=== PATIENT | female | born 1960 | race Caucasian/White ===

== ENCOUNTER 2016-06-03 11:55 | Emergency (ER) | payer OTHER ==
[~2016-06-03] VITALS: Ht 162.5 cm; Wt 99.8 kg
[~2016-06-03 11:55] MED LIST: ACETAMINOPHEN-H1 TA2 PO; ACETAZOLAMIDE250 MG PO; ACETAZOLAMIDE500 M2 PO; ADVAIR 250/501 EA INH; AKWA TEARS 15 M15 ML OPH; ALBUTEROL0.09 MG/A2 IH; BISAC-EVAC10 MG R; BREO ELLIPTA 11 EACH IH; CARDIZEM CD180 MG PO; CITALOPRAM HYDR20 MG PO; CLINDAMYCIN HC300 MG PO; DELTASONE20 M1 PO; DIAMOX500 MG PO; DIPHENHYDRAMINE25 M2 PO; DUONEB 3 MG/3 ML3 M1 INH; DUONEB 3 MG/3 ML3 M1 NEB; ELIQUIS5 M1 PO; FIORICET 325 MG1 TAB PO; FLAGYL500 MG PO; GABAPENTIN100 M1 PO; GABAPENTIN300 MG PO; HALOPERIDOL IV; HYDR12.5C PO; HYDROCODONE BIT1 T11 PO; IBUPROFEN600 MG PO; INCRUSE EL62.5 MCG/A IH; K-TAB20 MEQ PO; KLORVESS,K40 MEQ/30 PO; LASIX20 MG PO; LEVAQUIN500 M2 PO; LEVAQUIN750 M1 PO; LEVAQUIN750 MG PO; MACROBID100 M1 PO; MERREM IV1 GM IV; MIDAZOLAM HCL IV; MOTRIN IB200 M1 PO; MOTRIN800 MG PO; Magnesium Oxid400 MG PO; NATURE'S BLEND F1 MG PO; NEURONTIN300 MG PO; NICOTINE T21 MG/24 H T; NOVAPLUS SOLU-125 MG IV; ONDANSETRON H2 MG/ML IV; OXYGEN NAS; PANTOPRAZOLE SO40 MG PO; PERCOCET 325 MG1 TA2 PO; PERCOCET 325 MG1 TA7 PO; POTASSIUM CHLO20 ME3 PO; PREDNICOT20 MG PO; PREDNISONE10 MG PO; PREDNISONE50 MG PO; PROTONIX40 M1 IV; QVAR0.08 MG/AC INH; SMZ-TMP 400 MG-1 TAB PO; SPIRIVA18 MCG PO; TYLENOL650 MG R; VENTOLIN H0.09 MG/AC INH; VITAMIN D50000 I3 PO; XARE20MG PO; ZITHROMAX Z PA250 MG PO; ZOVIRAX800 MG PO
[2016-06-03 12:34] LABS: BILIRUBIN NEGATIVE (NEGATIVE); BLOOD NEGATIVE (NEGATIVE); CLARITY SL CLOUDY (CLEAR); COLOR YELLOW (YELLOW); GLUCOSE NEGATIVE (NEGATIVE); KETONE NEGATIVE (NEGATIVE); LEUKO ESTERASE NEGATIVE (NEGATIVE); NITRITE NEGATIVE (NEGATIVE); PROTEIN NEGATIVE (NEGATIVE); SPECIFIC GRAVITY 1.015 (1.005-1.030); UROBILINOGEN 0.2 E.U./dl (0.2-1.0)
[2016-06-03 12:39] LABS: URINE REFLEX COMMENT NO (NO)
[2016-06-03 12:49] LABS: BASO # 0.1 10*3/uL (0.0-0.1); BASO % 0.7 % (0.0-1.0); EOS # 0.2 10*3/uL (0.0-0.4); EOS % 2.8 % (1.0-4.0); HEMATOCRIT 38.9 % (37.0-47.0); HEMOGLOBIN 12.3 g/dl (12.0-16.0); IG # 0.1 10*3/uL (0.0-0.1); LYMPH # 1.8 10*3/uL (1.3-4.4); LYMPH % 25.7 % (27.0-41.0); MEAN CORPUSCULAR HGB 30.7 pg (27.0-31.0); MEAN CORPUSCULAR HGB CONC 31.6 g/dl (33.0-37.0); MONO # 0.7 10*3/uL (0.1-1.0); NEUT # 4.1 10*3/uL (2.3-7.9); NEUT % 59.6 % (47.0-73.0); PLATELET COUNT AUTOMATED 240 10*3/uL (130-400); RED BLOOD COUNT 4.01 10*6/uL (4.10-5.10); RED CELL DISTRI WIDTH 14.4 % (0-14.5); WHITE BLOOD COUNT 6.9 10*3/uL (4.8-10.8)
[2016-06-03 13:06] LABS: ALBUMIN 3.1 gm/dl (3.1-4.5); ALKALINE PHOSPHATASE 58 U/L (45-117); BILIRUBIN, TOTAL 0.4 mg/dl (0.2-1.0); BUN 14 mg/dl (7-24); CARBON DIOXIDE 27 mmol/L (21-32); CHLORIDE 110 mmol/L (98-107); EST GLOM FILT AFRICAN AMERICAN > 60 ml/min; GLUCOSE 86 mg/dL (65-99); POTASSIUM 3.4 mmol/L (3.5-5.1); SGOT/AST 7 IU/L (3-35); SGPT/ALT 13 U/L (12-78); SODIUM 145 mmol/L (136-145)
[2016-06-03] MEDS ORDERED: MIRALAX POWDER17 G1 PO (16:16)
== END 2016-06-03 16:34 | disposition home or self-care (01) ==
LOC: ED 11:55
PROVIDERS: Emergency Medicine
DX: R10.9 Unspecified abdominal pain (principal); F17.200 Nicotine dependence, unspecified, uncomplicated; I48.91 Unspecified atrial fibrillation; J44.9 Chronic obstructive pulmonary disease, unspecified; K21.9 Gastro-esophageal reflux disease without esophagitis; F12.10 Cannabis abuse, uncomplicated; Z88.0 Allergy status to penicillin; Z79.899 Other long term (current) drug therapy; Z90.49 Acquired absence of other specified parts of digestive tract

== ENCOUNTER 2016-07-22 14:40 | Emergency (ER) | payer OTHER ==
[~2016-07-22] VITALS: Ht 167.6 cm; Wt 106.6 kg
[~2016-07-22 14:40] MED LIST changes: +MIRALAX POWDER17 G1 PO
[2016-07-22] MEDS ORDERED: PREDNISONE5 MG PO (14:49)
[2016-07-22 15:21] LABS: BASO # 0.1 10*3/uL (0.0-0.1); BASO % 0.6 % (0.0-1.0); EOS # 0.1 10*3/uL (0.0-0.4); EOS % 1.1 % (1.0-4.0); HEMATOCRIT 41.8 % (37.0-47.0); HEMOGLOBIN 12.9 g/dl (12.0-16.0); LYMPH # 1.3 10*3/uL (1.3-4.4); LYMPH % 15.6 % (27.0-41.0); MEAN CELL VOLUME 97.4 fl (81.0-99.0); MEAN CORPUSCULAR HGB 30.1 pg (27.0-31.0); MEAN CORPUSCULAR HGB CONC 30.9 g/dl (33.0-37.0); MEAN PLATELET VOLUME 9.3 fl (9.6-12.3); MONO # 0.5 10*3/uL (0.1-1.0); MONO % 5.7 % (3.0-9.0); NEUT # 6.5 10*3/uL (2.3-7.9); NEUT % 76.6 % (47.0-73.0); PLATELET COUNT AUTOMATED 295 10*3/uL (130-400); RED BLOOD COUNT 4.29 10*6/uL (4.10-5.10); RED CELL DISTRI WIDTH 13.3 % (0-14.5); WHITE BLOOD COUNT 8.4 10*3/uL (4.8-10.8)
[2016-07-22 15:36] LABS: ALBUMIN 3.6 gm/dl (3.1-4.5); ALKALINE PHOSPHATASE 78 U/L (45-117); BILIRUBIN, TOTAL 0.2 mg/dl (0.2-1.0); BUN 16 mg/dl (7-24); CARBON DIOXIDE 28 mmol/L (21-32); CHLORIDE 110 mmol/L (98-107); EST GLOM FILT AFRICAN AMERICAN > 60 ml/min; GLUCOSE 92 mg/dL (65-99); POTASSIUM 3.7 mmol/L (3.5-5.1); SGOT/AST 13 IU/L (3-35); SGPT/ALT 25 U/L (12-78); SODIUM 145 mmol/L (136-145); TOTAL PROTEIN 7.2 gm/dL (6.4-8.2)
[2016-07-22 15:43] LABS: BILIRUBIN NEGATIVE (NEGATIVE); BLOOD NEGATIVE (NEGATIVE); CLARITY CLEAR (CLEAR); COLOR YELLOW (YELLOW); GLUCOSE NEGATIVE (NEGATIVE); KETONE NEGATIVE (NEGATIVE); LEUKO ESTERASE NEGATIVE (NEGATIVE); NITRITE NEGATIVE (NEGATIVE); PROTEIN NEGATIVE (NEGATIVE); UROBILINOGEN 0.2 E.U./dl (0.2-1.0)
[2016-07-22 16:00] LABS: RBC 0-2 rbc/hpf (0-2); URINE REFLEX COMMENT NO (NO); WBC 0-2 wbc/hpf (0-5)
[2016-07-22] MEDS ORDERED: HYDROCODONE BIT1 T11 PO (17:27)
== END 2016-07-22 17:21 | disposition home or self-care (01) ==
LOC: ED 14:40
PROVIDERS: Registered Nurse
DX: K42.9 Umbilical hernia without obstruction or gangrene (principal); F17.200 Nicotine dependence, unspecified, uncomplicated; Z90.49 Acquired absence of other specified parts of digestive tract; Z79.899 Other long term (current) drug therapy; Z88.0 Allergy status to penicillin

== ENCOUNTER 2016-11-16 11:53 | Inpatient (IN) | payer OTHER ==
[~2016-11-16] VITALS: Ht 165.1 cm; Wt 106.3 kg
--- NOTE | ~2016-11-16 | PR ---
[place], [place] PROGRESS NOTE NAME[id number] UN[facility] #: [id number] ROOM: [facility] DOCTOR: ANGELINA ERICKSON MD,JULIA BIRTHDATE: [birth year] DOS: 11/22/2016 SUBJECTIVE: The patient remains on mechanical ventilator, sedated with intravenous Diprivan. She has been attempted yesterday on CPAP mode of mechanical ventilation and did not tolerate that because of hypoxia noted as the patient switched to assist controlled mechanical ventilation. There has not been much secretion production. The patient noted from the endotracheal tube. This morning, the patient's sedation was discontinued as well. The patient was noted awake for this patient, she was switched to assist controlled mode of mechanical ventilation after about 15-20 minutes. The patient was noted with hypoxia again with pulse ox saturation of 70%. She had not been noted any symptoms of hemodynamic instability. She has been on continuing intravenous vancomycin. Culture of the bronchial washing currently noted with MRSA isolated and regular Staph aureus, which was previous noted as endotracheal aspirate. OBJECTIVE: VITAL SIGNS: Which has been recorded, the temperature remains normal, respiratory rate 16-24, heart rate 102-72, and blood pressure 111/75-96/68. The pulse oxygen saturation 35% oxygen 98% saturation, previously on the same oxygen saturation with the CPAP was noted oxygen saturation 70%. HEENT: The patient is currently intubated, orogastric tube is in place. NECK: Supple. CARDIOVASCULAR: S1, S2 audible. LUNGS: Moderate decreased breath sounds. There were no wheezing heard. There were no crackles present. ABDOMEN: Soft, obese, nontender. Bowel sounds present. EXTREMITIES: Mild edema. CENTRAL NERVOUS SYSTEM: The patient does follow some of the vocal commands with reduction of the sedation. LABORATORY DATA: The arterial blood gas that was done on assist control mode mechanical ventilation with 35% oxygen, pH of 7.36, pCO2 of 59.2, and pO2 of 80.1. The bronchial washing culture moderate growth of MRSA. The BMP on 11/22/2016, glucose 152, BUN and creatinine was normal, CO2 of 34. CBC on 11/22/2016, hemoglobin and hematocrit were normal. Platelet count normal. WBC count is normal, 95% segmented neutrophils. IMPRESSION: 1. Persistent acute hypoxic respiratory failure was noted with hypercapnia, inability to be liberated from mechanical ventilation at this time successfully. 2. Metabolic alkalosis as well. 3. Chronic obesity. 4. Generalized anxiety disorder as well. 5. MRSA tracheobronchitis as well. 6. Difficulty weaning. PLAN OF TREATMENT: The patient has been switched back to assist control mechanical ventilation and starting sedation. The sedation to be cut down gradually and the patient might need to be switched to the Haldol. Long-term acute care facility consultation to be obtained. Continue nutrition support. [place], [place] PROGRESS NOTE NAME: ANGIE VERDUZCO UNIT #: [id number] ROOM: [facility] DOCTOR: ANGELINA ERICKSON MD,JULIA BIRTHDATE: [birth year] Other supportive therapy, plan of management and care. Usual treatment. Addition of treatment changes need to be made for the patient based on progression of illness. Continuation ventilator bundle management. Continuation of the vancomycin. The Levaquin has been discontinued based on the current culture results. Continuation of anticoagulation for this patient as well with Eliquis. Total time pulmonary critical care evaluation and management was 34 minutes. JULIA ALFARO MD CM:PNJORGE ALBERTO [id number] JULIA ERICKSON MD 11/23/16 0143 interface
--- NOTE | ~2016-11-16 | PR ---
[place], [place] PROGRESS NOTE NAME: [facility] [id number] UNIT #: [id number] ROOM: [facility] DOCTOR: ANGELINA ERICKSON MD,JULIA BIRTHDATE: [birth year] DOS: 12/04/2016 SUBJECTIVE: The patient was seen and examined on 12/04/2016, remains on mechanical ventilator, sedated on assist control mode mechanical ventilation. She has not been noted any hemodynamic instability. The patient was continued on intravenous antibiotics. The temperature curve was noted intermittently elevated but overall reduction of the temperature curve was noted with a normal temperature in the last 24 hours. She has been noted with increased secretion production from the endotracheal tube, which has been aspirated by the respiratory nursing staff. Feeding was continued, which has been tolerated from the orogastric tube. OBJECTIVE: VITAL SIGNS: Recorded showed the highest temperature noted at 100.4 degree Fahrenheit, normal temperature, respiratory rate of 18-22, heart rate of 100-90, blood pressure 132/68-120/62. Intake is 1930. Positive fluid balance 430 mL was noted. The pulse oxygen saturation on 50% oxygen 99% saturation. HEENT: Head was atraumatic. Eyes, nonicterus. NECK: Supple. CARDIOVASCULAR: S1, S2 audible. LUNGS: Noted moderate decreased breath sounds with some crackles at the left lung base. There was no wheezing heard. ABDOMEN: Soft, obese. EXTREMITIES: Shows mild edema. LABORATORY DATA: CBC on 12/04/2016, WBC count 19.8, hemoglobin 8, hematocrit 25.9, platelet count 131,000 after the previous blood transfusion on the 12/02/2016. CMP of the patient that was done this morning, BUN 25, creatinine was normal, glucose 145, sodium 148, CO2 of 39. Blood culture from 11/29/2016 two sets, bacterial growth, four sets have rather showed no no bacterial growth. Culture of the tip of the multi-lumen catheter noted with Staphylococcus epidermidis isolation that were noted sensitive to vancomycin. IMPRESSION: 1. The patient was currently noted with persistent acute on chronic hypercapnic hypoxic respiratory failure. 2. Acute pneumonia Staph aureus with possible MRSA as well in the left lower lobe remains unchanged with small pleural fluid. Pleural fluid is related to current acute bacterial pneumonia. 3. Isolation Staph epidermidis. The patient is on multi-lumen catheter with moderate ___, removed. 4. Chronic obesity. 5. Chronic hypercarbia metabolic alkalosis remained stable. 6. Mild azotemia secondary to use of corticosteroids intravascular volume depletion. 7. Anemia. The patient without any active major GI bleeding that the patient was noted. PLAN OF TREATMENT: Continuation of the current antibiotics. Continue bronchodilators and use of the corticosteroids and current dose 40 mg [place], [place] PROGRESS NOTE NAME: [facility]: [id number] UNIT #: [id number] ROOM: [facility] DOCTOR: ANGELINA ERICKSON MD,JULIA BIRTHDATE: [birth year] Solu-Medrol daily. Continue Diamox once a day, resulting in improvement in metabolic alkalosis. Continue antibiotics, vancomycin. Repeat endotracheal aspirate culture and also, obtain chest x-ray to reassess the progression of the pneumonia or any addition of interval development of any new issues. Further therapy, plan of management to be changed based on progression of illness, nutrition supposed to be continued, the prealbumin level was noted today, as prealbumin level was noted at 27 this morning. Vancomycin trough level was ordered, which was pending at this time. Continuation of all other plan of management was planned for tracheostomy done tomorrow morning remains off the Eliquis and anticoagulant. While the patient on anticoagulation, a tentative most of DVT prophylaxis will be done with use of the SCDs. Other supportive therapy, plan and management and care. Additional treatment changes continue be made based on the progression of the illness. Total time pulmonary critical care evaluation today was 36 minutes. JULIA ALFARO MD CM:PNTRANS [id number] JULIA ERICKSON MD 12/05/16222 interface
--- NOTE | ~2016-11-16 | PR ---
[place], [place] PROGRESS NOTE NAME: ANGIE VERDUZCO [facility] #: [id number] UNIT #: [id number] ROOM: [facility] DOCTOR: ANGELINA ERICKSON MD,JULIA BIRTHDATE: [birth year] DOS: 12/06/2016 SUBJECTIVE: The patient remains in the Intensive Care Unit. She has a tracheostomy done yesterday successfully #8 Shiley trach, which was actually long. She has been noted awake and alert for this patient at this time. She has been given some ____ for this patient, which has been taken by the patient without any difficulty. Mechanical ventilation continued with SI motor mechanical ventilation; however, the tidal volume. The patient has been entered after the change of tracheostomy to 450 mL. This morning, the patient has been noted mild tachypnea. The temperature of the patient noted mildly elevated intermittently. Feeding was continued essentially from the nasogastric tube, which was inserted yesterday as the orogastric tube was removed from the patient when the patient tracheostomy completed. OBJECTIVE: VITAL SIGNS: For the patient which were recorded showed the temperature of 100.7 degrees Fahrenheit to normal temperature, respiratory rate of 31-21, heart rate 110-95, blood pressure 142/75 to 136/67. Intake of the patient is 3200 mL, output 2300 mL. Pulse oxygen saturation 40%, oxygen 98% saturation. HEENT: Examination shows no new change. NECK: Supple. CARDIOVASCULAR: Tracheostomy in place. CARDIOVASCULAR: S1, S2 audible. LUNGS: The patient was noted [id number] decreased breath sounds bilaterally. ABDOMEN: Soft and obese. EXTREMITIES: Shows mild edema. LABORATORY DATA: The patient's CMP this morning, glucose 204, BUN 25, creatinine were normal. CO2 of 36, albumin 1.9. CBC: WBC count 19.1, hemoglobin 7.6, hematocrit 25.2, platelet count 175,000, 89% segmented neutrophils. Chest x-ray of the patient that was done post tracheostomy for this patient, the tip of trach was noted about 3.5 cm above the óscar level because of the extra-long trach. Right lung was noted clear. The left lung was noted with a small pleural fluid with reduction previously noted pulmonary infiltration and pleural fluid combination. IMPRESSION: 1. Acute pneumonia. The patient with methicillin-resistant Staphylococcus aureus. 2. A small pleural fluid associated to that. 3. Persistent acute respiratory failure. Weaning has been done with synchronized intermittent-mandatory ventilation as mode mechanical ventilation. 4. Status post tracheostomy without complication. 5. Anemia for the patient was also noted exact etiology remains unclear. 6. Chronic obesity. Generalized anxiety disorder. PLAN OF TREATMENT: Continue feeding from the NG tube. Continue current dose of corticosteroids. Monitor leukocytosis. Blood transfusion to improve the hemoglobin and hematocrit. Weaning for the patient will be continued as [place], [place] PROGRESS NOTE NAME: [facility] [id number] UNIT #: [id number] ROOM: [facility] DOCTOR: ANGELINA ERICKSON MD,JULIA BIRTHDATE: [birth year] tolerated, tidal volume was increased to 600 mL for the patient 450 mL with SIM mode to be continued with a respiratory rate of 10. Other supportive therapy, plan and management as she progresses, usual care and supportive care treatment and plan of therapy. Initial treatment changes need to be made based on the progression of the illness. JULIA ALFARO MD CM:EDA [id number] JULIA ERICKSON MD 12/07/16 0046 interface
--- NOTE | ~2016-11-16 | PR ---
[place], [place] PROGRESS NOTE NAME: ANGIE VERDUZCO UNIT #: [id number] ROOM: [facility] DOCTOR: JANNET LOWRY DO BIRTHDATE: [birth year] DOS: 11/20/2016 SUBJECTIVE: The patient was noted to be lethargic, mumbling and crying and not really coherent. At that time, the patient was recommended to be placed on BiPAP and ABGs drawn. OBJECTIVE: VITAL SIGNS: Temperature 98.3, pulse 90, respiratory rate 20, bedside pulse ox 95 on BiPAP. Oxygen flow rate of 35. HEENT: Shows no changes. NECK: Supple. GENERAL: The patient looks lethargic and shortness of breath, with no use of accessory muscles. NEUROLOGIC: The patient seems to be drowsy. RESPIRATORY: Dyspnea at rest. Breath sounds diminished at the bases, wheezing and rhonchi noted in the posterior lung field. Nonproductive cough noted. CARDIOVASCULAR: Trace edema noted. No chest pain. S1, S2 audible. SKIN: Warm and dry. LABORATORY DATA: Blood gas, pH of 7.2, pCO2 of 78.2, pO2 of 89.3, HCO3 of 32.2. Sodium 139, BUN 28, creatinine 0.87. White cell count of 14.6, hemoglobin 13.2, platelet count 281. ASSESSMENT: 1. Acute exacerbation of chronic obstructive pulmonary disease. 2. Acute tracheobronchitis. 3. Acute respiratory failure. 4. Obstructive sleep apnea disorder. 5. Chronic metabolic acidosis. 6. Severe cough. 7. Leukocytosis, likely secondary to corticosteroid use. PLAN: 1. The patient will be transferred to ICU for close observation due to shortness of breath and lethargy. 2. The patient will be continued on DuoNebs q.4h., Mucinex q.12h., Levaquin and Solu-Medrol 60 q.12h. Supportive care. JANNET LOWRY DO [place], [place] PROGRESS NOTE NAME: ANGIE VERDUZCO UNIT #: [id number] ROOM: [facility] DOCTOR: JANNET LOWRY DO BIRTHDATE: [birth year] JULIA ALFARO MD CM:EDA [id number] JANNET LOWRY DO 11/20/16 1306 interface
--- NOTE | ~2016-11-16 | PR ---
[place], [place] PROGRESS NOTE NAME: ANGIE VERDUZCO [facility] #: [id number] UNIT #: [id number] ROOM: [facility] DOCTOR: ANGELINA ERICKSON MD,JULIA BIRTHDATE: [birth year] DOS: 11/26/2016 This is a pulmonary critical care management note for today. SUBJECTIVE: The patient was seen and examined on 11/26/2016. She has been noted on mechanical ventilator. She was started on CPAP mode of mechanical ventilation yesterday. Initial CPAP 5, pressure support of 10, later pressure support was increased to 15 cm of water. The patient was continued on the same mode of mechanical ventilation about 10-12 hours, later noted with tachypnea. The patient with elevation in carbon dioxide. She was switched to the assist control mode of mechanical ventilation. The patient continued getting intravenous Haldol for sedation purposes and also receiving the Risperdal orally. Feeding; the patient well tolerated. There were no hemodynamic instability noted. She was switched to CPAP mode of mechanical ventilation this morning. Noted with hypoxia. The patient had tachypnea, switched back to the assist controlled mode mechanical ventilation as well. She has been currently noted drowsy at this time of the assessment. She has been not noted with any acute distress. She is comfortably resting on assist control mode mechanical ventilation. OBJECTIVE: VITAL SIGNS: The patient showed low grade fever of 100.4 degree Fahrenheit rectal temperature noted, otherwise normal temperature, respiratory rate 12-15, and up to 28 for this patient previously at time of the distress. The heart rate of patient ranged between 80-107 noted at the time of the respiratory distress. Blood pressure noted 177/94 at the time of respiratory distress, currently noted 114/57. Pulse oxygen saturation 40% oxygenation was noted at 98% with assist controlled mode of mechanical ventilation. HEENT: The patient is currently intubated. Orogastric tube in place. NECK: Supple, short and obese. CARDIOVASCULAR: S1, S2 audible. LUNGS: General reduction in breath sounds without wheezing or crackles. ABDOMEN: Soft, obese, nontender. EXTREMITIES: Show no edema, clubbing or cyanosis. NEUROLOGIC: Cranial nerves; patient does follow vocal commands with reduction in sedation previously and able to move the extremities. LABORATORY DATA: BMP of the patient this morning, glucose 182, BUN 40, creatinine was normal. CO2 was 37. CBC this morning, WBC count 18.1, hemoglobin 11.8, hematocrit 37.4, platelet count of 193,000. The chest x-ray done this morning of the patient was reviewed endotracheal tube and NG tube was noted in appropriate position. The chest x-ray does not show any interval development of acute pulmonary infiltration. Arterial blood gas of the patient was done for this patient, pH of 7.22, pCO2 90, pO2 72. The patient was switched to the assist control mode, on the CPAP 5, pressure support 14 last evening. Arterial blood gas previously for the patient, pH of 7.32, pCO2 of 60, pO2 76 on 40% oxygen. IMPRESSION: 1. The patient has been noted with failure to wean progressively from [place], [place] PROGRESS NOTE [facility]: [id number] UNIT #: [id number] [facility]OM: [facility] DOCTOR: JULIA ROGERS MD BIRTHDATE: [birth year] mechanical ventilator. 2. Sedation effect with change in mental status. 3. Chronic hypercapnia, metabolic alkalosis. 4. Mild azotemia related to corticosteroids. 5. Morbid obesity. 6. Obstructive sleep apnea disorder. PLAN OF MANAGEMENT: Haldol has been completely discontinued. The ordered has been made p.r.n. If necessary, the Xanax could be given at 0.25 mg q. 8 hours p.r.n. for anxiety that has been ordered. Continue Risperdal same dose. Continue attempts of weaning patient as tolerated. Continue maximizing nutritional support. Ventilator bundle management continued as well. Usual care, other supportive therapy, plan of management and care plan. Addition of treatment changes to be made for the patient based on progression of the illness. Total time pulmonary critical care evaluation and management was 33 minutes. JULIA ALFARO MD CM:PNTRANS [phone] JULIA ERICKSON MD 11/27/16 0506 interface
--- NOTE | ~2016-11-16 | PR ---
[place], [place] PROGRESS NOTE NAME: ANGIE VERDUZCO UNIT #: [id number] ROOM: [facility] DOCTOR: JULIA ROGERS MD BIRTHDATE: [birth year] DOS: 11/28/2016 SUBJECTIVE: She has been noted to be more awake this morning, she was started on SI mode of mechanical ventilation. The patient has been tolerating the SI mode of mechanical ventilation, but noted tachypnea at times. The Haldol for the patient has been given p.r.n., the dose of the Risperdal was also decreased and it was also made p.r.n. OBJECTIVE: VITAL SIGNS: Temperature 99.8 degrees Fahrenheit, normal temperature, respiratory rate 28-20, heart rate of 94-82, blood pressure 159/86-162/82. Pulse oxygen saturation of the patient 40% oxygen 95% saturation. HEENT: Examination shows no new change. NECK: Supple. CARDIOVASCULAR: S1, S2 audible. LUNGS: The patient was noted without any wheeze or crackles at this time. ABDOMEN: Soft, obese, nontender. EXTREMITIES: Show no edema. LABORATORY DATA: The patient's CBC today: WBC count 21.8, hemoglobin 10.8, hematocrit 36.8, platelet count was normal. CMP this morning was noted with BUN 46, creatinine was normal, sodium 147, CO2 of 34. IMPRESSION: 1. The patient has been noted with current leukocytosis, which has increased from previously with a low-grade fever, etiology unclear. 2. The patient with acute respiratory failure given chronic hypercapnic for this patient, currently weaning the patient that was done on mechanical ventilator. PLAN OF MANAGEMENT: I ordered for the patient a new endotracheal aspirate for Gram stain and culture. I also obtained a chest x-ray. Other supportive therapy, plan and management will be done. Usual care, other supportive treatment plan of care. The pressure support was increased 15 cm to decrease the tachypnea. [place], [place] PROGRESS NOTE NAME: ANGIE VERDUZCO UNIT #: [id number] ROOM: [facility] DOCTOR: JULIA ROGERS MD BIRTHDATE: [birth year] JULIA ALFARO MD CM:PNTRANS [id number] JULIA ERICKSON MD 11/29/16 0027 interface
--- NOTE | ~2016-11-16 | PR ---
[place], [place] PROGRESS NOTE NAME: ANGIE VERDUZCO [facility] #: [id number] UNIT #: [id number] ROOM: [facility] DOCTOR: ANGELINA ERICKSON MD,JULIA BIRTHDATE: [birth year] DOS: 11/21/2016 SUBJECTIVE: The patient was intubated and started on mechanical ventilation. The patient was transferred from the 5th floor because of progressive changes in mental status, which is now resolving with current treatment. She was given Ativan as the patient was showing agitation yesterday. She was given 2 different trials within 4 hours ____ patient with BiPAP different setting noted effective improvement in the hypercapnia and mental status changes. She was given 2 doses of Romazicon. This has resulted with partial improvement and wakefulness temporarily. For the progressive respiratory failure with hypercapnia, the patient was intubated and started on mechanical ventilation. The patient has been sedated with intravenous Diprivan at this time. She has been noted with partial wakefulness, the patient with the reduction of sedation. She has not been noted any hemodynamic instability otherwise. Low grade temperature noted up to 100.3 degrees Fahrenheit. The respiratory rate between 11-14 on the mechanical ventilator, heart rate ranging between 87-95, blood pressure 122/85-144/77. The pulse oxygen saturation 40% oxygen assist control mode mechanical ventilation was 98% saturation this morning. PHYSICAL EXAMINATION: HEENT: Examination shows head was atraumatic. Eyes nonicteric. NECK: Supple. It was obese. Orogastric tube is in place. CARDIOVASCULAR: S1, S2 audible. LUNGS: Noted with moderate decreased breath sounds in the lungs bilaterally with scattered wheezing. ABDOMEN: Soft with chronic moderate obesity. Bowel sound present. EXTREMITIES: Shows chronic obesity. LABORATORY DATA: Arterial blood gas of the patient that was done yesterday for the patient post-intubation, mechanical ventilation, pH of 7.31, pCO2 of 66.9, pO2 of 108 on 40% oxygen. Arterial blood gases in BiPAP setting of 20/12, pH of 7.23, pCO2 81.9, pO2 of 69.7. Prior to intubation ABG this morning was 35% oxygen, pH of 7.35, pCO2 of 60.5, pO2 of 85.8. Culture of the endotracheal aspirate of the patient as well as the bronchial washing reports noted with evidence of [id number] gram-positive cocci. The first organism was identified as Staph aureus, which was noted with oxacillin sensitive. BMP this morning was noted BUN 28, creatinine was normal, glucose 135. CO2 of 34. CBC this morning, WBC count 12.8, hemoglobin 11.9, hematocrit 39.2, platelet count 250,000, 86% segmented neutrophils. The chest x-ray of the patient that was done just post-intubation for this patient was noted endotracheal tube in place. Internal jugular central venous catheter was inserted. There was no acute pulmonary infiltration. There were no findings of congestive heart failure. IMPRESSION: 1. The patient currently noted with severe acute tracheobronchitis for this patient related to Staph aureus with acute on chronic hypercapnic and hypoxic respiratory failure, acute exacerbation of chronic obstructive pulmonary disease. 2. Chronic metabolic alkalosis and hypercarbia. 3. Chronic obesity. [place], [place] PROGRESS NOTE NAME: ANGIE VERDUZCO UNIT #: [id number] ROOM: [facility] DOCTOR: ANGELINA ERICKSON MD,JULIA BIRTHDATE: [birth year] 4. Mild hyperglycemia related to the use of the Solu-Medrol. PLAN OF TREATMENT: Antibiotic adjustment for patient based on the culture results until the 2nd culture results available, the patient will continue on vancomycin and may switch to the addition of different medications for Staphylococcus aureus infection, which is MSSA. Continuation of the corticosteroids. Continuation of bronchodilator. The oxygen supplementation and bronchodilators as previously will be continued. DVT prophylaxis. Chlorhexidine rinses for this patient as well. Ventilator bundle management. Nutrition support for this patient will be given with the use of Pulmocare or similar formula. Supportive care. Monitor arterial blood gases. The patient will be assessed for the possibility of readiness for liberation from mechanical ventilation and discontinue sedation, use of the CPAP. Other supportive therapy, plan and management and care plan. Total time pulmonary critical care evaluation and management was 38 minutes. JULIA ALFARO MD CM:[id number] JULIA ERICKSON MD 11/21/162041 interface
--- NOTE | ~2016-11-16 | PR ---
[place], [place] PROGRESS NOTE NAME: ANGIE VERDUZCO [facility] #: [id number] UNIT #: [id number] ROOM: [facility] DOCTOR: ANGELINA ERICKSON MD,JULIA BIRTHDATE: [birth year] DOS: 11/25/2016 SUBJECTIVE: She has been noted gently sedated at this time, was started on Haldol yesterday. All the other sedatives has been discontinued. The patient has not been noted any hemodynamic instability. She was noted with oxygen desaturation yesterday. The patient was switched to assist control mode. The patient was placed rather to the CPAP mode of mechanical ventilation temporarily. The patient is currently getting assist controlled mode of ventilation and saturating well. The oxygen supplementation has been continued at the present time as 40% oxygen supplementation, saturation recorded 98%. The feeding going to be tolerated very well. She remains afebrile. OBJECTIVE: VITAL SIGNS: The patient showed normal temperature, respiratory rate 18-24, heart rate of 92-73, and blood pressure 118/66-127/72. Pulse oxygen saturation 40% oxygen, 98% saturation. Intake for the patient was recorded as intake of 1480 mL and output 1500 mL. HEENT: The patient remains orally intubated. Orogastric tube is in place. NECK: Short and obese, supple. CARDIOVASCULAR SYSTEM: S1, S2 audible. LUNGS: Noted with decreased breath sounds noted in the lungs bilaterally. ABDOMEN: Soft, obese, nontender. Bowel sounds are present. EXTREMITIES: The patient was noted without any edema, clubbing or cyanosis. LABORATORY DATA: Arterial blood gas that was done this morning. CMP for this morning showed BUN 37, creatinine was normal, glucose 153. Carbon dioxide 36. Arterial blood gas for the patient, pH is 7.39, pCO2 of 50, pO2 of 88, 40% oxygen assist control mode. CBC this morning, WBC count 14.3, hemoglobin 11.2, hematocrit 36.1, and platelet count 192,000. IMPRESSION: 1. Persistent acute severe hypercapnia and hypoxic respiratory failure, failure to be weaned at this time effectively. 2. Change in mental status was noted secondary to the sedation effect. The patient had time. 3. Severe acute tracheobronchitis with methicillin-resistant Staphylococcus aureus was also noted being treated with intravenous vancomycin. 4. Chronic obesity. 5. Acute exacerbation of chronic obstructive pulmonary disease as well. 6. Chronic hypercarbia metabolic alkalosis. 7. Resolved hypernatremia. PLAN OF TREATMENT: Continuation of the current dose of corticosteroids. Another trial of CPAP of 5, pressure support of 10 will be given today to reassess the readiness for liberation of mechanical ventilation continued antibiotic. Obtain a chest x-ray today shows without any interval development of pulmonary infiltration and other abnormalities. The secretion production endotracheal tube were noted small amount. Continuation ventilator bundle management. Usual care. Supportive therapy, plan of care and treatment as previously. [place], [place] PROGRESS NOTE NAME: ANGIE VERDUZCO UNIT #: [id number] ROOM: [facility] DOCTOR: JULIA ROGERS MD BIRTHDATE: [birth year] Time spent for pulmonary critical care evaluation and management of the patient was 32 minutes. JULIA ALFARO MD CM:PNJORGE ALBERTO [phone] JULIA ERICKSON MD 11/26/16 0100 interface
--- NOTE | ~2016-11-16 | PR ---
[place], [place] PROGRESS NOTE NAME: ANGIE VERDUZCO [facility] #: [id number] UNIT #: [id number] ROOM: [facility] DOCTOR: ANGELINA ERICKSON MD,JULIA BIRTHDATE: [birth year] DOS: 11/29/2016 SUBJECTIVE: She has been noted currently partially sedated. She had been given Haldol earlier. She has been continued on other previous medical management as well. She was switched from SIM mode mechanical ventilation yesterday to the assist control mechanical ventilation because of hypercarbia, difficulty breathing, and shortness of breath. OBJECTIVE: VITAL SIGNS: Recorded and showed the temperature noted normal, respiratory rate 12, heart rate 96, and blood pressure 128/75. HEENT: Shows no acute change. NECK: Supple and obese. CARDIOVASCULAR: S1, S2 audible. LUNGS: The patient was noted without any wheezing or crackles at the present time. Breaths are noted mildly decreased bilaterally. ABDOMEN: Soft and nontender. LABORATORY DATA: The arterial blood gases this morning on 50% oxygen, pH of 7.28, pCO2 of 84, pO2 of 83. BMP this morning, BUN 47, creatinine was normal, glucose 218, and sodium 147. CBC on 11/29/2016, WBC count 24.1, hemoglobin 10.3, hematocrit 33.9, and platelet count was normal. The chest x-ray that was ordered this morning, report of radiologist was pending. The right lung appeared to be clear. Mild haziness secondary to either pleural fluid or developing infiltration in the left lower lobe cannot be excluded. IMPRESSION: 1. The patient has been currently noted with leukocytosis, which gradually progressive at this time, with acute hypoxic and hypercapnic respiratory failure. 2. Low-grade fever was also noted at this time. 3. The patient with acute exacerbation of chronic obstructive pulmonary disease as well. 4. Change in mental status has been noted intermittently. PLAN OF MANAGEMENT: The patient has been ordered new blood cultures as well as the chest x-ray which was already done. Continue antibiotics. Monitor leukocytosis. Continue the use of Haldol only p.r.n. basis. Dose of Solu-Medrol will be decreased from 60 mg b.i.d. to 40 mg b.i.d. as well. ____ patient liberation from mechanical ventilation. Continuation of antibiotic IV vancomycin for MRSA tracheobronchitis. In addition, the patient will be also covered for the Gram-negative infection with the addition of ciprofloxacin. The patient is continued to be monitored closely. Supportive therapy, plan of management, other care and treatment. Usual care and other therapies. Additional treatment changes need to be done based on progression of the illness. [place], [place] PROGRESS NOTE NAME: ANGIE VERDUZCO UNIT #: [id number] ROOM: [facility] DOCTOR: JULIA ROGERS MD BIRTHDATE: [birth year] JULIA ALFARO MD CM:EDA [id number] JULIA ERICKSON MD 12/01/16 0433 interface
--- NOTE | ~2016-11-16 | PR ---
[place], [place] PROGRESS NOTE NAME: ANGIE VERDUZCO [facility] #: [id number] UNIT #: [id number] ROOM: [facility] DOCTOR: ANGELINA ERICKSON MD,JULIA BIRTHDATE: [birth year] DOS: 11/24/2016 PULMONARY FOLLOWUP SUBJECTIVE: She has been sedated at this time, continue to remains on Diprivan intravenously. She has not been noted hemodynamic instability at this time or any respiratory problem remains in the same settings mechanical ventilation without any changes. The oxygen requirement. Feeding was continued, which seemed to be well tolerated. The patient with Pulmocare. OBJECTIVE: VITAL SIGNS: For the patient which has been recorded showed the temperature noted 99.4 degree Fahrenheit to normal temperature, respiratory rate 12-13, heart rate of 89-94, blood pressure 105/76 to 117/65. Intake is 1996, 2.150 liters. Pulse oxygen saturation noted on 35% oxygen 92% saturation. HEENT: Showed no new change. Head was atraumatic. The patient remains intubated. Orogastric tube is in place. NECK: Supple. The neck was short and obese. CARDIOVASCULAR SYSTEM: S1, S2 audible. LUNGS: Generalized reduction of breath sounds progress. No wheezing, no crackles. ABDOMEN: Noted chronic moderate obesity, bowel sounds present. EXTREMITIES: Show minimal edema. LABORATORY DATA: The arterial blood gas this morning, pH of 7.33, pCO2 68, pO2 121 45% oxygen. BMP this morning showed glucose 167, BUN 32, creatinine was normal. Carbon dioxide 37. CBC: WBC count of 14.3, hemoglobin 11.3, hematocrit were normal. Platelet count was normal as well. The differential was noted as 94% segmented neutrophils. IMPRESSION: 1. The patient who has been currently noted with severe acute tracheobronchitis with methicillin-resistant Staphylococcus aureus. 2. Hypercapnic noted worsening in the last 24 hours on current mechanical ventilation. 3. Acute exacerbation of chronic obstructive pulmonary disease. 4. Difficulty weaning and extubation from mechanical ventilation. 5. The patient's leukocytosis is secondary to acute infection. 6. Azotemia, the patient noted mild, secondary to use of corticosteroids. 7. General anxiety disorder as well. PLAN OF TREATMENT: The patient has been started on Risperdal 0.5 mg b.i.d. with NG-tube. ____ others including the Versed will be completely discontinued this morning. Once the patient noted which will be started on IV Haldol. Adjustment on the mechanical ventilator, sating the patient will be done to improve the metabolic acidosis. Continuation of the oxygen supplementation the same. Other supportive therapy, plan of care. Additional treatment changes will be done based on progression of the illness. Consultation has been ordered for the long-term acute care facility placement for the long-term management and weaning. The tidal volume, the patient has been changed to 650 mL for this [place], [place] PROGRESS NOTE NAME: ANGIE VERDUZCO UNIT #: [id number] ROOM: [facility] DOCTOR: JULIA ROGERS MD BIRTHDATE: [birth year] patient at this time. Other additional treatment changes to be done based on progression of the illness. Continue maximum nutrition support. Continue ventilator bundle management. Mild edema of the extremity noted. The patient at this time would not require any intervention. All other supportive therapy, plan of management and care. Usual treatment and therapies. Total time pulmonary critical care evaluation and management was 35 minutes. JULIA ALFARO MD CM:EDA [id number] JULIA ERICKSON MD 11/25/16 0034 interface
--- NOTE | ~2016-11-16 | PR ---
[place], [place] PROGRESS NOTE NAME: [id number] UNIT #: [id number] ROOM: [facility] DOCTOR: ANGELINA ERICKSON MD,JULIA BIRTHDATE: [birth year] DOS: 12/02/2016 SUBJECTIVE: She remains on mechanical ventilator on SIMV mode mechanical ventilation, sedated with low dose of Diprivan, noted comfortable at this time. So far no decision has been made for this patient about the changes of code status or other advance directives at this time. The patient had a CT scan of the abdomen and pelvis, which was done yesterday ordered by the primary care team for assessment of some abdominal problems. The CT scan the report described as no acute problem, constipation was only noted. The patient does not have any BMP for the last few days. Repeat cultures of the endotracheal aspirate was noted with isolation of Staph aureus. OBJECTIVE: VITAL SIGNS: For the patient, which has been recorded showed the temperature noted 98.7 degree Fahrenheit to 100.2 degrees Fahrenheit, respiratory rate 19-25, pulse of 105-99, blood pressure of 102/56 to 120/71. Pulse oxygen saturation of the patient was noted as 99% saturation on 50% oxygen supplementation. HEENT: The patient remains intubated. NECK: Supple. CARDIOVASCULAR: S1, S2 is audible. LUNGS: The patient was noted without any wheezing or crackles. Breaths are noted generalized diminished bilaterally. ABDOMEN: Soft, nontender. LABORATORY DATA: Culture of the endotracheal aspirate noted heavy growth of Staph aureus, which were noted methicillin-sensitive species. The BMP today: BUN 40, creatinine was normal, CO2 of 39. CBC this morning, WBC count 25.5, hemoglobin 7.9, hematocrit 25.1, platelet count 135,000. IMPRESSION: 1. The patient noted with acute pneumonia, which was also visible ____ of CT of the thorax from yesterday from Staph aureus with penicillin allergies, currently receiving intravenous vancomycin. 2. Leukocytosis, multifactorial including use of corticosteroids and others. 3. Severe constipation. 4. Metabolic alkalosis remained stable for this patient at this time with current medical management. 5. Protein-calorie malnutrition as well. 6. Anemia. PLAN OF TREATMENT: The patient has been ordered 1 packed RBC blood transfusion by the primary team which will be given today. Await for further determination of code status and advance directives for this patient prior to proceeding with any other additional recommendations. All other supportive therapy, plan and management to be continued previously as well. Usual care, other supportive plan of therapy and care. Additional treatment changes continues to be made for the patient based on progression of illness. [place], [place] PROGRESS NOTE NAME: ANGIE VERDUZCO UNIT #: [id number] ROOM: [facility] DOCTOR: JULIA ROGERS MD BIRTHDATE: [birth year] JULIA ALFARO MD CM:EDA [id number] JULIA ERICKSON MD 12/03/16 0556 interface
--- NOTE | ~2016-11-16 | CON ---
[place], [place] REPORT OF CONSULTATION NAME: ANGIE VERDUZCO [facility] #: [id number] UNIT #: [id number] ROOM: 529 DOCTOR: JULIA ROGERS MD BIRTHDATE: [birth year] DOS: 11/17/2016 CONSULTATION REQUESTED BY: Hospitalist Services. REASON FOR CONSULTATION: Assessment of COPD. HISTORY OF PRESENT ILLNESS: The patient is a 56-year-old white female known to me with history of chronic hypercapnic respiratory failure and the COPD and other problems. The patient presented to the Emergency Room. The patient was admitted to the hospital on 11/16/2016. The patient reported symptoms of having progressive increase in the symptoms of shortness of breath, which occurred for this patient in the last few days. The symptoms started with acute cold-like symptoms and nasal drainage with significant chest congestion. The symptoms of the patient has been noted were gradual worsening. The patient denies any symptoms of chest pain with those symptoms. The coughing and chest congestion noted progressive worsening. She has been assessed in the Emergency Room and was admitted to the hospital for further medical management of acute exacerbation of obstructive lung disease. The chest x-ray does not show any acute pulmonary infiltration. REVIEW OF SYSTEMS: CONSTITUTIONAL: Fatigue and tiredness ____ fever or chills. EYES: Denies any burning, redness or tenderness. EARS, NOSE, THROAT: No sore throat, hoarseness, otalgia, postnasal drainage. CARDIOVASCULAR: Denies anginal pain, edema or pain of the lower extremities. GASTROINTESTINAL: Dysphagia, nausea, vomiting, diarrhea, abdominal pain, hematemesis, melena, or hematochezia. SKIN: Denies any lesions or rashes. GENITOURINARY: Denies dysuria, suprapubic pain or hematuria. CENTRAL NERVOUS SYSTEM: No dizziness, headache, diplopia, syncopal episodes, seizures. SKIN: No lesions or rashes. Other remaining systems were reviewed with the patient, they were noted all negative. PAST MEDICAL HISTORY: 1. Centrilobular emphysema. 2. Chronic hypercapnic respiratory failure. 3. Previously resolved acute hypoxic respiratory failure. 4. Chronic obesity. 5. Obstructive sleep apnea disorder. 6. History of herpes zoster infection. 7. Metabolic alkalosis secondary to chronic hypercarbia. 8. Chronic atrial fibrillation. 9. Past history of pneumonia. PAST SURGICAL HISTORY: 1. Intubation and mechanical ventilation. 2. Fiberoptic bronchoscopy. 3. Appendectomy. [place], [place] REPORT OF CONSULTATION [facility] [id number] UNIT #: [id number] ROOM: 529 DOCTOR: ANGELINA ERICKSON MD,JULIA BIRTHDATE: [birth year] SOCIAL HISTORY: The patient is , does not have any children. Denies illicit drug or alcohol use. Tobacco use noted, started from the age of [age] years old, 1.5 packs of cigarettes per day until 03/2015. There was no history of occupation related pulmonary exposure. FAMILY HISTORY: The patient was noted for cancer in the mother and father, heart disease, both have been . MEDICATIONS: Current administered medications were noted use of Mucinex, Cardizem-CD, folic acid, Protonix, Diamox, potassium chloride, Eliquis, IV Solu-Medrol 60 mg b.i.d., magnesium oxide, Lasix 20 mg b.i.d., albuterol sulfate 2.5 mg nebulizer every 4 hours, Dulera, DuoNeb, IV Levaquin and other p.r.n. medications. DRUG ALLERGIES: Allergy to PENICILLINS. PHYSICAL EXAMINATION: GENERAL: A 56-year-old female, currently sitting on side of bed at the time of the assessment. Height of 5 feet 5 inches, weight is 234 pounds, BMI 39. VITAL SIGNS: Shows normal temperature, respiratory rate 20, heart rate 58-79, blood pressure 130/84-110/94. Pulse oxygen saturation on 3 liters nasal cannula 97% saturation. HEENT: Showed no new change. NECK: Supple. CARDIOVASCULAR: S1, S2 audible. LUNGS: Showed decreased breath sounds and diffuse expiratory wheezing, no crackles. ABDOMEN: Soft, nontender, dtxj-lg-kvwtesgk obesity. Bowel sounds present. EXTREMITIES: No edema. CENTRAL NERVOUS SYSTEM: Cranial nerves 2-12 intact. MUSCULOSKELETAL: No deformities. LABORATORY DATA: CBC 11/16/2016 was noted as normal CBC. Lactic acid 1.0 on 11/16/2016. CMP of the patient of 11/16/2016, patient noted normal BUN and creatinine and troponin and other electrolytes including LFTs. The nasal washing antigens for influenza was noted negative. CBC, which were done today still remains normal. BMP this morning, glucose mildly elevated at 145. Remaining BMP normal. PT/PTT were noted normal today. The strep rapid antigen testing in the Emergency Room noted negative with cultures pending. The chest x-ray does not show any acute pulmonary infiltration, changes of COPD and hyperinflation were visible. IMPRESSION: 1. The patient currently admitted to the hospital with history of chronic hypoxic hypercapnic respiratory failure with acute exacerbation of chronic obstructive pulmonary disease, acute tracheobronchitis, possibility of viral or bacterial etiology remains to be determined. There was no evidence of acute pneumonia. 2. Obstructive sleep apnea disorder treated with BiPAP. [place], [place] REPORT OF CONSULTATION NAME: ANGIE VERDUZCO UNIT #: [id number] ROOM: 529 DOCTOR: ANGELINA ERICKSON MD,JULIA BIRTHDATE: [birth year] 3. Chronic obesity as well. 4. Nonproductive cough. Other previous medical illnesses, which has been noted in the past history in the consultation report. PLAN OF MANAGEMENT: Agree with use of corticosteroids at current dose as well as bronchodilators every 4 hours. Since the patient is getting DuoNeb, albuterol sulfate use will be discontinued. Use of the BiPAP from home could be continued. Continue other previous medical management. Continue the Diamox, however, the dose will be changed to 250 mg b.i.d. Other supportive therapy, plan of management care and treatment. Additional treatment changes need to be made based on progression of the illness. Usual care, other plan of therapy and management. The patient does not smoke any cigarettes, would not require any nicotine replacement therapies. Thank you for allowing me to participate in the care of this patient. JULIA ALFARO MD CM:CONSTR:REPORT OF CONSULTATION 1608 11/18/16 0903 interface
--- NOTE | ~2016-11-16 | PR ---
[place], [place] PROGRESS NOTE NAME: ANGIE VERDUZCO [facility] #: [id number] UNIT #: [id number] ROOM: [facility] DOCTOR: ANGELINA ERICKSON MD,JULIA BIRTHDATE: [birth year] DOS: 11/27/2016 PULMONARY FOLLOWUP NOTE SUBJECTIVE: She has been continued on mechanical ventilator at this time, tolerated the CPAP only a short period of time. She was noted agitated this morning, given Haldol. At the time of assessment, she was noted somewhat sedated, does not follow vocal commands appropriately. The patient has not been noted any hemodynamic instability. PHYSICAL EXAMINATION: VITAL SIGNS: The temperature essentially noted as normal. The respiratory rate recorded as 21-14, heart rate of 85-66, blood pressure 142/85-112/60. Pulse oxygen saturation on 40% oxygen was 94% saturation. HEENT: No new change. NECK: Supple. It was obese. The patient remains orally intubated, orogastric tube is in place. CARDIOVASCULAR: S1, S2 audible. LUNGS: Moderate decreased breath sounds without any wheezing or crackles at the present time. ABDOMEN: Soft, nontender, bowel sounds present. CENTRAL NERVOUS SYSTEM: The patient was noted without any gross focal deficit. LABORATORY DATA: CBC of this morning: WBC count of 18,000, hemoglobin 10.2, hematocrit 33.5, and platelet count 173,000 with 95% segmented neutrophils. CMP: BUN 41, creatinine was normal, glucose 148, sodium 138, CO2 of 37. The chest x-ray, 1 view, which was done this morning was reviewed, does not show any acute pulmonary infiltration. Endotracheal tube and other tubes were noted to be appropriately placed. IMPRESSION: 1. Persistent acute on chronic hypercapnic hypoxic respiratory failure, currently being weaned from mechanical ventilator. The patient with CPAP not noted much success at this time. 2. Chronic obesity. 3. Acute tracheobronchitis with methicillin-resistant Staphylococcus as well. 4. The patient with acute exacerbation of chronic obstructive pulmonary disease. 5. Metabolic alkalosis. 6. Obesity. PLAN OF MANAGEMENT: Continue the Haldol p.r.n. The dose of the Risperdal will be decreased to 0.5 mg b.i.d. Bronchodilator to be continued. The patient will be started on SIMV mode of mechanical ventilation for the weaning with gradual wean. The LTAC facility for this patient approval has been currently not given by the insurance. Other supportive therapy, plan and management as well to be continued. Usual care. Additional treatment changes need to be done based on progression of the illness. [place], [place] PROGRESS NOTE NAME: ANGIE VERDUZCO UNIT #: [id number] ROOM: [facility] DOCTOR: JULIA ROGERS MD BIRTHDATE: [birth year] JULIA ALFARO MD CM:EDA [id number] JULIA ERICKSON MD 11/28/16 0235 interface
--- NOTE | ~2016-11-16 | PR ---
[place], [place] PROGRESS NOTE NAME: ANGIE VERDUZCO UNIT #: [id number] ROOM: [facility] DOCTOR: ANGELINA ERICKSON MD,JULIA BIRTHDATE: [birth year] DOS: 12/08/2016 SUBJECTIVE: She has been noted awake and alert. Tracheostomy remains in place. Some secretions which were noted around the tracheostomy site. The NG tube remains in place for the feeding purposes. The patient has tolerated feeding very well. The patient has not been noted any hemodynamic instability. The weaning was continued. The patient use as mode of mechanical ventilation. The tidal volume was increased yesterday of 650 mL that resulted in reduction of the respiratory rate. OBJECTIVE: VITAL SIGNS: Normal temperature, respiratory rate 26-28, heart rate 95-94, blood pressure 155/85-117/60. The pulse oxygen saturation recorded as 98% with 50% oxygen supplementation. HEENT: Showed no new change. NECK: Supple. Tracheostomy in place. NECK: Short and obese. CARDIOVASCULAR: S1, S2 audible. LUNGS: Moderate decreased breath sounds were noted in the lungs bilaterally. ABDOMEN: Soft, nontender. LABORATORY DATA: CBC this morning, WBC count 12.5, hemoglobin 9.4, hematocrit 29.7, platelet 151,000. BMP this morning, BUN 20, creatinine was normal. CO2 of 36. IMPRESSION: 1. Acute tracheobronchitis with acute pneumonia with Staphylococcus aureus. 2. Ventilatory dependency with acute on chronic hypercapnic hypoxic respiratory failure. 3. Chronic obesity and/or debility. 4. Small left side pleural fluid related to acute bacterial pneumonia. PLAN OF MANAGEMENT: Continuation of the bronchodilators and antibiotics, which has been previously given vancomycin will be changed to a different antibiotic if the patient noted persistent and isolation of Staph aureus with antibiotic. The patient noted allergy to PENICILLINS and will be started on IV doxycycline. The secretion production has been still noted moderately intermittently from the endotracheal aspirate. Continue weaning the mode of mechanical ventilation as tolerated. Other supportive therapy, plan of management care and treatment. Usual care. Any addition of treatment changes need to be made based on the progression of illness. [place], [place] PROGRESS NOTE NAME: ANGIE VERDUZCO UNIT #: [id number] ROOM: [facility] DOCTOR: JULIA ROGERS MD BIRTHDATE: [birth year] JULIA ALFARO MD CM:PNTRANS [id number] JULIA ERICKSON MD 12/08/16 2340 interface
--- NOTE | ~2016-11-16 | PR ---
[place], [place] PROGRESS NOTE NAME: ANGIE VERDUZCO UNIT #: [id number] ROOM: 529 DOCTOR: JANNET LOWRY DO BIRTHDATE: [birth year] DOS: 11/19/2016 SUBJECTIVE: The patient was seen and evaluated today. The patient is alert, awake, oriented and responsive. No nausea, vomiting, diarrhea, lightheadedness, dizziness, or chest pain. The patient does complain of mild shortness of breath improved compared to yesterday. OBJECTIVE: VITAL SIGNS: Temperature of 98.2, pulse of 85, respiratory rate 20, blood pressure 127/73, pulse ox 97 on 2.5 liters nasal cannula. HEENT: Shows no changes. NECK: Supple. CARDIOVASCULAR: S1, S2 audible. LUNGS: Mild shortness of breath, cough and dyspnea on exertion. No rales or rhonchi. Mild scattered wheezes with expiration. EXTREMITIES: Shows no edema. SKIN: Warm and dry. LABORATORY DATA: White cell count 18.2, hemoglobin 13.3, platelet count 288, BUN 30, creatinine 1.03. INR of 1. Serology AFB testing is pending. Bronch cultures are pending. The patient had a bronchoscopy today, which showed mucus plug and tracheobronchitis. ASSESSMENT: 1. Acute exacerbation of chronic obstructive pulmonary disease. 2. Acute tracheobronchitis. 3. Obstructive sleep apnea disorder. PLAN: 1. Continue the use of corticosteroid, bronchodilator, and antibiotics. 2. Continue CPAP. 3. Usual care and plan of therapy. 4. Supportive care. JANNET LOWRY DO [place], [place] PROGRESS NOTE NAME: ANGIE VERDUZCO UNIT #: [id number] ROOM: 529 DOCTOR: JANNET LOWRY DO BIRTHDATE: [birth year] JULIA ALFARO MD CM:PNTRANS [id number] JANNET LOWRY DO 11/19/16 1331 interface
--- NOTE | ~2016-11-16 | PR ---
[place], [place] PROGRESS NOTE NAME: ANGIE VERDUZCO [facility] #: [id number] UNIT #: [id number] ROOM: [facility] DOCTOR: ANGELINA ERICKSON MD,JULIA BIRTHDATE: [birth year] DOS: 11/23/2016 SUBJECTIVE: The patient has been attempted again yesterday failed to weaning and liberation from mechanical ventilator. She has been noted significant oxygen desaturation. The patient has been sedated at this time with intravenous Diprivan. She has not been noted any hemodynamic instability, very low-grade fever was noted with rectal temperature 99.3 degrees Fahrenheit. The respiratory rate of the patient range is between 18-24. The patient has been continued on nutrition support as well. OBJECTIVE: VITAL SIGNS: For the patient which has been recorded showed the temperature noted 99.3 degrees Fahrenheit, respiratory rate 18-24, heart rate 90-91, blood pressure 114/73-142/89. Pulse oxygen saturation of the patient was noted as 96% on 35% oxygen. HEENT: Examination shows obesity with the orogastric tube is in place. Endotracheal tube in place. NECK: Supple. CARDIOVASCULAR: S1, S2 audible. LUNGS: The patient was noted without any wheezing or crackles at the present time. The breaths are noted mildly diminished bilaterally. ABDOMEN: Soft, obese, nontender. EXTREMITIES: Shows no edema. LABORATORY DATA: CBC of 11/23/2016, WBC count 14,000, hemoglobin 12.5, hematocrit 40.5, platelet count 229,000; 84% segmented neutrophils. BMP of the patient of 11/23/2016 was noted as glucose 159, BUN 27, creatinine was normal. Carbon dioxide 35. IMPRESSION: 1. The patient who has been currently treated in this hospital for acute on chronic hypercapnic hypoxic respiratory failure. 2. Small basilar area of atelectasis was noted in the left medial portion of the right lung. 3. Failed weaning for the patient with three attempts previously noted. 4. Chronic obesity. 5. Acute tracheobronchitis. 6. Metabolic alkalosis secondary to chronic hypercarbia. 7. Severe debility as well. PLAN OF TREATMENT: Continue the patient on current motor mechanical ventilation, long-term acute care facility consultation has been ordered. Continuation of the corticosteroids, bronchodilators. Continuation of vent management as well. The acute tracheobronchitis and MRSA that has been noted currently treated with intravenous vancomycin. Monitoring the trough level of vancomycin to keep the therapeutic level. Additional treatment changes need to be done based on progression of the illness. Total time for pulmonary critical care evaluation and management today was 32 minutes. [place], [place] PROGRESS NOTE NAME: ANGIE VERDUZCO UNIT #: [id number] ROOM: [facility] DOCTOR: JULIA ROGERS MD BIRTHDATE: [birth year] JULIA ALFARO MD CM:EDA [id number] JULIA ERICKSON MD 11/24/16 0428 interface
--- NOTE | ~2016-11-16 | PR ---
[place], [place] PROGRESS NOTE NAME: ANGIE VERDUZCO [facility] #: [id number] UNIT #: [id number] ROOM: [facility] DOCTOR: ANGELINA ERICKSON MD,JULIA BIRTHDATE: [birth year] DOS: 11/20/2016 SUBJECTIVE: The patient was seen today with ihjk-ri-dawp encounter. Physical examination performed. History was confirmed for all the available labs were reviewed. Assessment for the patient was personally completed with patient today visit as well. The management was also changed for this patient after my personal assessment completion for today's visit. The patient has a bronchoscopy done yesterday with large multiple plugs of the mucus were removed from the endobronchial tree bilaterally successfully. Last evening, the patient developed increased changes in mental status of the patient at about 8 o'clock. She was also noted difficulty ____ decreased responsiveness. She was started on the BiPAP this patient with a setting of 18/12. The BiPAP has been continued overnight. She was still noted with drowsiness and sleepiness. She was given Ativan for the patient because of anxiety as well, which has resulted in further changes in the mental status. The patient has been noted arousable for patient with some confusional status. Arterial blood gases of the patient were obtained this morning, which does show evidence of hypercarbia. PHYSICAL EXAMINATION: VITAL SIGNS: For the patient was reported normal temperature, respiratory rate of 16-28, heart rate of 95-89, blood pressure 154/91-142/80. Pulse oxygen saturation of the patient noted on 3 liters nasal canula previously at 93%, currently on BiPAP at 35%, 95% saturation noted. HEENT: Examination shows head was atraumatic. Eyes nonicterus. NECK: Supple. CARDIOVASCULAR: S1, S2 audible. LUNGS: The patient was noted with generalized decreased breath sounds with scattered expiratory wheezing, no crackles. ABDOMEN: Soft, nontender. EXTREMITIES: Shows chronic obesity. LABORATORY DATA: The arterial blood gases were done. The patient in the last 24 hours. The first arterial blood gas pH of 7.21, pCO2 of 79, pO2 of 88 on nasal cannula. The BiPAP for this patient 35% oxygen, setting of 18/12, pH of 7.23, pCO2 of 78, pO2 77. Third arterial blood gases of the patient were done same settings pH of 7.23, pCO2 of 78, pO2 of 83.5. 1. Full cardiac blood gases were done after my assessment for this patient on the BiPAP. The patient transferred to intensive care unit was showing pH of 7.24, pCO2 of 78, pO2 of 89 with 35% oxygen. The culture of the bronchial washing of the patient noted with light growth of gram-positive cocci, pending identification and sensitivity, Gram stain show few epithelial cells, many white blood cells and few gram-positive cocci in pairs. IMPRESSION: 1. The patient who has been noted currently acute severe tracheobronchitis this patient with findings of acute on chronic hypercapnic and hypoxic respiratory failure with exacerbation of chronic obstructive pulmonary disease. Possibility of MRSA tracheobronchitis would be considered. [place], [place] PROGRESS NOTE NAME: ANGIE VERDUZCO UNIT #: [id number] ROOM: [facility] DOCTOR: JULIA ROGERS MD BIRTHDATE: [birth year] 2. Chronic obesity as well. 3. Chronic metabolic alkalosis secondary hypercarbia as noted previously. PLAN OF TREATMENT: The patient has been transferred to the Intensive Care Unit for this patient at this time for further medical management. The BiPAP settings will be changed for this patient setting of 18/02 would be continued for additional 12 with closed monitor for any aspiration. Keep the patient n.p.o. as long as the patient in the mental status. If the patient failed to have progression or rather improvement in the respiratory status, she will be considered for intubation and mechanical ventilation after that. In the meantime, continue corticosteroids, bronchodilators, oxygen supplementation therapy, plan of management as ongoing without any other changes to be done. Levaquin to be continued until the final identification and culture for the patient bronchial washings available. Other additional changes be done based on progression of illness. The note which was done by the medical assistant internal medicine was approved as well. JULIA ALFARO MD CM:PNTRANS [phone] JULIA ERICKSON MD 11/20/161924 interface
--- NOTE | ~2016-11-16 | CON ---
[place], [place] REPORT OF CONSULTATION NAME: ANGIE VERDUZCO UNIT #: [id number] ROOM: [facility] DOCTOR: JODY FORTE MD BIRTHDATE: [birth year] DOS: 11/21/2016 CHIEF COMPLAINT: The patient was nonverbal due to heavy sedation and intubation" HISTORY OF PRESENT ILLNESS: This is a 56-year-old white female who was admitted to the ICU due to an exacerbation of COPD, failure of outpatient treatment as well as neutrophilia, leukopenia, eosinopenia, atrial fib, COPD, GERD and vitamin D and folate deficiency. I was consulted to see the patient due to excessive emotionality and anxiety and depression. Nurses report that subsequently the patient has been intubated and is heavily sedated. She is fighting the intubation; however. I was not able to interview her due to her total ____ of sedation at this point. PAST MEDICAL HISTORY: Remarkable for the above noted issues. MENTAL STATUS: Limited due to her sedation. DIAGNOSIS: Anxiety disorder, not otherwise specified. PLAN: At this point, I will start her on BuSpar 10 mg per GJ tube b.i.d., plan to increase this to t.i.d. BuSpar has been shown not only to be a non-addictive nonsedating antianxiety agent, but it does increase respiratory drive and also has some mild antidepressant properties. At this point it would be something that you can utilize that is not going to alter her mental status in a negative way. Should you require further intervention with this patient, please consult me later. JODY FORTE MD CM:CONSTR:REPORT OF CONSULTATION 1044 11/21/16 2227 interface
--- NOTE | ~2016-11-16 | PR ---
[place], [place] PROGRESS NOTE NAME: ANGIE VERDUZCO [facility] #: [id number] UNIT #: [id number] ROOM: [facility] DOCTOR: ANGELINA ERICKSON MD,JULIA BIRTHDATE: [birth year] DOS: 12/09/2016 SUBJECTIVE: She has been noted on the mechanical ventilator last night. The patient has been noted with hypoxia on the SIMV mode of mechanical ventilation, switched to the stress control mode of mechanical ventilation. This has resulted in reduction of the respiratory symptom as well as improvement in the oxygen saturation. Tracheostomy remains in place. Some secretions noted around the tracheostomy most likely it is the secretion, which has been coming out of the tracheostomy and noted around the tracheostomy. Tracheostomy area was noted as stable. She has not been noted any hemodynamic instability at this time. The patient has been currently noted on assist control mode of mechanical ventilation, volume control mechanical ventilation. The antibiotic was continued as well as previously. OBJECTIVE: VITAL SIGNS: For the patient which has been recorded showed the temperature noted as normal. The respiratory rate recorded as 18, heart rate of 104. Blood pressure of 122/75. HEENT: Unchanged. Tracheostomy remains in place. Feeding tube in the nose remains in place. CARDIOVASCULAR: S1, S2 audible. LUNGS: Noted general reduction in the breath sounds. No wheeze or crackles. ABDOMEN: Soft, nontender. LABORATORY: CBC; WBC count 11.9, hemoglobin 9.8, hematocrit 31.8, platelet count was noted at 144,000, 84% segmented neutrophils. BMP; BUN 23, creatinine was normal, carbon dioxide 33. Vancomycin trough level was noted as subtherapeutic at 3.7. IMPRESSION: 1. Acute persistent tracheobronchitis with acute pneumonia, left lower lobe. The patient with likely Staph aureus, noted persistent isolation of the MRSA. Suboptimal levels of vancomycin level was also noted. 2. Acute exacerbation of chronic obstructive pulmonary disease as well. PLAN OF TREATMENT: The patient has been currently getting IV doxycycline. Vancomycin has been discontinued previously. Continue current course of corticosteroids. Switching the patient to Zyvox. The patient will continue with excessive secretion production in response to the doxycycline in the next couple of days. Other supportive therapy, plan of management to be continued as well. Usual treatment. Additional of treatment changes need to be made for the patient based on the progression of the illness. Usual care. The patient has been currently authorized for transfer to the long-term care facility. On the pulmonary standpoint, the patient could be transferred to long-term acute care facility at this time. [place], [place] PROGRESS NOTE NAME: ANGIE VERDUZCO UNIT #: [id number] ROOM: [facility] DOCTOR: ANGELINA ERICKSON MD,JULIA BIRTHDATE: [birth year] JULIA ALFARO MD CM:EDA [phone] JULIA ERICKSON MD 12/09/16 1410 interface
--- NOTE | ~2016-11-16 | PR ---
[place], [place] PROGRESS NOTE NAME: [facility] [id number] UNIT #: [id number] ROOM: 529 DOCTOR: JANNET LOWRY DO BIRTHDATE: [birth year] DOS: 11/18/2016 SUBJECTIVE: The patient was seen and evaluated this morning with Dr. Alfaro. The patient is alert, awake and responsive. No vomiting, diarrhea, lightheadedness, dizziness, or chest pain. The patient is described having mild shortness of breath and the patient is concerned about her CPAP. The patient said she was short of breath last night and has a headache. OBJECTIVE: VITAL SIGNS: Temperature 98.2, pulse 79, respiratory rate 20, blood pressure 110/94, pulse ox 97% on 3 liters of nasal cannula. HEENT: Shows no changes. NECK: Supple. CARDIOVASCULAR: S1, S2 audible. RESPIRATORY: Mild shortness of breath, cough, diminished at the bases. EXTREMITIES: Mild expiratory wheezing. LABORATORY DATA: White cell count 18, hemoglobin 12.5, platelets 295. BUN 17, creatinine 0.85. IMPRESSION: 1. Chronic hypoxic hypercapnic respiratory failure with acute exacerbation of chronic obstructive pulmonary disease, acute tracheobronchitis, possible viral versus bacterial etiology remains to be determined, no evidence of acute pneumonia. 2. Obstructive sleep apnea, treated with BiPAP. 3. Chronic obesity. 4. Non-productive cough. Plan of management: 1. Continue the use of corticosteroids, bronchodilators, and antibiotics. 2. Plan for bronchoscopy tomorrow. 3. CPAP settings will be ordered tonight. 4. Usual care and plan of therapy. 5. Supportive treatment. JANNET LOWRY DO [place], [place] PROGRESS NOTE NAME: ANGIE VERDUZCO UNIT #: [id number] ROOM: 529 DOCTOR: JANNET LOWRY DO BIRTHDATE: [birth year] JULIA ALFARO MD CM:PNTRANS [phone] JANNET LOWRY DO 11/18/16 1359 interface
--- NOTE | ~2016-11-16 | PR ---
[place], [place] PROGRESS NOTE [id number] #: [id number] ROOM: [facility] DOCTOR: ANGELINA ERICKSON MD,JULIA BIRTHDATE: [birth year] DOS: 12/07/2016 PULMONARY FOLLOWUP SUBJECTIVE: The patient has been noted comfortable at this time with mild tachypnea was noted awake, follows vocal commands. NG tube remains in place for the feeding purposes, which has been well tolerated. She has been noted 2 large bowel movement today. Hemodynamically, the patient has been noted without any tachycardia, mild tachypnea was noted. The patient remains on SIMV mode of mechanical ventilation. OBJECTIVE: VITAL SIGNS: Normal temperature, respiratory rate 34-28, heart rate of 92-91, blood pressure 126/75-156/86. Intake is 3700 mL, output 1552 mL, pulse oxygen saturation was noted as 97% on 40% oxygen supplementation. HEENT: Examination shows head was atraumatic. Eyes nonicterus. Tracheostomy in place without any bleeding or other abnormalities noted at trach site. CARDIOVASCULAR: S1, S2 audible. LUNGS: The patient was noted with moderate reduction of the breath sounds were noted bilaterally. ABDOMEN: Soft, obese, nontender. EXTREMITIES: Show no edema. LABORATORY DATA: CBC this morning: WBC count was 14.9, hemoglobin 9.3, hematocrit 29.8, platelet count 157,000, 88% segmented neutrophil. After packed RBC blood transfusion. Stool for occult blood was noted as positive. BMP of this morning, BUN 24, creatinine was normal. CO2 35. Vancomycin trough level noted 14.3 yesterday. Repeat culture of endotracheal aspirate still noted heavy growth of Staph aureus. IMPRESSION: 1. The patient has been noted current acute Staphylococcus aureus pneumonia and acute tracheobronchitis. 2. Small pleural fluid related to acute pneumonia. 3. Tachypnea without any oxygen desaturation or other abnormalities. 4. Chronic obesity. 5. Generalized anxiety disorder. 6. The patient with anemia. The patient's stool for occult blood positive of lower GI bleeding would be considered. PLAN OF MANAGEMENT: Continuation of the ventilator under management. Continuation of intravenous Protonix. Blood transfusion was given with the appropriate improvement in hemoglobin and hematocrit. Other supportive plan of therapy and care. Usual care, other plan of treatment as well. Weaning will be continued for the patient mechanical ventilator as tolerated. Change tidal volume to level to reduce the tachypnea, decompensated for minute ventilation. Continue SIMV mode mechanical ventilation. Other supportive plan of management, continuation of current antibiotics as well. Monitoring the trough level to keep it in therapeutic level. Other supportive therapy, plan of management and care. Usual treatment, all other plan of management. [place], [place] PROGRESS NOTE NAME: [facility] [place] UNIT #: [id number] ROOM: [facility] DOCTOR: JULIA ROGERS MD BIRTHDATE: [birth year] JULIA ALFARO MD CM:PNTRANS [phone] JULIA ERICKSON MD 12/08/16 0421 interface
--- NOTE | ~2016-11-16 | PR ---
[place], [place] PROGRESS NOTE NAME: ANGIE VERDUZCO [facility] #: [id number] UNIT #: [id number] ROOM: [facility] DOCTOR: ANGELINA ERICKSON MD,JULIA BIRTHDATE: [birth year] DOS: 12/05/2016 SUBJECTIVE: The patient was seen and examined on 12/05/2016. She has been n.p.o. at this time and remains off Eliquis for the past 3 days. The patient was planned for tracheostomy to be done today by the general surgeon. She has not been noted hemodynamic instability. The temperature curve, patient was noted as normal temperature curve at this time. In the last 24 hours, she has not been noted any hemodynamic instability otherwise. She was noted partially awake this patient with lower dose sedation. She has remained on assist control mode of mechanical ventilation. OBJECTIVE: VITAL SIGNS: For the patient shows a normal temperature, respiratory rate 19-23, heart rate of 90-88, blood pressure 136/67-128/66. Pulse oxygen saturation 40% oxygen 98% saturation. HEENT: Examination shows patient remained orally intubated, orogastric tube is in place. NECK: Supple, short and obese. CARDIOVASCULAR: S1, S2 audible. LUNGS: The patient was noted with decreased breath sounds bilaterally. ABDOMEN: Soft, obese, nontender. EXTREMITIES: Shows chronic obesity. LABORATORY DATA: CBC on 12/05/2016, WBC 19.2, hemoglobin 7.3, hematocrit 23.7, platelet count 141,000, 91% segmented neutrophils. CMP of 12/05/2016, BUN 27, creatinine was normal, glucose 106. Sodium 147, CO2 of 40. Albumin 1.8. Endotracheal aspirate culture repeated yesterday, pending. Stain normal arian culture preliminary from yesterday. The chest x-ray of the patient that was done for the patient, listed were reviewed, shows small infiltration. The patient of atelectasis, pleural fluid still remains persistent left lung without changes. Endotracheal tube were noted in appropriate positions. IMPRESSION: 1. The patient with persistent acute hypoxic respiratory failure, acute pneumonia Staph aureus as MRSA. 2. Small pleural fluid associated with current pleural fluid. 3. Resolving leukocytosis. 4. Staphylococcus epidermidis isolation informed the multi-lumen catheter tip sensitive to the vancomycin. 5. Chronic obesity. 6. Acute exacerbation of chronic obstructive pulmonary disease. 7. Generalized anxiety disorder. 8. Anemia of this patient. Etiology is unclear. Rule out any GI source of bleeding. There was no obvious melena or other bleeding. The patient so far has been detected from the major body areas. 4. Chronic obesity. 5. Severe muscle deconditioning. PLAN OF TREATMENT: Proceed with the tracheostomy, blood transfusion might be needed for this patient to improve her anemia. Continue current mechanical [place], [place] PROGRESS NOTE NAME: ANGIE VERDUZCO UNIT #: [id number] ROOM: [facility] DOCTOR: ANGELINA ERICKSON MD,JULIA BIRTHDATE: [birth year] ventilation, assist control mode mechanical ventilation. Continue current antibiotics. Continue current dose of steroids and bronchodilators. Monitoring leukocytosis. Supportive therapy. PLAN AND MANAGEMENT CARE AND TREATMENT: Usual care, additional treatment changes made based on progression of the illness. Continue diuretics. Continue the Diamox for metabolic alkalosis management. Additional changes in the treatment will continue to be made based on progression of the illness. Feeding to be resumed after the tracheostomy. Total time pulmonary critical care evaluation and management was 35 minutes. JULIA ALFARO MD CM:EDA [id number] JULIA ERICKSON MD 12/05/16 1624 interface
--- NOTE | ~2016-11-16 | PR ---
[place], [place] PROGRESS NOTE NAME: [facility]CO [id number] UNIT #: [id number] ROOM: [facility] DOCTOR: ANGELINA ERICKSON MD,JULIA BIRTHDATE: [birth year] DOS: 11/30/2016 SUBJECTIVE: The patient has noted agitated behavior yesterday, trying to hit the nursing staff. She has been started on assist-control mode mechanical ventilation, low-dose sedation on Diprivan. The patient was trying to state that she would like to have the endotracheal tube removed yesterday as well, but the patient was noted partially sedated at that time. At this time, the patient continues to remain on mechanical ventilation, assist-control mechanical ventilation. She is comfortably resting with lower dose of intravenous sedation. So far, the weaning attempts which had been done were not noted successful. The patient noted ready for the liberation from mechanical ventilation. OBJECTIVE: VITAL SIGNS: Temperature noted 99.4 degrees Fahrenheit, respiratory rate 25, heart rate 104, blood pressure 148/72 this morning. Pulse oxygen saturation noted 96% on mechanical ventilation. HEENT: Showed the patient remains intubated. NECK: Supple. CARDIOVASCULAR: S1, S2 audible. LUNGS: Noted moderate decreased breath sounds bilaterally. ABDOMEN: Soft, nontender. LABORATORY DATA: The patient's CMP today, glucose 216, BUN 47, creatinine 0.47. Sodium 148. Total protein 5.3, albumin 2.3. AST 57, ALT 171. CBC this morning, WBC count 22.4, hemoglobin 9.9, hematocrit 32.3, and platelet count 194,000. The culture of the endotracheal aspiration noted with heavy growth of Gram-positive cocci; at this time, pending identification and sensitivities. IMPRESSION: 1. The patient with acute tracheobronchitis with methicillin-resistant Staphylococcus aureus with acute on chronic hypercapnic and hypoxic respiratory failure, difficulty to wean from mechanical ventilation. 2. Chronic obesity. 3. Recurrent isolation Gram-positive cocci at this time, most likely Staphylococcus aureus, which has been already treated with intravenous vancomycin. Rule out any superimposed new infection because of leukocytosis. 4. Chronic metabolic alkalosis. PLAN OF MANAGEMENT: Solu-Medrol dose will be decreased to 40 mg b.i.d. because of the improvement in wheezing. Continue antibiotics. Monitor culture results to readjust the antibiotics accordingly. ____ Committee consultation needs to be done and the patient would not be able to stop all these sedative ____ changes in the code status as needed. Also, the family will be involved for the patient's current decision making process as well to determine the patient's code status. According to the decision which will be reached by the ____ Committee of the hospital, family members, and possibly with the patient ____ certainly I will act on that accordingly. At this time, there will be no further weaning attempts done aggressively until the decision is made. [place], [place] PROGRESS NOTE NAME: ANGIE VERDUZCO UNIT #: [id number] ROOM: [facility] DOCTOR: JULIA ROGERS MD BIRTHDATE: [birth year] JULIA ALFARO MD CM:EDA [id number] JULIA ERICKSON MD 12/02/16 0807 interface
--- NOTE | ~2016-11-16 | PR ---
[place], [place] PROGRESS NOTE NAME: [id number] UN[facility] #: [id number] ROOM: [facility] DOCTOR: ANGELINA ERICKSON MD,JULIA BIRTHDATE: [birth year] DOS: 12/01/2016 SUBJECTIVE: The patient remains on mechanical ventilator, still noted some effect of sedative, however, the Haldol has been kept on hold. The patient had not received any Xanax. She was getting low dose Risperdal in the last 24 hours. She has been seen by the ethics committee but the patient was not awake and alert at this time to discuss any change in code status or other issues. OBJECTIVE: VITAL SIGNS: Shows normal temperature, respiratory rate 20, heart rate of 107-110, mild sinus tachycardia, blood pressure 124/70 to 118/79. Pulse oxygen saturation was recorded as 97% on 50% oxygen. HEENT: Examination shows no new change. NECK: Supple. CARDIOVASCULAR: S1, S2 audible. LUNGS: The patient was noted without any wheezing or crackles. Breaths are noted mildly decreased bilaterally. ABDOMEN: Soft, obese, nontender. EXTREMITIES: Shows no edema. LABORATORY DATA: CBC today for the patient was noted WBC count 13.8, hemoglobin 9.6, hematocrit 31.5, platelet count 171,000, 93% segs noted with differentials. Vancomycin trough level noted as 9.3, which is noted subtherapeutic. BMP of the patient this morning was noted as glucose 221, BUN 44, creatinine was normal, CO2 of 36, total protein 5.4, albumin 2.3, AST 61, AST of 213. As compared to the LFTs yesterday, partial improvement was noted. Chest x-ray of the patient that was done this morning was personally reviewed, at this time shows PICC line was noted in place with small area of atelectasis, infiltration in the left lower lobe. The blood culture from the of this month showed no bacterial growth. Endotracheal aspirate culture was showing heavy growth of gram-positive cocci for this patient ____ identification of the organism as the sensitivity results were pending. IMPRESSION: 1. The patient has been currently noted with acute pneumonia involving the left lower lobe with addition of atelectasis, leukocytosis. There was no diarrhea for the patient noted with suspicion of C. diff colitis and the current leukocytosis. ____ currently has a PICC line inserted in place. 2. Chronic obesity. 3. Acute exacerbation of chronic obstructive pulmonary disease. 4. Acute change in mental status. PLAN OF TREATMENT: The Risperdal has been completely discontinued at this time. Leukocytosis will be monitored. Monitor results of the endotracheal aspirate prior to making suggestion or any changes in the antibiotics. Continue to work undetermined code status. I did speak with the quality services, ____ who will be seeing the patient tomorrow as he is not currently available to see the patient. Once the final determination made for this patient about further medical management and advanced care plan, it will be acted on accordingly. In the meantime, all of the supportive plan to be continued. Usual care. Other [place], [place] PROGRESS NOTE NAME: ANGIE VERDUZCO UNIT #: [id number] ROOM: [facility] DOCTOR: JULIA ROGERS MD BIRTHDATE: [birth year] treatment as in progress. JULIA ALFARO MD CM:PNTRANS [id number] JULIA ERICKSON MD 12/02/1637 interface
--- NOTE | ~2016-11-16 | PROC NOTE ---
[place], [place] PROCEDURE NOTE NAME: ANGIE VERDUZCO [facility] #: [id number] UNIT #: [id number] ROOM: 529 DOCTOR: ANGELINA ERICKSON MD,JULIA BIRTHDATE: [birth year] DOS: 11/19/2016 PREOPERATIVE DIAGNOSES: Severe nonresolving cough with shortness of breath and wheezing. POSTOPERATIVE DIAGNOSES: Successful removal of multiple plugs of the mucus from endobronchial tree bilaterally. There were no endobronchial obstructive lesions. PROCEDURE DESCRIPTION: Informed consent obtained from the patient. She was brought to the OR and placed in supine position. Conscious sedation administered by the Anesthesia Department. After achieving appropriate sedation, airway introduced into the mouth. Bronchoscope advanced to the airway into laryngeal area. Epiglottis and vocal cords were seen. Vocal cords were moving symmetrically with movements. Bronchoscope advanced to the vocal cord and tracheal lumen. The tracheal lumen was identified which shows moderate amount of thick mucus secretion with small purulent secretions. All the secretions suctioned off with the help of normal saline wash without any difficulty. Multiple moderate to large plugs and mucus were present in endobronchial tree bilaterally subsegments. Right upper, right middle, right lower, left upper, lingular lower lobe bronchi were all examined. Mucus plug was cleared out. No endobronchial obstructive lesions were noted. Procedure was well tolerated by this patient without any difficulty. Postoperative findings were discussed. We will be discussed with the patient once the patient recovers the effects of acute sedation. JULIA ALFARO MD CM:PROCNOTE:PROCEDURE NOTE [id number] JULIA ERICKSON MD
--- NOTE | ~2016-11-16 | CON ---
[place], [place] REPORT OF CONSULTATION NAME: ANGIE VERDUZCO [facility] #: [id number] UNIT #: [id number] ROOM: [facility] DOCTOR: RAFA BARRETT ED.D (ISIDORO) BIRTHDATE: [birth year] DOS: 12/02/2016 HISTORY OF PRESENT ILLNESS: The patient is a 56-year-old female who is referred by Dr. Hernandez for competency evaluation. At the present time, this patient is in the intensive care unit at [facility]. She is and has several siblings. Otherwise, I am not certain much about her past family history. 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 Her medications at home include Ventolin, Ellipta, DuoNeb, Diamox, Lasix, Eliquis, omeprazole, potassium chloride and magnesium oxide. This patient was awake and somewhat alert. She responded appropriately at times to verbal commands. She could not really answer any questions because she is presently on ventilator. She did indicate by nodding her head that she does not want a tracheostomy, but does want to keep her ventilator running and remain intubated. She did indicate by nodding her head that she wanted her to make decisions. At the present time, she does not have a power of health care attorney for healthcare or a guardianship, so therefore I would defer to the family and next of kin to make decisions. 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 RECOMMENDATIONS: The patient is not competent to make informed healthcare decisions and all decision should be made by her healthcare surrogate or next of kin. Thank you very much for this consult. RAFA BARRETT ED.D CM:CONSTR:REPORT OF CONSULTATION 1036 12/02/16 7196 interface JULIA ERICKSON MD
--- NOTE | ~2016-11-16 | PR ---
[place], [place] PROGRESS NOTE NAME: ANGIE VERDUZCO [facility] #: [id number] UNIT #: [id number] ROOM: [facility] DOCTOR: JULIA ROGERS MD BIRTHDATE: [birth year] DOS: 12/03/2016 PULMONARY CRITICAL CARE EVALUATION AND MANAGEMENT SUBJECTIVE: The patient was seen and examined. Remains on mechanical ventilator. A decision has been made for the continued mechanical ventilation. Tracheostomy was suggested. Consultation was also ordered for General Surgery for tracheostomy. The patient was planned for possibly getting tracheostomy done on Thursday. She has been noted with rectal temperature elevation; otherwise, low-grade fever was noted intermittently. She was continued on intravenous antibiotics based on known culture results, Staph aureus. She has been noted ALLERGIES TO PENICILLIN and receiving vancomycin for the medical management of the Staphylococcus aureus. Pneumonia was also documented with CT scan, which was done of the abdomen containing the lower portion of the CT thorax in the lower lobes on the left side. The patient has been currently sedated at this time, assist-control mode mechanical ventilation. OBJECTIVE: VITAL SIGNS: Temperature noted 101 degrees Fahrenheit to 99.5 degrees Fahrenheit, respiratory rate 12 to 27, heart rate ____ 101, blood pressure 125/61 to 132/73. Pulse oxygen saturation recorded on 50% oxygen as 94% saturation. HEENT: Tracheostomy remains in place. NECK: Supple. Head was atraumatic. Orogastric tube is in place. CARDIOVASCULAR: S1, S2 audible. LUNGS: Noted moderate decreased breath sounds without any wheezing or crackles. ABDOMEN: Soft, nontender, and obese. EXTREMITIES: Show 1+ pitting edema of upper and lower extremities. LABORATORY DATA: Bronchial washing acid fast bacillus on 11/19/2016 was noted negative, pending culture results. Endotracheal aspirate ____ catheter tip was noted as no bacterial growth. CMP on 12/03/2016, BUN 32, creatinine normal, glucose 182, potassium 3.3. Albumin 2.2. CBC on 12/03/2016, WBC count 18.9, hemoglobin 7.9, hematocrit 25.2, and platelet count 120,000. IMPRESSION: 1. The patient who has been currently noted at this time ____ with acute pneumonia, Staph aureus, remains febrile intermittently. 2. Persistent acute on chronic hypoxic and hypercapnic respiratory failure. 3. Metabolic alkalosis, stable. 4. Hypokalemia was noted at this time related to diuretics. 5. Mild peripheral edema with fluid retention. 6. Persistent leukocytosis. 7. Anemia, may be related to phlebotomy or rule out gastrointestinal bleeding as well. 8. Chronic obesity. 9. Acute exacerbation of chronic obstructive pulmonary disease, which is already being treated. PLAN OF TREATMENT: Supplementation of potassium. Continuation of Diamox, which [place], [place] PROGRESS NOTE NAME: ANGIE VERDUZCO [facility] #: [id number] UNIT #: [id number] ROOM: [facility] DOCTOR: ANGELINA ERICKSON MD,JULIA BIRTHDATE: [birth year] is only once a day. Nutrition support continued to be done through the nasogastric tube. Order prealbumin level to reassess the nutritional status for this patient. Previous prealbumin level noted normal. Proceed with tracheostomy, consultation already obtained. Continue bronchodilators and corticosteroids. No change in antibiotics is necessary unless documentation of any additional new infection. Other supportive therapy, plan of management, care and treatment. Usual care, plan of management. Total time of pulmonary critical care evaluation and management for this patient is 37 minutes. JULIA ALFARO MD CM:PNTRANS [id number] JULIA ERICKSON MD 12/04/16 0519 interface
--- NOTE | ~2016-11-16 | PR ---
[place], [place] PROGRESS NOTE NAME: ANGIE VERDUZCO UNIT #: [id number] ROOM: 529 DOCTOR: JULIA ROGERS MD BIRTHDATE: [birth year] DOS: 11/19/2016 INTERVAL HISTORY: The patient was independently seen and examined with [id number] encounter. Physical examination performed as well as the history was confirmed. All the labs were personally reviewed, any decision, changes in medical management personally made for today's visit. The note done by the medical director was approved. The patient has been noted n.p.o. past midnight. Bronchoscopy to be done today, still noted significant wheezing. The patient nonproductive cough remains persistent and unchanged. She has not reported any chest pain. She used the BiPAP as ordered last night as well. PHYSICAL EXAMINATION: VITAL SIGNS: Review shows essentially stable vital signs for the patient. The pulse oxygen saturation was noted on 2.5 L nasal cannula 97% saturation. LUNGS: Noted with decreased breath sounds with expiratory wheezing. No crackles. ABDOMEN: Soft, obese, nontender. EXTREMITIES: Showed no edema. LABORATORY DATA: CBC: WBC count 18.2. Remaining CBC normal, differential noted 90% as the neutrophils. BMP today was noted as BUN 30, creatinine 1.03. CO2 was noted at 34. IMPRESSION: 1. The patient with a stable acute exacerbation of chronic obstructive pulmonary disease with acute tracheobronchitis. 2. Chronic metabolic alkalosis. The patient hypercarbia remains stable. 3. Severe cough. The patient remains with continued wheezing. 4. Leukocytosis, most likely related to the corticosteroids underlying pulmonary infection. 5. Obstructive sleep apnea disorder. PLAN OF TREATMENT: Proceed with bronchoscopy as planned for this patient today. Any decision changes in treatment if necessary will be ordered after the bronchoscopy. No other changes in the treatment otherwise will be necessary. [place], [place] PROGRESS NOTE NAME: ANGIE VERDUZCO UNIT #: [id number] ROOM: 529 DOCTOR: JULIA ROGERS MD BIRTHDATE: [birth year] JULIA ALFARO MD CM:PNTRANS [phone] JULIA ERICKSON MD 11/20/16 0346 interface
--- NOTE | ~2016-11-16 | PR ---
[place], [place] PROGRESS NOTE [id number] UN[facility] #: [id number] ROOM: 529 DOCTOR: JULIA ROGERS MD BIRTHDATE: [birth year] DOS: 11/18/2016 The patient was seen today with [id number] encounter. Physical finding was confirmed, history was confirmed, and labs were reviewed. Any changes in treatment was personally made for today's recommendation. SUBJECTIVE: The patient has been comfortably resting at this time. She was noted extremely poor since she has not used the BiPAP or CPAP from home. She did not bring her own CPAP and would like to be started. In the hospitalization, cough has been noted with intermittent sputum expectoration mostly noted nonproductive, inability to expectorate sputum, shortness of breath was still noted. Denies symptoms of chest pain. Denies symptoms of abdominal pain. OBJECTIVE: VITAL SIGNS: Which were recorded showed the temperature noted as normal, respiratory rate 20, heart rate 85, blood pressure was normal. Pulse oxygen saturation was noted on nasal cannula is 97% saturation on 3 liters. CARDIOVASCULAR: S1, S2 audible. LUNGS: Decreased breath sounds with expiratory wheezing without any crackles. ABDOMEN: Soft and nontender. EXTREMITIES: Shows chronic obesity. LABORATORY DATA: CBC of this morning: WBC count 24860, hemoglobin and hematocrit were normal. Platelet count was normal today. Cultures of the Streptococcus of the throat noted as negative. IMPRESSION: The patient has been noted at this time with ongoing acute exacerbation of chronic obstructive pulmonary disease with acute tracheobronchitis and obstructive sleep apnea disorder. PLAN OF TREATMENT: The patient will be started on the BiPAP at nighttime for the medical management of current sleep apnea disorder and also she could use it during the daytime to help relieve any respiratory distress. Bronchoscopy planned to be done in the morning for further assessment of current severe cough. Other supportive therapy, plan and management as well. Usual care. Other additional treatment changes needs to be done based on the progression of the illness. Other supportive therapy, plan of management and care. [place], [place] PROGRESS NOTE NAME: ANGIE VERDUZCO UNIT #: [id number] ROOM: 529 DOCTOR: JULIA ROGERS MD BIRTHDATE: [birth year] JULIA ALFARO MD CM:PNTRANS [id number] JULIA ERICKSON MD 11/19/16 0428 interface
[~2016-11-16 11:53] MED LIST changes: +PREDNISONE5 MG PO
[2016-11-16 11:58] VITALS: BP 148/100
[2016-11-16 12:25] LABS: BASO # 0.1 10*3/uL (0.0-0.1); BASO % 0.6 % (0.0-1.0); EOS # 0.1 10*3/uL (0.0-0.4); EOS % 0.5 % (1.0-4.0); HEMATOCRIT 44.1 % (37.0-47.0); HEMOGLOBIN 13.9 g/dl (12.0-16.0); LYMPH % 10.6 % (27.0-41.0); MEAN CELL VOLUME 96.5 fl (81.0-99.0); MEAN CORPUSCULAR HGB 30.4 pg (27.0-31.0); MEAN CORPUSCULAR HGB CONC 31.5 g/dl (33.0-37.0); MONO # 0.8 10*3/uL (0.1-1.0); MONO % 8.8 % (3.0-9.0); NEUT # 7.4 10*3/uL (2.3-7.9); NEUT % 78.9 % (47.0-73.0); PLATELET COUNT AUTOMATED 296 10*3/uL (130-400); RED BLOOD COUNT 4.57 10*6/uL (4.10-5.10); RED CELL DISTRI WIDTH 14.4 % (0-14.5); WHITE BLOOD COUNT 9.4 10*3/uL (4.8-10.8)
[2016-11-16 12:28] LABS: BILIRUBIN NEGATIVE (NEGATIVE); BLOOD NEGATIVE (NEGATIVE); CLARITY CLEAR (CLEAR); COLOR YELLOW (YELLOW); GLUCOSE NEGATIVE (NEGATIVE); KETONE NEGATIVE (NEGATIVE); LEUKO ESTERASE NEGATIVE (NEGATIVE); NITRITE NEGATIVE (NEGATIVE); SPECIFIC GRAVITY <= 1.005 (1.005-1.030); UROBILINOGEN 0.2 E.U./dl (0.2-1.0)
[2016-11-16 12:40] LABS: ALBUMIN 3.5 gm/dl (3.1-4.5); ALKALINE PHOSPHATASE 68 U/L (45-117); BUN 13 mg/dl (7-24); CHLORIDE 106 mmol/L (98-107); CREATININE 0.82 mg/dL (0.55-1.02); POTASSIUM 3.8 mmol/L (3.5-5.1); SGOT/AST 13 IU/L (3-35); SGPT/ALT 23 U/L (12-78); SODIUM 141 mmol/L (136-145); TOTAL PROTEIN 7.9 gm/dL (6.4-8.2)
[2016-11-16 12:41] LABS: TROPONIN I < 0.015 ng/ml (<0.045)
[2016-11-16 13:00] VITALS: BP 154/100
[2016-11-16 14:00] VITALS: BP 147/104
--- NOTE | 2016-11-16 14:45 | NUR ---
ATTEMPT MADE TO CALL REPORT TO 5TH FLOOR. RN WAS TOLD THAT THE FLOOR WAS UNAWARE OF THE ADMISSION AND THAT THE RECEIVING RN WOULD CALL ED FOR REPORT ENMA.
[2016-11-16] MEDS ORDERED: CARTIA XT180 MG PO (15:26)
[2016-11-16 15:30] VITALS: BP 121/71
--- NOTE | 2016-11-16 15:31 | NUR ---
Time: 1529 A 56 year old FEMALE admitted to 5E under services of SUSAN SANTANA DO. Pt. arrived via stretcher from ER. Chief complaint: SHORTNESS OF BREATH. RICHIE PENA
--- NOTE | 2016-11-16 18:05 | NUR ---
DR ALFARO NOTIFIED OF NEW CONSULT ORDER.
[2016-11-16 20:00] VITALS: BP 137/82
--- NOTE | 2016-11-16 21:40 | NUR ---
PATIENT SITTING IN BED LEANING FORWARD, RESTLESS. PATIENT STATED THAT SHE HAD BACK AND NECK PAIN 10/10 AND HARD TIME RESTING D/T BEING ANXIOUS WITH SHORTNESS OF BREATH. PATIENT WAS GIVEN CHOICE OF PAIN MEDICATION AND CHOSE NORCO, RESTORIL ALSO GIVEN AT 2140.
--- NOTE | 2016-11-16 22:15 | NUR ---
PATIENT LYING BACK ONTO THE PILLOW, STATES THE PAIN HAD EASED AND THAT THE PAIN WAS NOW 8/10.
[2016-11-17] VITALS: BP 121/73
--- NOTE | 2016-11-17 00:38 | NUR ---
PATIENT GIVEN A SECOND PILLOW FOR UNDER HER BACK EARLIER. AT PRESENT TIME PATIENT LYING ON HER LEFT SIDE, ASLEEP.
--- NOTE | 2016-11-17 02:18 | NUR ---
24 HR chart check completed.
[2016-11-17 04:00] VITALS: BP 124/72
[2016-11-17 06:23] LABS: BASO % 0.2 % (0.0-1.0); HEMOGLOBIN 13.1 g/dl (12.0-16.0); LYMPH # 0.5 10*3/uL (1.3-4.4); LYMPH % 6.2 % (27.0-41.0); MEAN CELL VOLUME 98.4 fl (81.0-99.0); MEAN CORPUSCULAR HGB 30.7 pg (27.0-31.0); MEAN CORPUSCULAR HGB CONC 31.2 g/dl (33.0-37.0); MONO # 0.2 10*3/uL (0.1-1.0); NEUT # 7.3 10*3/uL (2.3-7.9); NEUT % 89.9 % (47.0-73.0); PLATELET COUNT AUTOMATED 274 10*3/uL (130-400); RED BLOOD COUNT 4.27 10*6/uL (4.10-5.10); RED CELL DISTRI WIDTH 14.3 % (0-14.5); WHITE BLOOD COUNT 8.2 10*3/uL (4.8-10.8)
[2016-11-17 06:39] LABS: BUN 17 mg/dl (7-24); CHLORIDE 109 mmol/L (98-107); CREATININE 0.85 mg/dL (0.55-1.02); MAGNESIUM 2.5 mg/dL (1.5-2.1); PHOSPHOROUS 4.1 mg/dL (2.5-4.9); POTASSIUM 4.2 mmol/L (3.5-5.1); SODIUM 143 mmol/L (136-145)
[2016-11-17 06:45] LABS: THYROID STIM HORMONE (HS) 0.344 uIU/ml (0.358-4.75)
[2016-11-17 07:10] LABS: ACT PARTIAL THROMBO TIME 27.5 SECONDS (20.8-31.5)
[2016-11-17 08:00] VITALS: BP 110/94
--- NOTE | 2016-11-17 08:02 | NUR ---
PT RESTING IN BED, SEE SHIFT ASSESSMENT. WILL MONITOR
--- NOTE | 2016-11-17 08:30 | NUR ---
[address] Administrator in to talk to patient. Patient states lives at HOME IN A TRAILOR with HER . There are 3 steps in the home. Physician: DR HERNANDEZ Pharmacy: [facility] IN [place] Home health services: NONE Patient's level of ADLs: INDEPENDENT Patient has working utilities: YES DME: NEB/O2 AT NIGHT FROM [facility], CPAP Follow-up physician's appointment after d/c: WILL BE MADE PRIOR TO DC Does patient want to access PORTAL?: Discharge plan HOME. MARY ANN YOUNG
--- NOTE | 2016-11-17 09:34 | NUR ---
PT REQUESTED AND GIVEN NORCO FOR C/O BACK NECK PAIN . PT RATES PAIN 07/09/ WILL MONITOR
--- NOTE | 2016-11-17 10:46 | NUR ---
PT STATES THAT BRITTACO HELPED A LITTLE. WILL MONITOR
[2016-11-17 12:00] VITALS: BP 130/84
--- NOTE | 2016-11-17 12:37 | NUR ---
PT MEDICATED WITH TORADOL ORDERED FOR NECK AND BACK PAIN. WILL MONITOR
--- NOTE | 2016-11-17 13:43 | NUR ---
PT STATES THAT TORADOL HELPED A LITTLE. WILL CONTINUE TO MONITOR
--- NOTE | 2016-11-17 15:03 | NUR ---
FLUTTER GIVEN AND INSTRUCTED
[2016-11-17 16:00] VITALS: BP 123/71
--- NOTE | 2016-11-17 16:57 | NUR ---
PT REQUESTED AND GIVEN NORCO FOR C/O BACK AND NECK PAIN. PT RATES PAIN 5/10. WILL MONITOR
[2016-11-17 20:00] VITALS: BP 106/74
--- NOTE | 2016-11-17 21:40 | NUR ---
PT C/O NAUSEA. MEDICATED WITH PRN ZOFRAN IVP ORDERED. WILL CONT. TO MONITOR. PT STATES THAT MORPHINE WAS EFFECTIVE FOR PAIN RELIEF.
--- NOTE | 2016-11-17 23:00 | NUR ---
PT STATES THAT ZOFRAN HELPED SOMEWHAT WITH NAUSEA. NO VOMITING PER PT.
[2016-11-18] VITALS: BP 116/74
--- NOTE | 2016-11-18 03:00 | NUR ---
PT RESTING QUIETLY IN BED. NO S/S OF DISTRESS NOTED.
--- NOTE | 2016-11-18 04:00 | NUR ---
24 HR chart check completed.
[2016-11-18 07:10] LABS: HEMATOCRIT 41.5 % (37.0-47.0); HEMOGLOBIN 12.5 g/dl (12.0-16.0); MEAN CELL VOLUME 100.5 fl (81.0-99.0); MEAN CORPUSCULAR HGB 30.3 pg (27.0-31.0); MEAN CORPUSCULAR HGB CONC 30.1 g/dl (33.0-37.0); MEAN PLATELET VOLUME 9.3 fl (9.6-12.3); PLATELET COUNT AUTOMATED 295 10*3/uL (130-400); RED BLOOD COUNT 4.13 10*6/uL (4.10-5.10); RED CELL DISTRI WIDTH 14.2 % (0-14.5)
[2016-11-18 07:39] LABS: TOTAL CELLS COUNTED 100 #CELLS
[2016-11-18 07:40] LABS: PLATELET SUFFICIENCY NORMAL (NORMAL)
--- NOTE | 2016-11-18 07:52 | NUR ---
Shift chart check completed.
[2016-11-18 08:00] VITALS: BP 118/72
--- NOTE | 2016-11-18 08:27 | NUR ---
PT COMPLAINS OF HEADACHE 10/10 AND 8/10 NECK PAIN. NORCO GIVEN. SEE APR. WILL MONITOR FOR EFFECTIVENESS
--- NOTE | 2016-11-18 09:49 | NUR ---
notified dr. bernal that patient has already received morning dose of eliquis 5mg. he states just to make sure evening dose is held, okay to do procedure tomorrow
[2016-11-18 12:00] VITALS: BP 127/73
--- NOTE | 2016-11-18 13:24 | NUR ---
PT COMPLAINIS OF HEADACHE 12/09. NORCO GIVEN. SEE APR. WILL MONITOR FOR EFFECTIVENESS
--- NOTE | 2016-11-18 14:45 | NUR ---
PT SLEEPING. WILL CONTINUE TO MONITOR FOR EFFECTIVENESS OF PAIN MEDICAION.
--- NOTE | 2016-11-18 15:37 | NUR ---
PT COMPLAINS OF NAUSEA, ZOFRAN GIVEN. SEE MAR
[2016-11-18 16:00] VITALS: BP 136/82
[2016-11-18 20:00] VITALS: BP 122/71
[2016-11-19] VITALS (8 sets, daily range): BP systolic 120–158; BP diastolic 69–93
--- NOTE | 2016-11-19 01:45 | NUR ---
PATIENT MEDICATED WITH NORCO FOR COMPLAINTS OF A HEADACHE AND RESTORIL FOR COMPLAINTS OF INSOMNIA AT 2120 WITH EFFECTIVE RESULTS NOTED. BIPAP ON PATIENT THROUGHOUT THE NIGHT. RESTING IN BED WITH EYES CLOSED. NO SIGNS OR SYMPTOMS OF DISTRESS NOTED. WILL CONTINUE TO MONITOR. CALL LIGHT IN REACH.
--- NOTE | 2016-11-19 05:46 | NUR ---
PATIENT MEDICATED WITH MORPHINE AT 0328 FOR COMPLAINTS OF A SEVERE HEADACHE WITH EFFECTIVE RESULTS NOTED. RESTING IN BED WITH BIPAP ON AT THIS TIME WITH EYES CLOSED. NO SIGNS OR SYMPTOMS OF DISTRESS NOTED. WILL CONTINUE TO MONITOR. CALL LIGHT IN REACH.
[2016-11-19 07:37] LABS: HEMATOCRIT 43.7 % (37.0-47.0); HEMOGLOBIN 13.3 g/dl (12.0-16.0); MEAN CELL VOLUME 101.4 fl (81.0-99.0); MEAN CORPUSCULAR HGB 30.9 pg (27.0-31.0); MEAN CORPUSCULAR HGB CONC 30.4 g/dl (33.0-37.0); PLATELET COUNT AUTOMATED 288 10*3/uL (130-400); RED BLOOD COUNT 4.31 10*6/uL (4.10-5.10); RED CELL DISTRI WIDTH 14.1 % (0-14.5); WHITE BLOOD COUNT 18.2 10*3/uL (4.8-10.8)
--- NOTE | 2016-11-19 07:43 | NUR ---
PT TO SURGERY VIA BED FOR BRONCH
[2016-11-19 07:54] LABS: TOTAL CELLS COUNTED 100 #CELLS
[2016-11-19 07:55] LABS: PLATELET SUFFICIENCY NORMAL (NORMAL)
[2016-11-19 08:16] LABS: BUN 30 mg/dl (7-24); CHLORIDE 104 mmol/L (98-107); CREATININE 1.03 mg/dL (0.55-1.02); POTASSIUM 4.8 mmol/L (3.5-5.1); SODIUM 141 mmol/L (136-145)
--- NOTE | 2016-11-19 10:25 | NUR ---
PT REQUESTD AND GIVEN ZOFRAN FOR C/O NAUSEA. WILL MONITOR
--- NOTE | 2016-11-19 11:30 | NUR ---
PT STATES THAT ZOFRAN " HELPED A LITTLE" WILL MONITOR
--- NOTE | 2016-11-19 13:25 | NUR ---
IV ATIVAN GIVEN ORDERED FOR ANXIETY. WILL MONITOR
--- NOTE | 2016-11-19 14:33 | NUR ---
PT SITTING UP IN BED, WILL NOT LAY BACK. STATES THAT ATIVAN " HLPED A LITTLE ". WILL MONITOR
--- NOTE | 2016-11-19 18:06 | NUR ---
PT SITTING UP BED, APPEARS HALF ASLEEP. PT MOANING AND ROCKING, SAYING " IM SO SICK". PT OFFERED ZOFRAN AT THIS TIME./ PT DECLINED
--- NOTE | 2016-11-19 18:40 | NUR ---
PT REQUESTING BIPAP, RESP CALLED
--- NOTE | 2016-11-19 19:00 | NUR ---
SPOKE WITH DR LOZANO AND DR SCHAEFFER REGARDING PT STATUS, OF PT MOANING AND CRYING THAT "IM DYING , iM SO SICK". DRS ON FLOOR TO SEE PT VSS AT THIS TIME. NEW ORDERS RECIEVED
[2016-11-19 19:43] LABS: ABG O2 SATURATION 96.7 % (95-97); ARTERIAL BLOOD GAS PH 7.216 (7.35-7.45)
--- NOTE | 2016-11-19 19:48 | NUR ---
LAB CALLED WITH ABD PCO2 CRITICAL OF 79.[address] LOZANO AND HE SAID CALL DR. ALFARO.
--- NOTE | 2016-11-19 19:49 | NUR ---
CALLED DR. ALFARO AND NOTIFIED HIM OF PT. CRITICAL RESULTS AND AND PT. CONDITION AND ORDERS RECEIVED. CALLED RESP. TO INCREASE BIPAP AND TO DO ABG AGAIN AT 2129.
--- NOTE | 2016-11-19 20:00 | NUR ---
Pt on cont BiPap. Could not adminster Dulera
--- NOTE | 2016-11-19 20:01 | NUR ---
Pts BiPap settings changed to 18/12 on 35%. Will do a repeat gas at 930pm.
--- NOTE | 2016-11-19 21:35 | NUR ---
PT. UP TO BATHROOM. NAILBEDS CYANOTIC PT. STILL "OH MY GOSH" AND MOANING. SOB. PT. PLACED BACK ON BIPAP AT 18/12. RESP. HERE AND DRAWING BLOOD GAS. TEMP. 97.6 AXILLARY AND PULSE OX 91-92% WHEN BIPAP PLACED BACK ON.
[2016-11-19 21:53] LABS: ABG BASE EXCESS 2.3 mmol/L (-2.0-2.0); ABG HCO3 32.2 mmol/l (22-26); ABG O2 SATURATION 95.7 % (95-97); ARTERIAL BLOOD GAS PH 7.236 (7.35-7.45)
[2016-11-19 21:55] LABS: ARTERIAL BLOOD GAS PCO2 78.3 mmHg (35-45)
--- NOTE | 2016-11-19 21:58 | NUR ---
LAB CALLED CRITICAL PCO2 78.3 DR. LOZANO NOTIFIED HE WAS ON FLOOR WHEN THIS WAS CALLED AND ALSO DR. ALFARO NOTIFIED AND ORDERS RECEIVED TO CONTINUE WITH BIPAP AND GET ANOTHER BLOOD GAS IN AM.
[2016-11-20] VITALS (9 sets, daily range): BP systolic 118–164; BP diastolic 72–114
--- NOTE | 2016-11-20 00:35 | NUR ---
PT. CONTINUES TO MOAN AND CRY ABOUT BEING "SO SICK" RESTORIL GIVEN PER ORDER TO HELP HER REST. BEDSIDE COMMODE BROUGHT IN FOR PT. USE. WILL CONT.TO MONITOR.
--- NOTE | 2016-11-20 02:08 | NUR ---
PT. SITS UP AND PULLS BIPAP OFF AND PT. REASSURED AND BIPAP PUT BACK ON AND PT. LAYED HEAD BACK AND RESTING AGAIN. WILL CONT. TO MONITOR.
--- NOTE | 2016-11-20 03:43 | NUR ---
C/O HEADACHE VICODIN GIVEN FOR PAIN AND PT. STILL WANTED MORPHINE SAID HEADACHE HURT REALLY BAD. MORPHINE GIVEN PER ORDER FOR PAIN. SEE MAR.
--- NOTE | 2016-11-20 04:00 | NUR ---
SLEEPING RESP. EASIER AT 22RR.
[2016-11-20 05:43] LABS: ABG BASE EXCESS 2.9 mmol/L (-2.0-2.0); ABG HCO3 32.8 mmol/l (22-26); ABG O2 SATURATION 96.7 % (95-97); ARTERIAL BLOOD GAS PH 7.239 (7.35-7.45); ARTERIAL BLOOD GAS PO2 83.5 mmHg (80-90)
[2016-11-20 05:47] LABS: ARTERIAL BLOOD GAS PCO2 78.6 mmHg (35-45)
--- NOTE | 2016-11-20 05:55 | NUR ---
CRITICAL PCO2 CALLED BY LAB OF 78.6 AND THEN CALLED TO DR. ALFARO AND NO NEW ORDERS RECIEVED AT THIS TIME.
[2016-11-20 06:30] LABS: HEMATOCRIT 42.9 % (37.0-47.0); HEMOGLOBIN 13.2 g/dl (12.0-16.0); MEAN CELL VOLUME 101.7 fl (81.0-99.0); MEAN CORPUSCULAR HGB 31.3 pg (27.0-31.0); MEAN CORPUSCULAR HGB CONC 30.8 g/dl (33.0-37.0); MEAN PLATELET VOLUME 9.2 fl (9.6-12.3); PLATELET COUNT AUTOMATED 281 10*3/uL (130-400); RED BLOOD COUNT 4.22 10*6/uL (4.10-5.10); RED CELL DISTRI WIDTH 14.2 % (0-14.5); WHITE BLOOD COUNT 14.6 10*3/uL (4.8-10.8)
[2016-11-20 07:02] LABS: BUN 28 mg/dl (7-24); CHLORIDE 101 mmol/L (98-107); CREATININE 0.87 mg/dL (0.55-1.02); POTASSIUM 4.1 mmol/L (3.5-5.1); SODIUM 139 mmol/L (136-145)
--- NOTE | 2016-11-20 07:06 | NUR ---
CALLED [facility] AND NOTIFIED THEM DR. FORTE HAS A CONSULT AND HE USUALLY COMES IN 0730 TO 0800 AND THEY WILL LET HIM BE AWARE OF CONSULT.
[2016-11-20 07:08] LABS: PLATELET SUFFICIENCY NORMAL (NORMAL); TOTAL CELLS COUNTED 100 #CELLS
--- NOTE | 2016-11-20 08:30 | NUR ---
DETAILED MESSAGE LEFT ON DR FORTE VOICEMAIL
--- NOTE | 2016-11-20 08:50 | NUR ---
DR ALFARO HERE TO SEE PT. WANTS PT TO ICU
--- NOTE | 2016-11-20 09:33 | NUR ---
SPOKE WITH DR GONZALEZ REGARDING PT GOING TO ICU SOON BED AVAILABLE
--- NOTE | 2016-11-20 09:50 | NUR ---
RECIEVED IN ICCU FROM 5E FOR RESP DISTRESS ANGS DRAWN PT PLACED ON BIPAP PT LETHARGIC, MUMBLING AND CRYING, NOT TOTALLY COHERENT AT THIS TIME UNABLE TO SWALLOW PILLS SAFELY
--- NOTE | 2016-11-20 10:15 | NUR ---
PT TOOK TO ICU VIA BED. REPORT GIVEN TO CORBIN LÓPEZ RN. IV ATIVAN GIVEN ORDERED
[2016-11-20 10:38] LABS: ABG BASE EXCESS 2.7 mmol/L (-2.0-2.0); ABG HCO3 32.2 mmol/l (22-26); ABG O2 SATURATION 97.1 % (95-97); ARTERIAL BLOOD GAS PH 7.24 (7.35-7.45); ARTERIAL BLOOD GAS PO2 89.3 mmHg (80-90)
[2016-11-20 10:42] LABS: ARTERIAL BLOOD GAS PCO2 78.2 mmHg (35-45)
--- NOTE | 2016-11-20 10:55 | NUR ---
ALISIA CALLED TO DR ALFARO PO MEDS HELD PT IS TOO LETHARGIC
[2016-11-20 13:30] LABS: ABG BASE EXCESS 3.2 mmol/L (-2.0-2.0); ABG HCO3 33.5 mmol/l (22-26); ABG O2 SATURATION 94.3 % (95-97); ARTERIAL BLOOD GAS PH 7.232 (7.35-7.45); ARTERIAL BLOOD GAS PO2 69.7 mmHg (80-90)
[2016-11-20 13:35] LABS: ARTERIAL BLOOD GAS PCO2 81.9 mmHg (35-45)
--- NOTE | 2016-11-20 13:53 | NUR ---
DR ALFARO UPDATED ON CRITICAL ABGS ROMAZICON ORDERED X 3 DOSES DUE TO IV ATIVAN BEING GIVEN
--- NOTE | 2016-11-20 13:56 | NUR ---
ROMAZICON 0.1, 0.2, 0.3 GIVEN 5 MINUTES APART PT BECAME SLIGHTLY MORE AWAKE..."IM TRYING TO STAY AWAKE" BUT FALLS BACK ASLEEP WHEN NOT BEING STIMULATED
--- NOTE | 2016-11-20 14:00 | NUR ---
DR GONZALEZ UPDATED ON NEED FOR INTUBATION
--- NOTE | 2016-11-20 14:00 | NUR ---
UNABLE TO REACH OR SISTER, PT AWARE OF NEED FOR INTUBATION AND CENTRAL LINE AND GAVE VERBAL PERMISSION, INTUBATED WITH #8 ETT, SPUTUM COLLECTED, ORAL GT PLACED, ROBLES IN, DIPROVAN DRIP STARTED AT 20 MCG, PT TOLERATED FAIRLY WELL, NEEDING ADDITIONAL SEDATION WITH VERSED, SOFT WRIST RESTRAINTS PLACED DR MALHOTRA TO INSERT CENTRAL LINE
[2016-11-20 15:35] LABS: BILIRUBIN NEGATIVE (NEGATIVE); BLOOD NEGATIVE (NEGATIVE); CLARITY SL CLOUDY (CLEAR); COLOR YELLOW (YELLOW); GLUCOSE NEGATIVE (NEGATIVE); KETONE NEGATIVE (NEGATIVE); LEUKO ESTERASE NEGATIVE (NEGATIVE); NITRITE NEGATIVE (NEGATIVE); SPECIFIC GRAVITY >= 1.030 (1.005-1.030); UROBILINOGEN 0.2 E.U./dl (0.2-1.0)
[2016-11-20 15:41] LABS: BACTERIA 1+; RBC 0-2 rbc/hpf (0-2)
[2016-11-20 17:07] LABS: ACID FAST SMEAR Negative (.); ACID FAST SPEC PROCESSING Concentration (.)
[2016-11-20 19:43] LABS: ABG BASE EXCESS 5.3 mmol/L (-2.0-2.0); ABG HCO3 32.5 mmol/l (22-26); ABG O2 SATURATION 98.5 % (95-97); ARTERIAL BLOOD GAS PCO2 66.9 mmHg (35-45); ARTERIAL BLOOD GAS PH 7.314 (7.35-7.45)
--- NOTE | 2016-11-20 20:00 | NUR ---
TURNED AND REPOSITIONED ONTO LEFT SIDE. SUCTIONED WITH MANDEEP FOR LARGE AMOUNTS BLOODY ORAL SECRETIONS. BP 122/79. DIPRIVAN GTT INFUSING AT 40 DIEGO'S VIA RAN. CHAVA HOSE INTACT TO BILATERAL LOWER LEGS. ROBLES DRAINING CLEAR YELLOW URINE.
[2016-11-21] VITALS (12 sets, daily range): BP systolic 116–148; BP diastolic 65–93
[2016-11-21 04:54] LABS: HEMATOCRIT 39.2 % (37.0-47.0); HEMOGLOBIN 11.9 g/dl (12.0-16.0); MEAN CORPUSCULAR HGB 30.4 pg (27.0-31.0); MEAN CORPUSCULAR HGB CONC 30.4 g/dl (33.0-37.0); PLATELET COUNT AUTOMATED 250 10*3/uL (130-400); RED BLOOD COUNT 3.92 10*6/uL (4.10-5.10); WHITE BLOOD COUNT 12.8 10*3/uL (4.8-10.8)
[2016-11-21 05:12] LABS: BUN 28 mg/dl (7-24); CHLORIDE 103 mmol/L (98-107); POTASSIUM 3.8 mmol/L (3.5-5.1); SODIUM 140 mmol/L (136-145)
[2016-11-21 05:29] LABS: ATYPICAL LYMPHS 1 % (0-0); TOTAL CELLS COUNTED 100 #CELLS
[2016-11-21 05:30] LABS: PLATELET SUFFICIENCY NORMAL (NORMAL); STOMATOCYTE FEW
[2016-11-21 07:11] LABS: ABG HCO3 32.7 mmol/l (22-26); ARTERIAL BLOOD GAS PCO2 60.5 mmHg (35-45); ARTERIAL BLOOD GAS PH 7.353 (7.35-7.45); ARTERIAL BLOOD GAS PO2 85.8 mmHg (80-90)
--- NOTE | 2016-11-21 09:50 | NUR ---
HERE. SEDATION HAS BEEN STOPPED. PATIENT IS AWAKE AND FOLLOWING COMMANDS. RESPIRATORY HERE AND CHANGED TO VENTILATOR TO CPAP 5 PS 15. O2 INCREASED TO 40% O2.
--- NOTE | 2016-11-21 09:58 | NUR ---
PATIENT PLACED BACK ON VENTILATOR SETTINGS AND SEDATION RESTARTED. HEART RATE INCREASED TO 110'S. RESPIRATORY RATE 30'S. POX 90% ON 40% O2.
--- NOTE | 2016-11-21 10:05 | NUR ---
PATIENT VERY ANXIOUS. SITTING UP. POX 90% ON 40% FIO2. HEART RATE INCREASING TO 110'S. RESPIRATORY RATE 30'S. VERSED GIVEN PER PRN ORDER. WILL CONTINUE TO MONITOR.
--- NOTE | 2016-11-21 21:10 | NUR ---
MEDICATED WITH RESTORIL AND NORCO FOR S/S OF PAIN AND INSOMNIA.
[2016-11-22] VITALS (12 sets, daily range): BP systolic 96–140; BP diastolic 60–89
--- NOTE | 2016-11-22 | NUR ---
NORCO AND RESTORIL EFFECTIVE.
--- NOTE | 2016-11-22 06:00 | NUR ---
MEDICATED WITH VERSED SEVERAL TIMES THROUGHOUT SHIFT AND WAS EFFECTIVE.
[2016-11-22 06:15] LABS: ABG BASE EXCESS 6.7 mmol/L (-2.0-2.0); ABG HCO3 33.4 mmol/l (22-26); ABG O2 SATURATION 96.2 % (95-97); ARTERIAL BLOOD GAS PCO2 59.2 mmHg (35-45); ARTERIAL BLOOD GAS PH 7.368 (7.35-7.45); ARTERIAL BLOOD GAS PO2 80.1 mmHg (80-90)
[2016-11-22 08:59] LABS: HEMATOCRIT 39.4 % (37.0-47.0); HEMOGLOBIN 12.1 g/dl (12.0-16.0); MEAN CELL VOLUME 98.7 fl (81.0-99.0); MEAN CORPUSCULAR HGB 30.3 pg (27.0-31.0); MEAN CORPUSCULAR HGB CONC 30.7 g/dl (33.0-37.0); PLATELET COUNT AUTOMATED 234 10*3/uL (130-400); RED BLOOD COUNT 3.99 10*6/uL (4.10-5.10); RED CELL DISTRI WIDTH 13.6 % (0-14.5)
[2016-11-22 09:12] LABS: BUN 24 mg/dl (7-24); CHLORIDE 103 mmol/L (98-107); CREATININE 0.68 mg/dL (0.55-1.02); POTASSIUM 3.9 mmol/L (3.5-5.1); SODIUM 140 mmol/L (136-145)
[2016-11-22 09:23] LABS: TOTAL CELLS COUNTED 100 #CELLS
[2016-11-22 09:24] LABS: PLATELET SUFFICIENCY NORMAL (NORMAL)
--- NOTE | 2016-11-22 09:24 | NUR ---
cpap attempted per dr bernal, after sedation was turned off and pt fully awake and following simple commands, pt quickly desats to 83 % despite oxygen titrated to 70%, resp only 25-29, pt unable to "breath" well enough, dr bernal called pt returned to cmv mode
--- NOTE | 2016-11-22 13:13 | NUR ---
VERSED NEEDED FOR ADDITIONAL SEDATION AND IS EFFECTIVE
--- NOTE | 2016-11-22 20:00 | NUR ---
PATIENT REMAINS INTUBATED AND SEDATED. FIO2 35% POX 100%. LUNGS DIMINISHED. SUCTIONED FOR SM AMNT YELLOW SPUTUM. ABDOMEN OBESE WITH OGT FEED @ 40CC/HR. ROBLES PATENT FOR LIGHT JOAN URINE.
--- NOTE | 2016-11-22 20:51 | NUR ---
MEDICATED WITH PRN VERSED PER ORDER.
[2016-11-23] VITALS (12 sets, daily range): BP systolic 106–142; BP diastolic 45–88
--- NOTE | 2016-11-23 04:50 | NUR ---
MEDICATED WITH PRN VERSED.
[2016-11-23 05:16] LABS: HEMATOCRIT 40.5 % (37.0-47.0); HEMOGLOBIN 12.2 g/dl (12.0-16.0); MEAN CORPUSCULAR HGB 30.1 pg (27.0-31.0); MEAN CORPUSCULAR HGB CONC 30.1 g/dl (33.0-37.0); MEAN PLATELET VOLUME 9.2 fl (9.6-12.3); PLATELET COUNT AUTOMATED 229 10*3/uL (130-400); RED BLOOD COUNT 4.05 10*6/uL (4.10-5.10); RED CELL DISTRI WIDTH 13.8 % (0-14.5)
[2016-11-23 05:40] LABS: BUN 27 mg/dl (7-24); CHLORIDE 105 mmol/L (98-107); PLATELET SUFFICIENCY NORMAL (NORMAL); POTASSIUM 4.1 mmol/L (3.5-5.1); SODIUM 143 mmol/L (136-145); TOTAL CELLS COUNTED 100 #CELLS
[2016-11-23 05:49] LABS: ABG BASE EXCESS 5.4 mmol/L (-2.0-2.0); ABG HCO3 33.1 mmol/l (22-26); ABG O2 SATURATION 97.4 % (95-97); ARTERIAL BLOOD GAS PCO2 65.1 mmHg (35-45); ARTERIAL BLOOD GAS PH 7.323 (7.35-7.45); ARTERIAL BLOOD GAS PO2 90.2 mmHg (80-90)
--- NOTE | 2016-11-23 10:43 | NUR ---
PT STILL RESTLESS DESPITE VERSED,MORPHINE/ZOFRAN GIVEN FOR CONCERNS OF POSSIBLE PAIN/NAUSEA
--- NOTE | 2016-11-23 20:33 | NUR ---
PT. RESTING IN BED. ADEQUATELY SEDATED ON DIPROVAN DRIP AT 50MICS. VIA PROX PORT OF RIJ MLC. ALSO HAS HEP LOCK IN RAN, ASYMPT. LUNGS DIMINISHED BILAT, PULSE OX 97% ON 35% FIO2. ABDOMEN SOFTLY DISTENDED AND NORMO. DEPENDENT EDEMA OF UPPER EXTREMITIES AND TRACE OF BLE EDEMA, KNEE CHAVA HOSE ON BILAT. ROBLES CATHETER DRAINING A CLEAR YELLOW URINE. OGT HAS TUBE FEEDINGS AT 40CC/HR, NO RESIDUAL NOTED, TUBE PLACEMENT CONFIRMED WITH AIR BOLUS. PT. GIVEN ORAL MOUTH CARE AND SUCTIONED VIA ENDO AND ORALLY FOR SMALL AMTS OF CLEAR AND WHITE/YELLOW MUCOUS RESPECTIVELY. SOFT WRIST RESTRAINTS BILAT TO PREVENT ACCIDENTAL SELF-EXTUBATION. NO DISTRESS NOTED. KYLE LAI RN
[2016-11-24] VITALS (9 sets, daily range): BP systolic 98–129; BP diastolic 51–78
--- NOTE | 2016-11-24 04:17 | NUR ---
PT. GIVEN VERSED AT 0416 FOR COUGHING AND CHOKING AND RESTLESSNESS. KYLE LAI RN
--- NOTE | 2016-11-24 04:21 | NUR ---
VERSED EFFECTIVE, PT RESTING QUIETLY.
[2016-11-24 05:08] LABS: HEMATOCRIT 37.6 % (37.0-47.0); HEMOGLOBIN 11.3 g/dl (12.0-16.0); MEAN CORPUSCULAR HGB 30.1 pg (27.0-31.0); MEAN CORPUSCULAR HGB CONC 30.1 g/dl (33.0-37.0); MEAN PLATELET VOLUME 9.9 fl (9.6-12.3); PLATELET COUNT AUTOMATED 224 10*3/uL (130-400); RED BLOOD COUNT 3.76 10*6/uL (4.10-5.10); RED CELL DISTRI WIDTH 14.1 % (0-14.5); WHITE BLOOD COUNT 14.3 10*3/uL (4.8-10.8)
[2016-11-24 05:35] LABS: BUN 32 mg/dl (7-24); CHLORIDE 102 mmol/L (98-107); POTASSIUM 4.6 mmol/L (3.5-5.1); SODIUM 143 mmol/L (136-145)
[2016-11-24 05:51] LABS: PLATELET SUFFICIENCY NORMAL (NORMAL); TOTAL CELLS COUNTED 100 #CELLS
[2016-11-24 06:05] LABS: ABG BASE EXCESS 7.8 mmol/L (-2.0-2.0); ABG HCO3 35.3 mmol/l (22-26); ARTERIAL BLOOD GAS PCO2 68.7 mmHg (35-45); ARTERIAL BLOOD GAS PH 7.333 (7.35-7.45)
[2016-11-24 06:06] LABS: ABG O2 SATURATION 98.5 % (95-97)
--- NOTE | 2016-11-24 08:10 | NUR ---
Received order from Dr. Hernandez to refer patient to [facility]. Contacted [facility], patients insurance does not approve LTACH stays.
--- NOTE | 2016-11-24 10:51 | NUR ---
Received order for [facility]. Ashley from [facility] in building, gave referral. waiting on acceptance/precert.
--- NOTE | 2016-11-24 11:05 | NUR ---
vent changes clarified with dr bernal...no pressure of 15, pt continues off diprovan, resprate mid 20's, pt abit restless,haldol given as ordered
--- NOTE | 2016-11-24 20:12 | NUR ---
PT. RESTING QUIETYLY, WILL OCCASSIONALLY HAVE CHOKEY COUGH. DIPROVAN REMAINS OFF. RIJ MLC AND HEP LOCK IN RAN ASYMPT. LUNGS DIMINISHED BUT CLEAR BILAT, PULSE OX 93% ON 40% FIO2. ABDOMEN SOFTLY DISTENDED AND NORMO. TUBE FEEDING CONTINUE ORDERED VIA OGT, NO RESIDUAL NOTED.. TRACE BLE EDEMA, CHAVA HOSE BILAT. ROBLES DRAINING A GREEN/YELLOW URINE. NO DISTRESS. ORAL MOUTH CARE GIVEN AND PT SUCTIONED ORALLY AND VIA ENDO FOR MODERATE AMTS OF CLEAR AND YELLOW/WHITE MUCOUS RESPECTIVELY. SOFT WRIST RESTRAINTS BILAT TO PREVENT ACCIDENTAL SELF-EXTUBATION. KYLE LAI RN
[2016-11-25] VITALS (7 sets, daily range): BP systolic 105–177; BP diastolic 61–94
[2016-11-25 05:34] LABS: ABG BASE EXCESS 8.7 mmol/L (-2.0-2.0); ABG HCO3 34.8 mmol/l (22-26); ARTERIAL BLOOD GAS PCO2 58.5 mmHg (35-45); ARTERIAL BLOOD GAS PH 7.394 (7.35-7.45); ARTERIAL BLOOD GAS PO2 88.2 mmHg (80-90)
--- NOTE | 2016-11-25 08:00 | NUR ---
PATIENT REMAIN INTUBATED. POX 98% FIO2 40%. LUNGS DIMINISHED. SUCTIONED FOR SM AMNT YELLOW SPUTUM. OGT FEEDS @ 40/HR. ABDOMEN OBESE. ROBLES PATENT FOR LIGHT JOAN URINE. PRN HALDOL NEEDED NO DRIPS FOR SEDATION.
[2016-11-25 08:40] LABS: HEMATOCRIT 36.1 % (37.0-47.0); HEMOGLOBIN 11.2 g/dl (12.0-16.0); MEAN CELL VOLUME 98.6 fl (81.0-99.0); MEAN CORPUSCULAR HGB 30.6 pg (27.0-31.0); MEAN PLATELET VOLUME 9.3 fl (9.6-12.3); PLATELET COUNT AUTOMATED 192 10*3/uL (130-400); RED BLOOD COUNT 3.66 10*6/uL (4.10-5.10); RED CELL DISTRI WIDTH 14.1 % (0-14.5); WHITE BLOOD COUNT 14.2 10*3/uL (4.8-10.8)
--- NOTE | 2016-11-25 08:40 | NUR ---
DR. ALFARO HERE ROUNDING.
--- NOTE | 2016-11-25 08:50 | NUR ---
PLACED ON CPAP MODE.
[2016-11-25 08:56] LABS: ALBUMIN 2.8 gm/dl (3.1-4.5); ALKALINE PHOSPHATASE 37 U/L (45-117); BUN 37 mg/dl (7-24); CHLORIDE 105 mmol/L (98-107); CREATININE 0.72 mg/dL (0.55-1.02); SGOT/AST 10 IU/L (3-35); SGPT/ALT 29 U/L (12-78); SODIUM 143 mmol/L (136-145); TOTAL PROTEIN 5.8 gm/dL (6.4-8.2)
[2016-11-25 09:27] LABS: TOTAL CELLS COUNTED 100 #CELLS
[2016-11-25 09:28] LABS: PLATELET SUFFICIENCY NORMAL (NORMAL); STOMATOCYTE FEW
[2016-11-25 11:36] LABS: ABG BASE EXCESS 7.2 mmol/L (-2.0-2.0); ABG HCO3 35.1 mmol/l (22-26); ABG O2 SATURATION 95.1 % (95-97); ARTERIAL BLOOD GAS PCO2 68.8 mmHg (35-45); ARTERIAL BLOOD GAS PH 7.328 (7.35-7.45); ARTERIAL BLOOD GAS PO2 76.6 mmHg (80-90)
--- NOTE | 2016-11-25 11:38 | NUR ---
PATIENT HAS DONE WELL ON CPAP ABG'S DONE.
--- NOTE | 2016-11-25 11:42 | NUR ---
DR. ALFARO OFFICE CALLED TO GIVE ABG RESULTS.
--- NOTE | 2016-11-25 20:53 | NUR ---
PT. RESTING IN BED. OPENS EYES TO VERBAL STIMULI. RIJ MLC INTACT. LUNGS DIMINISHED BILAT, PULSE OX 96% ON 40% FIO2. ABDOMEN SOFTLY DISTENDED AND NORMO, OBESE. DEPENDENT EDEMA BILAT, KNEE HIGH CHAVA HOSE BILAT. ROBLES CATHETER DRAINING A YELLOW/GREEN URINE. OGT CONTINUES ORDERED, NO RESIDUAL NOTED. CURRENTLY REMAINS ON CPAP. RESP. 27-30, B/P 177/94, HR 100'S. TOLERATING POORLY. KYLE LAI RN
[2016-11-25 21:38] LABS: ABG BASE EXCESS 6.5 mmol/L (-2.0-2.0); ABG HCO3 37.2 mmol/l (22-26); ABG O2 SATURATION 93.2 % (95-97); ARTERIAL BLOOD GAS PH 7.225 (7.35-7.45); ARTERIAL BLOOD GAS PO2 72.1 mmHg (80-90)
[2016-11-25 21:42] LABS: ARTERIAL BLOOD GAS PCO2 93.1 mmHg (35-45)
--- NOTE | 2016-11-25 21:43 | NUR ---
PT'S PULSE OX 90% ON CPAP, AGONAL BREATHING OVER VENT. HR LOW 100'S, B/P 177/94. ABG'S DRAWN AND PT PLACED BACK ON VENTILATOR CMV MODE. AWAITING ABG RESULTS TO CALL DR. ALFARO. KYLE LAI RN
--- NOTE | 2016-11-25 22:02 | NUR ---
DR. ALFARO NOTIFIED OF PT'S DECLINE ON BIPAP, ORDERS RECEIVED. KYLE LAI RN
--- NOTE | 2016-11-25 22:35 | NUR ---
PT. RESTING MUCH EASIER, HR 80-90'S, RESP 15, NO LONGER USING INTERCOSTAL MUSCLES TO BREATH. KYLE LAIRN
[2016-11-26 04:00] VITALS: BP 114/57
[2016-11-26 04:58] LABS: HEMATOCRIT 37.4 % (37.0-47.0); HEMOGLOBIN 11.3 g/dl (12.0-16.0); MEAN CORPUSCULAR HGB 30.2 pg (27.0-31.0); MEAN CORPUSCULAR HGB CONC 30.2 g/dl (33.0-37.0); MEAN PLATELET VOLUME 9.7 fl (9.6-12.3); PLATELET COUNT AUTOMATED 193 10*3/uL (130-400); RED BLOOD COUNT 3.74 10*6/uL (4.10-5.10); WHITE BLOOD COUNT 18.1 10*3/uL (4.8-10.8)
[2016-11-26 05:22] LABS: PLATELET SUFFICIENCY NORMAL (NORMAL); TOTAL CELLS COUNTED 100 #CELLS
[2016-11-26 05:26] LABS: BUN 40 mg/dl (7-24); CHLORIDE 101 mmol/L (98-107); CREATININE 0.68 mg/dL (0.55-1.02); POTASSIUM 4.2 mmol/L (3.5-5.1); SODIUM 143 mmol/L (136-145)
--- NOTE | 2016-11-26 07:55 | NUR ---
24 HR chart check completed.
[2016-11-26 08:00] VITALS: BP 125/64
[2016-11-26 12:00] VITALS: BP 123/70
[2016-11-26 16:00] VITALS: BP 122/70
--- NOTE | 2016-11-26 19:30 | NUR ---
PATIENT REMAINS ON VENT, NO SEDATION. PATIENT DOES OPEN EYES, ANSWERES YES OR NO WITH NODS. PATIENT IS USING HANDS TO CHANGE CHANNELS ON TV. PATIENT IS IN VIEW OF STAFF, WILL CONTINUE TO MONITOR.
[2016-11-26 19:59] VITALS: BP 129/76
--- NOTE | 2016-11-26 21:44 | NUR ---
PATIENT POINTING TO HER STOMACH, ASKED IF SHE FELT SICK/NAUSEATED. SHE SHOOK HEAD YES. ZOFRAN GIVEN, WILL REASSESS.
--- NOTE | 2016-11-26 23:00 | NUR ---
ZOFRAN EFFECTIVE FOR NAUSEA.
[2016-11-27] VITALS: BP 120/64
--- NOTE | 2016-11-27 03:00 | NUR ---
PATIENT RESTING ON VENT WITH NO SIGNS OF DISTRESS. PATIENT MOVING SELF FROM SIDE TO SIDE. WILL CONTINUE TO MONITOR.
[2016-11-27 04:00] VITALS: BP 112/60
[2016-11-27 04:46] LABS: HEMATOCRIT 33.5 % (37.0-47.0); HEMOGLOBIN 10.2 g/dl (12.0-16.0); MEAN CELL VOLUME 99.4 fl (81.0-99.0); MEAN CORPUSCULAR HGB 30.3 pg (27.0-31.0); MEAN CORPUSCULAR HGB CONC 30.4 g/dl (33.0-37.0); MEAN PLATELET VOLUME 9.7 fl (9.6-12.3); PLATELET COUNT AUTOMATED 173 10*3/uL (130-400); RED BLOOD COUNT 3.37 10*6/uL (4.10-5.10); RED CELL DISTRI WIDTH 13.8 % (0-14.5)
[2016-11-27 05:10] LABS: PLATELET SUFFICIENCY NORMAL (NORMAL); TOTAL CELLS COUNTED 100 #CELLS
[2016-11-27 05:15] LABS: ALBUMIN 2.5 gm/dl (3.1-4.5); ALKALINE PHOSPHATASE 30 U/L (45-117); BUN 41 mg/dl (7-24); CHLORIDE 107 mmol/L (98-107); CREATININE 0.58 mg/dL (0.55-1.02); POTASSIUM 4.1 mmol/L (3.5-5.1); SGOT/AST 8 IU/L (3-35); SGPT/ALT 25 U/L (12-78); SODIUM 148 mmol/L (136-145); TOTAL PROTEIN 5.1 gm/dL (6.4-8.2)
--- NOTE | 2016-11-27 05:25 | NUR ---
PATIENT AWOKE TRYING TO GET OUT OF BED, PULLING ARMS AWAY, WOULD NOT ALLOW ABG'S TO BE DONE. HALDOL WAS GIVEN, WILL MONITOR AND REASSESS.
--- NOTE | 2016-11-27 05:37 | NUR ---
BLOOD GAS ATTEMPTED, PT. COMBATIVE, UNABLE TO TRY.
[2016-11-27 08:00] VITALS: BP 143/85
--- NOTE | 2016-11-27 08:47 | NUR ---
MEDICATED PT PER PRN ORDER WITH XANAX FOR PT'S ANXIETY.
--- NOTE | 2016-11-27 09:30 | NUR ---
DR ALFARO IN TO SEE PT. DR BRANTLEY IN TO SEE PT EARLIER.
--- NOTE | 2016-11-27 09:30 | NUR ---
EARLIER XANAX SOMEWHAT EFFECTIVE.
--- NOTE | 2016-11-27 09:38 | NUR ---
PT PLACED TO CPAP 5 PS 10 BY RESP. THERAPY.
--- NOTE | 2016-11-27 10:35 | NUR ---
PT PLACED BACK TO PREVIOUS CMV SETTINGS. PT'S HR 98. POX 91%. RESP RATE 33. PT NODS HEAD WHEN ASKED IF SHE IS TIRED. DR ALFARO PREVIOUSLY UPDATED ON PT'S CONDITION PRIOR TO CHANGING PT BACK TO PREVIOUS CMV SETTINGS.
--- NOTE | 2016-11-27 10:58 | NUR ---
PT RESTLESS AND AGITATED. HALDOL GIVEN TO PT PER PRN ORDER.
--- NOTE | 2016-11-27 11:25 | NUR ---
PT WANTS OUT OF BED. PT UP TO CHAIR WITH 2 ASSIST. PT CALMER WHILE IN CHAIR. EARLIER HALDOL EFFECTIVE.
[2016-11-27 12:00] VITALS: BP 150/81
--- NOTE | 2016-11-27 12:57 | NUR ---
PT REMAINS SITTING IN THE CHAIR, TOLERATING IT WELL.
--- NOTE | 2016-11-27 13:39 | NUR ---
PT BACK TO BED WITH 2 ASSIST. PT TOELRATING SITTING IN THE CHAIR WELL.
--- NOTE | 2016-11-27 15:59 | NUR ---
SPOKE WITH DR ALFARO R/T PT. VENT CHANGES ORDERED.
[2016-11-27 16:00] VITALS: BP 126/83
[2016-11-27 20:00] VITALS: BP 160/90
--- NOTE | 2016-11-27 20:20 | NUR ---
PT REFUSED VENT SETTINGS CHANGE TO CPAP. PT WANTS MEDICATION FOR SEDATION. HALDOL GIVEN PER ORDER.
--- NOTE | 2016-11-27 21:03 | NUR ---
PT RESTING. EARLIER HALDOL EFFECTIVE.
[2016-11-28] VITALS: BP 162/82
[2016-11-28 04:01] VITALS: BP 159/86
[2016-11-28 05:36] LABS: BUN 46 mg/dl (7-24); CHLORIDE 105 mmol/L (98-107); CREATININE 0.62 mg/dL (0.55-1.02); POTASSIUM 4.5 mmol/L (3.5-5.1); SODIUM 147 mmol/L (136-145)
[2016-11-28 05:58] LABS: HEMOGLOBIN 10.8 g/dl (12.0-16.0); MEAN CELL VOLUME 101.4 fl (81.0-99.0); MEAN CORPUSCULAR HGB 30.4 pg (27.0-31.0); PLATELET COUNT AUTOMATED 176 10*3/uL (130-400); RED BLOOD COUNT 3.55 10*6/uL (4.10-5.10); RED CELL DISTRI WIDTH 14.1 % (0-14.5); WHITE BLOOD COUNT 21.8 10*3/uL (4.8-10.8)
[2016-11-28 07:18] LABS: PLATELET SUFFICIENCY NORMAL (NORMAL); TOTAL CELLS COUNTED 100 #CELLS
--- NOTE | 2016-11-28 07:24 | NUR ---
Insurance denied LTACH stay for this patient.
[2016-11-28 08:00] VITALS: BP 141/65
--- NOTE | 2016-11-28 09:36 | NUR ---
XANAX/HALDOL FOR AGITATION, PT SITTING UP, HAS A "WILD" LOOK TO HER EYES APPEARS FEARFUL
[2016-11-28 12:00] VITALS: BP 154/73
[2016-11-28 16:00] VITALS: BP 157/80
--- NOTE | 2016-11-28 17:21 | NUR ---
MOM GIVEN FOR CONSTIPATION
--- NOTE | 2016-11-28 18:15 | NUR ---
NO RESULTS FROM MOM YET XANAX/HALDOL ARE SOMEWHAT EFFECTIVE, PT CALMER THEN EARLIER BUT STILL SOMEWHAT RESTLESS
[2016-11-28 20:00] VITALS: BP 133/63
--- NOTE | 2016-11-28 23:40 | NUR ---
COMPLETE BATH AND BED LINEN CHANGE DONE. PT TOLERATED WELL AND ASSISTED US WITH TURNING.
[2016-11-29] VITALS (7 sets, daily range): BP systolic 128–151; BP diastolic 70–85
--- NOTE | 2016-11-29 | NUR ---
HALDOL GIVEN AT 2130 FOR AGITATION WAS EFFECTIVE.
--- NOTE | 2016-11-29 04:03 | NUR ---
HALDOL AND XANAX GIVEN FOR RESTLESSNESS.
[2016-11-29 04:39] LABS: ABG HCO3 37.1 mmol/l (22-26); ABG O2 SATURATION 96.1 % (95-97); ARTERIAL BLOOD GAS PH 7.268 (7.35-7.45); ARTERIAL BLOOD GAS PO2 83.3 mmHg (80-90)
[2016-11-29 04:42] LABS: ARTERIAL BLOOD GAS PCO2 84.3 mmHg (35-45)
--- NOTE | 2016-11-29 04:48 | NUR ---
DR ALFARO NOTIFIED OF PT ELEVATED HEARTRATE, PULSE OX 90% AND TACHYPNEA. ALSO OF ABG RESULTS. ORDERS RECEIVED. RESPIRATORY NOTIFIED.
--- NOTE | 2016-11-29 04:56 | NUR ---
PT CHANGED TO AC 12, TV 650, PEEP 5, FIO2 50%. HR DOWN TO 112/MIN, RR 15/MIN, PULSE OX UP TO 94%. PT APPEARS MUCH MORE COMFORTABLE.
--- NOTE | 2016-11-29 06:17 | NUR ---
PT CONTINUES TO BE RELAXED. HR 102/MIN, PULSE OX 95% AND RR 12/MIN.
[2016-11-29 06:34] LABS: HEMATOCRIT 33.9 % (37.0-47.0); HEMOGLOBIN 10.3 g/dl (12.0-16.0); MEAN CELL VOLUME 101.8 fl (81.0-99.0); MEAN CORPUSCULAR HGB 30.9 pg (27.0-31.0); MEAN CORPUSCULAR HGB CONC 30.4 g/dl (33.0-37.0); MEAN PLATELET VOLUME 10.4 fl (9.6-12.3); PLATELET COUNT AUTOMATED 155 10*3/uL (130-400); RED BLOOD COUNT 3.33 10*6/uL (4.10-5.10); RED CELL DISTRI WIDTH 14.3 % (0-14.5); WHITE BLOOD COUNT 24.1 10*3/uL (4.8-10.8)
[2016-11-29 06:51] LABS: BUN 47 mg/dl (7-24); CHLORIDE 108 mmol/L (98-107); CREATININE 0.58 mg/dL (0.55-1.02); POTASSIUM 4.7 mmol/L (3.5-5.1); SODIUM 147 mmol/L (136-145)
[2016-11-29 06:57] LABS: PLATELET SUFFICIENCY NORMAL (NORMAL); STOMATOCYTE FEW; TOTAL CELLS COUNTED 100 #CELLS
--- NOTE | 2016-11-29 08:00 | NUR ---
PT REMAINS INTUBATED WITH A #8 ENDOTUBE,21 CM AT THE LIP. VSS. POX 95% O 50% FIO2. LUNG PLATA DIM. SUCTIONING YELLOW-GREEN COLORED SECRETIONS THROUGH ENDOTUBE. SPECIMAN SENT TO LAB. OGT PLACEMENT VERIFIED WITH AN AIR BOLUS. NO RESIDUAL NOTED. TUBE FEEDING CONTINUES AT 60CC/HR. ABD. SOFT WITH ACTIVE BOWEL SOUNDS. ROBLES PATENT FOR JOAN COLORED URINE. DEPENDENT EDEMA NOTED TO EXTREMITIES. RIGHT IJ MLC SITE ASYMP. PT TURNED AND REPOSITIONED FOR COMFORT AND PRESSURE ULCER AND PREVENTION.
--- NOTE | 2016-11-29 12:12 | NUR ---
PT'S FRIEND IN TO VISIT WITH HER. UPDATED HER ON PT'S CONDITION.
--- NOTE | 2016-11-29 12:30 | NUR ---
PT HITTING STAFF MEMBERS. PT HITTING AT STAFF WHEN THEY ARE TRYING TO GIVE HER HER TREATMENT. WHEN ASKED IF PT WANTED ENDOTUBE OUT SHE NODDED YES. WHEN ASKED IF SHE REALIZED SHE COUD IF IT IS TAKEN OUT PT NODDED YES. WHEN ASKED AGAIN IF SHE WANTED ENDOTUBE OUT KNOWING THAT YOU WOULD , PT STILL NODDED YES. I INFORMED PT I WOULD CALL THE DOCTOR AND ASK HIM TO COME AND TALK WITH HER. DR GUERRERO INFORMED.
--- NOTE | 2016-11-29 12:45 | NUR ---
DR GUERRERO IN TO SEE PT. HE SPOKE WITH PT R/T HER WISHES OF TERMINAL WEAN. DR GUERRERO TO SPEAK WITH DR BRANTLEY AND PT'S FAMILY. I WILL UPDATE DR ALFARO.
--- NOTE | 2016-11-29 15:40 | NUR ---
UPDATED DR ALFARO ON PT'S EARLIER BEHAVIOR. NEW ORDERS RECEIVED FOR DIPRIVAN GTT - LIGHT SEDATION ONLY. HE STATED TO DISCUSS PT'S WISHES WITH PT'S FAMILY AND IF NEEDED GET ETHIC CONSULT. UPDATED DR GUERRERO ON DR ALFARO'S ORDERS AND HE STATED TO START DIPRIVAN AND SPEAK W/ FAMILY WHEN THEY COME IN.
--- NOTE | 2016-11-29 16:17 | NUR ---
IV DIPRIVAN STARTED AT 10MCG/KG/HR. PT UPDATED ON PLAN OF CARE.
--- NOTE | 2016-11-29 21:40 | NUR ---
MEDICATED WITH XANAX PER PRN ORDER FOR S/S OF ANXIETY.
[2016-11-30] VITALS: BP 147/72
[2016-11-30 04:00] VITALS: BP 128/80
[2016-11-30 04:52] LABS: HEMATOCRIT 32.3 % (37.0-47.0); HEMOGLOBIN 9.9 g/dl (12.0-16.0); MEAN CELL VOLUME 101.6 fl (81.0-99.0); MEAN CORPUSCULAR HGB 31.1 pg (27.0-31.0); MEAN CORPUSCULAR HGB CONC 30.7 g/dl (33.0-37.0); MEAN PLATELET VOLUME 9.2 fl (9.6-12.3); PLATELET COUNT AUTOMATED 141 10*3/uL (130-400); RED BLOOD COUNT 3.18 10*6/uL (4.10-5.10); RED CELL DISTRI WIDTH 14.3 % (0-14.5); WHITE BLOOD COUNT 22.4 10*3/uL (4.8-10.8)
[2016-11-30 05:08] LABS: ALBUMIN 2.3 gm/dl (3.1-4.5); ALKALINE PHOSPHATASE 38 U/L (45-117); BUN 47 mg/dl (7-24); CHLORIDE 106 mmol/L (98-107); CREATININE 0.54 mg/dL (0.55-1.02); POTASSIUM 4.5 mmol/L (3.5-5.1); SGOT/AST 57 IU/L (3-35); SGPT/ALT 171 U/L (12-78); SODIUM 148 mmol/L (136-145); TOTAL PROTEIN 5.3 gm/dL (6.4-8.2)
[2016-11-30 05:10] LABS: PLATELET SUFFICIENCY NORMAL (NORMAL); POLYCHROMASIA SLIGHT; TOTAL CELLS COUNTED 100 #CELLS
[2016-11-30 08:17] VITALS: BP 148/73
[2016-11-30 12:00] VITALS: BP 110/76
[2016-11-30 16:00] VITALS: BP 107/77
--- NOTE | 2016-11-30 19:56 | NUR ---
PT. RESTING COMFORTABLY. MLC IN RIJ INTACT, ASYMPT. LUNGS DIMINISHED BILAT,PULSE OX 99-100% ON 50% FIO2. ABDOMEN SOFTLY DISTENDED AND NORMO. OGT HAS TF ORDERED AT 60CC'S/HR, NO RESIDUAL NOTED. FREE H20 GIVEN ORDERED. ROBLES DRAIING A CLEAR YELLOW URINE. DIPROVAN CONTINUES AT 10MICS, PT. ADEQUATELY SEDATED AT PRESENT, AROUSES TO VERBAL STIMULI, SLEEPING OTHERWISE. MOUTH CARE GIVEN AND PT. SUCTIONED VIA ENDO AND ORALLY FOR MODERATE AMTS OF YELLOW/WHITE MUCOUS AND CLEAR SECRETIONS RESPECTIVELY. KYLE LAI RN
[2016-11-30 20:00] VITALS: BP 116/67
[2016-12-01] VITALS: BP 108/75
[2016-12-01 04:00] VITALS: BP 118/79
[2016-12-01 05:54] LABS: HEMATOCRIT 31.5 % (37.0-47.0); HEMOGLOBIN 9.6 g/dl (12.0-16.0); MEAN CELL VOLUME 98.7 fl (81.0-99.0); MEAN CORPUSCULAR HGB 30.1 pg (27.0-31.0); MEAN CORPUSCULAR HGB CONC 30.5 g/dl (33.0-37.0); NUCLEATED RED BLOOD CELL 0.1 10*3/uL (0.0-0.0); NUCLEATED RED BLOOD CELL 0.3 % (0.0-0.0); PLATELET COUNT AUTOMATED 171 10*3/uL (130-400); RED BLOOD COUNT 3.19 10*6/uL (4.10-5.10); RED CELL DISTRI WIDTH 13.9 % (0-14.5); WHITE BLOOD COUNT 30.8 10*3/uL (4.8-10.8)
[2016-12-01 06:03] LABS: ALBUMIN 2.3 gm/dl (3.1-4.5); ALKALINE PHOSPHATASE 48 U/L (45-117); BUN 44 mg/dl (7-24); CHLORIDE 99 mmol/L (98-107); CREATININE 0.59 mg/dL (0.55-1.02); POTASSIUM 4.7 mmol/L (3.5-5.1); SGOT/AST 61 IU/L (3-35); SGPT/ALT 213 U/L (12-78); SODIUM 139 mmol/L (136-145); TOTAL PROTEIN 5.4 gm/dL (6.4-8.2); VANCOMYCIN TROUGH 9.3 ug/mL (10-20)
--- NOTE | 2016-12-01 06:32 | NUR ---
MESSAGE LEFT ON DR. GALLEGO CELL PHONE REGARDING CONSULT. KYLE LAI RN
--- NOTE | 2016-12-01 06:40 | NUR ---
DR. BARRETT RETURNED CALL AND STATED HE WAS OUT OF TOWN IN [place] AND REQUESTED DR. ALFARO CALL HIM ON HIS CELL THIS AM AT APPROX [id number]. MESSAGE WILL BE PASSED ON TO AM SHIFT. KYLE LAI RN
[2016-12-01 06:48] LABS: PLATELET SUFFICIENCY NORMAL (NORMAL); TOTAL CELLS COUNTED 100 #CELLS; TOXIC GRANULATION SLIGHT
--- NOTE | 2016-12-01 07:58 | NUR ---
JENNIE LEZAMA IN TO SEE PT FOR ETHICS CONSULT. PT WOULD NOT ANSWER ANY QUESTIONS ATT HIS TIME. WILL NOTIFY JENNIE WHEN PT IS MORE ALERT AND WILL ANSWER QUESTIONS.
[2016-12-01 08:00] VITALS: BP 124/73
--- NOTE | 2016-12-01 08:34 | NUR ---
NICK, SURGERY NURSE, HERE TO PLACE PICC LINE AFTER INFORMED CONSENT RECEIVED FROM PT'S .
--- NOTE | 2016-12-01 08:55 | NUR ---
DR ALFARO IN TO SEE PT. DR ALFARO SPOKE WITH DR BARRETT R/T PT'S COMPETANCY EVAL. DR BARRETT WILL SEE HER TOMORROW FOR EVAL.
--- NOTE | 2016-12-01 11:24 | NUR ---
DR BEE IN TO SEE PT. UPDATED HIM ON PT'S CONDITION. NEW ORDERS RECEIVED.
--- NOTE | 2016-12-01 11:34 | NUR ---
DR BEE STATED PT DID NOT NEED TO WEAR CHAVA HOSE R/T BIENG ON ELIQUIS AFTER I INFORMED HIM THAT THE HOSE WERE TIGHT ON HER LEGS.
[2016-12-01 12:00] VITALS: BP 123/78
--- NOTE | 2016-12-01 12:00 | NUR ---
WHEN PT TURNED AND REPOSITIONED PT INCONT. OF SMALL LIQUID BROWN BM. PT CLEANED AND LINENS CHANGED.
--- NOTE | 2016-12-01 13:00 | NUR ---
CT PREP STARTED.
--- NOTE | 2016-12-01 13:46 | NUR ---
SPOKE WITH PT REGARDING EXTUBATION. PT IS ABLE TO FOLLOW SIMPLE COMMANDS SO I INFORMED PT TO SQUUEZE MY HAND ONCE IF THE ANSWER TO MY QUESTIONS IS YES. I ASKED ANGIE IF SHE REMEBERED OUR CONVERSATION THE OTHER DAY R/T HER WANTING TO TAKE THE ENDOTUBE OUT EVEN IF THAT MEANS SHE COULD . PT SQUEEZED MY HAND ONCE FOR YES. I THEN ASKED PT IF SHE WOULD CONSIDER A TRACH THAT MIGHT HELP HER WEAN OF THE VENT EASIER AND SHE SQUEEZED MY HAND ONCE AGAIN. I AM UNSURE IF PT IS ABLE TO UNDERSTAND MY QUESTIONS COMPLETELY AT THIS TIME. I UPDATED DR ALFARO AND JENNIE LEZAMA. I ALSO INFORMED JENNIE LEZAMA OF DR BARRETT NOT COMING TO SEE PT TO DEEM COMPETENCY UNTIL TOMORROW. JENNIE WILL SEE PT TOMORROW AFTER DR BARRETT SEES PT.
--- NOTE | 2016-12-01 14:27 | NUR ---
CT PREP COMPLETED.
[2016-12-01 16:00] VITALS: BP 131/72
--- NOTE | 2016-12-01 16:15 | NUR ---
RETURNED WITH PT FROM CT SCAN TO ICCU BED 4. PT TOLERATED PROCEDURE WELL.
--- NOTE | 2016-12-01 17:31 | NUR ---
RIGHT IJ MLC D/C'D AND TIP SENT FOR CULTURE PER ORDER. SITE CLEANED AND DRESSING APPLIED. PT TOLERATED PROCEDURE WELL.
--- NOTE | 2016-12-01 18:03 | NUR ---
MAGNESIUM CITRATE GIVEN VIA OGT PER 1X ORDER.
[2016-12-01 20:00] VITALS: BP 120/72
--- NOTE | 2016-12-01 20:13 | NUR ---
PT. RESTING IN BED, BED IN ROTATION MODE. PICC IN LEFT UPPER ARM NOTED. LUNGS DIMINISHED WITH RHONCHI BILAT, PULSE OX 98% ON 50% FIO2. ABDOMEN SOFTLY DISTENDED AND HYPOACTIVE. DEPENDENT EDEMA NOTED OF HANDS AND BILAT BLE. RIJ REMOVED AND PRESSURE DRESSING INTACT. ROBLES DRAINING A CLEAR YELLOW URINE NOTED. TUBE FEEDING OFF UNTIL PATIENT HAS BM FROM MAG CITRATE/CT PREP. KYLE LAI RN
--- NOTE | 2016-12-01 21:00 | NUR ---
PT. GIVEN BED BATH AND BED LINEN CHANGED, TOLERATED WELL. KYLE LAI RN
--- NOTE | 2016-12-01 22:10 | NUR ---
TUBE FEEDINGS RESUMED AT 20CC/HR UNTIL PT ABLE TO PASS CT PREP WITH MAG CITRATE ASSISTANCE. INCONTINENT FOR SMALL LIQUID BM. KYLE LAI RN
[2016-12-02] VITALS (10 sets, daily range): BP systolic 102–125; BP diastolic 52–71
[2016-12-02 04:35] LABS: HEMOGLOBIN 7.9 g/dl (12.0-16.0); MEAN CELL VOLUME 100.4 fl (81.0-99.0); MEAN CORPUSCULAR HGB 31.6 pg (27.0-31.0); MEAN CORPUSCULAR HGB CONC 31.5 g/dl (33.0-37.0); MEAN PLATELET VOLUME 9.6 fl (9.6-12.3); NUCLEATED RED BLOOD CELL 0.1 10*3/uL (0.0-0.0); NUCLEATED RED BLOOD CELL 0.5 % (0.0-0.0); PLATELET COUNT AUTOMATED 135 10*3/uL (130-400); RED CELL DISTRI WIDTH 14.1 % (0-14.5); WHITE BLOOD COUNT 25.5 10*3/uL (4.8-10.8)
[2016-12-02 04:46] LABS: HEMATOCRIT 25.1 % (37.0-47.0)
[2016-12-02 04:55] LABS: TOTAL CELLS COUNTED 100 #CELLS
[2016-12-02 04:56] LABS: PLATELET SUFFICIENCY LOW (NORMAL)
[2016-12-02 05:03] LABS: BUN 40 mg/dl (7-24); CHLORIDE 99 mmol/L (98-107); CREATININE 0.54 mg/dL (0.55-1.02); MAGNESIUM 2.7 mg/dL (1.5-2.1); PHOSPHOROUS 2.7 mg/dL (2.5-4.9); POTASSIUM 4.5 mmol/L (3.5-5.1); SODIUM 141 mmol/L (136-145)
--- NOTE | 2016-12-02 08:17 | NUR ---
PT RESTING. PT AWAKENS EASILY WITH STIMULI. LUNG PLATA DIM. PT SUCTIONED FOR SMALL AMOUNT YELLOW-WHITE SECRETIONS. POX 99% ON 50% FIO2. OGT PLACMENT VERIFIED WITH AN AIR BOLUS. TUBE FEEDING REMAIN AT 60CC/HR. NO RESIDUAL NOTED AT THIS TIME. ABD. SOFT WITH HYPOACTIVE BOWEL SOUNDS. ROBLES PATENT FOR JOAN COLORED URINE. DEPENDANT EDEMA NOTED. BED IN ROTATION MODE TO HELP PREVENT PRESSURE ULCERS.
--- NOTE | 2016-12-02 09:25 | NUR ---
BLOOD TRANSFUSION STARTED AFTER INFORMED CONSENT GIVEN BY PT'S . DR GAGNON IN TO SEE PT AND NOTIFIED HER OF PT'S AXILLARY TEMP OF 99.3 AND THAT I HELD PT'S MAG OX R/T HIGH MAG LEVEL TODAY OF 2.7.
--- NOTE | 2016-12-02 10:33 | NUR ---
DR BARRETT IN TO SEE PT. PT ABLE TO FOLLOW SIMPLE COMMANDS. PT DOES NOT WANT A TRACH BUT SAID YES TO KEEPING THE ENDOTUBE. DR BARRETT SPOKE WITH DR BEE AND SUGGESTED GOING TO [facility] AND OR [facility] IF NEEDED TO MAKE DECISIONS AT THIS TIME. DR BEE IN TO SEE PT. NEW ORDERS RECEIVED. PT TOLERATING BLOOD TRANSFUSION WELL.
--- NOTE | 2016-12-02 10:44 | NUR ---
JENNIE LEZAMA,ETHICS, HERE AND TALKED WITH DR BARRETT R/T PT. JENNIE LEZAMA AGREED WITH DR BARRETT R/T SPEAKING WITH NEXT OF [facility] R/T TRACH OR NOT.
--- NOTE | 2016-12-02 10:45 | NUR ---
Bioethics: I was asked to see this patient because over the weekend she indicated to the nurses she wanted her endo tube out. There is no living will or [facility]. Yesterday I attempted to speak with the patient but could not get her awake enough to respond to my questions. This morning Dr. Hernandez evaluated her for competency and determined she was not able to make decisions so we are going to call the and ask him what direction he would like us to take.
--- NOTE | 2016-12-02 11:04 | NUR ---
UPDATED DR ALFARO THAT DR WOODALL DOES HAVE TRACHEOSTOMY PRIVLEDGES. HE ORDERED TO SPEAK WITH PT'S R/T TRACH INSERTION AND IF HE AGREES THEN CONSULT DR WOODALL. SPOKE WITH PT'S ,JODY, AND HE AGREED FOR TRACH INSERTION. I LEFT MESSAGE FOR DR WOODALL IN SURGERY R/T CONSULT FOR TRACH INSERTION. PT CONTINUES TO TOELRATE BLOOD TRANSFUSION WELL.
--- NOTE | 2016-12-02 12:00 | NUR ---
BLOOD TRANSFUSION COMPLETED. PT TOLERATED TRANSFUSION WELL.
--- NOTE | 2016-12-02 12:29 | NUR ---
LACTULOSE GIVEN PER ORDER VIA OGT.
--- NOTE | 2016-12-02 14:32 | NUR ---
DR BEE UPDATED ON PLAN FOR TRACH THIS WEEK.
--- NOTE | 2016-12-02 16:00 | NUR ---
DR YIN NOTIFIED THAT PT IS ON ELIQUIS. ORDER RECEIVED TO HOLD ELIQUIS AND TRACH INSERTION ON THURSDAY.
--- NOTE | 2016-12-02 19:55 | NUR ---
PT. RESTING IN BED, SEDATION REMAINS OFF. PICC LINE IN LEFT UPPER ARM NOTED, BOTH PORTS PATENT. LUNGS DIMINISHED BILAT PULSE OX 98% ON 50% FIO2. ABDOMEN SOFTLY DISTENDED AND NORMO. DEPENDENT EDEMA OF ARMS/HANDS AND LEGS/FEET NOTED. ROBLES DRAINING A CLEAR YELLOW URINE. ORAL MOUTH CARE GIVEN AND PT. SUCTIONED FOR MODERATE AMT OF WHITE/YELLOW SECRETIONS VIA ENDO AND CLEAR SECRETIONS ORALLY. PLACEMENT CONFIRMED FOR OGT, NO RESIDUAL NOTED. TF CONTINUES AT 60CC/HR. SOFT WRIST RESTRAINTS BILAT TO PREVENT ACCIDENTAL SELF-EXTUBATION. PT. WILL AROUSE TO VERBAL STIMULI AND NODS APPROPRIATELY. SLEEPING INTERMITTENTLY. KYLE LAI RN
[2016-12-03 04:00] VITALS: BP 120/65
[2016-12-03 04:37] LABS: HEMATOCRIT 25.2 % (37.0-47.0); HEMOGLOBIN 7.9 g/dl (12.0-16.0); MEAN CORPUSCULAR HGB 31.3 pg (27.0-31.0); MEAN CORPUSCULAR HGB CONC 31.3 g/dl (33.0-37.0); MEAN PLATELET VOLUME 9.8 fl (9.6-12.3); NUCLEATED RED BLOOD CELL 0.1 10*3/uL (0.0-0.0); NUCLEATED RED BLOOD CELL 0.5 % (0.0-0.0); PLATELET COUNT AUTOMATED 120 10*3/uL (130-400); RED BLOOD COUNT 2.52 10*6/uL (4.10-5.10); RED CELL DISTRI WIDTH 15.4 % (0-14.5); WHITE BLOOD COUNT 18.9 10*3/uL (4.8-10.8)
[2016-12-03 04:58] LABS: PLATELET SUFFICIENCY LOW (NORMAL); TOTAL CELLS COUNTED 100 #CELLS
[2016-12-03 04:59] LABS: POLYCHROMASIA SLIGHT
[2016-12-03 05:08] LABS: BUN 32 mg/dl (7-24); CHLORIDE 103 mmol/L (98-107); CREATININE 0.44 mg/dL (0.55-1.02); MAGNESIUM 2.2 mg/dL (1.5-2.1); SGOT/AST 12 IU/L (3-35); SGPT/ALT 92 U/L (12-78); SODIUM 145 mmol/L (136-145); TOTAL PROTEIN 4.9 gm/dL (6.4-8.2)
[2016-12-03 05:09] LABS: ALKALINE PHOSPHATASE 37 U/L (45-117)
[2016-12-03 05:10] LABS: POTASSIUM 3.3 mmol/L (3.5-5.1)
[2016-12-03 08:00] VITALS: BP 133/73
--- NOTE | 2016-12-03 08:00 | NUR ---
PT REMAINS INTUBATED. VSS. LUNG PLATA DIM. MODERATE AMOUNT OF YELLOW-GREEN SECRETIONS SUCTIONED FROM ENDOTUBE. POX 94% ON 50% FIO2. OGT PLACMENT VERIFIED WITH AN AIR BOLUS. TUBE FEEDINGS CONTINUE AT 60CC/HR. NO RESIDUAL NOTED. ABD. OBESE WITH HYPOACTIVE BOWEL SOUNDS. ROBLES PATENT FOR JOAN COLORED URINE. DEPENDANT EDEMA NOTED. LEFT PICC SITE ASYMP. BED ON ROTATION MODE.
--- NOTE | 2016-12-03 10:18 | NUR ---
DR ALFARO IN TO SEE PT EARLIER. NO NEW ORDERS RECEIVED.
[2016-12-03 12:00] VITALS: BP 131/65
--- NOTE | 2016-12-03 15:25 | NUR ---
DULCOLAX SUPPOSITORY GIVEN PER PRN ORDER FOR PT'S CONSTIPATION.
[2016-12-03 16:00] VITALS: BP 128/62
[2016-12-03 20:00] VITALS: BP 140/63
--- NOTE | 2016-12-03 20:16 | NUR ---
PATIENT GIVEN TYLENOL FOR ABD PAIN. PATIENT IS INTUBATED ONLY ABLE TO NOD HER HEAD SHE STATED THAT HER BELLY HURT WHEN ASKED.
[2016-12-04] VITALS: BP 120/62
[2016-12-04 04:00] VITALS: BP 133/68
[2016-12-04 06:05] LABS: HEMATOCRIT 25.9 % (37.0-47.0); MEAN CELL VOLUME 101.6 fl (81.0-99.0); MEAN CORPUSCULAR HGB 31.4 pg (27.0-31.0); MEAN CORPUSCULAR HGB CONC 30.9 g/dl (33.0-37.0); MEAN PLATELET VOLUME 9.8 fl (9.6-12.3); NUCLEATED RED BLOOD CELL 0.1 10*3/uL (0.0-0.0); NUCLEATED RED BLOOD CELL 0.4 % (0.0-0.0); PLATELET COUNT AUTOMATED 131 10*3/uL (130-400); RED BLOOD COUNT 2.55 10*6/uL (4.10-5.10); RED CELL DISTRI WIDTH 15.4 % (0-14.5); WHITE BLOOD COUNT 19.8 10*3/uL (4.8-10.8)
[2016-12-04 06:08] LABS: ALBUMIN 1.9 gm/dl (3.1-4.5); ALKALINE PHOSPHATASE 41 U/L (45-117); BUN 25 mg/dl (7-24); CHLORIDE 106 mmol/L (98-107); CREATININE 0.36 mg/dL (0.55-1.02); MAGNESIUM 1.8 mg/dL (1.5-2.1); PHOSPHOROUS 2.5 mg/dL (2.5-4.9); POTASSIUM 3.6 mmol/L (3.5-5.1); SGOT/AST 11 IU/L (3-35); SGPT/ALT 63 U/L (12-78); SODIUM 148 mmol/L (136-145); TOTAL PROTEIN 5.2 gm/dL (6.4-8.2); VANCOMYCIN TROUGH 8.3 ug/mL (10-20)
[2016-12-04 06:10] LABS: PREALBUMIN 27 mg/dl (20-40)
[2016-12-04 07:02] LABS: PLATELET SUFFICIENCY LOW (NORMAL); TOTAL CELLS COUNTED 100 #CELLS
[2016-12-04 07:03] LABS: POLYCHROMASIA SLIGHT
[2016-12-04 08:00] VITALS: BP 130/67
--- NOTE | 2016-12-04 11:15 | NUR ---
I TRIED TO REACH PT'S JODY TO HAVE PRE-OP PAPER WORK DONE BUT THERE WAS NOT ANSWER AT THIS TIME.
[2016-12-04 12:00] VITALS: BP 126/62
[2016-12-04 16:00] VITALS: BP 130/63
--- NOTE | 2016-12-04 18:05 | NUR ---
I SPOKE WITH PT'S VIA PHONE AND HE STATED HE WILL BE IN THIS EVENING TO SIGN PAPER WORK FOR TRACH PROCEDURE TOMORROW.
[2016-12-04 20:00] VITALS: BP 129/68
--- NOTE | 2016-12-04 20:10 | NUR ---
PATIENT NODDED HER HEAD YES WHEN ASKED IF HER BELLY HURT.PATIENT GIVEN TYLENOL FOR ABD PAIN . ABD IS FIRM.DISTENEDED VS OBESE. DID RECIEVE IN REPORT THAT PATIENT DID MOVE HER BOWELS TODAYS.
--- NOTE | 2016-12-04 23:39 | NUR ---
PATIENT BATHED AND REPOSTIONED IN BED FOR COMFORT. PATIENT TUBE FEED WAS STOPPED FOR SURGERY IN THE AM. PATIENT DID HAVE A SMALL BROWN SMEAR BM DURING BATH.
[2016-12-05] VITALS: BP 127/67
--- NOTE | 2016-12-05 02:39 | NUR ---
24 HR chart check completed.
--- NOTE | 2016-12-05 03:46 | NUR ---
CALLED DOCTOR ELISE PATIENT WROTE ON WHITE BOARD "KILL ME". I TOLD HIM AND THAT SHE HAS REFUSED HER BREATHING TREATMENTS AND ANTIBIOTICS ALSO.HE SAID THAT BECAUSE SHE WAS DEEMED INCOMPATENT THAT THINGS SHALL PROCEED UNTIL DEEMED OTHER GUZMAN. TO MAYBE CALL FAMILY IN THE MORNING EXPLAIN WHAT HAS HAPPEN THROUGHOUT THE NIGHT AND SEE IF THEY STILL WANTS US TO PROCEED. AND TO ALSO INFORM DOCTOR REANNA. HE SAID IF ANYTHING CHANGES TO CALL HIM BACK.
--- NOTE | 2016-12-05 03:48 | NUR ---
PATIENT REFUSED TO LET ME GET HER TEMPERATURE THIS MORNING SHE ALSO REFUSED HER MORNING LAB WORK.
[2016-12-05 04:00] VITALS: BP 128/66
--- NOTE | 2016-12-05 04:53 | NUR ---
CALLED PATIENTS ABOUT PATIENT REFUSING ALL TREATMENTS THIS MORNING AND STATING THAT SHE WANTED TO . HE SAID SHE COULD BE STUBORN AND THAT HE WOULD TRY AND SEE HER BEFORE SHE WENT FOR SURGERY BUT HE HAS A HARD TIME GETTING RIDES ANYWHERE.
--- NOTE | 2016-12-05 05:29 | NUR ---
INFORMED DOCTOR ELISE OF PATIENT REFUSING BLOOD WORK AT THIS MOMENT AND THAT I TALKED TO THE PATIENTS HE SAID OKJUST KEEP TRYING.
--- NOTE | 2016-12-05 06:19 | NUR ---
PATIENT STILL TELLING ME TO GET OUT OF HER ROOM WHEN I ASKED HER IF SHE IS STILL NOT WANTING ANTIBIOTICS SHE NODDED YES.
--- NOTE | 2016-12-05 06:30 | NUR ---
CALLED DOCTOR FORTE THIS MORNING ABOUT PATIENT WRITING TO KILL HER.HE STONEY HE WOULD SEE HER LATER TODAY I INOFRME [facility] THAT FOR TWO DAYS SHE HAS SAID SHE DOES NOT WANT TO HAVE A TRACH HE SAID IF ITS A COMPETANCY ISSUE I WILL HAVE TO CALL DOCTOR BARRETT.
--- NOTE | 2016-12-05 06:31 | NUR ---
CALLED DOCTOR WALKERS CELL PHONE NO ANSWER AT THIS TIME.
--- NOTE | 2016-12-05 06:46 | NUR ---
CALLED DOCTOR TALISHA TO INFORM HIM OF PATIENTS REFUSALS THROUGH OUT THE NIGHT HE SAID OK TRY AND WEEN AGAIN AND HAVE WALKER COME SEE HER AGAIN AND LET HIM NO WHAT IS GOING ON.
--- NOTE | 2016-12-05 06:49 | NUR ---
ATTEMPTED TO CALL DOCTOR ARNOLD LEFT MESSAGE ON CELL TO CALL BACK.
--- NOTE | 2016-12-05 06:49 | NUR ---
CALLED DOCTOR NEFTALI INFORMED HIM WHAT DOCTOR TALISHA SAID HE SAID OK.
[2016-12-05 07:42] LABS: HEMATOCRIT 23.7 % (37.0-47.0); HEMOGLOBIN 7.3 g/dl (12.0-16.0); MEAN CELL VOLUME 102.6 fl (81.0-99.0); MEAN CORPUSCULAR HGB 31.6 pg (27.0-31.0); MEAN CORPUSCULAR HGB CONC 30.8 g/dl (33.0-37.0); MEAN PLATELET VOLUME 9.6 fl (9.6-12.3); NUCLEATED RED BLOOD CELL 0.1 10*3/uL (0.0-0.0); NUCLEATED RED BLOOD CELL 0.4 % (0.0-0.0); PLATELET COUNT AUTOMATED 141 10*3/uL (130-400); RED BLOOD COUNT 2.31 10*6/uL (4.10-5.10); RED CELL DISTRI WIDTH 15.6 % (0-14.5); WHITE BLOOD COUNT 19.2 10*3/uL (4.8-10.8)
[2016-12-05 08:00] VITALS: BP 136/67
--- NOTE | 2016-12-05 08:13 | NUR ---
SPOKE WITH PT AT LENGTH, SHE IS FRIGHTENED AND AFRAID THAT SHE WILL WITH A TRACH, DR GAGNON TO FLOOR AND CONFIRMS THAT PT IS COMPLETELY WILLING TO HAVE TRACH, SPOKE WITH WHO SIGNED CONSENT FOR TRACH, DR WOODALL AND SURGERY UPDATED
[2016-12-05 08:14] LABS: ALBUMIN 1.8 gm/dl (3.1-4.5); ALKALINE PHOSPHATASE 39 U/L (45-117); BUN 27 mg/dl (7-24); CHLORIDE 106 mmol/L (98-107); CREATININE 0.31 mg/dL (0.55-1.02); IRON 35 ug/dL (50-170); POTASSIUM 3.9 mmol/L (3.5-5.1); SGOT/AST 10 IU/L (3-35); SGPT/ALT 44 U/L (12-78); SODIUM 147 mmol/L (136-145); TOTAL IRON BINDING CAPACITY 242 ug/dl (250-450)
[2016-12-05 08:16] LABS: PLATELET SUFFICIENCY NORMAL (NORMAL); POLYCHROMASIA SLIGHT; TOTAL CELLS COUNTED 100 #CELLS
[2016-12-05 08:17] LABS: TOXIC GRANULATION SLIGHT
--- NOTE | 2016-12-05 09:55 | NUR ---
TO OR VIA BED, HERE BUT GOING HOME
[2016-12-05 12:00] VITALS: BP 145/76
--- NOTE | 2016-12-05 12:34 | NUR ---
10 SERBIAN FEEDING TUBE PLACED IN LEFT NARE TO REPLACE OGT
--- NOTE | 2016-12-05 12:45 | NUR ---
Called and spoke to of this patient about LTACH. He agreed when she is ready for discharge from here she can go to [facility] in [place]. Contacted [facility] and faxed referral. Will require precert.
--- NOTE | 2016-12-05 14:28 | NUR ---
PT AWAKE/AWARE/CRYING BUT DENIES PAIN, REASSURANCE GIVEN, HALDOL GIVEN MOUTH CARE DONE, REPOSITIONED, TUBE FEEDS RESUMED THRU NASAL FEEDING TUBE
[2016-12-05 15:40] VITALS: BP 125/53
--- NOTE | 2016-12-05 16:30 | NUR ---
DR ALFARO UPDATED ON PT BACK FROM SURGERY, TRACH INTACT AND THAT OGT HAS BEEN CHANGED TO NG FEEDING TUBE. NO NEW ORDERS. SEE ALL APPROPRIATE INTERVENTIONS.
[2016-12-05 20:00] VITALS: BP 126/58
--- NOTE | 2016-12-05 23:24 | NUR ---
PATIENT GIVEN MORPHINE PER DOCTOR KATRINA ORDRE FOR ABD PAIN.
[2016-12-06] VITALS (15 sets, daily range): BP systolic 130–180; BP diastolic 67–84
--- NOTE | 2016-12-06 01:00 | NUR ---
PATIENT RESTING WITH EYES CLOSED PAIN MEDICATION EFFECTIVE.
--- NOTE | 2016-12-06 02:30 | NUR ---
IN TO HECK ON PATIENT PATIENT HAD BLOOD ON HER GOWN PATIENT CLEAN UP AND GOWN CHANGED BLOOD COMING FROM AROUND NEW TRACH CLEAN AND NO BLEEDING CURRENTLY PATIENT SUCTIONED FOR SMALL AMOUNT OF YELLOW.
--- NOTE | 2016-12-06 04:00 | NUR ---
PATIENT SUCTIONED FOR MODERATE AMOUNT OF BLOOD TINGED SPUTUM. NO MORE BLEEDING FROM AROUND [facility] ARE[facility] AT THIS TIME WILL CONTINUE TO MONITOR.
[2016-12-06 04:37] LABS: HEMATOCRIT 25.2 % (37.0-47.0); HEMOGLOBIN 7.6 g/dl (12.0-16.0); MEAN CELL VOLUME 102.9 fl (81.0-99.0); MEAN CORPUSCULAR HGB CONC 30.2 g/dl (33.0-37.0); MEAN PLATELET VOLUME 9.7 fl (9.6-12.3); NUCLEATED RED BLOOD CELL 0.1 10*3/uL (0.0-0.0); NUCLEATED RED BLOOD CELL 0.5 % (0.0-0.0); PLATELET COUNT AUTOMATED 175 10*3/uL (130-400); RED BLOOD COUNT 2.45 10*6/uL (4.10-5.10); RED CELL DISTRI WIDTH 16.4 % (0-14.5); WHITE BLOOD COUNT 19.1 10*3/uL (4.8-10.8)
[2016-12-06 05:09] LABS: ALBUMIN 1.9 gm/dl (3.1-4.5); ALKALINE PHOSPHATASE 51 U/L (45-117); BUN 25 mg/dl (7-24); CHLORIDE 105 mmol/L (98-107); CREATININE 0.42 mg/dL (0.55-1.02); POTASSIUM 3.9 mmol/L (3.5-5.1); SGOT/AST 10 IU/L (3-35); SGPT/ALT 39 U/L (12-78); SODIUM 144 mmol/L (136-145); TOTAL PROTEIN 5.5 gm/dL (6.4-8.2)
[2016-12-06 05:59] LABS: PLATELET SUFFICIENCY NORMAL (NORMAL); POLYCHROMASIA SLIGHT; TOTAL CELLS COUNTED 100 #CELLS
--- NOTE | 2016-12-06 13:00 | NUR ---
PT HAD A HUGE MUSHY BROWN BM
--- NOTE | 2016-12-06 15:54 | NUR ---
MORPHINE 2 HAS BEEN EFFECTIVE FOR STRESS/PAIN/ANXIETY RELIEF IN ADDITION TO HALDOL
[2016-12-06 18:18] LABS: HEMATOCRIT 27.3 % (37.0-47.0); HEMOGLOBIN 8.6 g/dl (12.0-16.0); MEAN CORPUSCULAR HGB 30.8 pg (27.0-31.0); MEAN CORPUSCULAR HGB CONC 31.5 g/dl (33.0-37.0); MEAN PLATELET VOLUME 9.7 fl (9.6-12.3); NUCLEATED RED BLOOD CELL 0.1 10*3/uL (0.0-0.0); NUCLEATED RED BLOOD CELL 0.4 % (0.0-0.0); PLATELET COUNT AUTOMATED 156 10*3/uL (130-400); RED BLOOD COUNT 2.79 10*6/uL (4.10-5.10); RED CELL DISTRI WIDTH 19.2 % (0-14.5); WHITE BLOOD COUNT 16.3 10*3/uL (4.8-10.8)
[2016-12-06 18:20] LABS: MEAN CELL VOLUME 97.8 fl (81.0-99.0)
[2016-12-06 18:39] LABS: ROULEAUX SLIGHT; TOTAL CELLS COUNTED 100 #CELLS
[2016-12-06 18:40] LABS: PLATELET SUFFICIENCY NORMAL (NORMAL); POLYCHROMASIA SLIGHT
--- NOTE | 2016-12-06 18:52 | NUR ---
dr padilla updated on cbc after 1 unit was transfused
--- NOTE | 2016-12-06 20:22 | NUR ---
1945 RESTING IN BED WITH EYES CLOSED. APPEARS TO BE SLEEPING. AWAKENS EASILY. NO DISTRESS NOTED. PRBC'S STARTED PER ORDER. SEE INTERVENTION SCREEN FOR ALL APPROPRIATE VS ETC. PICC LINE INTACT JAYA. TRACH SECURE TO VENT. SUCTIONED. PULSE OX 96% ON 40% FIO2. NGT INTACT WITH TF MAINTAINED. PLACEMENT CONFIRMED WITH AIR BOLUS/AUSCULTATION. ROBLES PATENT AND DRAINING CLEAR YELLOW URINE. WRIST RESTRAINTS INTACT BILATERALLY. CIRCULATION ADEQUATE.
--- NOTE | 2016-12-06 22:11 | NUR ---
CONT TO TOLERATE TRANSFUSION WELL. SEE INTERVENTION SCREEN
--- NOTE | 2016-12-06 23:41 | NUR ---
2315 RESTLESS AND C/O PAIN AT [facility] SITE. BP ELEVATED. MEDICATED WITH MORPHINE 2MG IV FOR THIS. WILL MONITOR.
[2016-12-07] VITALS: BP 157/86
[2016-12-07 00:43] LABS: HEMATOCRIT 30.3 % (37.0-47.0); HEMOGLOBIN 9.6 g/dl (12.0-16.0); MEAN CELL VOLUME 95.9 fl (81.0-99.0); MEAN CORPUSCULAR HGB 30.4 pg (27.0-31.0); MEAN CORPUSCULAR HGB CONC 31.7 g/dl (33.0-37.0); MEAN PLATELET VOLUME 9.3 fl (9.6-12.3); NUCLEATED RED BLOOD CELL 0.1 10*3/uL (0.0-0.0); NUCLEATED RED BLOOD CELL 0.5 % (0.0-0.0); PLATELET COUNT AUTOMATED 154 10*3/uL (130-400); RED BLOOD COUNT 3.16 10*6/uL (4.10-5.10); RED CELL DISTRI WIDTH 19.2 % (0-14.5); WHITE BLOOD COUNT 15.2 10*3/uL (4.8-10.8)
[2016-12-07 01:02] LABS: TOTAL CELLS COUNTED 100 #CELLS
[2016-12-07 01:03] LABS: PLATELET SUFFICIENCY NORMAL (NORMAL); POLYCHROMASIA SLIGHT
--- NOTE | 2016-12-07 01:39 | NUR ---
0000 EARLIER PAIN MED EFFECTIVE. RESTING IN BED WITH EYES CLOSED. APPEARS TO BE SLEEPING.
[2016-12-07 04:00] VITALS: BP 148/82
--- NOTE | 2016-12-07 04:29 | NUR ---
REMAINS SLEEPING WITHOUT DISTRESS.
[2016-12-07 05:21] LABS: HEMATOCRIT 29.8 % (37.0-47.0); HEMOGLOBIN 9.3 g/dl (12.0-16.0); MEAN CELL VOLUME 96.8 fl (81.0-99.0); MEAN CORPUSCULAR HGB 30.2 pg (27.0-31.0); MEAN CORPUSCULAR HGB CONC 31.2 g/dl (33.0-37.0); MEAN PLATELET VOLUME 9.6 fl (9.6-12.3); NUCLEATED RED BLOOD CELL 0.1 10*3/uL (0.0-0.0); NUCLEATED RED BLOOD CELL 0.6 % (0.0-0.0); PLATELET COUNT AUTOMATED 157 10*3/uL (130-400); RED BLOOD COUNT 3.08 10*6/uL (4.10-5.10); RED CELL DISTRI WIDTH 19.5 % (0-14.5); WHITE BLOOD COUNT 14.9 10*3/uL (4.8-10.8)
[2016-12-07 05:29] LABS: BUN 24 mg/dl (7-24); CHLORIDE 105 mmol/L (98-107); CREATININE 0.33 mg/dL (0.55-1.02); POTASSIUM 3.7 mmol/L (3.5-5.1); SODIUM 145 mmol/L (136-145)
[2016-12-07 05:38] LABS: TOTAL CELLS COUNTED 100 #CELLS
[2016-12-07 05:39] LABS: PLATELET SUFFICIENCY NORMAL (NORMAL); POLYCHROMASIA SLIGHT
--- NOTE | 2016-12-07 06:30 | NUR ---
INCONTINENT OF LARGE AMOUNT MUSHY, TARRY STOOL. INCONTINENT PAD CHANGED AND ZURI CARE DONE. REPOSITIONED ON BACK. TRACH SECURE TO VENT. ROBLES PATENT. SLEPT WELL THIS SHIFT. CONDITION GUARDED.
--- NOTE | 2016-12-07 06:38 | NUR ---
HALDOL 5MG GIVEN FOR RESTLESSNESS. WILL MONITOR.
[2016-12-07 08:00] VITALS: BP 149/81
[2016-12-07 12:00] VITALS: BP 126/75
[2016-12-07 15:47] VITALS: BP 143/81
--- NOTE | 2016-12-07 16:37 | NUR ---
RESTING IN BED. WAKES UP WITH CARE. ORAL CARE GIVEN. PICC LINE INTACT TO LEFT ARM AND FLUSHES WELL. SCD'S INTACT TO BILATERAL LOWER LEGS.
[2016-12-07 20:00] VITALS: BP 102/53
--- NOTE | 2016-12-07 20:16 | NUR ---
1999 RESTING IN BED ON LEFT SIDE.BED REMAINS IN ROTATION MODE. HOB ELEVATED. SIDE RAILS UP X'S 2. CALL LIGHT IN REACH. OPENS EYES TO CARE. ALERT. NGT INTACT WITH TF MAINTAINED. PLACEMENT CONFIRMED WITH AIR BOLUS/AUSCULTATION. ORAL AND EYE CARE DONE. TRACH SECURE TO VENT. PULSE OX 100% ON BREATHING RX. NPO. PICC INTACT JAYA. WRIST RESTRAINTS REMAIN OFF. BILATERAL SCD'S INTACT LOWER EXTREMITIES. ROBLES PATENT AND DRAINING CLEAR YELLOW URINE. ISOLATION MAINTAINED. NO DISTRESS NOTED.
--- NOTE | 2016-12-07 22:08 | NUR ---
2100 INCONTINENT OF LARGE AMOUNT GREENISH-BLACK MUSHY BM. ZURI CARE DONE AND LINENS CHANGED.
[2016-12-08] VITALS: BP 117/60
--- NOTE | 2016-12-08 00:16 | NUR ---
FREQUENT ORAL CARE DONE. BED REMAINS IN ROTATION MODE. NO C/O'S VOICED.
--- NOTE | 2016-12-08 03:54 | NUR ---
SA NOT GIVEN..OTHER PT CARE PRIORITY
[2016-12-08 04:00] VITALS: BP 126/65
[2016-12-08 05:01] LABS: HEMATOCRIT 29.7 % (37.0-47.0); HEMOGLOBIN 9.4 g/dl (12.0-16.0); MEAN CELL VOLUME 98.7 fl (81.0-99.0); MEAN CORPUSCULAR HGB 31.2 pg (27.0-31.0); MEAN CORPUSCULAR HGB CONC 31.6 g/dl (33.0-37.0); MEAN PLATELET VOLUME 9.3 fl (9.6-12.3); NUCLEATED RED BLOOD CELL 0.1 10*3/uL (0.0-0.0); NUCLEATED RED BLOOD CELL 0.5 % (0.0-0.0); PLATELET COUNT AUTOMATED 151 10*3/uL (130-400); RED BLOOD COUNT 3.01 10*6/uL (4.10-5.10); RED CELL DISTRI WIDTH 18.3 % (0-14.5); WHITE BLOOD COUNT 12.5 10*3/uL (4.8-10.8)
[2016-12-08 05:21] LABS: BUN 26 mg/dl (7-24); CHLORIDE 104 mmol/L (98-107); CREATININE 0.37 mg/dL (0.55-1.02); POTASSIUM 3.8 mmol/L (3.5-5.1); SODIUM 143 mmol/L (136-145)
[2016-12-08 06:00] LABS: PLATELET SUFFICIENCY NORMAL (NORMAL); POLYCHROMASIA SLIGHT; TOTAL CELLS COUNTED 100 #CELLS; TOXIC GRANULATION SLIGHT
--- NOTE | 2016-12-08 06:12 | NUR ---
0400 INCONTINENT OF VERY LARGE AMOUNT GREENISH BLACK MUSHY STOOL. ZURI CARE DONE AND LINENS CHANGED. 0600 RESTING IN BED WITH EYES CLOSED. APPEARS TO BE SLEEPING. NO DISTRESS NOTED. PULSE OX 97% ON 50% FIO2. CONDITION GUARDED.
--- NOTE | 2016-12-08 06:44 | NUR ---
INCONTINENT OF VERY LARGE AMOUNT GREENISH LIQUID BM. COMPLETE BED CHANGE AND ZURI CARE DONE.
[2016-12-08 08:00] VITALS: BP 155/85
--- NOTE | 2016-12-08 13:46 | NUR ---
Note entered on 11/28 regarding LTACH denial was documented in error. Patient is still awaiting LTACH precert.
[2016-12-08 16:00] VITALS: BP 135/72
--- NOTE | 2016-12-08 18:55 | NUR ---
HME WAS CHANGED AND PT WAS SX FOR A SMALL AMOUNT OF CREAMY SECRETIONS. ALARMS CHECKED AND AUDIBLE.
[2016-12-08 20:00] VITALS: BP 163/73
--- NOTE | 2016-12-08 20:31 | NUR ---
DR WOODALL NOTIFIED OF FOUL SMELL EMINATING FROM THE SECRETIONS FROM AROUND THE TRACH SITE. HE WAS INFORMED OF VS, AND THEN THE CULTURE ORDERED BY DR MALHOTRA. HE STATES THAT THERE IS NOTHING ELSE TO DO TONIGHT LONG SHE IS VENTILATING OK, WHICH SHE IS. HE WILL SEE HER IN THE AM.
--- NOTE | 2016-12-08 20:38 | NUR ---
DR MALHOTRA UPDATED ON DR YIN'S RESPONSE. NO NEW ORDERS RECEIVED.
--- NOTE | 2016-12-08 20:42 | NUR ---
MEDICATED WITH IV HALDOL ORDERED FOR ACUTE ANXIETY.
--- NOTE | 2016-12-08 21:20 | NUR ---
MEDICATED WITH IV MORPHINE ORDERED PER PT REQUEST FOR C/O PAIN TO TRACH SITE AFTER CHANGING GAUZE REPEATEDLY D/T EXCESSIVE SECRETIONS.
[2016-12-09] VITALS: BP 135/82
--- NOTE | 2016-12-09 | NUR ---
MEDICATIONS EFFECTIVE PAIN AND ANXIETY.
--- NOTE | 2016-12-09 03:05 | NUR ---
MEDICATED WITH IV HALDOL ORDERED FOR EXTREME RESTLESSNESS.
--- NOTE | 2016-12-09 03:07 | NUR ---
MEDICATED WITH IV MORPHINE ORDERED FOR SHORTNESS OF BREATH AND IRRITATION AT TRACH SITE.
--- NOTE | 2016-12-09 03:22 | NUR ---
DR ALFARO NOTIFIED OF PT'S STRUGGLING TO BREATH DESPITE MULTIPLE INTERVENTIONS. HE WANTS HER ON CMV, SAME SETTINGS.
--- NOTE | 2016-12-09 03:41 | NUR ---
24 HR chart check completed.
[2016-12-09 04:00] VITALS: BP 135/81
[2016-12-09 04:18] LABS: HEMATOCRIT 31.8 % (37.0-47.0); HEMOGLOBIN 9.8 g/dl (12.0-16.0); MEAN CORPUSCULAR HGB 30.8 pg (27.0-31.0); MEAN CORPUSCULAR HGB CONC 30.8 g/dl (33.0-37.0); MEAN PLATELET VOLUME 9.7 fl (9.6-12.3); NUCLEATED RED BLOOD CELL 0.3 % (0.0-0.0); PLATELET COUNT AUTOMATED 144 10*3/uL (130-400); RED BLOOD COUNT 3.18 10*6/uL (4.10-5.10); RED CELL DISTRI WIDTH 17.7 % (0-14.5); WHITE BLOOD COUNT 11.9 10*3/uL (4.8-10.8)
--- NOTE | 2016-12-09 04:26 | NUR ---
MEDICATIONS EFFECTIVE, PT RESTING COMFORTABLY W/ VENT IN CMV MODE.
[2016-12-09 04:38] LABS: PLATELET SUFFICIENCY LOW (NORMAL); TOTAL CELLS COUNTED 100 #CELLS
[2016-12-09 04:41] LABS: BUN 23 mg/dl (7-24); CHLORIDE 102 mmol/L (98-107); CREATININE 0.35 mg/dL (0.55-1.02); POTASSIUM 4.2 mmol/L (3.5-5.1); SODIUM 141 mmol/L (136-145)
--- NOTE | 2016-12-09 06:22 | NUR ---
SHIRA CALLED FROM [facility] STATING THAT PT IS APPROVED FOR LTAC.
--- NOTE | 2016-12-09 07:22 | NUR ---
Received authorization for patient to go to [facility] in [place]. Patient can go when ready to discharge.
--- NOTE | 2016-12-09 07:35 | NUR ---
Shift chart check completed. PATIENT RESTING ON VENTILATOR CMV SETTINGS. PICC LINE SECURE & PATENT. ROBLES SECURE & PATENT.
[2016-12-09 08:00] VITALS: BP 122/75
--- NOTE | 2016-12-09 09:34 | NUR ---
DR ALFARO WAS IN & OK TO GO TO [facility] WITH NO CHANGE IN MEDICATIONS. OK PER DR GAGNON & DR WOODALL TO GO TO [facility]. ARRANGE FOR LATER THIS AFTERNOON.
--- NOTE | 2016-12-09 09:45 | NUR ---
TRACH CARE COMPLETED. TOLERATING WELL. SITE CLEANED WITH PEROXIDE. NEW TRACH DRESSING APPLIED.
--- NOTE | 2016-12-09 10:36 | NUR ---
Patient is being discharged to [facility] in [facility]. Transportation scheduled for 4PM with [facility]. Nursing and LTACH notified.
--- NOTE | 2016-12-09 11:19 | NUR ---
Dr Peterson made rounds.
[2016-12-09 12:00] VITALS: BP 118/60
[2016-12-09] MEDS ORDERED: SOLU-MEDRO40 MG/1 ML IV (12:32)
[2016-12-09] MEDS ORDERED: ACETAZOLAMIDE250 MG PO (12:32)
[2016-12-09] MEDS ORDERED: DOXY 100100 MG IV (12:32)
--- NOTE | 2016-12-09 12:41 | NUR ---
SPOKE WITH THE - CONSENT FOR TRANSFER & TO COPY RFECORDS RECEIVED & VERIFIED BY ANOTHER NURSE.
--- NOTE | 2016-12-09 14:51 | NUR ---
TUBE FEEDING STOPPED IN PREP FOR TRANSFER TO [facility]. TRACH DRESSING CHANGED FOR 3RD TIME TODAY.
--- NOTE | 2016-12-09 15:07 | NUR ---
UNABLE TO DO MED LIST NO FAMILY & PATIENT IS UNABLE TO REVIEW IT
[2016-12-09 16:00] VITALS: BP 116/57
--- NOTE | 2016-12-09 17:12 | NUR ---
PT TRANSFERRED TO [facility]. PT WAVED GOODBBYE UPON LEAVING UNIT.
== END 2016-12-09 17:12 | DRG 4 ==
LOC: ED 11:53 → 5E 14:28 → ICCU 14:28 → EDHOLD 14:28 → 5E 14:31 → ICCU 11-20 09:56
PROVIDERS: Family Medicine; Family Medicine Adult Medicine; Hospitalist; Internal Medicine; Internal Medicine Critical Care Medicine; Internal Medicine Hospice and Palliative Medicine; Internal Medicine Nephrology; ADMIT Internal Medicine
PROC: 5A1955Z Respiratory Ventilation, Greater than 96 Consecutive Hours (ICD-10-PCS; principal; 2016-11-16)
PROC: 0BH17EZ Insertion of Endotracheal Airway into Trachea, Via Natural or Artificial Opening (ICD-10-PCS; 2016-11-16)
PROC: 30233N1 Transfusion of Nonautologous Red Blood Cells into Peripheral Vein, Percutaneous Approach (ICD-10-PCS; 2016-11-19)
PROC: 0BC98ZZ Extirpation of Matter from Lingula Bronchus, Via Natural or Artificial Opening Endoscopic (ICD-10-PCS; 2016-11-19)
PROC: 0BC48ZZ Extirpation of Matter from Right Upper Lobe Bronchus, Via Natural or Artificial Opening Endoscopic (ICD-10-PCS; 2016-11-19)
PROC: 0BC88ZZ Extirpation of Matter from Left Upper Lobe Bronchus, Via Natural or Artificial Opening Endoscopic (ICD-10-PCS; 2016-11-19)
PROC: 0BC58ZZ Extirpation of Matter from Right Middle Lobe Bronchus, Via Natural or Artificial Opening Endoscopic (ICD-10-PCS; 2016-11-19)
PROC: 0BC68ZZ Extirpation of Matter from Right Lower Lobe Bronchus, Via Natural or Artificial Opening Endoscopic (ICD-10-PCS; 2016-11-19)
PROC: 02HV33Z Insertion of Infusion Device into Superior Vena Cava, Percutaneous Approach (ICD-10-PCS; 2016-11-20)
PROC: B548ZZA Ultrasonography of Superior Vena Cava, Guidance (ICD-10-PCS; 2016-11-20)
PROC: 0B110F4 Bypass Trachea to Cutaneous with Tracheostomy Device, Open Approach (ICD-10-PCS; 2016-12-05)
DX: A41.9 Sepsis, unspecified organism (principal); J96.21 Acute and chronic respiratory failure with hypoxia; E43 Unspecified severe protein-calorie malnutrition; E87.2 Acidosis; J18.1 Lobar pneumonia, unspecified organism; J15.211 Pneumonia due to Methicillin susceptible Staphylococcus aureus; E87.3 Alkalosis; K92.2 Gastrointestinal hemorrhage, unspecified; J96.22 Acute and chronic respiratory failure with hypercapnia; E87.0 Hyperosmolality and hypernatremia; J44.0 Chronic obstructive pulmonary disease with (acute) lower respiratory infection; J44.1 Chronic obstructive pulmonary disease with (acute) exacerbation; Z99.11 Dependence on respirator [ventilator] status; Z99.81 Dependence on supplemental oxygen; Z68.39 Body mass index [BMI] 39.0-39.9, adult; E55.9 Vitamin D deficiency, unspecified; Z78.9 Other specified health status; I48.0 Paroxysmal atrial fibrillation; K21.9 Gastro-esophageal reflux disease without esophagitis; R74.0 Nonspecific elevation of levels of transaminase and lactic acid dehydrogenase [LDH]; K59.00 Constipation, unspecified; E87.6 Hypokalemia; Z22.322 Carrier or suspected carrier of Methicillin resistant Staphylococcus aureus; Z88.0 Allergy status to penicillin; Z79.899 Other long term (current) drug therapy; G47.33 Obstructive sleep apnea (adult) (pediatric); Z90.49 Acquired absence of other specified parts of digestive tract; Z87.891 Personal history of nicotine dependence; Z82.49 Family history of ischemic heart disease and other diseases of the circulatory system; Z83.3 Family history of diabetes mellitus; Z82.3 Family history of stroke; Y92.89 Other specified places as the place of occurrence of the external cause; Z80.1 Family history of malignant neoplasm of trachea, bronchus and lung; J20.9 Acute bronchitis, unspecified; F41.1 Generalized anxiety disorder; D64.9 Anemia, unspecified; T38.0X5A Adverse effect of glucocorticoids and synthetic analogues, initial encounter; E66.01 Morbid (severe) obesity due to excess calories; R73.9 Hyperglycemia, unspecified; D52.9 Folate deficiency anemia, unspecified; F02.80 Dementia in other diseases classified elsewhere, unspecified severity, without behavioral disturbance, psychotic disturbance, mood disturbance, and anxiety

== ENCOUNTER 2017-07-09 11:29 | Inpatient (IN) | payer MEDICAID ==
[2017-07-09] VITALS (7 sets, daily range): BP systolic 101–128; BP diastolic 56–78
[~2017-07-09] VITALS: Ht 167.6 cm; Wt 104.0 kg
--- NOTE | ~2017-07-09 | EKG ---
[place], [place] ELECTROCARDIOGRAM REPORT NAME: ANGIE VERDUZCO UNIT #: [id number] ROOM: 425 DOCTOR: ANGELINA ERICKSON MD,JULIA BIRTHDATE: [birth year] DOS: 07/09/2017 TIME: 12:15 p.m. Sinus tachycardia noted with 104 beats per minute. Rest of the electrocardiogram was noted normal. JULIA ALFARO MD CM:EKGRPT:ELECTROCARDIOGRAM REPORT [id number] JULIA ERICKSON MD
--- NOTE | ~2017-07-09 | CON ---
[place], [place] REPORT OF CONSULTATION NAME: ANGIE VERDUZCO [facility] #: [id number] UNIT #: [id number] ROOM: 425 DOCTOR: JULIA ROGERS MD BIRTHDATE: [birth year] DOS: 07/10/2017 PULMONARY CONSULTATION, EVALUATION, AND MANAGEMENT CONSULTATION REQUESTED BY: Hospitalist service. REASON FOR CONSULTATION: Assessment of ongoing acute respiratory complaints. HISTORY OF PRESENT ILLNESS: This is a 56-year-old female patient who came into the Emergency Room and is being admitted on 07/09/2017. The patient started having symptoms of increased coughing and moderate sputum expectoration with chest tightness and nonspecific chest pain. The pain was described in the anterior chest wall of the patient, worsens with the deep inspiratory effort. The pain has been noted better since admission. She has been still noted with the coughing without any sputum expectoration. The patient denies symptoms of hemoptysis. The patient does not have any symptoms of wheezing. The patient's wheezing was reported earlier minimal. The shortness of breath occurs with exertion. REVIEW OF SYSTEMS: CONSTITUTIONAL SYMPTOMS: Fatigue and tiredness reported. Denies symptoms of fever or chills. EYES: Denies any burning, redness, or tenderness. EARS, NOSE, THROAT SYMPTOMS: No sore throat, hoarseness, otalgia, postnasal drainage or epistaxis. CARDIOVASCULAR: Denies angina pain, edema, pain of lower extremities. GASTROINTESTINAL SYMPTOMS: No dysphagia, diarrhea, abdominal pain, hematemesis, or melena at this time. The patient does have symptoms of nausea and vomiting that occurred 3 days ago and then later her respiratory symptoms started afterwards. GENITOURINARY SYMPTOMS: No dysuria, suprapubic pain, or hematuria. MUSCULOSKELETAL: No acute joint pain, redness, or tenderness. CENTRAL NERVOUS SYSTEM: No dizziness, headache, diplopia, or syncopal episodes. MUSCULOSKELETAL: No acute joint pain, redness, or tenderness. There was no tingling sensation of the extremities. Remaining systems were reviewed of the patient, they were noted all negative. PAST MEDICAL HISTORY: Noted with: 1. Prolonged hospitalization initially in [place] and later in [facility] for about a couple of months or so from November 2016. Later on, the patient was transferred to [facility] where she underwent extensive rehabilitation prior to subsequent home discharge. She was managed for acute progressive pneumonia with acute severe hypercapnic and hypoxic respiratory failure, developed critical care induced myopathy for the patient with inability to walk and later on noted marked improvement and resolution of the symptoms and then subsequently discharged home. Walking at this time is without any difficulty. 2. History of longstanding COPD. 3. Chronic hypercapnic respiratory failure. [place], [place] REPORT OF CONSULTATION NAME: ANGIE VERDUZCO UNIT #: [id number] ROOM: 425 DOCTOR: JULIA ROGERS MD BIRTHDATE: [birth year] 4. History of hypoxic respiratory failure, resolved. 5. Obstructive sleep apnea disorder. 6. Chronic obesity. 7. History of herpes zoster infection. 8. Critical care-induced myopathy, resolved. 9. Metabolic alkalosis secondary to chronic hypercarbia and acute chronic atrial fibrillation. 10. Previous history of pneumonia. PAST SURGICAL HISTORY: Noted: 1. Intubation, mechanical ventilation. 2. Tracheostomy with subsequent decannulation for the patient. 3. PEG tube insertion temporarily for the patient and later on removed for the oropharyngeal dysphagia. 4. Therapeutic bronchoscopies. 5. Appendectomy. SOCIAL HISTORY: The patient is , has no children, lives at home. Denies history of alcohol use, illicit drug use. Tobacco use noted from age of [age] years old, 1 pack of cigarettes per day that has been discontinued by the patient in 2016. There was no occupation related pulmonary exposure. FAMILY HISTORY: Noted with cancer in the mother, father with heart disease, both are . MEDICATIONS: The current medications administered by the patient with noted use of Cardizem-CD, potassium chloride, Protonix, Eliquis, Solu-Medrol 40 mg b.i.d., vitamin D, magnesium oxide, oral Lasix, Dulera, DuoNeb q. 4 hours, Levaquin, and other p.r.n. medications administered. DRUG ALLERGIES: NOTED WITH ALLERGY TO PENICILLINS. PHYSICAL EXAMINATION: GENERAL: This is a 56-year-old female who has been currently noted awake and alert, without acute distress on this morning of assessment. VITAL SIGNS: Height was noted 5 feet 6 inches, weight of 229 pounds, BMI 37. Normal temperature, respiratory rate 20, heart rate of 114-103, blood pressure 114/65-125/73. Pulse oxygen saturation on 2 liters nasal cannula 95% saturation on room air and at rest 84% saturation. HEENT: Mild to moderately obese. Head atraumatic. Eyes nonicterus. Healed scar is noted in the area from past tracheostomy. CARDIOVASCULAR: S1, S2 is audible without any added sounds ____. LUNGS: Noted with moderate reduction in the breath sounds bilaterally, mild to moderate expiratory wheezing. There were no crackles. ABDOMEN: Soft, nontender, and obese. EXTREMITIES: Noted without edema, clubbing, cyanosis. MUSCULOSKELETAL: ____ deformity. SKIN: Visible skin, no lesions or rashes. GENITOURINARY: Noted for the patient without any gross focal neurologic deficit. Cranial nerves 2-12 intact. [place], [place] REPORT OF CONSULTATION NAME: ANGIE VERDUZCO UNIT #: [id number] ROOM: 425 DOCTOR: ANGELINA ERICKSON [facility] BIRTHDATE: [birth year] LABORATORY DATA: Lactic acid on admission 1.2. CMP of the patient on admission, normal BUN and creatinine was noted. LFTs normal. Troponin normal. CBC that was done yesterday, WBC count 20,000. Remaining CBC was normal. The CMP of the patient of 07/10/2017, glucose 122. Normal BUN and creatinine. PT and PTT is normal today. CBC this morning, WBC count 16.3, hemoglobin 11.4, hematocrit normal, platelet count was normal. Urine culture, no bacterial growth. IMAGING STUDIES: Chest x-ray which was done, 2-view on the patient, yesterday was reviewed personally, acute infiltrates noted in the lingula with the current chest x-ray. The right lung was noted clear. IMPRESSION: 1. The patient with acute pneumonia, which has developed in the left lingula with acute hypoxic respiratory failure and exacerbation of chronic obstructive pulmonary disease. 2. Chronic obesity. 3. History of chronic anticoagulation with atrial fibrillation. PLAN OF THERAPY: Continue with current antibiotics and bronchodilators. Sputum for Gram stain and culture. Current finding would suggest a possibility of initial infection as influenza infection. The patient will be started on Tamiflu empirically to be treated for the suspected influenza infection. Nasopharyngeal washing of the patient will be ordered for the influenza antigen and respiratory viral panel as well. Other additional treatment of the patient to be made to be changed based on progression of the illness. Empirical treatment with the influenza infection with Tamiflu as well according to the respiratory viral panel. Continue oxygen supplementation to maintain pulse ox saturation of 92% or greater. Thanks for allowing me to participate in the care of this patient. JULIA LAFARO MD CM:CONSTR:REPORT OF CONSULTATION 1337 07/11/17 0209 interface
--- NOTE | ~2017-07-09 | PR ---
[place], [place] PROGRESS NOTE NAME: ANGIE VERDUZCO UNIT #: [id number] ROOM: 425 DOCTOR: ANGELINA ERICKSON MD,JULIA BIRTHDATE: [birth year] DOS: 07/11/2017 PULMONARY PROGRESS NOTE SUBJECTIVE: She has been noted comfortable at this time, sitting on the bed without any acute distress. Coughing, shortness of breath and wheezing are improving, but not completely resolved. Denies symptoms of fever, chills, chest pain or hemoptysis. OBJECTIVE: VITAL SIGNS: Normal temperature, respiratory rate 18, heart rate 99, blood pressure of 119/75. Pulse ox saturation on 2 liters nasal cannula is 95% saturation. HEENT: No acute change. Chronic obesity. CARDIOVASCULAR: S1, S2 is audible. LUNGS: Noted mild to moderate expiratory wheezing, no crackles. ABDOMEN: Soft, nontender. EXTREMITIES: Without any acute edema. LABORATORY DATA: Gram stain of the bronchial washing done on 07/10/2017 many white blood cells, few gram-positive cocci in pairs and clusters, few gram-negative bacilli, pending cultures. Blood culture from the 07/09/2017 no bacterial growth. BMP normal BUN and creatinine, sodium 134, CO2 of 35. IMPRESSION: The patient with acute exacerbation of chronic obstructive pulmonary disease, acute tracheobronchitis noted, suspected influenza infection treated with the Tamiflu. PLAN OF MANAGEMENT: Continuation of bronchodilators, oxygen supplementation, other treatment therapy, plan of management as in progress. Possible discharge home could be considered for the morning. JULIA ALFARO MD CM:PNTRANS [id number] JULIA ERICKSON MD 07/12/17 0106 interface
--- NOTE | ~2017-07-09 | PR ---
[place], [place] PROGRESS NOTE NAME: ANGIE VERDUZCO UNIT #: [id number] ROOM: 425 DOCTOR: ANGELINA ERICKSON MD,JULIA BIRTHDATE: [birth year] DOS: 07/12/2017 SUBJECTIVE: The patient noted comfortable at this time, resting in the bed. Coughing, wheezing, shortness of breath, all symptoms have been improving progressively, there is a symptoms of chest pain. OBJECTIVE: VITAL SIGNS: Normal temperature, respiratory rate 20, heart rate 103, blood pressure 116/64, pulse ox saturation on 2 liters nasal cannula 94% saturation. HEENT: Examination shows head was atraumatic. Eyes, nonicterus. NECK: Supple. CARDIOVASCULAR: S1, S2 audible. LUNGS: Noted without any wheezing or crackles at the present time. The breaths are noted mildly decreased bilaterally. ABDOMEN: Soft, nontender, and obese. EXTREMITIES: Without any acute edema. LABORATORY DATA: Culture of the sputum noted normal arian. The Gram-stain showed many white blood cell, few gram-positive cocci in pairs and clusters, few gram-negative bacilli. IMPRESSION: Progressive resolution of acute tracheobronchitis ____ viral syndrome, suspected influenza infection was treated with antiviral treatment, responded to treatment. Possibly superimposed bacterial infection can be completely excluded. Significant improvement in the respiratory symptom noted. Resolving exacerbation of chronic obstructive pulmonary disease. PLAN OF TREATMENT: The patient could be considered home discharge today on oral medication and tapering dose of prednisone. Outpatient followup to be kept as previously. Usual care. JULIA ALFARO MD CM:PNTRANS [phone] JULIA ERICKSON MD 07/12/172051 interface
[~2017-07-09 11:29] MED LIST changes: +CARTIA XT180 MG PO; +DOXY 100100 MG IV; +SOLU-MEDRO40 MG/1 ML IV
[2017-07-09 12:12] LABS: HEMOGLOBIN 12.5 g/dl (12.0-16.0); MEAN CELL VOLUME 92.4 fl (81.0-99.0); MEAN CORPUSCULAR HGB 28.9 pg (27.0-31.0); MEAN CORPUSCULAR HGB CONC 31.3 g/dl (33.0-37.0); MEAN PLATELET VOLUME 10.2 fl (9.6-12.3); PLATELET COUNT AUTOMATED 330 10*3/uL (130-400); RED BLOOD COUNT 4.33 10*6/uL (4.10-5.10); RED CELL DISTRI WIDTH 14.1 % (0-14.5); WHITE BLOOD COUNT 20.6 10*3/uL (4.8-10.8)
[2017-07-09 12:29] LABS: ALBUMIN 3.1 gm/dl (3.1-4.5); ALKALINE PHOSPHATASE 75 U/L (45-117); BUN 8 mg/dl (7-24); CHLORIDE 102 mmol/L (98-107); CREATININE 0.67 mg/dL (0.55-1.02); SGOT/AST 9 IU/L (3-35); SGPT/ALT 15 U/L (12-78); SODIUM 139 mmol/L (136-145); TROPONIN I < 0.015 ng/ml (<0.045)
[2017-07-09 12:32] LABS: TOTAL CELLS COUNTED 100 #CELLS
[2017-07-09 12:33] LABS: PLATELET SUFFICIENCY NORMAL (NORMAL)
[2017-07-09 13:22] LABS: BILIRUBIN NEGATIVE (NEGATIVE); BLOOD NEGATIVE (NEGATIVE); CLARITY CLOUDY (CLEAR); COLOR YELLOW (YELLOW); GLUCOSE NEGATIVE (NEGATIVE); KETONE NEGATIVE (NEGATIVE); LEUKO ESTERASE NEGATIVE (NEGATIVE); NITRITE NEGATIVE (NEGATIVE); PH 5.5 (5.0-9.0); SPECIFIC GRAVITY 1.015 (1.005-1.030); UROBILINOGEN 0.2 E.U./dl (0.2-1.0)
[2017-07-09 13:31] LABS: EPITHELIAL CELLS 16-20
[2017-07-09 13:32] LABS: BACTERIA 2+
[2017-07-09] MEDS ORDERED: CALCIUM 600 +1 EA11 PO (13:56)
[2017-07-10 06:43] LABS: HEMATOCRIT 37.8 % (37.0-47.0); HEMOGLOBIN 11.4 g/dl (12.0-16.0); MEAN CELL VOLUME 94.7 fl (81.0-99.0); MEAN CORPUSCULAR HGB 28.6 pg (27.0-31.0); MEAN CORPUSCULAR HGB CONC 30.2 g/dl (33.0-37.0); MEAN PLATELET VOLUME 9.9 fl (9.6-12.3); PLATELET COUNT AUTOMATED 291 10*3/uL (130-400); RED BLOOD COUNT 3.99 10*6/uL (4.10-5.10); WHITE BLOOD COUNT 16.3 10*3/uL (4.8-10.8)
[2017-07-10 07:00] LABS: ALBUMIN 2.7 gm/dl (3.1-4.5); ALKALINE PHOSPHATASE 71 U/L (45-117); BUN 9 mg/dl (7-24); CHLORIDE 104 mmol/L (98-107); CHOLESTEROL 128 mg/dL (<200); CREATININE 0.57 mg/dL (0.55-1.02); FREE T4 0.99 ng/dl (0.76-1.46); HDL CHOLESTEROL 69 mg/dl (40-60); LDL CHOLESTEROL 51 mg/dL (9-159); PHOSPHOROUS 3.9 mg/dL (2.5-4.9); POTASSIUM 4.5 mmol/L (3.5-5.1); SGOT/AST 13 IU/L (3-35); SGPT/ALT 14 U/L (12-78); SODIUM 142 mmol/L (136-145); TOTAL PROTEIN 7.2 gm/dL (6.4-8.2); TRIGLYCERIDES 41 mg/dl (<150); VLDL CHOLESTEROL 8 mg/dL (6-40)
[2017-07-10 07:05] LABS: THYROID STIM HORMONE (HS) 0.331 uIU/ml (0.358-4.75)
[2017-07-10 07:13] LABS: ACT PARTIAL THROMBO TIME 36.8 SECONDS (20.8-31.5)
[2017-07-10 07:26] LABS: PLATELET SUFFICIENCY NORMAL (NORMAL); TOTAL CELLS COUNTED 100 #CELLS
[2017-07-10 08:00] VITALS: BP 114/65
[2017-07-10 12:00] VITALS: BP 115/49
[2017-07-10 16:00] VITALS: BP 104/65
[2017-07-10 20:00] VITALS: BP 100/69
[2017-07-11] VITALS: BP 99/50
[2017-07-11 06:24] LABS: BASO % 0.3 % (0.0-1.0); HEMATOCRIT 36.6 % (37.0-47.0); LYMPH # 0.7 10*3/uL (1.3-4.4); LYMPH % 5.3 % (27.0-41.0); MEAN CELL VOLUME 95.1 fl (81.0-99.0); MEAN CORPUSCULAR HGB 28.6 pg (27.0-31.0); MEAN CORPUSCULAR HGB CONC 30.1 g/dl (33.0-37.0); MONO # 0.4 10*3/uL (0.1-1.0); MONO % 3.2 % (3.0-9.0); NEUT # 11.9 10*3/uL (2.3-7.9); NEUT % 89.6 % (47.0-73.0); PLATELET COUNT AUTOMATED 333 10*3/uL (130-400); RED BLOOD COUNT 3.85 10*6/uL (4.10-5.10); WHITE BLOOD COUNT 13.3 10*3/uL (4.8-10.8)
[2017-07-11 06:31] LABS: BUN 14 mg/dl (7-24); CHLORIDE 104 mmol/L (98-107); CREATININE 0.61 mg/dL (0.55-1.02); POTASSIUM 4.5 mmol/L (3.5-5.1); SODIUM 143 mmol/L (136-145)
[2017-07-11 08:00] VITALS: BP 104/71
[2017-07-11 12:00] VITALS: BP 119/75
[2017-07-11 16:00] VITALS: BP 127/82
[2017-07-11 20:00] VITALS: BP 127/78
[2017-07-12] VITALS: BP 111/64
[2017-07-12 08:00] VITALS: BP 116/64
[2017-07-12] MEDS ORDERED: PREDNISONE10 MG PO (13:33)
[2017-07-12] MEDS ORDERED: VITAMIN D-32000 UNIT PO (13:33)
[2017-07-12] MEDS ORDERED: LEVAQUIN500 M2 PO (13:33)
[2017-07-12] MEDS ORDERED: TAMIFLU 75MG CA75 MG PO (13:34)
[2017-07-14 05:07] LABS: ADENOVIRUS Negative (Negative); INFLUENZA A Negative (Negative); INFLUENZA B Negative (Negative); METAPNEUMOVIRUS Negative (Negative); PARAINFLUENZA 1 Negative (Negative); PARAINFLUENZA 2 Negative (Negative); PARAINFLUENZA 3 Negative (Negative); RHINOVIRUS Negative (Negative); RSV A Negative (Negative); RSV B Negative (Negative)
== END 2017-07-12 14:43 | disposition home or self-care (01) | DRG 871 ==
LOC: ED 11:29 → 4E 13:03 → EDHOLD 13:03 → 4E 13:08
PROVIDERS: Family Medicine; Internal Medicine Critical Care Medicine; Nurse Practitioner Family; Registered Nurse
DX: A41.9 Sepsis, unspecified organism (principal); J18.0 Bronchopneumonia, unspecified organism; J96.21 Acute and chronic respiratory failure with hypoxia; J18.9 Pneumonia, unspecified organism; I48.1 Persistent atrial fibrillation; J44.1 Chronic obstructive pulmonary disease with (acute) exacerbation; J44.0 Chronic obstructive pulmonary disease with (acute) lower respiratory infection; E83.41 Hypermagnesemia; K21.9 Gastro-esophageal reflux disease without esophagitis; E66.09 Other obesity due to excess calories; E53.8 Deficiency of other specified B group vitamins; J20.9 Acute bronchitis, unspecified; B34.9 Viral infection, unspecified; G47.33 Obstructive sleep apnea (adult) (pediatric); D64.9 Anemia, unspecified; Z88.0 Allergy status to penicillin; Z79.899 Other long term (current) drug therapy; Z87.01 Personal history of pneumonia (recurrent); Z90.49 Acquired absence of other specified parts of digestive tract; Z87.891 Personal history of nicotine dependence; Z82.49 Family history of ischemic heart disease and other diseases of the circulatory system; Z93.0 Tracheostomy status; Z99.81 Dependence on supplemental oxygen; Z83.3 Family history of diabetes mellitus; Z82.3 Family history of stroke; Z83.6 Family history of other diseases of the respiratory system; Z80.1 Family history of malignant neoplasm of trachea, bronchus and lung; Z79.01 Long term (current) use of anticoagulants; Z68.37 Body mass index [BMI] 37.0-37.9, adult

== ENCOUNTER 2017-08-13 19:24 | Inpatient (IN) | payer MEDICAID ==
[~2017-08-13] VITALS: Ht 165.1 cm; Wt 106.2 kg
--- NOTE | ~2017-08-13 | PR ---
[place], [place] PROGRESS NOTE NAME: [facility]IE VERDUZCO [facility] [id number] UNIT #: [id number] ROOM: 421 DOCTOR: ANGELINA ERICKSON MD,JULIA BIRTHDATE: [birth year] DOS: 08/19/2017 PULMONARY PROGRESS NOTE SUBJECTIVE: She was seen by the Infectious disease specialist. The patient was recommended meropenem to be given 1 gram every 8 hours for 14 days. The patient has been noted comfortably sitting on the bed this morning. Denies symptoms of chest pain or any hemoptysis. Denies symptoms of nausea or vomiting. OBJECTIVE: VITAL SIGNS: Normal temperature, respiratory rate 18, heart rate 89, blood pressure 119/67. The pulse ox saturation on 2 liters nasal cannula was 94% saturation. HEENT: Shows head was atraumatic, eyes nonicterus. NECK: Supple. CARDIOVASCULAR: S1, S2 audible. LUNGS: The patient was noted without any wheezing or crackles. Breaths are noted mildly decreased bilaterally. ABDOMEN: Soft, nontender. EXTREMITIES: Without any acute edema. LABORATORY DATA: Culture bronchial washing was noted with Pseudomonas aeruginosa, heavy growth and light growth of MRSA as well. IMPRESSION: The patient with acute tracheobronchitis with exacerbation of chronic obstructive pulmonary disease is noted at the present time. PLAN OF TREATMENT: Continuation of the bronchodilator, oxygen supplementation, and other treatment therapy, plan of management. Usual care, other supportive therapy, plan of management, and treatment plan. Usual care. JULIA ALFARO MD CM:PNJORGE ALBERTO [id number] JULIA ERICKSON MD 08/19/17 1138 interface
--- NOTE | ~2017-08-13 | EKG ---
[place], [place] ELECTROCARDIOGRAM REPORT NAME: ANGIE VERDUZCO UNIT #: [id number] ROOM: 421 DOCTOR: ANGELINA ERICKSON MD,JULIA BIRTHDATE: [birth year] DOS: 08/16/2017 PROCEDURE: Electrocardiogram. Electrocardiogram done on 08/16/2017 at 1:00 p.m. Electrocardiogram showed normal sinus rhythm, heart rate 91 beats per minute. Multiple PVCs noted. JULIA ALFARO MD CM:EKGRPT:ELECTROCARDIOGRAM REPORT [id number] JULIA ERICKSON MD
--- NOTE | ~2017-08-13 | PR ---
[place], [place] PROGRESS NOTE [id number] UNIT #: [id number] ROOM: 421 DOCTOR: ANGELINA ERICKSON MD,JULIA BIRTHDATE: [birth year] DOS: 08/15/2017 SUBJECTIVE: She was noted coughing. She noted small amount of sputum expectoration, reported reduction in symptoms of shortness of breath or other and wheezing. Denies any symptoms of chest pain. OBJECTIVE: VITAL SIGNS: This morning, normal temperature, respiratory rate 20, heart rate 87, blood pressure 121/72. The pulse oxygen saturation on 2 liters nasal cannula 95% saturation. HEENT: Moderate obesity. NECK: Supple. Head was atraumatic. CARDIOVASCULAR: S1, S2 audible. LUNGS: Moderate decreased breath sounds, mild expiratory wheezing still present. There were no crackles. ABDOMEN: Soft, obese. EXTREMITIES: Without acute edema. LABORATORY DATA: CBC: WBC count 11.9, hemoglobin 10.8, platelet count normal. CMP today normal BUN and creatinine. CO2 is 33. The chest x-ray, PA and lateral that was completed yesterday, does not show any acute pulmonary infiltration. IMPRESSION: 1. The patient has been currently noted with some scarring of the lung related to past pneumonia, other long history of pneumonia. There was no clinical or radiologic evidence of acute pneumonia suggested. 2. Resolving acute exacerbation of chronic obstructive pulmonary disease. PLAN OF TREATMENT: No changes in the plan of therapy. The patient ambulates. Monitor respiratory status. Monitor any cultures of the sputum or others. Other supportive therapy, plan of management, and care plan. JULIA ALFARO MD CM:PNTRANS [id number] JULIA ERICKSON MD 08/16/17 0047 interface
--- NOTE | ~2017-08-13 | PR ---
[place], [place] PROGRESS NOTE [id number] UN[facility] #: [id number] ROOM: 421 DOCTOR: ANGELINA ERICKSON MD,JULIA BIRTHDATE: [birth year] DOS: 08/17/2017 PULMONARY PROGRESS NOTE SUBJECTIVE: The patient was noted the same with severe nonproductive cough. The wheezing and shortness of breath has been noted stable, unchanged from yesterday. Denies symptoms of chest pain or hemoptysis. Denies symptoms of sore throat, hoarseness, or postnasal drainage. Denies symptoms of headache. Denies symptoms of pain of the lower extremities. Remaining systems were reviewed. They were noted all negative. OBJECTIVE: VITAL SIGNS: For the patient which was recorded showed normal temperature, respiratory rate 18, heart rate of 83, blood pressure 131/82-104/59. Pulse ox saturation on 2 liters nasal cannula 94-96% saturation. HEENT: Moderate obesity. Head was atraumatic. Eyes nonicterus. NECK: Supple. CARDIOVASCULAR: S1, S2 audible. LUNGS: The patient was noted without any crackles. Moderate decreased breath sounds, scattered expiratory wheezing, no crackles. ABDOMEN: Soft and obese. EXTREMITIES: Without any acute edema. MUSCULOSKELETAL: Without any deformities. SKIN: Noted without any lesions or rashes. LABORATORY DATA: CBC of 08/17/2017; WBC count 11.7, hemoglobin 11.7, platelet count normal. BMP of 08/17/2017; BUN 19, creatinine was normal, CO2 of 37. Culture of the sputum on 08/16/2017 was noted with heavy growth of gram-negative bacilli, pending identification and sensitivities. IMPRESSION: 1. Acute gram-negative tracheobronchitis with persistent cough, which has been treated, currently improved with the antibiotics. 2. Acute exacerbation of chronic obstructive pulmonary disease as well. 3. Chronic moderate obesity. PLAN OF MANAGEMENT: Continuation of the bronchodilators with oxygen supplementation. Start the patient on Bactrim-DS empirically until the culture results will be available for the possible consideration of Stenotrophomonas maltophilia infection. The adjustment in the antibiotic will be done after the culture results. She was noted n.p.o. past midnight for bronchoscopy and will be undergoing bronchoscopy today. Supportive therapy, plan of management and care plan. Additional treatment changes will be made for the patient based on the progression of the illness. [place], [place] PROGRESS NOTE NAME: ANGIE VERDUZCO UNIT #: [id number] ROOM: 421 DOCTOR: JULIA ROGERS MD BIRTHDATE: [birth year] JULIA ALFARO MD CM:EDA [id number] JULIA ERICKSON MD 08/17/17 2357 interface
--- NOTE | ~2017-08-13 | PR ---
[place], [place] PROGRESS NOTE NAME: ANGIE VERDUZCO [facility] #: [id number] UNIT #: [id number] ROOM: 421 DOCTOR: JULIA ROGERS MD BIRTHDATE: [birth year] DOS: 08/18/2017 SUBJECTIVE: She has a bronchoscopy done yesterday with moderate amount of mucopurulent secretion removed from the endobronchial tree. She has been noted to have cough, which has not been completely resolved. However, C. diff, frequent intensity was decreased. There were no symptoms of chest pain or any hemoptysis noted. She was noted to have generalized weakness and fatigue. Denies symptoms of abdominal pain, nausea, vomiting, diarrhea, hematemesis, or melena. Denies symptoms of hematochezia. Denies symptoms of edema or pain of the lower extremities. Remaining systems were reviewed, they were noted all negative. OBJECTIVE: VITAL SIGNS: Normal temperature, respiratory rate 20, heart rate 84, blood pressure 110/49-109/68. Pulse oxygen saturation on 40% with the BiPAP 97%, this morning at rest nasal cannula 2 liters 93% saturation. HEENT: Examination shows head was atraumatic. Eyes nonicterus. NECK: Supple. CARDIOVASCULAR: S1, S2 is audible. LUNGS: The patient noted with moderate decreased breath sounds, scattered wheezing, no crackles. ABDOMEN: Soft, nontender, and obese. EXTREMITIES: Without any acute edema. MUSCULOSKELETAL: Noted without any acute deformities. CENTRAL NERVOUS SYSTEM: Nonfocal. LABORATORY DATA: Culture of the sputum noted heavy growth of gram-negative bacilli for spontaneous sputum culture, pseudomonas aeruginosa, which were noted resistant to multiple antibiotics including the gentamicin. The only two sensitivities were recorded ____ as meropenem and tobramycin. Culture of the bronchial washing were also growing most likely 7 organisms with heavy growth of gram-negative bacilli, pending sensitivities from yesterday. The Gram stain noted with many white blood cell, few gram-negative bacilli, few gram-positive cocci pairs and chains and few budding yeast. IMPRESSION: 1. The patient with ongoing acute exacerbation of chronic obstructive pulmonary disease, acute tracheobronchitis. Status post bronchoscopy with fast reduction of the cough. I think no resolution ____ complete. 2. Resistant pseudomonas aeruginosa isolation is the cause of the tracheobronchitis with bronchial washing as well as the spontaneous sputum culture. 3. HISTORY OF ALLERGY TO THE PENICILLINS WELL. 4. Past history of tracheostomy decannulation in the past. 5. 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 PLAN OF MANAGEMENT: Infectious Disease consultation will benefit the patient for antibiotic management with current severe resistant pseudomonas aeruginosa tracheobronchitis. The patient was started empirically on Bactrim yesterday that had been taken. Her other antibiotic would also discontinue. [facility], [place] PROGRESS NOTE NAME: ANGIE VERDUZCO UNIT #: [id number] ROOM: [facility] DOCTOR: ANGELINA ERICKSON MD,JULIA BIRTHDATE: [birth year] was decreased to 40 mg daily since the wheezing was improving. Continue the therapy, plan of management and care plan. Usual treatment, other supportive. Plan of care and therapies. JULIA ALFARO MD CM:PNTRANS [id number] JULIA ERICKSON MD 08/18/17 1410 interface
--- NOTE | ~2017-08-13 | PROC NOTE ---
[place], [place] PROCEDURE NOTE NAME: ANGIE VERDUZCO UNIT #: [id number] ROOM: 421 DOCTOR: ANGELINA ERICKSON MD,JULIA BIRTHDATE: [birth year] DOS: 08/17/2017 PROCEDURE: Fiberoptic bronchoscopy. PREOPERATIVE DIAGNOSES: The patient with persistent nonresolving cough, smyspuzk-[id number] with exacerbation of chronic obstructive pulmonary disease with maximum medical therapy. POSTOPERATIVE DIAGNOSES: 1. Evidence past tracheostomy. 2. Evidence of tracheobronchitis noted well with mucus impaction in major airways. PROCEDURE DESCRIPTION: Informed consent obtained. The patient brought to the OR and placed in supine position. Conscious sedation administered by the Anesthesia Department. After achieving proper sedation, airway introduced into the mouth. Bronchoscope advanced to the airway into laryngeal area. Epiglottis and vocal cords were seen. Vocal cord noted yellowish in color, moving symmetrically with movements. Bronchoscope entered vocal cord and tracheal lumen. The tracheal lumen, the patient was identified past tracheostomy. Findings were noted. The bronchoscope further advanced tracheal lumen shows moderate amount of mucus secretion, which was suctioned out with half normal saline wash. All secretions suctioned and outpatient cleared with half normal saline wash. Right upper, right middle, right lower, left upper, lingular lower lobe bronchi were all examined. All the endobronchial secretions with mucus impaction cleared from endobronchial tree bilaterally without any difficulty. Procedure well tolerated by the patient without complications. Postoperative findings will be discussed with the patient once the patient recovers the effects of acute sedation. JULIA ALFARO MD CM:PROCNOTE:PROCEDURE NOTE [id number] JULIA ERICKSON MD
--- NOTE | ~2017-08-13 | CON ---
[place], [place] REPORT OF CONSULTATION NAME: ANGIE VERDUZCO [facility] #: [id number] UNIT #: [id number] ROOM: 421 DOCTOR: JULIA ROGERS MD BIRTHDATE: [birth year] DOS: 08/14/2017 PULMONARY CONSULTATION, EVALUATION AND MANAGEMENT CONSULTATION REQUESTED BY: Hospitalist services. REASON FOR CONSULTATION: To assess the patient's current acute exacerbation of chronic obstructive pulmonary disease. HISTORY OF PRESENT ILLNESS: A 57-year-old white female patient who has been known very well to me upon the past. She has been previously treated for acute on chronic severe hypercapnic hypoxic respiratory failure, exacerbation of chronic obstructive pulmonary disease for this patient in the past. The patient also required mechanical ventilation, tracheostomy, PEG tube insertion and others for the patient previously as well. She presented to the Emergency Room after she has been treated by the primary care physician for about 3 days with the diagnosis described as left lung pneumonia. She has been receiving the oral Levaquin, corticosteroid, which was ordered by the primary care physician. The patient was supposedly to be followed up in the office for followup visit in the next few days, but the patient's symptoms are noted worsening requiring assessment in the Emergency Room. Shortness of breath has been noted significantly increased with increased wheezing of the patient and coughing, which has been currently noted nonproductive. She was complaining of severe tightness in the chest, but there was no chest pain reported, otherwise. Denies symptoms of hemoptysis. REVIEW OF SYSTEMS: CONSTITUTIONAL: Fatigue and tightness reported without any symptoms of fever or chills. EYES: Denies any burning, redness, or tenderness. EARS, NOSE, THROAT SYMPTOMS: Denies sore throat, hoarseness, otalgia, postnasal drainage or epistaxis. CARDIOVASCULAR: Denies anginal pain, edema or pain of lower extremities. GASTROINTESTINAL: Denies dysphagia, nausea, vomiting, diarrhea, abdominal pain, hematemesis, melena or hematochezia. SKIN: No abnormal lesions or rashes. MUSCULOSKELETAL: No acute deformities for this patient's pain. CENTRAL NERVOUS SYSTEM: No dizziness, headache, diplopia or syncopal episodes. Remaining systems were reviewed. They were noted all negative. PAST MEDICAL HISTORY: 1. Noted the patient's last hospitalization in 06/2017, manage the patient's acute exacerbation of COPD, acute bronchitis have improved significantly for the patient and discharged home, completed her oral medications. 2. History of chronic obstructive pulmonary disease, which is longstanding and acute on chronic hypercapnic respiratory failure. 3. Chronic hypoxic respiratory failure previously for the patient that was resolved. 4. Obstructive sleep apnea disorder. [place], [place] REPORT OF CONSULTATION NAME: ANGIE VERDUZCO UNIT #: [id number] ROOM: 421 DOCTOR: JULIA ROGERS MD BIRTHDATE: [birth year] 5. Chronic obesity. 6. History of herpetic zoster infection. 7. History of critical care induced myopathy. 8. Metabolic alkalosis of the patient secondary to chronic hypercarbia. 9. Atrial fibrillation. 10. Previous history of pneumonia. PAST SURGICAL HISTORY: For the patient was known for: 1. Intubation and mechanical ventilation. 2. Tracheostomy decannulation. 3. PEG tube insertion and removal. 4. Therapeutic bronchoscopies. 5. Appendectomy. SOCIAL HISTORY: The patient is , has no children, lives at home. History of alcohol and illicit drug use, tobacco is noted for the patient at the age of [age] years old as a pack of cigarettes per day until 2016. There were no history of alcohol use or any illicit drugs. FAMILY HISTORY: Noted for cancer in the mother and heart disease in the father who have both already . MEDICATIONS: Current administered medication noted as use of Dulera, loratadine, vitamin D, Cardizem-CD, Eliquis, IV Solu-Medrol 40 mg q. 8h., DuoNeb q. 4h hours, Mucinex 1200 mg p.o. b.i.d., Zithromax, Rocephin and other p.r.n. medications. DRUG ALLERGIES: NOTED ALLERGY TO PENICILLINS. PHYSICAL EXAMINATION: GENERAL: A 57-year-old white female who has been noted currently awake and alert without acute distress. Height of 5 feet 5 inches, weight of 234 pounds, BMI 38.9. VITAL SIGNS: For the patient, which are recorded shows temperature normal, respiratory rate 16-20, heart rate 81-104, blood pressure 128/61-127/78. HEENT: Shows head was atraumatic. Eyes nonicterus. Moderate obesity. NECK: Supple. Decreased posterior pharyngeal space of the patient, high tongue base and crowding of soft tissue structures. CARDIOVASCULAR: S1, S2 is audible. LUNGS: The patient was noted without any crackles. Mild reduction in breath sounds of the patient with expiratory wheezing. ABDOMEN: Noted soft and obese. EXTREMITIES: The patient noted chronic obesity without any edema, clubbing, cyanosis. CENTRAL NERVOUS SYSTEM: Cranial nerves 2-12 intact. LABORATORY DATA: Reviewed for this consultation. CBC of the patient yesterday was noted essentially normal WBC count, hemoglobin and hematocrit. The chemistry for the patient on 08/03/2017 noted BUN 25, creatinine was normal, CO2 36. Arterial blood gas 4 liters, pH of 7.34, pCO2 of 63, pO2 71. CBC this [place], [place] REPORT OF CONSULTATION NAME: ANGIE VERDUZCO UNIT #: [id number] ROOM: [facility] DOCTOR: ANGELINA ERICKSON MD,[facility] BIRTHDATE: [birth year] morning, hemoglobin 11.8, platelet count 99.2%. The BMP of patient this morning, glucose 124, BUN and creatinine was normal. Carbon dioxide 34. One view chest x-ray does not clearly shows a concise evidence of pneumonia scarring for the patient noted in the lower lungs with possibility of atelectasis. The pneumonia to be excluded. IMPRESSION: 1. The patient will be currently admitted to the hospital noted with progressive increased respiratory symptoms, failed outpatient treatment with evidence of acute bronchitis, rule out pneumonia of the patient's left lower lobe and ongoing acute exacerbation of chronic obstructive pulmonary disease as a result as well. 2. Past history of nicotine abuse. 3. Chronic obesity. 4. History of obstructive sleep apnea disorder. PLAN OF MANAGEMENT: The patient has been started on the BiPAP to improve the ventilatory status and hypoxia. Obtain a PA lateral chest x-ray of the patient today to exclude pneumonia. If needed to be for this patient, certain CT scan of the chest will be needed for further clarification of possible pneumonia; however, does not seem to be likely with current ongoing symptomatology and physical examination and the history. Monitor respiratory status closely for this patient as well. Usual care, other supportive plan of management for the patient as well. Any additional treatment changes if necessary would be made for this patient accordingly. Thanks for allowing me to participate in the care of this patient. JULIA ALFARO MD CM:CONSTR:REPORT OF CONSULTATION 1432 08/14/17 2151 interface
--- NOTE | ~2017-08-13 | PR ---
[place], [place] PROGRESS NOTE NAME: [facility] VERDU[facility]CO [facility] [id number] UNIT #: [id number] ROOM: 421 DOCTOR: ANGELINA ERICKSON MD,JULIA BIRTHDATE: [birth year] DOS: 08/16/2017 PULMONARY PROGRESS NOTE SUBJECTIVE: She has been noted with excessive chest congestion, coughing and not able to expectorate sputum. Denies symptoms of chest pain or any abdominal pain at this time. Shortness of breath and wheezing has been noted with gradual reduction. Denies symptoms of edema or pain of the lower extremities. Denies symptoms of nausea, vomiting, diarrhea, or abdominal pain. Denies dizziness or headache. Remaining systems were reviewed, they were noted all negative. OBJECTIVE: VITAL SIGNS: Normal temperature this morning, respiratory rate 18, heart rate 87, blood pressure 162/71-121/67, pulse ox saturation on 2 liters nasal cannula 96% saturation. HEENT: Head was atraumatic. Eyes nonicterus. NECK: Supple. CARDIOVASCULAR: S1, S2 audible. LUNGS: Noted without any wheezing or crackles at the present time. Breaths are noted moderately decreased bilaterally. Decreased air entry. ABDOMEN: Soft, obese, nontender. EXTREMITIES: Without acute edema. MUSCULOSKELETAL: Without any acute deformities. SKIN: No abnormal lesions or rashes. CENTRAL NERVOUS SYSTEM: Cranial nerves 2-12 are intact. No focal deficit. LABORATORY DATA: CBC today: WBC count 11.3, hemoglobin 11.4, platelet count is normal. BMP this morning: Glucose 123, BUN 21, creatinine is normal. IMAGING DATA: The patient had a CT scan of the chest that was ordered by the primary care attending yesterday and was completed without any contrast noted with a small area of atelectasis noted in the left lingula and left lower lobe as well. There were no abnormal pulmonary nodules noted. Centrilobular emphysematous changes were visible. IMPRESSION: 1. The patient who has been currently treated for acute severe tracheobronchitis with current nonproductive cough, unable to expectorate sputum. 2. The patient with some area of atelectasis noted with nodular formation in the left lingula and the left lower lobe as well. Possibility of pneumonia cannot be completely excluded and could be considered at this time. 3. Chronic obesity. 4. Past history of nicotine use as well. PLAN OF TREATMENT: The patient agreed for bronchoscopy that was planned to be done tomorrow morning because of her severe nonproductive cough and also to reassess the atelectasis, which was noted in the lingula. Continue in the meantime other therapy plan of management. Risks and benefits of the procedure have been discussed with the patient and she was agreeable for the procedure. [place], [place] PROGRESS NOTE NAME: ANGIE VERDUZCO UNIT #: [id number] ROOM: 421 DOCTOR: JULIA ROGERS MD BIRTHDATE: [birth year] Continue in the meantime other aggressive medical management for the patient's exacerbation of COPD with bronchodilators, oxygen supplementation, and corticosteroids. JULIA ALFARO MD CM:PNTRANS [id number] JULIA ERICKSON MD 08/16/17 1545 interface
[~2017-08-13 19:24] MED LIST changes: +CALCIUM 600 +1 EA11 PO; +TAMIFLU 75MG CA75 MG PO; +VITAMIN D-32000 UNIT PO
[2017-08-13 19:31] VITALS: BP 116/75
[2017-08-13 19:54] LABS: BASO % 0.2 % (0.0-1.0); HEMATOCRIT 44.1 % (37.0-47.0); HEMOGLOBIN 13.3 g/dl (12.0-16.0); LYMPH # 0.7 10*3/uL (1.3-4.4); LYMPH % 6.7 % (27.0-41.0); MEAN CELL VOLUME 97.6 fl (81.0-99.0); MEAN CORPUSCULAR HGB 29.4 pg (27.0-31.0); MEAN CORPUSCULAR HGB CONC 30.2 g/dl (33.0-37.0); MEAN PLATELET VOLUME 8.6 fl (9.6-12.3); MONO # 0.5 10*3/uL (0.1-1.0); MONO % 4.9 % (3.0-9.0); NEUT # 8.8 10*3/uL (2.3-7.9); NEUT % 86.5 % (47.0-73.0); PLATELET COUNT AUTOMATED 314 10*3/uL (130-400); RED BLOOD COUNT 4.52 10*6/uL (4.10-5.10); RED CELL DISTRI WIDTH 15.5 % (0-14.5); WHITE BLOOD COUNT 10.2 10*3/uL (4.8-10.8)
[2017-08-13 20:08] LABS: ACT PARTIAL THROMBO TIME 23.5 SECONDS (20.8-31.5)
[2017-08-13 20:10] LABS: ALBUMIN 3.3 gm/dl (3.1-4.5); ALKALINE PHOSPHATASE 57 U/L (45-117); BUN 25 mg/dl (7-24); CHLORIDE 104 mmol/L (98-107); CKMB 1.9 ng/ml (0.5-3.6); CPK 39 U/L (26-192); CREATININE 0.96 mg/dL (0.55-1.02); POTASSIUM 4.4 mmol/L (3.5-5.1); SGOT/AST 13 IU/L (3-35); SGPT/ALT 24 U/L (12-78); SODIUM 142 mmol/L (136-145)
[2017-08-13 20:11] LABS: TROPONIN I < 0.015 ng/ml (<0.045)
[2017-08-13 20:35] VITALS: BP 122/76
[2017-08-13 20:53] LABS: ABG BASE EXCESS 6.6 mmol/L (-2.0-2.0); ABG HCO3 33.9 mmol/l (22-26); ABG O2 SATURATION 94.4 % (95-97); ARTERIAL BLOOD GAS PCO2 63.6 mmHg (35-45); ARTERIAL BLOOD GAS PH 7.345 (7.35-7.45)
[2017-08-13 21:38] VITALS: BP 127/78
[2017-08-13 22:00] VITALS: BP 120/72
[2017-08-13 22:10] VITALS: BP 121/63
[2017-08-13] MEDS ORDERED: SPIRIVA -- 3018 MCG INH (22:30)
[2017-08-13] MEDS ORDERED: SYMB160 INH (22:31)
[2017-08-13] MEDS ORDERED: CLARITIN10 MG PO (22:31)
[2017-08-13 22:37] VITALS: BP 121/63
[2017-08-14] VITALS: BP 120/62
[2017-08-14 06:47] LABS: BASO % 0.2 % (0.0-1.0); HEMATOCRIT 38.1 % (37.0-47.0); HEMOGLOBIN 11.3 g/dl (12.0-16.0); LYMPH # 0.5 10*3/uL (1.3-4.4); LYMPH % 6.2 % (27.0-41.0); MEAN CELL VOLUME 99.2 fl (81.0-99.0); MEAN CORPUSCULAR HGB 29.4 pg (27.0-31.0); MEAN CORPUSCULAR HGB CONC 29.7 g/dl (33.0-37.0); MEAN PLATELET VOLUME 8.8 fl (9.6-12.3); MONO # 0.2 10*3/uL (0.1-1.0); MONO % 1.9 % (3.0-9.0); NEUT # 7.6 10*3/uL (2.3-7.9); NEUT % 89.7 % (47.0-73.0); PLATELET COUNT AUTOMATED 280 10*3/uL (130-400); RED BLOOD COUNT 3.84 10*6/uL (4.10-5.10); RED CELL DISTRI WIDTH 15.5 % (0-14.5); WHITE BLOOD COUNT 8.5 10*3/uL (4.8-10.8)
[2017-08-14 06:58] LABS: BILIRUBIN NEGATIVE (NEGATIVE); BLOOD NEGATIVE (NEGATIVE); CLARITY CLEAR (CLEAR); COLOR YELLOW (YELLOW); GLUCOSE NEGATIVE (NEGATIVE); KETONE NEGATIVE (NEGATIVE); LEUKO ESTERASE NEGATIVE (NEGATIVE); NITRITE NEGATIVE (NEGATIVE); PH 5.5 (5.0-9.0); SPECIFIC GRAVITY >= 1.030 (1.005-1.030); UROBILINOGEN 0.2 E.U./dl (0.2-1.0)
[2017-08-14 07:01] LABS: BUN 21 mg/dl (7-24); CHLORIDE 105 mmol/L (98-107); CREATININE 0.66 mg/dL (0.55-1.02); PHOSPHOROUS 3.1 mg/dL (2.5-4.9); POTASSIUM 4.6 mmol/L (3.5-5.1); SODIUM 144 mmol/L (136-145)
[2017-08-14 08:00] VITALS: BP 115/69
[2017-08-14 08:25] LABS: MUCOUS 1+
[2017-08-14 08:26] LABS: BACTERIA TRACE
[2017-08-14 12:00] VITALS: BP 128/61
[2017-08-14 16:00] VITALS: BP 105/77
[2017-08-14 20:00] VITALS: BP 122/66
[2017-08-15] VITALS: BP 117/74
[2017-08-15 06:10] LABS: ALBUMIN 2.6 gm/dl (3.1-4.5); ALKALINE PHOSPHATASE 46 U/L (45-117); BUN 21 mg/dl (7-24); CHLORIDE 108 mmol/L (98-107); CREATININE 0.56 mg/dL (0.55-1.02); POTASSIUM 4.1 mmol/L (3.5-5.1); SGOT/AST 16 IU/L (3-35); SGPT/ALT 36 U/L (12-78); SODIUM 143 mmol/L (136-145); TOTAL PROTEIN 5.5 gm/dL (6.4-8.2)
[2017-08-15 06:11] LABS: HEMATOCRIT 36.3 % (37.0-47.0); HEMOGLOBIN 10.8 g/dl (12.0-16.0); MEAN CELL VOLUME 98.1 fl (81.0-99.0); MEAN CORPUSCULAR HGB 29.2 pg (27.0-31.0); MEAN CORPUSCULAR HGB CONC 29.8 g/dl (33.0-37.0); MEAN PLATELET VOLUME 9.2 fl (9.6-12.3); PLATELET COUNT AUTOMATED 299 10*3/uL (130-400); RED CELL DISTRI WIDTH 15.5 % (0-14.5); WHITE BLOOD COUNT 11.9 10*3/uL (4.8-10.8)
[2017-08-15 07:59] LABS: TOTAL CELLS COUNTED 100 #CELLS
[2017-08-15 08:00] VITALS: BP 106/59
[2017-08-15 08:00] LABS: PLATELET SUFFICIENCY NORMAL (NORMAL)
[2017-08-15 16:00] VITALS: BP 121/72
[2017-08-15 20:00] VITALS: BP 129/72
[2017-08-16] VITALS: BP 105/54
[2017-08-16 06:12] LABS: HEMATOCRIT 38.6 % (37.0-47.0); HEMOGLOBIN 11.4 g/dl (12.0-16.0); MEAN CORPUSCULAR HGB 29.2 pg (27.0-31.0); MEAN CORPUSCULAR HGB CONC 29.5 g/dl (33.0-37.0); MEAN PLATELET VOLUME 9.1 fl (9.6-12.3); PLATELET COUNT AUTOMATED 318 10*3/uL (130-400); RED CELL DISTRI WIDTH 15.8 % (0-14.5); WHITE BLOOD COUNT 11.3 10*3/uL (4.8-10.8)
[2017-08-16 06:30] LABS: BUN 21 mg/dl (7-24); CHLORIDE 108 mmol/L (98-107); CREATININE 0.69 mg/dL (0.55-1.02); POTASSIUM 4.4 mmol/L (3.5-5.1); SODIUM 145 mmol/L (136-145)
[2017-08-16 07:27] LABS: PLATELET SUFFICIENCY NORMAL (NORMAL); TOTAL CELLS COUNTED 100 #CELLS
[2017-08-16 08:00] VITALS: BP 121/67
[2017-08-16 12:00] VITALS: BP 116/71
[2017-08-16 16:00] VITALS: BP 134/72
[2017-08-16 20:00] VITALS: BP 130/80
[2017-08-17] VITALS (9 sets, daily range): BP systolic 104–153; BP diastolic 53–82
[2017-08-17 07:19] LABS: HEMATOCRIT 39.1 % (37.0-47.0); HEMOGLOBIN 11.7 g/dl (12.0-16.0); MEAN CELL VOLUME 98.2 fl (81.0-99.0); MEAN CORPUSCULAR HGB 29.4 pg (27.0-31.0); MEAN CORPUSCULAR HGB CONC 29.9 g/dl (33.0-37.0); MEAN PLATELET VOLUME 8.8 fl (9.6-12.3); PLATELET COUNT AUTOMATED 297 10*3/uL (130-400); RED BLOOD COUNT 3.98 10*6/uL (4.10-5.10); RED CELL DISTRI WIDTH 15.8 % (0-14.5); WHITE BLOOD COUNT 11.7 10*3/uL (4.8-10.8)
[2017-08-17 07:29] LABS: BUN 19 mg/dl (7-24); CHLORIDE 107 mmol/L (98-107); CREATININE 0.53 mg/dL (0.55-1.02); POTASSIUM 4.6 mmol/L (3.5-5.1); SODIUM 145 mmol/L (136-145)
[2017-08-17 07:41] LABS: PLATELET SUFFICIENCY NORMAL (NORMAL); TOTAL CELLS COUNTED 100 #CELLS
[2017-08-18] VITALS (8 sets, daily range): BP systolic 109–162; BP diastolic 49–88
[2017-08-18 13:08] LABS: ACID FAST SPEC PROCESSING Concentration (.)
[2017-08-19 08:00] VITALS: BP 119/67
[2017-08-19 12:00] VITALS: BP 129/86
[2017-08-19] MEDS ORDERED: DOXYCYCLINE100 M3 PO (13:40)
[2017-08-19] MEDS ORDERED: MERREM IV1 GM IV (13:40)
[2017-08-19] MEDS ORDERED: MUCINEX ER600 MG PO (13:40)
[2017-08-19 16:00] VITALS: BP 142/80
== END 2017-08-19 17:00 | DRG 871 ==
LOC: ED 19:24 → 4E 21:24 → EDHOLD 21:24 → 4E 21:52
PROVIDERS: Emergency Medicine; Internal Medicine Critical Care Medicine; Internal Medicine Hospice and Palliative Medicine; Internal Medicine Nephrology; Student in an Organized Health Care Education/Training Program
PROC: 5A09357 Assistance with Respiratory Ventilation, Less than 24 Consecutive Hours, Continuous Positive Airway Pressure (ICD-10-PCS; 2017-08-16)
PROC: 0BC98ZZ Extirpation of Matter from Lingula Bronchus, Via Natural or Artificial Opening Endoscopic (ICD-10-PCS; principal; 2017-08-17)
PROC: 0BC48ZZ Extirpation of Matter from Right Upper Lobe Bronchus, Via Natural or Artificial Opening Endoscopic (ICD-10-PCS; 2017-08-17)
PROC: 0BC88ZZ Extirpation of Matter from Left Upper Lobe Bronchus, Via Natural or Artificial Opening Endoscopic (ICD-10-PCS; 2017-08-17)
PROC: 0BC58ZZ Extirpation of Matter from Right Middle Lobe Bronchus, Via Natural or Artificial Opening Endoscopic (ICD-10-PCS; 2017-08-17)
PROC: 0BC38ZZ Extirpation of Matter from Right Main Bronchus, Via Natural or Artificial Opening Endoscopic (ICD-10-PCS; 2017-08-17)
PROC: 0BC78ZZ Extirpation of Matter from Left Main Bronchus, Via Natural or Artificial Opening Endoscopic (ICD-10-PCS; 2017-08-17)
PROC: 0BC68ZZ Extirpation of Matter from Right Lower Lobe Bronchus, Via Natural or Artificial Opening Endoscopic (ICD-10-PCS; 2017-08-17)
PROC: 0BCB8ZZ Extirpation of Matter from Left Lower Lobe Bronchus, Via Natural or Artificial Opening Endoscopic (ICD-10-PCS; 2017-08-17)
PROC: 0BC18ZZ Extirpation of Matter from Trachea, Via Natural or Artificial Opening Endoscopic (ICD-10-PCS; 2017-08-17)
PROC: 5A09357 Assistance with Respiratory Ventilation, Less than 24 Consecutive Hours, Continuous Positive Airway Pressure (ICD-10-PCS; 2017-08-18)
DX: A41.9 Sepsis, unspecified organism (principal); J18.9 Pneumonia, unspecified organism; J96.21 Acute and chronic respiratory failure with hypoxia; T17.590A Other foreign object in bronchus causing asphyxiation, initial encounter; T17.490A Other foreign object in trachea causing asphyxiation, initial encounter; I50.32 Chronic diastolic (congestive) heart failure; J96.22 Acute and chronic respiratory failure with hypercapnia; J44.1 Chronic obstructive pulmonary disease with (acute) exacerbation; J98.11 Atelectasis; J44.0 Chronic obstructive pulmonary disease with (acute) lower respiratory infection; I48.91 Unspecified atrial fibrillation; R65.20 Severe sepsis without septic shock; D72.810 Lymphocytopenia; F10.10 Alcohol abuse, uncomplicated; Y90.9 Presence of alcohol in blood, level not specified; R73.9 Hyperglycemia, unspecified; E66.01 Morbid (severe) obesity due to excess calories; X58.XXXA Exposure to other specified factors, initial encounter; B96.5 Pseudomonas (aeruginosa) (mallei) (pseudomallei) as the cause of diseases classified elsewhere; B95.62 Methicillin resistant Staphylococcus aureus infection as the cause of diseases classified elsewhere; G47.33 Obstructive sleep apnea (adult) (pediatric); K21.9 Gastro-esophageal reflux disease without esophagitis; E55.9 Vitamin D deficiency, unspecified; J20.9 Acute bronchitis, unspecified; Z87.891 Personal history of nicotine dependence; Z90.89 Acquired absence of other organs; Z82.49 Family history of ischemic heart disease and other diseases of the circulatory system; Z99.81 Dependence on supplemental oxygen; Z83.3 Family history of diabetes mellitus; Z83.6 Family history of other diseases of the respiratory system; Z80.1 Family history of malignant neoplasm of trachea, bronchus and lung; Z82.3 Family history of stroke; Z88.0 Allergy status to penicillin; Z79.899 Other long term (current) drug therapy; Y93.89 Activity, other specified; Y92.89 Other specified places as the place of occurrence of the external cause; Y99.8 Other external cause status; Z68.38 Body mass index [BMI] 38.0-38.9, adult

== ENCOUNTER 2017-09-16 11:53 | Emergency (ER) | payer MEDICAID ==
[~2017-09-16] VITALS: Ht 162.5 cm; Wt 90.7 kg
[~2017-09-16 11:53] MED LIST changes: +ALL DAY ALLERGY10 M2 PO; +DOXYCYCLINE100 M3 PO; +MUCINEX ER600 MG PO; +SPIRIVA -- 3018 MCG INH; +SYMB160 INH
[2017-09-16] MEDS ORDERED: PREDNISONE10 MG PO (12:11)
[2017-09-16 12:49] LABS: BASO # 0.1 10*3/uL (0.0-0.1); BASO % 0.6 % (0.0-1.0); EOS # 0.1 10*3/uL (0.0-0.4); EOS % 1.1 % (1.0-4.0); HEMATOCRIT 42.4 % (37.0-47.0); LYMPH # 1.5 10*3/uL (1.3-4.4); LYMPH % 14.6 % (27.0-41.0); MEAN CELL VOLUME 97.5 fl (81.0-99.0); MEAN CORPUSCULAR HGB 29.9 pg (27.0-31.0); MEAN CORPUSCULAR HGB CONC 30.7 g/dl (33.0-37.0); MEAN PLATELET VOLUME 8.8 fl (9.6-12.3); MONO # 0.9 10*3/uL (0.1-1.0); NEUT # 7.5 10*3/uL (2.3-7.9); NEUT % 73.5 % (47.0-73.0); PLATELET COUNT AUTOMATED 372 10*3/uL (130-400); RED BLOOD COUNT 4.35 10*6/uL (4.10-5.10); RED CELL DISTRI WIDTH 15.9 % (0-14.5); WHITE BLOOD COUNT 10.2 10*3/uL (4.8-10.8)
[2017-09-16 13:05] LABS: ALBUMIN 3.6 gm/dl (3.1-4.5); ALKALINE PHOSPHATASE 54 U/L (45-117); BUN 11 mg/dl (7-24); CHLORIDE 100 mmol/L (98-107); CREATININE 0.67 mg/dL (0.55-1.02); POTASSIUM 4.1 mmol/L (3.5-5.1); SGOT/AST 8 IU/L (3-35); SGPT/ALT 23 U/L (12-78); SODIUM 142 mmol/L (136-145); TOTAL PROTEIN 7.2 gm/dL (6.4-8.2)
[2017-09-16 13:06] LABS: TROPONIN I < 0.015 ng/ml (<0.045)
[2017-09-16 13:16] LABS: BILIRUBIN NEGATIVE (NEGATIVE); BLOOD NEGATIVE (NEGATIVE); CLARITY CLEAR (CLEAR); COLOR YELLOW (YELLOW); GLUCOSE NEGATIVE (NEGATIVE); KETONE NEGATIVE (NEGATIVE); LEUKO ESTERASE NEGATIVE (NEGATIVE); NITRITE NEGATIVE (NEGATIVE); UROBILINOGEN 0.2 E.U./dl (0.2-1.0)
[2017-09-16 14:13] LABS: ABG BASE EXCESS 8.6 mmol/L (-2.0-2.0); ABG HCO3 34.8 mmol/l (22-26); ABG O2 SATURATION 96.2 % (95-97); ARTERIAL BLOOD GAS PCO2 55.7 mmHg (35-45); ARTERIAL BLOOD GAS PH 7.41 (7.35-7.45); ARTERIAL BLOOD GAS PO2 77.7 mmHg (80-90)
[2017-09-16 14:19] LABS: BACTERIA TRACE; WBC 0-2 wbc/hpf (0-5)
[2017-10-26] MEDS ORDERED: PROAIR HFA8.5 GM INH (13:18)
[2017-10-26] MEDS ORDERED: FOSAMAX70 M1 PO (13:18)
[2017-10-26] MEDS ORDERED: MILLIPRED5 MG PO (13:21)
[2017-10-26] MEDS ORDERED: DALI500T PO (13:27)
== END 2017-09-16 15:04 | disposition home or self-care (01) ==
LOC: ED 11:53
PROVIDERS: Emergency Medicine
DX: R53.83 Other fatigue (principal); J44.9 Chronic obstructive pulmonary disease, unspecified; E66.9 Obesity, unspecified; I48.91 Unspecified atrial fibrillation; I50.9 Heart failure, unspecified; K21.9 Gastro-esophageal reflux disease without esophagitis; Z90.49 Acquired absence of other specified parts of digestive tract; Z98.890 Other specified postprocedural states; Z79.899 Other long term (current) drug therapy; Z87.891 Personal history of nicotine dependence; Z99.81 Dependence on supplemental oxygen; Z88.1 Allergy status to other antibiotic agents; Z88.0 Allergy status to penicillin

== ENCOUNTER 2018-07-17 14:39 | Inpatient (IN) | payer OTHER ==
[~2018-07-17] VITALS: Ht 167.6 cm; Wt 111.3 kg
[2018-07-17] VITALS (7 sets, daily range): BP systolic 111–144; BP diastolic 62–94
--- NOTE | ~2018-07-17 | EKG ---
[place], [place] ELECTROCARDIOGRAM REPORT NAME: ANGIE VERDUZCO UNIT #: [id number] ROOM: 428 DOCTOR: MOJGAN DRAFT REPORT BIRTHDATE: [birth year] [facility] Test Date: 2018-07-17 Test Time: 14:44:15 Pat Name: ANGIE VERDUZCO Department: Room: 428 Gender: F Polygraph Operator: Susanne Coffman : 1960 Requested By: RAFY NORRIS Order Number: [id number] Reading MD: Julia Rmey MD Measurements Intervals [place] Rate: 104 P: 75 TX: 121 QRS: 58 QRSD: 80 T: 62 QT: 322 QTc: 424 Interpretive Statements Sinus tachycardia Compared to ECG 06/08/2018 19:00:02 Sinus rhythm no longer present Electronically Signed On 07-21-2018 6:13:52 PDT by Julia Remy MD CM:EKGRPT:ELECTROCARDIOGRAM REPORT [id number] RAFY ULRICH DRAFT REPORT RAFY NORRIS M.D.
--- NOTE | ~2018-07-17 | PR ---
[place], [place] PROGRESS NOTE NAME: [id number] UN[facility] #: [id number] ROOM: 428 DOCTOR: ANGELINA ERICKSON MD,JULIA BIRTHDATE: [birth year] DOS: 07/30/2018 SUBJECTIVE: The patient independently seen and examined in zeqy-eh-vlel encounter, history was confirmed. Physical examination performed. Labs reviewed. Note done by the medical laboratory technicians was approved. Assessment and management for today's visit was personally completed. The patient was noted comfortable at this time using the BiPAP, the patient is resting in the bed, has not been reported any symptoms of shortness of breath, coughing, or chest pain at rest. OBJECTIVE: VITAL SIGNS: Normal temperature, respiratory rate recorded as 20, heart rate of 90, blood pressure 134/86, pulse oxygen saturation BiPAP and 4 liters nasal cannula ranges between 94% and 96% saturation. HEENT: Head was atraumatic. Eyes nonicterus. NECK: Supple. CARDIOVASCULAR: S1, S2 audible. LUNGS: Noted without any wheezing or crackles. ABDOMEN: Soft, nontender. IMPRESSION: 1. Resolving acute exacerbation of chronic obstructive pulmonary disease, gradually and progressively. 2. Resolving acute on chronic hypercapnic hypoxic respiratory failure. PLAN OF MANAGEMENT: No changes from the pulmonary standpoint. The patient would be transferred to the senior care facility upon authorization from the insurance acceptance in the nursing facility. JULIA ALFARO MD CM:PNTRANS [id number] JULIA ERICKSON MD 08/01/18 0038 interface
--- NOTE | ~2018-07-17 | PR ---
[place], [place] PROGRESS NOTE NAME: ANGIE VERDUZCO UNIT #: [id number] ROOM: 428 DOCTOR: KENJI PRINCE DO BIRTHDATE: [birth year] DOS: 07/23/2018 INTERVAL HISTORY: The patient states that she does not feel any better today. The patient states that she is still having difficulty with any of her ADLs. The patient states that she gets short of breath yesterday just using the bedside commode. The patient used BiPAP most of the day yesterday. OBJECTIVE: VITAL SIGNS: The patient's temperature is 98.7, the patient's pulse 97, respiratory rate 20, blood pressure 133/73, and patient is 100% on BiPAP with FIO2 of 40. HEENT: Normocephalic, atraumatic. Eyes nonicteric. NECK: Supple, nontender, trachea midline. History of tracheostomy scar. HEART: S1, S2 audible. LUNGS: Diminished breath sounds bilaterally, expiratory wheezes bilaterally. No crackles. ABDOMEN: Obese, nontender. Bowel sounds present. EXTREMITIES: No clubbing, cyanosis, or edema. NEUROLOGIC: No focal neurologic deficits. Cranial nerves 2-12 grossly intact. ASSESSMENT: 1. Kfurc-mv-drhugtv respiratory failure with acute tracheobronchitis. 2. Chronic obstructive pulmonary disease. 3. Chronic obesity. 4. Obstructive sleep apnea. 5. Chronic hypercapnic respiratory failure. PLAN: At this time, we will recommend the patient go to a halfway facility. The patient is more amenable to this. We will continue the current dose of Solu-Medrol. The patient will be continued on BiPAP as needed and at night. Continue current management. Any additional changes will be based on progression of illness. Chilo Prince DO [place], [place] PROGRESS NOTE NAME: ANGIE VERDUZCO UNIT #: [id number] ROOM: 428 DOCTOR: KENJI PRINCE DO BIRTHDATE: [birth year] JULIA ALFARO MD CM:EDA [id number] KENJI PRINCE DO 07/23/18 2007 interface
--- NOTE | ~2018-07-17 | PR ---
[place], [place] PROGRESS NOTE [id number] UNIT #: [id number] ROOM: 428 DOCTOR: ANGELINA ERICKSON MD,JULIA BIRTHDATE: [birth year] DOS: 07/29/2018 PULMONARY PROGRESS NOTE SUBJECTIVE: The patient noted comfortable at this time without any distress, resting comfortable. She was independently seen and examined in yhrm-ma-ilxu encounter, history was confirmed. Physical examination performed. Labs were reviewed. Note done by the medical receptionist medical assistant is approved as well. OBJECTIVE: GENERAL: On physical examination this morning, the patient was noted comfortable at this time on her bed, using the BiPAP this morning. VITAL SIGNS: For the patient normal temperature, respiratory rate 20, heart rate 78, blood pressure 120/73. Pulse oxygen saturation on BiPAP, 98% saturation on 4 liters nasal cannula 96% saturation. HEENT: Examination shows head was atraumatic. Eye nonicterus. NECK: Supple. CARDIOVASCULAR: S1, S2 audible. LUNGS: The patient was noted without any wheezing or crackles at the present time. Breaths are noted generally diminished bilaterally. ABDOMEN: Soft, nontender. Bowel sounds present. EXTREMITIES: No acute change. IMPRESSION: Stable respiratory status, acute on chronic hypercapnic hypoxic respiratory failure. PLAN OF MANAGEMENT: No change in the plan of care at this time from pulmonary standpoint. Current therapy will be continued. Transfer patient to custodial facility upon acceptance. JULIA ALFARO MD CM:PNTRANS [phone] JULIA ERICKSON MD 07/30/18 0036 interface
--- NOTE | ~2018-07-17 | PR ---
[place], [place] PROGRESS NOTE NAME: [facility] [id number] UNIT #: [id number] ROOM: 428 DOCTOR: ANGELINA ERICKSON MD,JULIA BIRTHDATE: [birth year] DOS: 07/24/2018 SUBJECTIVE: She has been noted comfortable at this time, walking in her room with a walker. Denies symptoms of fever or chills. Denies symptoms of coughing or sputum expectoration or any chest pain stated by the patient. She stated symptoms of shortness of breath are noted better as he was given Xanax. OBJECTIVE: VITAL SIGNS: This morning, ormal temperature, respiratory rate 20, heart rate of 81, blood pressure 125/74. GENERAL: Chronic obesity. HEENT: Head was atraumatic. Eyes nonicterus. NECK: Supple. CARDIOVASCULAR: S1, S2 are audible. LUNGS: The patient was noted without any crackles, rhonchi, or wheezing. Breaths are noted moderately decreased bilaterally. ABDOMEN: Soft and obese. EXTREMITIES: No acute change. IMPRESSION: The patient with slow resolution of the acute on chronic hypercapnia hypoxic respiratory failure with exacerbation of chronic obstructive pulmonary disease and/or debility. PLAN OF TREATMENT: No changes in plan of management. Continue the patient's current therapy as the patient is in progress. Usual care with other therapy, plan of management, care plan and treatments. JULIA ALFARO MD CM:PNTRANS [phone] JULIA ERICKSON MD 07/25/18 0323 interface
--- NOTE | ~2018-07-17 | PR ---
[place], [place] PROGRESS NOTE NAME: ANGIE VERDUZCO [facility] #: [id number] UNIT #: [id number] ROOM: 428 DOCTOR: ANGELINA ERICKSON MD,JUILA BIRTHDATE: [birth year] DOS: 07/23/2018 PULOMNARY ADDENDUM NOTE SUBJECTIVE: The patient independently was seen and examined in tueo-ve-cazr encounter, history was confirmed. Physical examination performed. Labs were reviewed. The note done by the medical detailist was approved as well. The patient has been currently resting. The patient sitting on the bed was noted with quiet emotion. The patient stated that she was very disappointed yesterday as she was taking a shower. The patient with severe shortness of breath and oxygen desaturation occurred. She was noted with significant debility at the present time secondary to muscle deconditioning. Denies symptoms of chest pain. Shortness of breath was occurring with exertion, not at rest. The cough has been noted mild, intermittently wheezing also reported at time. The remaining systems were reviewed with the patient, they were noted all negative. OBJECTIVE: VITAL SIGNS: For the patient, which has been recorded shows a normal temperature, respiratory rate 20, heart rate of 81, blood pressure 125/88. Pulse oxygen saturation recorded on 4 liters nasal cannula 96% saturation on the BiPAP, 40% oxygen 100% saturation. HEENT: Examination shows chronic obesity. Head was atraumatic. Eyes nonicterus. NECK: Supple. CARDIOVASCULAR: S1, S2 was audible. LUNGS: The patient was noted with decreased air entry with expiratory wheezing. ABDOMEN: Soft, nontender. Bowel sounds present. EXTREMITIES: No acute change. MUSCULOSKELETAL: The patient was noted without any acute deformities. CENTRAL NERVOUS SYSTEM: The patient was noted generally weak and fatigued, but otherwise intact. LABORATORY DATA: No new labs were done at this time. IMPRESSION: 1. Ongoing severe acute exacerbation of chronic obstructive pulmonary disease, acute tracheobronchitis with severe muscle deconditioning related to that and debility with current acute illness. 2. Morbid obesity. 3. Chronic obesity as well. PLAN OF MANAGEMENT: Continue the BiPAP use as well as continue at nighttime. Continue oxygen supplementation, bronchodilator, and corticosteroids. Physical therapy and occupation therapy could be assessed. The patient is agreeable for the discharge to the correction facility. Now, the social service consultation was ordered. Labs will be repeated for the patient tomorrow morning to assess the patient's electrolyte imbalance and CBC as the patient was also getting Diamox. [place], [place] PROGRESS NOTE NAME: ANGIE VERDUZCO UNIT #: [id number] ROOM: [facility] DOCTOR: JULIA ROGERS MD BIRTHDATE: [birth year] JULIA ALFARO MD CM:PNTRANS [id number] JULIA ERICKSON MD 09/03/18 0943 interface
--- NOTE | ~2018-07-17 | EKG ---
[place], [place] ELECTROCARDIOGRAM REPORT NAME: ANGIE VERDUZCO UNIT #: [id number] ROOM: 428 DOCTOR: MOJGAN DRAFT REPORT BIRTHDATE: [birth year] [facility] Test Date: 2018-07-17 Test Time: 17:40:51 Pat Name: ANGIE VERDUZCO Department: Room: 428 Gender: F Sales Representative Consultant: Susanne Coffman : 1960 Requested By: RAFY NORRIS Order Number: [id number] Reading MD: Julia Remy MD Measurements Intervals [place] Rate: 91 P: 77 [place]: 125 QRS: 47 QRSD: 89 T: 50 QT: 341 QTc: 420 Interpretive Statements Sinus rhythm RSR' in V1 or V2, right VCD or RVH Compared to ECG 06/08/2018 19:00:02 Right ventricular hypertrophy now present RSR' in V1 or V2 now present Electronically Signed On 07-21-2018 6:14:11 PDT by Julia Remy MD CM:EKGRPT:ELECTROCARDIOGRAM REPORT [id number] RAFY ULRICH DRAFT REPORT RAFY NORRIS M.D.
--- NOTE | ~2018-07-17 | EKG ---
[place], [place] ELECTROCARDIOGRAM REPORT NAME: ANGIE VERDUZCO UNIT #: [id number] ROOM: 428 DOCTOR: MOJGAN DRAFT REPORT BIRTHDATE: [birth year] [facility] Test Date: 2018-07-17 Test Time: 21:04:21 Pat Name: ANGIE VERDUZCO Department: Room: 428 Gender: F Client Solutions Director: [employer] : 1960 Requested By: RAFY NORRIS Order Number: [id number] Reading MD: Julia Remy MD Measurements Intervals [place] Rate: 92 P: 80 [place]: 126 QRS: 47 QRSD: 78 T: 57 QT: 349 QTc: 432 Interpretive Statements Sinus rhythm Multiform ventricular premature complexes Aberrant complex Compared to ECG 06/08/2018 19:00:02 Ventricular premature complex(es) now present Aberrant conduction of supraventricular beat(s) now present Electronically Signed On 07-23-2018 9:26:22 PDT by Julia Remy MD CM:EKGRPT:ELECTROCARDIOGRAM REPORT 03 5 RAYF ULRICH DRAFT REPORT RAFY NORRIS M.D.
--- NOTE | ~2018-07-17 | PR ---
[place], [place] PROGRESS NOTE [facility]: [id number] UNIT #: [id number] ROOM: 428 DOCTOR: ANGELINA ERICKSON MD,JULIA BIRTHDATE: [birth year] DOS: 07/25/2018 PULMONARY PROGRESS NOTE SUBJECTIVE: The patient noted comfortable at this time without any acute distress. Stating she has been noted with reduction of the respiratory symptom for the last 24 hours. She has been ambulating in the room. OBJECTIVE: VITAL SIGNS: For the patient normal temperature, respiratory rate 18, heart rate 90, blood pressure 131/83. Pulse oxygen saturation on 4 liters nasal cannula 98% saturation. HEENT: Examination shows head was atraumatic. Eyes nonicterus. NECK: Supple and obese. CARDIOVASCULAR: S1, S2 audible. LUNGS: Noted without any wheezing or crackles. ABDOMEN: Soft, nontender. Bowel sounds present. EXTREMITIES: Without any acute edema. IMPRESSION: 1. The patient with resolving acute exacerbation of chronic obstructive pulmonary disease, tqlxv-yn-ficqhpb hypercapnia, hypoxic respiratory failure with acute exacerbation of chronic obstructive pulmonary disease. 2. Obstructive sleep apnea disorder. PLAN OF MANAGMENT: No changes in the plan at this time will be recommended. Previous therapy as continued without any changes. JULIA ALFARO MD CM:PNTRANS [phone] JULIA ERICKSON MD 07/26/18 0038 interface
--- NOTE | ~2018-07-17 | PR ---
[place], [place] PROGRESS NOTE NAME: [facility] [id number] UNIT #: [id number] ROOM: 428 DOCTOR: KENJI PRINCE DO BIRTHDATE: [birth year] DOS: 07/27/2018 PULMONARY PROGRESS NOTE SUBJECTIVE: The patient states that she is feeling a little bit better today. The patient was using BiPAP when we walked in the room. The patient states that she is still short of breath with exertion with a nonproductive cough and occasional wheezing. The patient denies any symptoms of fevers or chills. OBJECTIVE: VITAL SIGNS: Temperature 98.3, pulse rate 98, respiratory rate 22, blood pressure 118/66, patient is 95% on room air and she was on the BiPAP. HEENT: Normocephalic, atraumatic. Eyes nonicteric. NECK: Supple, nontender. Trachea midline, history of tracheostomy scar. CARDIOVASCULAR: S1, S2 audible. LUNGS: Decreased breath sounds bilaterally. ABDOMEN: Soft, nontender, bowel sounds present. EXTREMITIES: Without any acute edema, clubbing or cyanosis. MUSCULOSKELETAL: With no acute deformities. IMPRESSION: 1. Chronic obstructive pulmonary disease with exacerbation. 2. Hypoxic respiratory failure, acute on chronic. 3. Acute bronchitis. 4. Morbid obesity. PLAN: Continue bronchodilators, oxygen supplementation, antibiotics. The patient needs Levaquin until 07/29. The patient is pending discharge to halfway facility. Chilo Prince DO [place], [place] PROGRESS NOTE NAME: ANGIE VERDUZCO UNIT #: [id number] ROOM: 428 DOCTOR: KENJI PRINCE DO BIRTHDATE: [birth year] JULIA ALFARO MD CM:PNJORGE ALBERTO [id number] KENJI PRINCE DO 07/27/18 1416 interface
--- NOTE | ~2018-07-17 | PR ---
[place], [place] PROGRESS NOTE [id number] UNIT #: [id number] ROOM: 428 DOCTOR: KENJI PRINCE DO BIRTHDATE: [birth year] DOS: 07/30/2018 PULMONARY PROGRESS NOTE SUBJECTIVE: The patient is noted to be comfortable at this time, without any acute distress. The patient was using her BiPAP at night. The patient has no complaints. OBJECTIVE: VITAL SIGNS: The patient's temperature is 98.7, pulse rate 78, respiratory rate 18, blood pressure 124/88. The patient is 96% on BiPAP with FiO2 of 35. HEENT: Normocephalic, atraumatic. Eyes nonicteric. NECK: Supple, nontender. Trachea is midline. Tracheostomy scar present. CARDIOVASCULAR: S1, S2 audible. LUNGS: Without any wheezing or crackles. Breath sounds are generally diminished bilaterally. ABDOMEN: Soft, nontender. Bowel sounds are present, obese. EXTREMITIES: No acute changes. ASSESSMENT: Stable respiratory status, acute on chronic hypercapnic hypoxic respiratory failure. PLAN: No changes at this time. Continue therapy for now. Discharged to [facility] facility as soon as the patient accepts that she is stable from a pulmonary standpoint for discharge. Chilo Prince, DO JULIA ALFARO MD CM:PNJORGE ALBERTO [id number] KENJI PRINCE DO 07/30/18 1551 interface
--- NOTE | ~2018-07-17 | PR ---
[place], [place] PROGRESS NOTE NAME: ANGIE VERDUZCO UNIT #: [id number] ROOM: 428 DOCTOR: JULIA ROGERS MD BIRTHDATE: [birth year] DOS: 07/22/2018 PULMONARY PROGRESS NOTE SUBJECTIVE: The patient was independently seen and examined in kpgw-sf-cfpz encounter, history was confirmed. Physical examination performed. The labs were reviewed. Note done by the medical receptionist assistant, was approved. Assessment and management of the patient today's visit personally completed as well. The patient has been reported reduction in symptoms of shortness of breath. Cough is subsiding, wheezing was also noted decreasing, using the BiPAP, and also the Solu-Medrol dose was increased to every 8 hours. She denies symptoms of fever, chills, coughing or any sputum expectoration. OBJECTIVE: VITAL SIGNS: For the patient which were recorded shows a normal temperature, respiratory rate 18, blood pressure 110/72. Pulse oxygen saturation recorded 3 liters nasal cannula 97% saturation. HEENT: Head was atraumatic. Eyes nonicterus. NECK: Supple. CARDIOVASCULAR: S1, S2 is audible. LUNGS: The patient was noted without any crackles. The expiratory wheezing was decreased, but not resolved. IMPRESSION: 1. The patient with resolving acute exacerbation of chronic obstructive pulmonary disease, acute tracheobronchitis with gradual increase currently noted on steroids 40 mg Solu-Medrol every 8 hours. 2. Chronic obesity. 3. Obstructive sleep apnea disorder. 4. Chronic hypercapnia. PLAN OF MANAGEMENT: The patient was recommended to skilled nurse facility placement, but she does not wish to do so. In the meantime, continue the patient's current plan of management at this time, reduction of Solu-Medrol will be done tomorrow morning with monitor symptoms. The patient is not ready for home discharge at the present time today. [place], [place] PROGRESS NOTE NAME: ANGIE VERDUZCO UNIT #: [id number] ROOM: 428 DOCTOR: JULIA ROGERS MD BIRTHDATE: [birth year] JULIA ALFARO MD CM:PNTRANS [phone] JULIA ERICKSON MD 07/23/18 0141 interface
--- NOTE | ~2018-07-17 | CON ---
[place], [place] REPORT OF CONSULTATION NAME: ANGIE VERDUZCO [facility] #: [id number] UNIT #: [id number] ROOM: 428 DOCTOR: JULIA ROGERS MD BIRTHDATE: [birth year] DOS: 07/18/2018 PULMONARY CONSULTATION, EVALUATION AND MANAGEMENT CONSULTATION REQUESTED BY: Hospitalist service. REASON FOR CONSULTATION: Assessment of current abnormal respiratory symptoms, shortness of breath and cough. REASON FOR CONSULTATION REQUESTED BY: Hospitalist services. HISTORY OF PRESENT ILLNESS: This is a 57-year-old white female patient who has been known to me from the past has history of end-stage COPD, chronic hypercapnia, hypoxic respiratory failure, steroid dependency and obstructive sleep apnea disorder. She presented to the Emergency Room on the date of 07/17/2018. The patient has been reporting symptoms of getting progressive chest congestion without any sputum expectoration for the past few days. She has been treated recently with oral medication in the home setting did not respond to the treatment. She has been taking the Mucinex to help to improve the secretion because of severe nonproductive cough, but no success. She has been also complaining of tightness in the chest with increased wheezing. She has been assessed in the Emergency Room and hospitalized for further medical management at the present time. Respiratory symptoms essentially remains unchanged as stated by the patient. REVIEW OF SYSTEMS: CONSTITUTIONAL SYMPTOMS: Fatigue and tiredness reported. Denies any symptoms of fever or chills. EYES: Denies burning, redness, or tenderness. EARS, NOSE, THROAT SYMPTOMS: Denies sore throat, hoarseness, otalgia, postnasal drainage or epistaxis. CARDIOVASCULAR: Denies angina pain, edema, or pain of the lower extremities. GASTROINTESTINAL: Denies dysphagia, nausea, vomiting, diarrhea, abdominal pain, hematemesis, melena, or hematochezia. SKIN: Denies lesions or rashes. CENTRAL NERVOUS SYSTEM: Denies dizziness, headache, diplopia, or syncopal episodes. Remaining systems were reviewed. They were noted all negative. PAST MEDICAL HISTORY: 1. End-stage chronic obstructive pulmonary disease. 2. Chronic hypercapnic and hypoxic respiratory failure. 3. Obstructive sleep apnea disorder. 4. Metabolic alkalosis secondary to hypercapnia. 5. Permanent atrial fibrillation. 6. Previous infection with pneumonia secondary to Pseudomonas aeruginosa and methicillin-resistant Staphylococcus aureus. 7. Past critical care-induced neuropathy, which has been resolved. [place], [place] REPORT OF CONSULTATION [id number] UN[facility] #: [id number] ROOM: 428 DOCTOR: JULIA ROGERS MD BIRTHDATE: [birth year] PAST SURGICAL HISTORY: 1. Intubation and mechanical ventilation x 3. 2. PEG tube insertion and removal. 3. Tracheostomy, which was subsequently decannulated. 4. Therapeutic bronchoscopies. 5. Appendectomy. SOCIAL HISTORY: The patient is , has no children, lives at home. Denies any history of alcohol use or illicit drug use. Tobacco use, the patient reported younger age, a pack of cigarettes a day, now stating not smoking cigarettes since 2016. FAMILY HISTORY: Reported heart disease and cancer. MEDICATIONS: The medications, which have been actively use on admission during this hospitalization were cetirizine, Cardizem-CD, Diamox 250 mg b.i.d., Daliresp, calcium carbonate, vitamin D, magnesium oxide, Lasix 20 mg, potassium chloride, Protonix, Eliquis, Mucinex, Solu-Medrol 60 mg b.i.d., DuoNeb q. 4 hours, Levaquin, cefepime, vancomycin, and some other p.r.n. meds. DRUG ALLERGIES: Reported allergy: 1. PENICILLIN. 2. TOBRAMYCIN. PHYSICAL EXAMINATION: GENERAL: A 57-year-old female currently noted to be awake and alert without any acute distress. VITAL SIGNS: Height of 5 feet 6 inches, weight of 245 pounds, BMI 39. PHYSICAL EXAMINATION: VITAL SIGNS: Normal temperature, respiratory rate range between 18-21, heart rate 103-94, blood pressure 142/76-135/90. Pulse oxygen saturation on 4 liters nasal cannula was 94% saturation. HEENT: Head was atraumatic. Eyes nonicterus. Crooks facies secondary to chronic prednisone use. NECK: Supple. Decreased posterior pharyngeal space, high tongue base and crowding soft tissue structures. CARDIOVASCULAR: S1, S2 audible. LUNGS: The patient with diffuse reduction in breath sounds bilaterally with scattered expiratory wheezing. No crackles. ABDOMEN: Soft, nontender. Bowel sounds present. EXTREMITIES: Chronic obesity. MUSCULOSKELETAL: Without acute deformities. VISIBLE SKIN: No lesions or rashes. CENTRAL NERVOUS SYSTEM: Intact. LABORATORY DATA: CMP yesterday on admission, glucose 134. Remaining CMP was normal. CBC yesterday in the Emergency Room, WBC count 13.8, hemoglobin 11.5, platelet count was normal. The CMP that was done this morning, glucose 122, BUN and creatinine were normal. PT/INR was noted as 0.9. The CBC this morning, WBC [place], [place] REPORT OF CONSULTATION NAME: ANGIE VERDUZCO UNIT #: [id number] ROOM: [facility] DOCTOR: ANGELINA ERICKSON MD,JULIA BIRTHDATE: [birth year] count normal. Hemoglobin and hematocrit was noted as hemoglobin 9.9, hematocrit 34.3, platelet count was normal. One view chest x-ray was done in the Emergency Room was personally reviewed from the PACS images was noted with a possibility of a left pulmonary infiltration. IMPRESSION: 1. The patient had been currently admitted to the hospital, was noted with acute exacerbation of chronic obstructive pulmonary disease. Possibility of acute pneumonia in the left lower lobe as well. History of chronic nicotine dependence as well. 2. Chronic moderate obesity as well. 3. Community-acquired pneumonia would be considered. 4. Atrial fibrillation with mild rapid ventricular response as well on admission. 5. Chronic anticoagulation with Eliquis. PLAN OF MANAGEMENT: Sputum culture could not be done with lack of any sputum expectoration. Bronchoscopy planned to be done tomorrow morning to reassess. The chest x-ray, PA and lateral will be obtained today to clarify the presence of left lobe infiltration was atelectasis or pericardial fat pad. Monitor culture results. The patient was noted with very broad spectrum intravenous antibiotic. The patient will be continued on Levaquin, and other antibiotic at this time will be discontinued, not needed at the present time with reassessment to be done based on any new culture results. Continue Diamox with chronic metabolic alkalosis. Change the DuoNeb to albuterol sulfate management of acute exacerbation of COPD with additional treatment changes continue to be ordered based on the progression of the illness. Solu-Medrol at this time was administered 60 mg b.i.d. that will be continued with reduction will be done based on the progression of the illness. Thanks for allowing me to participate in the care of this patient. JULIA ALFARO MD CM:CONSTR:REPORT OF CONSULTATION 1554 07/19/18 0335 interface
--- NOTE | ~2018-07-17 | PR ---
[place], [place] PROGRESS NOTE [id number] UN[facility] #: [id number] ROOM: 428 DOCTOR: ANGELINA ERICKSON MD,JULIA BIRTHDATE: [birth year] DOS: 07/27/2018 PULMONARY PROGRESS NOTE SUBJECTIVE: The patient was seen and examined on 07/27/2018 independently with [id number] encounter. History was confirmed. Physical examination was performed. Labs reviewed. The note done by the medical assistant instructor was approved as well. She has been using BiPAP this morning of assessment. The patient denies symptoms of chest pain. Has been reported mild cough. Shortness breath still occurs with exertion, but not present at rest. OBJECTIVE: VITAL SIGNS: Which were recorded showed normal temperature, respiratory rate of 20, heart rate of 95, blood pressure 118/66. Pulse oxygen saturation on BiPAP 35% was 96% saturation; on 4 liters, 95% saturation. HEENT: Shows head was atraumatic, eyes nonicterus. NECK: Supple. CARDIOVASCULAR: S1 and S2 audible. LUNGS: The patient was noted without any wheezing or crackles at the present time. ABDOMEN: Soft, nontender. Bowel sounds present. EXTREMITIES: The patient was noted without any acute edema. IMPRESSION: 1. The patient with stable respiratory status with progressive resolution of acute tracheobronchitis and acute on chronic hypercapnic hypoxic respiratory failure. 2. Overall debility. PLAN OF TREATMENT: No changes in plan of care at this time. Continue the patient's current therapy as in progress. Usual care, other supportive plan of management and care. JULIA ALFARO MD CM:PNTRANS [id number] JULIA ERICKSON MD 07/28/18 0816 interface
--- NOTE | ~2018-07-17 | PR ---
[place], [place] PROGRESS NOTE NAME: ANGIE VERDUZCO UNIT #: [id number] ROOM: 428 DOCTOR: KENJI PRINCE DO BIRTHDATE: [birth year] DOS: 07/28/2018 PULMONARY PROGRESS NOTE SUBJECTIVE: The patient states that she is feeling about the same today. The patient was using BiPAP when we walked in the room. The patient states that she is still short of breath with exertion with a nonproductive cough and occasional wheezing. The patient denies any other problems including chest pain, fevers or chills. OBJECTIVE: VITAL SIGNS: Temperature is 98.5, pulse is 82, respiratory rate 19, blood pressure 121/62, patient is 96% on BiPAP machine. HEENT: Normocephalic, atraumatic. NECK: Supple, nontender, history of tracheostomy scar. CARDIOVASCULAR: S1, S2 audible. LUNGS: Decreased breath sounds bilaterally. ABDOMEN: Soft, nontender, bowel sounds present, obese. EXTREMITIES: Without any acute edema, clubbing or cyanosis. MUSCULOSKELETAL: Without acute deformities. ASSESSMENT: 1. Chronic obstructive pulmonary disease with exacerbation. 2. Hypoxic respiratory failure, acute on chronic. 3. Acute bronchitis. 4. Morbid obesity. PLAN: Continue current care with bronchodilators, oxygen supplementation, antibiotics and steroids. The patient will need Levaquin until tomorrow 07/29/2018. The patient should be strongly considered to be discharged to a [facility] facility. Thank you for allowing us to participate in this patient's care. Chilo Prince DO [place], [place] PROGRESS NOTE NAME: ANGIE VERDUZCO UNIT #: [id number] ROOM: 428 DOCTOR: KENJI PRINCE DO BIRTHDATE: [birth year] JULIA ALFARO MD CM:PNJORGE ALBERTO [id number] KENJI PRINCE DO 07/29/18 0255 interface
--- NOTE | ~2018-07-17 | PR ---
[place], [place] PROGRESS NOTE NAME: ANGIE VERDUZCO [facility] #: [id number] UNIT #: [id number] ROOM: 428 DOCTOR: ANGELINA ERICKSON MD,JULIA BIRTHDATE: [birth year] DOS: 07/28/2018 PULMONARY PROGRESS NOTE SUBJECTIVE: The patient is independently seen and examined with [id number] encounter. History was confirmed. Physical examination performed. All the labs were reviewed. Assessment and management for the patient's notes were personally completed. Today's note done by the medical esthetician was approved as well. The patient was noted comfortable at this time without any acute distress. Respiratory symptoms of the patient have been gradually subsiding. The patient had been using the BiPAP this morning of assessment. She has not reported any symptoms of coughing or chest pain. OBJECTIVE: VITAL SIGNS: This morning, temperature 99.2 degrees Fahrenheit, respiratory rate 20, heart rate 101, blood pressure 124/80. Pulse oxygen saturation recorded on 4 liters nasal cannula was 95% saturation. HEENT: Shows head was atraumatic, chronic obesity. NECK: Supple and obese. CARDIOVASCULAR: S1 and S2 audible. LUNGS: General reduction in breath sounds without any wheeze or crackles. ABDOMEN: Soft, nontender. Bowel sounds present. EXTREMITIES: No acute change. IMPRESSION: Stable respiratory status, favorably gradual improvement in acute exacerbation of chronic obstructive pulmonary disease and other respiratory symptoms. PLAN OF MANAGEMENT: No change in plan of management. Awaiting prior authorization for placement in a correction facility. Continue current dose of Solu-Medrol at 40 mg b.i.d., no changes need to be made on today's visit. JULIA ALFARO MD CM:PNTRANS [phone] JULIA ERICKSON MD 07/29/18 0454 interface
--- NOTE | ~2018-07-17 | PR ---
[place], [place] PROGRESS NOTE NAME: ANGIE VERDUZCO [facility] #: [id number] UNIT #: [id number] ROOM: 428 DOCTOR: ANGELINA ERICKSON MDJULIA BIRTHDATE: [birth year] DOS: 07/21/2018 The patient was seen and examined, [id number] encounter today. History was taken. Physical examination performed. Labs reviewed. Assessment and management of the patient today's visit was completed. Note done by the medical services assistant was approved as well. She was still complaining of shortness of breath, stating she is not feeling well. Denies symptoms of chest pain. Coughing has been subsiding, wheezing was noted with gradual reduction. The patient was using the BiPAP at nighttime. Denies symptoms fever or chills or hemoptysis. Denies abdominal pain, nausea, vomiting, diarrhea, abdominal pain, hematemesis, or melena. Denies symptoms of headache or diplopia. Denies edema or pain of lower extremities. Remaining systems were reviewed with the patient, they were noted all negative. OBJECTIVE: VITAL SIGNS: The patient has normal temperature, respiratory rate 21, heart rate 79, blood pressure 139/78 to 106/59. Pulse oxygen saturation recorded as 97% saturation on 3 liters nasal cannula. HEENT: Examination shows head was atraumatic. EYES: Nonicterus. NECK: Supple. CARDIOVASCULAR: S1, S2. LUNGS: Moderate decreased breath sounds, expiratory wheezing. No crackles. ABDOMEN: Soft, obese, nontender. Bowel sounds present. EXTREMITIES: No new change. MUSCULOSKELETAL: Without any acute deformities. CENTRAL NERVOUS SYSTEM: The patient's cranial nerves 2-12 intact. LABORATORY DATA: Culture of the bronchial washing noted as normal arian. IMPRESSION: 1. Persistent acute exacerbation of chronic obstructive pulmonary disease, partial improvement noted. However coughing and wheezing has been decreased, not resolved. 2. The patient with chronic hypercapnia and hypoxia as well. 3. Obstructive sleep apnea disorder. PLAN OF MANAGEMENT: Continuation of the bronchodilators and oxygen supplementation. Increase the Solu-Medrol dose to 40 mg every 8 hours at this time. Continue other previous treatment. No change in antibiotic will be necessary. Consider assessment for jail facility. The patient may require several days to improve, most likely the patient has underlying chronic obstructive pulmonary disease exacerbation. Usual care. [place], [place] PROGRESS NOTE NAME: ANGIE VERDUZCO UNIT #: [id number] ROOM: 428 DOCTOR: JULIA ROGERS MD BIRTHDATE: [birth year] JULIA ALFARO MD CM:PNTRANS [id number] JULIA ERICKSON MD 07/22/18 0938 interface
--- NOTE | ~2018-07-17 | PR ---
[place], [place] PROGRESS NOTE [id number] #: [id number] ROOM: 428 DOCTOR: ANGELINA ERICKSON MD,JULIA BIRTHDATE: [birth year] DOS: 07/26/2018 PULMONARY PROGRESS NOTE SUBJECTIVE: The patient noted comfortable at this time, resting in the bed this morning of assessment. She was still complaining of shortness of breath occurs with exertion with nonproductive cough at times. She was also complaining of wheezing; however, slow improvement was continued. Denies symptoms of fever or chills. OBJECTIVE: VITAL SIGNS: For the patient, which were recorded showed the temperature noted as normal. Respiratory rate recorded as 20. Heart rate 88, blood pressure 134/83-114/59. The pulse oxygen saturation on 4 liters nasal cannula, 99% saturation. HEENT: Head was atraumatic. Eyes nonicterus. NECK: Supple. CARDIOVASCULAR: S1, S2 audible. LUNGS: With decreased breath sounds in the lungs bilaterally. ABDOMEN: Soft, nontender. Bowel sounds present. EXTREMITIES: Noted without acute edema. MUSCULOSKELETAL: Without any acute deformities. IMPRESSION: Slow resolution of chronic hypercapnia, hypoxic respiratory failure, acute exacerbation of chronic obstructive pulmonary disease, and acute bronchitis. PLAN OF TREATMENT: Continue bronchodilators, oxygen supplementation, antibiotic. Three more days of Levaquin 500 mg daily. Still awaiting for admission to longterm facility. JULIA ALFARO MD CM:PNTRANS [id number] JULIA ERICKSON MD 07/27/18 0026 interface
--- NOTE | ~2018-07-17 | PR ---
[place], [place] PROGRESS NOTE NAME: ANGIE VERDUZCO UNIT #: [id number] ROOM: 428 DOCTOR: KENJI PRINCE DO BIRTHDATE: [birth year] DOS: 07/21/2018 SUBJECTIVE: The patient states that she is not feeling much better today. The patient states that she is still short of breath. The patient states that she is only able to get out of bed to use the bedside commode. The patient denies chest pain, fever, or chills. OBJECTIVE: PHYSICAL EXAMINATION: VITAL SIGNS: Temperature is 98.2, pulse 92, respiratory rate 20, blood pressure 116/65. She is 97% on 3 liters. HEENT: Normocephalic, atraumatic. Eyes are nonicteric. NECK: Supple, nontender. Trachea is midline. HEART: S1, S2 audible. LUNGS: Decreased breath sounds bilaterally with diffuse wheezes bilaterally. No crackles. ABDOMEN: Soft, obese and nontender. MUSCULOSKELETAL: Without acute deformities. NEUROLOGIC: Cranial nerves 2-12 grossly intact. No focal neurologic deficits. LABORATORY DATA: Blood cultures are negative to date. Urine culture negative to date and bronchial washings are negative to date. White blood cells 12.1, hemoglobin is 10.6, hematocrit 35.9, and platelets 223. Chemistry: Sodium 143, potassium 4.3, chloride 106, carbon dioxide 33, BUN 20, creatinine 0.68, calcium 8.2, bilirubin 0.2, AST 14, ALT 44, and alkaline phosphatase 40. IMPRESSION: 1. Chronic obstructive pulmonary disease with acute exacerbation. 2. Leukocytosis. 3. Hyponatremia. 4. Metabolic alkalosis with current use of Diamox. PLAN: Current management with steroids to be increased to 40 mg t.i.d. Continue bronchodilators and other therapies. Await final cultures. Any changes will be based on progression of illness. Chilo Prince DO [place], [place] PROGRESS NOTE NAME: ANGIE VERDUZCO UNIT #: [id number] ROOM: 428 DOCTOR: KENJI PRINCE DO BIRTHDATE: [birth year] JULIA ALFARO MD CM:EDA [id number] KENJI PRINCE DO 07/21/18 1846 interface
--- NOTE | ~2018-07-17 | PR ---
[place], [place] PROGRESS NOTE NAME: ANGIE VERDUZCO [facility] #: [id number] UNIT #: [id number] ROOM: 428 DOCTOR: ANGELINA ERICKSON MD,JULIA BIRTHDATE: [birth year] DOS: 07/19/2018 PULMONARY PROGRESS NOTE SUBJECTIVE: The patient was seen and examined on 07/19/2018. The patient is n.p.o. past midnight for bronchoscopy. She continues to cough, which is nonproductive with symptoms of shortness breath and wheezing at times. Denies symptoms of fever or chills. Denies symptoms of hemoptysis. Denies symptoms of nausea, vomiting or diarrhea. Denies symptoms of headache or diplopia. The remaining systems were reviewed, they were noted all negative. OBJECTIVE: VITAL SIGNS: This morning, blood pressure of 142/88, heart rate 73, respiratory rate 16, temperature normal. Pulse oxygen saturation on 3 liters nasal cannula was 99% saturation; on BiPAP 40% oxygen, 99% saturation. HEENT: Shows head was atraumatic, eyes nonicterus. NECK: Supple. CARDIOVASCULAR: S1 and S2 audible. LUNGS: Reduction in breath sounds with expiratory wheezing. No crackles. ABDOMEN: Soft and obese. EXTREMITIES: No acute change. MUSCULOSKELETAL: Without any acute deformities. CENTRAL NERVOUS SYSTEM: Cranial nerves 2-12 intact. LABORATORY DATA: CBC today, WBC count 13.6, hemoglobin 10.1, platelet count normal. Blood culture on 07/17/2018 was noted with no bacterial growth. CMP this morning, normal BUN and creatinine, glucose 124, sodium 146. CO2 was 31. Phosphorus was 2.5. IMPRESSION: 1. The patient with ongoing acute exacerbation of chronic obstructive pulmonary disease with severe nonproductive cough and wheezing. 2. Mild leukocytosis. 3. Mild hypernatremia as well. 4. Stable metabolic alkalosis with current use of Diamox. PLAN OF MANAGEMENT: Proceed with fiberoptic bronchoscopy as planned for today. Continue in the meantime BiPAP with oxygen supplementation use intermittently. Continue corticosteroids, bronchodilators, and other plan of therapy. Usual care, other supportive plan of treatment and care. Dose of Solu-Medrol will be decreased today to 40 mg b.i.d. from 60 mg b.i.d. dosing since improvement would occur after bronchoscopy. [place], [place] PROGRESS NOTE NAME: ANGIE VERDUZCO UNIT #: [id number] ROOM: 428 DOCTOR: JULIA ROGERS MD BIRTHDATE: [birth year] JULIA ALFARO MD CM:PNTRANS [phone] JULIA ERICKSON MD 07/19/18 0838 interface
--- NOTE | ~2018-07-17 | PR ---
[place], [place] PROGRESS NOTE NAME: ANGIE VERDUZCO [facility] #: [id number] UNIT #: [id number] ROOM: 428 DOCTOR: KENJI PRINCE DO BIRTHDATE: [birth year] DOS: 07/20/2018 PULMONARY PROGRESS NOTE SUBJECTIVE: The patient states that she feels a little bit better since her bronchoscopy. The patient states that she is still very short of breath with any activity at all. The patient states that she can only get out of bed to use the bedside commode. The patient denies any other problems. OBJECTIVE: VITAL SIGNS: Temperature 98.1, pulse 97, respiratory rate 22, blood pressure is 118/68. The patient is on 3 liters nasal cannula, is 97%. HEENT: Normocephalic, atraumatic. NECK: Supple, nontender, trachea midline. HEART: S1, S2 audible. LUNGS: Decreased breath sounds bilaterally. Diffuse wheezes bilaterally. No crackles. ABDOMEN: Soft and obese, nontender. EXTREMITIES: No clubbing, cyanosis or edema. MUSCULOSKELETAL: Without acute deformities. NEUROLOGIC: Cranial nerve system 2-12 grossly intact. No focal neurologic deficits. LABORATORY DATA: White count is 12.1, hemoglobin 10.6, hematocrit 35.9, platelet count 323. Chemistries: Sodium 143, potassium 4.7, chloride 106, carbon dioxide is 32, BUN 20, creatinine 0.68, calcium 8.2, total bilirubin 0.2, AST 14, ALT 44, alkaline phosphatase is 40, total protein 5.8, albumin 3.7. MICROBIOLOGY: Blood cultures are negative to date. Urine culture is negative to date. BAL washings are normal arian and/or negative to date including fungal and MADDIE prep. IMPRESSION: 1. Chronic obstructive pulmonary disease with acute exacerbation. 2. Mild leukocytosis. 3. Mild hyponatremia. 4. Stable metabolic alkalosis with current use of Diamox. PLAN: Continue current management with steroids, bronchodilators and other therapy. Await final cultures. Continue Solu-Medrol at 40 mg b.i.d. Any other changes will be based on progression of illness. Chilo Prince DO [place], [place] PROGRESS NOTE NAME: ANGIE VERDUZCO UNIT #: [id number] ROOM: [facility] DOCTOR: KENJI PRINCE DO BIRTHDATE: [birth year] JULIA ALFARO MD CM:EDA [id number] KENJI PRINCE DO 07/20/18 1412 interface
--- NOTE | ~2018-07-17 | PR ---
[place], [place] PROGRESS NOTE NAME: ANGIE VERDUZCO UNIT #: [id number] ROOM: 428 DOCTOR: KENJI PRINCE DO BIRTHDATE: [birth year] DOS: 07/22/2018 PULMONARY PROGRESS NOTE INTERVAL HISTORY: The patient states that she feels a little bit better today. The patient states she is still short of breath, but she can ambulate up to the bedside commode. The patient states that she would like to go home from the hospital. The patient denies chest pain, fevers, or chills. OBJECTIVE: VITAL SIGNS: Temperature 98.4, pulse 108, respiratory rate 24, blood pressure 124/85, 97% on room air. HEENT: Normocephalic, atraumatic. Eyes nonicteric. NECK: Supple, nontender, trachea midline. History of tracheostomy scar. CARDIOVASCULAR: S1, S2 audible. LUNGS: Diffuse wheezes bilaterally, diminished breath sounds bilaterally. ABDOMEN: Obese, nontender, positive bowel sounds. EXTREMITIES: No clubbing, cyanosis, or edema. NEUROLOGIC: No focal neurologic deficits. Cranial nerves 2-12 grossly intact. ASSESSMENT: 1. Acute exacerbation of chronic obstructive pulmonary disease. 2. Chronic hypercapnia and hypoxic respiratory failure. 3. Obstructive sleep apnea. 4. Morbid obesity. PLAN OF MANAGEMENT: Continue bronchodilators, oxygen supplementation. Increase Solu-Medrol to 40 mg t.i.d. yesterday. We will continue this dose of steroids. Continue other treatments. Continue to use BiPAP at night and p.r.n. Any additional changes will be based on progression of illness. Chilo Prince DO [place], [place] PROGRESS NOTE NAME: ANGIE VERDUZCO UNIT #: [id number] ROOM: 428 DOCTOR: KENJI PRINCE DO BIRTHDATE: [birth year] JULIA ALFARO MD CM:PNTRANS [id number] KENJI PRINCE DO 07/22/18 1950 interface
--- NOTE | ~2018-07-17 | PR ---
[place], [place] PROGRESS NOTE NAME: ANGIE VERDUZCO UNIT #: [id number] ROOM: 428 DOCTOR: KENJI PRINCE DO BIRTHDATE: [birth year] DOS: 07/29/2018 PULMONARY PROGRESS NOTE SUBJECTIVE: The patient was seen and examined while resting in bed, using BiPAP this morning. The patient states that her breathing is gradually getting better. The patient denies any other problems including cough or chest pain. OBJECTIVE: VITAL SIGNS: Temperature 98.1, pulse 96, respiratory rate 18, blood pressure 101/60, pulse ox 93% on 3 liters nasal cannula. HEENT: Atraumatic, normocephalic. Eyes nonicteric. NECK: Supple, nontender, trachea midline. CARDIOVASCULAR: S1, S2 audible. LUNGS: Reduction of breath sounds without any wheezes or crackles. ABDOMEN: Soft, nontender, bowel sounds present, obese. EXTREMITIES: No acute changes. ASSESSMENT: Stable respiratory status with gradual improvement in acute exacerbation of chronic obstructive pulmonary disease. PLAN: Awaiting prior authorization for care home facility. Continue current dose of Solu-Medrol 40 mg b.i.d. No other changes are made. We will continue to follow. Chilo Prince, DO JULIA ALFARO MD CM:PNJORGE ALBERTO [id number] KENJI PRINCE DO 07/30/18 1333 interface
--- NOTE | ~2018-07-17 | PR ---
[place], [place] PROGRESS NOTE NAME: ANGIE VERDUZCO UNIT #: [id number] ROOM: 428 DOCTOR: JULIA ROGERS MD BIRTHDATE: [birth year] DOS: 07/20/2018 PULMONARY PROGRESS NOTE The patient is independently seen and examined in [id number] encounter, history was confirmed, physical examination performed, pertinent labs were reviewed. The assessment and management for today's note was personally completed. Note done by the medical office asst was approved. SUBJECTIVE: The patient had a bronchoscopy done yesterday with reduction of respiratory symptoms stated. Denies symptoms chest pain. The coughing has been subsiding. Wheezing and shortness of breath was improving but not completely resolved. OBJECTIVE: GENERAL: The patient is comfortably resting and sitting on the bed this morning, using oxygen supplementation with nasal cannula. She used the BiPAP last night. VITAL SIGNS: Normal temperature, respiratory rate 20, heart rate 79, blood pressure 110/68. The pulse oxygen saturation was recorded as 99% saturation on three liters nasal cannula at rest. HEENT: Head is atraumatic. Eyes nonicterus. NECK: Supple. CARDIOVASCULAR: S1 and S2 audible. LUNGS: Noted without any wheezing or crackles. ABDOMEN: Soft, nontender. Bowel sounds present. EXTREMITIES: No acute change. IMPRESSION: Stable respiratory status is noted at the present time with gradual resolution and improvement in acute exacerbation of chronic obstructive pulmonary disease, acute tracheobronchitis. Preliminary cultures of the bronchial washings were noted as normal arian. PLAN: To follow the culture results. Continue bronchodilators, oxygen supplementation, steroids for the next 24-48 hours with improvement in symptoms. Consider discharge planning afterwards. [place], [place] PROGRESS NOTE NAME: ANGIE VERDUZCO UNIT #: [id number] ROOM: 428 DOCTOR: JULIA ROGERS MD BIRTHDATE: [birth year] JULIA ALFARO MD CM:PNTRANS [phone] JULIA ERICKSON MD 07/21/18 0358 interface
--- NOTE | ~2018-07-17 | PROC NOTE ---
[place], [place] PROCEDURE NOTE NAME: [id number] UNIT #: [id number] ROOM: 428 DOCTOR: ANGELINA ERICKSON MD,JULIA BIRTHDATE: [birth year] DOS: 07/19/2018 FIBEROPTIC BRONCHOSCOPY PREOPERATIVE DIAGNOSES: Severe coughing and wheezing, which have not been resolving with current maximal medical management. POSTOPERATIVE DIAGNOSES: Removal of moderate amount of mucus impaction from endobronchial tree subsegments bilaterally, greater on the left than the right side. PROCEDURE DESCRIPTION: Informed consent obtained from the patient. She was brought to the OR. Conscious sedation was administered per Anesthesia in supine position. After that, airway was introduced into the mouth. Bronchoscope was advanced to the airway into laryngeal area. Epiglottis and vocal cords were seen. Vocal cord was moving symmetrically with movements. Bronchoscope was advanced to vocal cord and tracheal lumen, showed moderate amount of clear mucus secretion, which was suctioned out to the óscar level. The right upper, right middle, right lower, left upper, lingular lobe bronchi, all examined. Moderate amount of mucus impaction was noted in the endobronchial tree subsegments, greater in the left than the right endobronchial subsegments. All the secretions were cleared out with the help of normal saline wash and sent for culture. Procedure was well tolerated by the patient without any difficulty or complications. JULIA ALFARO MD CM:PROCNOTE:PROCEDURE NOTE [id number] JULIA ERICKSON MD
[~2018-07-17 14:39] MED LIST changes: +ACETAZOLAMIDE250 MG NG; +CHLORHEXIDINE473 M1 T; +DALI500T PO; +DOXYCYCLINE100 MG PO; +FOSAMAX70 M1 PO; +INCRUSE ELLI62.5 MCG INH; +LEVOFLOXACIN500 MG PO; +MILLIPRED5 MG PO; +PROAIR HFA8.5 GM INH; +Ventolin 02.5 MG/3 M INH
[2018-07-17 15:09] LABS: HEMATOCRIT 39.1 % (37.0-47.0); HEMOGLOBIN 11.5 g/dl (12.0-16.0); MEAN CELL VOLUME 97.8 fl (81.0-99.0); MEAN CORPUSCULAR HGB 28.8 pg (27.0-31.0); MEAN CORPUSCULAR HGB CONC 29.4 g/dl (33.0-37.0); MEAN PLATELET VOLUME 9.1 fl (9.6-12.3); PLATELET COUNT AUTOMATED 257 10*3/uL (130-400); RED CELL DISTRI WIDTH 18.6 % (0-14.5); WHITE BLOOD COUNT 13.2 10*3/uL (4.8-10.8)
[2018-07-17 15:20] LABS: ACT PARTIAL THROMBO TIME 24.5 SECONDS (20.0-32.1); INTERNATIONAL NORM RATIO 0.9 (2.0-3.5)
[2018-07-17 15:26] LABS: ALBUMIN 3.1 gm/dl (3.1-4.5); ALKALINE PHOSPHATASE 51 U/L (45-117); BUN 16 mg/dl (7-24); CHLORIDE 106 mmol/L (98-107); POTASSIUM 3.9 mmol/L (3.5-5.1); SGOT/AST 4 IU/L (3-35); SGPT/ALT 23 U/L (12-78); SODIUM 144 mmol/L (136-145)
[2018-07-17 15:27] LABS: TROPONIN I < 0.015 ng/ml (<0.045)
[2018-07-17 15:32] LABS: OVALOCYTES FEW; POLYCHROMASIA SLIGHT; TOTAL CELLS COUNTED 100 #CELLS
[2018-07-17 15:33] LABS: PLATELET SUFFICIENCY NORMAL (NORMAL)
[2018-07-17 16:00] LABS: VENOUS PH 7.35 (7.32-7.43)
--- NOTE | 2018-07-17 16:57 | NUR ---
Inpatient nurse unable to take report at this time due to acuity upstairs. Will continue to monitor.
[2018-07-17] MEDS ORDERED: PREDNISONE5 MG PO (18:26)
--- NOTE | 2018-07-17 18:27 | NUR ---
HOME MEDS RECONCILED WITH PT AT BEDSIDE AND AGAINST CLAIM HISTORY.DR COURTNEY NOTIFIED.
--- NOTE | 2018-07-17 20:19 | NUR ---
PATIENT REQUESTING BIPAP ORDER BECAUSE HER FAMILY IS UNABLE TO BRING IN HOME CPAP. RESPIRATORY THERAPIST LOOKED UP PREVIOUS BIPAP SETTINGS 17/12 ON PREVIOUS HOSPITAL VISIT. DR CORREA CALLED- AWAITING NEW ORDER.
--- NOTE | 2018-07-17 20:59 | NUR ---
PATIENT REQUESTING PAIN MEDICATION FOR HEADACHE. NORCO ADMINISTERED PRESCRIBED. WILL MONITOR FOR EFFECTIVENESS.
--- NOTE | 2018-07-17 21:59 | NUR ---
PATIENT STATES THAT HEADACHE IS BETTER AFTER ADMINISTRATION OF NORCO. WILL MONITOR.
[2018-07-17 22:33] LABS: BILIRUBIN NEGATIVE (NEGATIVE); BLOOD NEGATIVE (NEGATIVE); CLARITY CLOUDY (CLEAR); COLOR YELLOW (YELLOW); GLUCOSE NEGATIVE (NEGATIVE); KETONE NEGATIVE (NEGATIVE); LEUKO ESTERASE NEGATIVE (NEGATIVE); NITRITE NEGATIVE (NEGATIVE); PH 8.5 (5.0-9.0); SPECIFIC GRAVITY 1.015 (1.005-1.030); UROBILINOGEN 0.2 E.U./dl (0.2-1.0)
[2018-07-17 23:00] LABS: BACTERIA 4+
[2018-07-18] VITALS: BP 117/63
--- NOTE | 2018-07-18 01:20 | NUR ---
PATIENT RESTING WITH EYES CLOSED AT THIS TIME. RESPIRATIONS EASY AND UNLABORED ON BIPAP. BED LOCKED IN LOWEST POSITION AND CALL SOFIA WITHIN REACH.
[2018-07-18 04:00] VITALS: BP 119/67
[2018-07-18 07:27] LABS: HEMATOCRIT 34.3 % (37.0-47.0); HEMOGLOBIN 9.9 g/dl (12.0-16.0); MEAN CELL VOLUME 100.6 fl (81.0-99.0); MEAN CORPUSCULAR HGB CONC 28.9 g/dl (33.0-37.0); MEAN PLATELET VOLUME 9.4 fl (9.6-12.3); PLATELET COUNT AUTOMATED 223 10*3/uL (130-400); RED BLOOD COUNT 3.41 10*6/uL (4.10-5.10); RED CELL DISTRI WIDTH 18.1 % (0-14.5); WHITE BLOOD COUNT 10.3 10*3/uL (4.8-10.8)
[2018-07-18 07:56] LABS: ALBUMIN 2.4 gm/dl (3.1-4.5); ALKALINE PHOSPHATASE 39 U/L (45-117); BUN 17 mg/dl (7-24); CHLORIDE 109 mmol/L (98-107); CHOLESTEROL 161 mg/dL (<200); CREATININE 0.64 mg/dL (0.55-1.02); HDL CHOLESTEROL 72 mg/dl (40-60); LDL CHOLESTEROL 78 mg/dL (9-159); PHOSPHOROUS 2.7 mg/dL (2.5-4.9); POTASSIUM 4.4 mmol/L (3.5-5.1); SGOT/AST 8 IU/L (3-35); SGPT/ALT 19 U/L (12-78); SODIUM 145 mmol/L (136-145); TOTAL PROTEIN 5.7 gm/dL (6.4-8.2); TRIGLYCERIDES 56 mg/dl (<150); VLDL CHOLESTEROL 11 mg/dL (6-40)
[2018-07-18 08:00] VITALS: BP 118/70
[2018-07-18 08:01] LABS: THYROID STIM HORMONE (HS) 0.159 uIU/ml (0.358-4.75)
[2018-07-18 08:19] LABS: PLATELET SUFFICIENCY NORMAL (NORMAL); SCHISTOCYTES FEW; TOTAL CELLS COUNTED 100 #CELLS
[2018-07-18 08:22] LABS: INTERNATIONAL NORM RATIO 0.9 (2.0-3.5)
--- NOTE | 2018-07-18 09:24 | NUR ---
NOTIFIED DR ALFARO OF NEW CONSULT FOR PNEUMONIA.
[2018-07-18 09:27] LABS: VITAMIN D, 25-HYDROXY 38.1 ng/mL (30-100)
[2018-07-18 12:00] VITALS: BP 132/68
--- NOTE | 2018-07-18 16:57 | NUR ---
SPOKE TO DR ALFARO REGARDING D/C OF PT BREATHING TX AND PT CURRENTLY REQUESTING A BREATHING TX. ORDER RECIEVED.
[2018-07-18 20:00] VITALS: BP 118/65
[2018-07-19] VITALS (9 sets, daily range): BP systolic 104–152; BP diastolic 57–88
[2018-07-19 06:30] LABS: HEMOGLOBIN 10.1 g/dl (12.0-16.0); MEAN CELL VOLUME 99.7 fl (81.0-99.0); MEAN CORPUSCULAR HGB 28.8 pg (27.0-31.0); MEAN CORPUSCULAR HGB CONC 28.9 g/dl (33.0-37.0); MEAN PLATELET VOLUME 9.5 fl (9.6-12.3); NUCLEATED RED BLOOD CELL 0.1 % (0.0-0.0); PLATELET COUNT AUTOMATED 228 10*3/uL (130-400); RED BLOOD COUNT 3.51 10*6/uL (4.10-5.10); WHITE BLOOD COUNT 13.6 10*3/uL (4.8-10.8)
[2018-07-19 06:52] LABS: ALBUMIN 2.5 gm/dl (3.1-4.5); ALKALINE PHOSPHATASE 40 U/L (45-117); BUN 21 mg/dl (7-24); CHLORIDE 110 mmol/L (98-107); CREATININE 0.66 mg/dL (0.55-1.02); FREE T4 0.69 ng/dl (0.76-1.46); PHOSPHOROUS 2.5 mg/dL (2.5-4.9); POTASSIUM 4.8 mmol/L (3.5-5.1); SGOT/AST 9 IU/L (3-35); SGPT/ALT 25 U/L (12-78); SODIUM 146 mmol/L (136-145); TOTAL PROTEIN 5.9 gm/dL (6.4-8.2)
[2018-07-19 06:58] LABS: THYROID STIM HORMONE (HS) 0.197 uIU/ml (0.358-4.75)
[2018-07-19 07:37] LABS: PLATELET SUFFICIENCY NORMAL (NORMAL); POLYCHROMASIA SLIGHT; SCHISTOCYTES FEW; TOTAL CELLS COUNTED 100 #CELLS
--- NOTE | 2018-07-19 07:50 | NUR ---
PATIENT IN OR FOR BRONCH.
--- NOTE | 2018-07-19 08:31 | NUR ---
PATIENT BACK FROM [facility] [place] [facility] [place]
--- NOTE | 2018-07-19 08:49 | NUR ---
MEDICATED WITH PRN NORCO PER ORDER AND REQUEST FOR HEADACHE/BACK PAIN.
--- NOTE | 2018-07-19 09:00 | NUR ---
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 Patient states lives at home with . There are few steps in the home. Physician: ferdinand vogt [facility]acy: [facility] Home health services: none Patient's level of ADLs: INDEPENDENT Patient has working utilities: all working DME: home oxygen, portable tanks from [employer], cane Follow-up physician's appointment after d/c: will be made by hospitalist nurse director upon discharge Does patient want to access PORTAL?: no Discharge plan discussed with patient, patient lives at home with , she states she is independent in adls and ambulation, patient states she will be going home when able and denies any home needs, case management will follow. GINGER SANDOVAL
--- NOTE | 2018-07-19 10:00 | NUR ---
CYNTHIA EARLIER EFFECTIVE.
--- NOTE | 2018-07-19 15:45 | NUR ---
Pt is resting comfortably on the BiPap. SpO2 98%
--- NOTE | 2018-07-19 21:16 | NUR ---
PATIENT RECEIVED NORCO FOR PAIN RATED 7/10.
--- NOTE | 2018-07-19 23:00 | NUR ---
24 HOUR CHART CHECK COMPLETE.
[2018-07-20] VITALS: BP 115/63
[2018-07-20 08:00] VITALS: BP 118/68
[2018-07-20 08:14] LABS: HEMATOCRIT 35.9 % (37.0-47.0); HEMOGLOBIN 10.6 g/dl (12.0-16.0); MEAN CELL VOLUME 98.9 fl (81.0-99.0); MEAN CORPUSCULAR HGB 29.2 pg (27.0-31.0); MEAN CORPUSCULAR HGB CONC 29.5 g/dl (33.0-37.0); MEAN PLATELET VOLUME 9.3 fl (9.6-12.3); NUCLEATED RED BLOOD CELL 0.2 % (0.0-0.0); PLATELET COUNT AUTOMATED 223 10*3/uL (130-400); RED BLOOD COUNT 3.63 10*6/uL (4.10-5.10); RED CELL DISTRI WIDTH 17.7 % (0-14.5); WHITE BLOOD COUNT 12.1 10*3/uL (4.8-10.8)
[2018-07-20 08:28] LABS: ALBUMIN 2.7 gm/dl (3.1-4.5); ALKALINE PHOSPHATASE 40 U/L (45-117); BUN 20 mg/dl (7-24); CHLORIDE 106 mmol/L (98-107); CREATININE 0.68 mg/dL (0.55-1.02); POTASSIUM 4.7 mmol/L (3.5-5.1); SGOT/AST 14 IU/L (3-35); SGPT/ALT 44 U/L (12-78); SODIUM 143 mmol/L (136-145); TOTAL PROTEIN 5.8 gm/dL (6.4-8.2)
[2018-07-20 08:38] LABS: PLATELET SUFFICIENCY NORMAL (NORMAL); POLYCHROMASIA SLIGHT; TOTAL CELLS COUNTED 100 #CELLS
[2018-07-20 08:39] LABS: OVALOCYTES FEW; SCHISTOCYTES FEW
--- NOTE | 2018-07-20 09:00 | NUR ---
case management visits with patient, patient states she will be going home when able and denies any home needs at this time, case management willfollow
--- NOTE | 2018-07-20 09:54 | NUR ---
MEDICATED WITH PRN NORCO PER ORDER AND REQUEST FOR GENERALIZED PAIN MULTIPLE AREAS.
[2018-07-20 12:00] VITALS: BP 131/78
[2018-07-20 15:09] LABS: ACID FAST SPEC PROCESSING Concentration (.)
[2018-07-20 16:00] VITALS: BP 106/75
[2018-07-20 20:00] VITALS: BP 127/74
--- NOTE | 2018-07-20 20:47 | NUR ---
PATIENT REQUESTING SOMETHING FOR PAIN. C/O OF A HEADACHE AND BACK PAIN. RATES 6/10. MEDICATED WITH NORCO. NO OTHER COMPLAINTS VOICED AT THIS TIME. BED IN LOWEST POSITION, CALL LIGHT WITHIN REACH. WILL CONTINUE TO MONITOR.
--- NOTE | 2018-07-20 21:00 | NUR ---
PATIENT PLACED ON BIPAP AT THIS TIME.
[2018-07-21] VITALS: BP 106/59
--- NOTE | 2018-07-21 04:46 | NUR ---
24 HR chart check completed.
--- NOTE | 2018-07-21 05:08 | NUR ---
PATIENT REFUSING TO TAKE PRILOSEC AT THIS TIME.
[2018-07-21 08:00] VITALS: BP 139/78
--- NOTE | 2018-07-21 09:00 | NUR ---
case management visits with patient, again discussed with her VNA, patient declines any services at this time, case management will follow for any needs
--- NOTE | 2018-07-21 09:55 | NUR ---
MEDICATED WITH PRN NORCO PER ORDER AND REQUEST FOR PAIN ALL OVER.
[2018-07-21 12:00] VITALS: BP 116/65
[2018-07-21 16:00] VITALS: BP 136/71
--- NOTE | 2018-07-21 19:33 | NUR ---
MORPHINE NOT GIVEN PATIENT STATESM SHE IS MUCH BETTER.
[2018-07-21 20:00] VITALS: BP 142/68
[2018-07-22] VITALS: BP 111/65
[2018-07-22 08:00] VITALS: BP 110/72
--- NOTE | 2018-07-22 09:00 | NUR ---
case management visits with patient, patient states she will be going home when able, denies any home needs
--- NOTE | 2018-07-22 10:22 | NUR ---
PATIENT C/O PAIN "ALL OVER". MEDICATED WITH NORCO PER PRN ORDER. WILL CONTINUE TO MONITOR.
[2018-07-22 12:00] VITALS: BP 124/85
[2018-07-22 16:00] VITALS: BP 133/85
[2018-07-22 20:00] VITALS: BP 132/83
--- NOTE | 2018-07-22 20:51 | NUR ---
PATIENT REQUESTING NIGHT TIME MEDICATIONS EARLY SO SHE CAN BE PLACED ON THE BIPAP AT 9OCLOCK. PATIENT C/O BACK PAIN. MEDICATED WITH NORCO, PATIENT RATES THE PAIN 6/10. ALSO C/O INCREASED SOB. PATIENT IS 97% ON 3L. NO OTHER COMPLAINTS AT THIS TIME. BED IN LOWEST POSITION, CALL LIGHT WITHIN REACH. WILL CONTINUE TO MONITOR.
--- NOTE | 2018-07-22 21:00 | NUR ---
PT PLACED ON BIPAP 18/10 40% O2 PT ON CONTINUOUS PULSE OX PROTECTED GEL ON PT
--- NOTE | 2018-07-22 21:05 | NUR ---
PATIENT ON BIPAP
[2018-07-23] VITALS: BP 149/92
--- NOTE | 2018-07-23 01:53 | NUR ---
PATIENT SLEEPING WITH BIPAP ON. NO SIGNS OF DISTRESS. RESPIRATIONS EASY, NON LABORED. CONTINOUS PULSE OX ON. 98% ON BIPAP. BED IN LOWEST POSITION,CALL LIGHT WITHIN REACH. WILL CONTINUE TO MONITOR.
[2018-07-23 08:00] VITALS: BP 125/88
--- NOTE | 2018-07-23 09:00 | NUR ---
case management visits with patient, discussed with her doctor suggesting she go [facility] a [facility] for pulmonary [facility]hab. patient was very upset over going to a short term prison, but agreed, given choice of facilities, she chose [facility], office workforce planner will send referral to [facility], patient will need an insurance precert prior to going to the facility
--- NOTE | 2018-07-23 11:40 | NUR ---
Occupational Therapy evaluation completed on 4 with full eval to follow. Precautions include SOB w/ min exertion, 4LPM o2 use,obesity, fear of movement and improper breathing w/ O2 at times, moderate complexity level 36541 via chart reveiw, testing and eval.REcommend OT per POC and SNF to enable safe return home. Thank you for this referral. Jocelin Mohamud OTR/l
[2018-07-23 12:00] VITALS: BP 133/73
--- NOTE | 2018-07-23 12:09 | NUR ---
PHYSICAL THERAPY PT evaluation complete. Please see POC for complete evaluation. Patient presents with decreased endurance, breathing difficulty, and gross weakness. Recommend SNF for increased endurance, increased LE strength, and safety with oxygen management. Radhika Lerma,PT,DPT
--- NOTE | 2018-07-23 13:53 | NUR ---
Patient requested a referral to [facility]. Contacted facility and faxed referral. Will require a precert. Waiting on review/acceptance.
[2018-07-23 16:00] VITALS: BP 136/83
[2018-07-23 20:00] VITALS: BP 133/79
[2018-07-24] VITALS: BP 116/66
[2018-07-24 06:55] LABS: HEMATOCRIT 33.7 % (37.0-47.0); MEAN CELL VOLUME 97.1 fl (81.0-99.0); MEAN CORPUSCULAR HGB 28.8 pg (27.0-31.0); MEAN CORPUSCULAR HGB CONC 29.7 g/dl (33.0-37.0); MEAN PLATELET VOLUME 9.3 fl (9.6-12.3); PLATELET COUNT AUTOMATED 206 10*3/uL (130-400); RED BLOOD COUNT 3.47 10*6/uL (4.10-5.10); RED CELL DISTRI WIDTH 17.2 % (0-14.5); WHITE BLOOD COUNT 13.4 10*3/uL (4.8-10.8)
[2018-07-24 07:37] LABS: BUN 25 mg/dl (7-24); CHLORIDE 108 mmol/L (98-107); CREATININE 0.64 mg/dL (0.55-1.02); SODIUM 143 mmol/L (136-145)
[2018-07-24 07:39] LABS: TOTAL CELLS COUNTED 100 #CELLS
[2018-07-24 07:40] LABS: PLATELET SUFFICIENCY NORMAL (NORMAL)
[2018-07-24 08:00] VITALS: BP 125/74
[2018-07-24 12:00] VITALS: BP 124/78
[2018-07-24 16:24] VITALS: BP 123/73
[2018-07-24 20:00] VITALS: BP 138/59
[2018-07-25] VITALS: BP 129/66
[2018-07-25 07:09] LABS: HEMATOCRIT 34.8 % (37.0-47.0); HEMOGLOBIN 10.3 g/dl (12.0-16.0); MEAN CELL VOLUME 97.2 fl (81.0-99.0); MEAN CORPUSCULAR HGB 28.8 pg (27.0-31.0); MEAN CORPUSCULAR HGB CONC 29.6 g/dl (33.0-37.0); MEAN PLATELET VOLUME 9.6 fl (9.6-12.3); PLATELET COUNT AUTOMATED 203 10*3/uL (130-400); RED BLOOD COUNT 3.58 10*6/uL (4.10-5.10); RED CELL DISTRI WIDTH 17.1 % (0-14.5); WHITE BLOOD COUNT 13.3 10*3/uL (4.8-10.8)
[2018-07-25 07:26] LABS: ALBUMIN 2.6 gm/dl (3.1-4.5); BUN 22 mg/dl (7-24); CHLORIDE 105 mmol/L (98-107); POTASSIUM 4.5 mmol/L (3.5-5.1); SODIUM 142 mmol/L (136-145)
[2018-07-25 07:30] LABS: ALKALINE PHOSPHATASE 38 U/L (45-117); CREATININE 0.69 mg/dL (0.55-1.02); PHOSPHOROUS 3.3 mg/dL (2.5-4.9); SGOT/AST 8 IU/L (3-35); SGPT/ALT 30 U/L (12-78); TOTAL PROTEIN 5.6 gm/dL (6.4-8.2)
[2018-07-25 08:00] VITALS: BP 116/87
[2018-07-25 08:20] LABS: PLATELET SUFFICIENCY NORMAL (NORMAL); TOTAL CELLS COUNTED 100 #CELLS
--- NOTE | 2018-07-25 08:40 | NUR ---
PATIENT TAKEN OFF OF BI-PAP, PLACED ON 4 L/M.
[2018-07-25 12:00] VITALS: BP 131/83
[2018-07-25 16:00] VITALS: BP 125/68
[2018-07-25 20:00] VITALS: BP 142/66
--- NOTE | 2018-07-25 20:00 | NUR ---
SITTING UP AT BEDSIDE. 02 INTACT AT 4LPM VIA NASAL CANNULA. PT. VOICES NO C/O AT THIS TIME. CALL LIGHT WITHIN REACH.
--- NOTE | 2018-07-25 21:23 | NUR ---
MEDICATED WITH NORCO FOR C/O PAIN.
[2018-07-26] VITALS: BP 135/78; BP 138/64
--- NOTE | 2018-07-26 | NUR ---
RESTING IN BED; BIPAP INTACT.
--- NOTE | 2018-07-26 06:00 | NUR ---
AROUSES EASILY WHEN GIVING MEDICATION. VOICES NO C/O AT THIS TIME. BIPAP REMAINS INTACT. CALL LIGHT WITHIN REACH.
[2018-07-26 08:00] VITALS: BP 114/59
--- NOTE | 2018-07-26 08:34 | NUR ---
PT. TAKEN OFF BIPAP
[2018-07-26 12:00] VITALS: BP 134/83
[2018-07-26 16:00] VITALS: BP 131/50
--- NOTE | 2018-07-26 19:47 | NUR ---
Shift chart check completed.24 HR chart check completed.
[2018-07-26 20:00] VITALS: BP 117/59
--- NOTE | 2018-07-26 22:47 | NUR ---
PT HAD NORCO AT 2131 FOR BACK/HEAD PAIN AND IS NOW RESTING EASILY WITH HER BIPAP ON.
[2018-07-27] VITALS: BP 118/66
--- NOTE | 2018-07-27 03:39 | NUR ---
SLEEPING WITH HER BIPAP IN PLACE. SHE'S ON CONTINUOUS PULSE OX.
[2018-07-27 08:00] VITALS: BP 112/60
--- NOTE | 2018-07-27 09:42 | NUR ---
MEDICATED WITH NORCO PER PRN ORDER FOR COMPLAINTS OF KNEE PAIN, RATES PAIN 8/10. ALSO PROVIDED WITH XANAX FOR ANXIETY. WILL MONITOR FOR EFFECTIVENESS.
--- NOTE | 2018-07-27 11:00 | NUR ---
PT RESTING COMFORTABLY, EARLIER MEDICATIONS EFFECTIVE.
[2018-07-27 12:00] VITALS: BP 126/67
--- NOTE | 2018-07-27 13:35 | NUR ---
PHYSICAL THERAPY Patient seen this pm 1:1 for therapy visit and was sitting up EOB upon therapist arrival. Patient presents with continuous O2-4L via NC and records baseline SpO2 96%, HR 105 bpm. Patient reports chronic B knee pain / stiffness and performed several sit to stand transfers CGA from slightly elevated bed surface. Patient use of wh walker standing support and tolerates 3 minutes static stand with SpO2 remaining WFL's. Patient ambulates 20'x 2 to bathroom and back, Min/CGA, demonstrating very slow jia, shuffling gait pattern and increased SOB/fatigue. Patient received v/c for purse lip breathing technique and needed seated rest between trials. Patient instructed on improved sit to stand transfer technique and completed several additional transfers from lower arm chair, Min/Mod A. Patient was pleased with her performance and reamained seated EOB with call light, tray table and cell phone. Will continue per POC as tolerated to improve safe, functional transfers / mobiilty with decreased SOB / fatigue. Total treatment time 16 minutes. Stephen Clarke, MINISTER
--- NOTE | 2018-07-27 13:50 | NUR ---
OT NOTE Pt was seen this P.M. 1:1 for 25 minute OT session. Upon arrival pt was sitting upright on the EOB. Pt identified by name and and had complaints of "mild" B knee pain. Pt presented to therapy with continuous 4L-o2 via NC which she remained on throughout entire session. Educated pt on breathing techniques and correcting her posture for enahnced breathing. Pt completed sit to stand transfer from bed level with SBA and use of w/w for UE support. Challenged pt's static standing tolerance needed for increased I in self care tasks and functional transfers. Pt was able to tolerate aprox 3 minutes at a time before sitting due to fatigue. Pt's SpO2 remained at 97% throughout with good carry over of breathing techniques. Functional mobility completed into the bathroom with CGA and use of w/w with fair safety awareness with O2 line. There she transferred on to standard commode with CGA and use of grab bar for UE support. Clothing management and toilet hygiene completed with SBA for safety. Pt then transferred off standard commode with modA and use of grab bar due to low surface. Educated pt on transfer techniques for increased I. Pt then completed three sit to stand transfers from chair level using transfer techniques and pt required modA for inital trial and Rama for second attempt. Pt was left sitting upright on the EOB with call light in hand and tray table in place. Continue with rec D/C plan to SNF. AMA Justice/Juliette
--- NOTE | 2018-07-27 14:32 | NUR ---
case management visits with patient, patient is waiting to go to [facility], waiting on insurance precert, no other needs at this time
--- NOTE | 2018-07-27 14:38 | NUR ---
clinical updates and therapy notes were faxed to [facility] to continue precert. Waiting for auth.
[2018-07-27 16:00] VITALS: BP 136/75
--- NOTE | 2018-07-27 17:07 | NUR ---
MEDICATED WITH NORCO PER PRN ORDER FOR COMPLAINTS OF CHRONIC BACK PAIN. WILL MONITOR FOR EFFECTIVENESS.
[2018-07-27 20:00] VITALS: BP 136/66
--- NOTE | 2018-07-27 21:23 | NUR ---
PATIENT MEDICATED WITH XANAX FOR COMPLAINTS OF ANXIETY AND NORCO FOR COMPLAINTS OF GENERALIZED PAIN. WILL CONTINUE TO MONITOR. CALL LIGHT IN REACH.
[2018-07-28] VITALS: BP 121/62
[2018-07-28 07:06] LABS: BUN 24 mg/dl (7-24); CREATININE 0.72 mg/dL (0.55-1.02)
[2018-07-28 08:00] VITALS: BP 124/80
--- NOTE | 2018-07-28 08:13 | NUR ---
TOOK PT OFF BIPAP AND PLACED ON 4LNC
--- NOTE | 2018-07-28 09:00 | NUR ---
case management visits with patient, patient will be going to [facility] when insurance precer is obtained, case management and meeting/event planner following
--- NOTE | 2018-07-28 09:07 | NUR ---
Patient clinical updates, therapy notes faxed to [facility] for precert. waiting on auth.
--- NOTE | 2018-07-28 09:20 | NUR ---
MEDICATED WITH NORCO FOR COMPLAINTS OF LEG PAIN, ALSO GIVEN XANAX FOR ANXIETY. WILL MONITOR FOR EFFECTIVENESS.
[2018-07-28 12:00] VITALS: BP 134/75
--- NOTE | 2018-07-28 12:29 | NUR ---
OT NOTE Pt was seen this P.M. 1:1 for 15 minute OT session. Upon arrival pt was sitting upright on the EOB. Pt identified by name and and had no complaints at this time. Pt presented to therapy with continuous 4L-O2 via NC which she remained on throughout entire session. Sit to stand completed from bed level with Rama and use of w/w for UE support. Challenged pt's static standing tolerance needed for increased I in self care tasks and functional transfers. Pt was able to tolerate aprox 2 minutes at a time before sitting due to quick onsset of fatigue and SOB. Educated pt on breathing techniques which she had fair carry over with throughout session. Functional mobility completed from EOB to the bathroom with CGA and use of w/w for UE support. Pt required verbal prompts and occasional Rama for navigation with O2 line for enhanced safety awareness. Therapist had placed an elevated commode seat onto standard commode due to pt having difficulties with sit to stand from standard commode. Pt was able to transfer on/off elevated commode with Rama and use of grab bar. Functional mobility completed back to the EOB where she was left with call light in hand, tray table in place, and phone in reach. Continue with rec D/C plan to SNF. AMA Justice/Juliette
--- NOTE | 2018-07-28 12:32 | NUR ---
PHYSICAL THERAPY Patient seen this pm 1:1 for therapy visit and was sitting up on EOB upon therapist arrival. Patient presents with continuous O2-4L via NC and was very pleasant this afternoon reporting only mild generalized weakness. Patient transfers sit to stand Min A, v/c for proper hand placement and ambulates with use of wh walker, CGA, 30 'x 2, demonstrating slow jia / decreased stride. Patient also required v/c for improved safety navigating ad roberto in room with use of extended O2 hose. Patient demonstrated several bouts of tangle O2 cord, but was able to correct following v/c. Patient needed seated rest between gait trials due to increased fatigue and returned to EOB sit with call light, tray table and cell phone. Patient would benefit from SNF to improve standing activity tolerance, balance and mobilty to return to PLOF. Will continue per POC as tolerated, total treatment time 15 minutes. Stephen Clarke, ROOFING FOREMAN
[2018-07-28 16:00] VITALS: BP 136/75
--- NOTE | 2018-07-28 17:39 | NUR ---
MEDICATED WITH NORCO PER PRN ORDER FOR COMPLAINTS OF LEG PAIN, WILL MONITOR FOR EFFECTIVENESS. ALSO PROVIDED WITH DULCOLAX FOR COMPLAINTS OF CONSTIPATION.
--- NOTE | 2018-07-28 19:43 | NUR ---
PATIENT MEDICATED WITH XANAX FOR COMPLAINTS OF ANXIETY. WILL CONTINUE TO MONITOR. CALL LIGHT IN REACH.
[2018-07-28 20:00] VITALS: BP 139/85
[2018-07-29] VITALS: BP 124/68
[2018-07-29 08:00] VITALS: BP 123/73
--- NOTE | 2018-07-29 08:00 | NUR ---
PT RESTING IN BED, BIPAP IN USE. PT DENIES ANY COMPLAINTS. CONTINUOUS PULSE OX INTACT-98%. CALL LIGHT WITHIN REACH.
--- NOTE | 2018-07-29 09:00 | NUR ---
case management visits with patient, patient will be going to [facility] when insurance precert is obtained
--- NOTE | 2018-07-29 09:30 | NUR ---
MEDICATED WITH NORCO PER PRN ORDER FOR COMPLAINTS OF LEG PAIN. ALSO PROVIDED WITH XANAX. WILL MONITOR FOR EFFECTIVENESS.
--- NOTE | 2018-07-29 11:00 | NUR ---
PT RESTING COMFORTABLY, EARLIER MEDICATIONS EFFECTIVE.
--- NOTE | 2018-07-29 11:25 | NUR ---
PHYSICAL THERAPY Patient seen this am 1;1 for therapy visit and was sitting up EOB upon therapist arrival. Patient presents with continuos O2-4L via NC and reports feeling a bit "sluggish" this morning. Patient also vocices 6/10 L ankle pain secondary to increased edema. Patient states nursing has been aware of this the past few days and has not worsened. Patient transfers sit to stand, CGA and ambulates with use of wh walker, extended O2 hose, CGA, ad roberto in room / bathroom 40'x 2. Patient demonstrates very slow, antalgic gait pattern. Patient returned to EOB sit and remained with call light, tray table and cell phone. Patient instructed to elevate L LE for edema / pain control. Will continue per POC as tolerated, total treatment time 16 minutes. Stephen Clarke, FIRER DIESEL LOCOMOTIVE
--- NOTE | 2018-07-29 11:38 | NUR ---
OT Note Pt was seen this AM 1:1 for 13 minutes of OT session. Upon arrival pt was sitting at EOB. Pt presented to therapy with continuous 4L of O2 via NC throughout entire session. Pt identified by name and and had no complaints at this time. LB dressing assessed to marjorie sock requring stand by assist and compensatory technique to bring ankle to knee. UB dressing completed stimulating putting jacket on with hospital gown with stand by assist. Sit-stand performed with stand by assist. Static standing was tolerated for approximately 3 minutes before completing Functional mobility into bathroom with use of w/w and stand by assist. Pt had good carryover with O2 management for enhanced safety and decreased risk of falls. Toilet transfer on and off raised toilet seat were completed with stand by assist and use of hand rail. Functional mobility was completed back to EOB. Pt presented to therapy with mod edema in LLE. Educated pt on edema control and elevation. Pt was left sitting EOB with call light within reach. Continue with rec D/C to SNF. Saman SANTOS/Student AMA Justice/Juliette
--- NOTE | 2018-07-29 12:02 | NUR ---
Patient has received auth to go to [facility] today if medically stable for discharge. Hospitalists office notified.
--- NOTE | 2018-07-29 15:09 | NUR ---
PT RESTING, BIPAP IN USE. CONT PULSE OX INTACT-96%
[2018-07-29 16:00] VITALS: BP 115/56
--- NOTE | 2018-07-29 17:33 | NUR ---
MEDICATED WITH NORCO FOR COMPLAINTS OF LEG PAIN. WILL MONITOR FOR EFFECTIVENESS.
--- NOTE | 2018-07-29 18:46 | NUR ---
PT RESTING, NO COMPLAINTS NOTED. EARLIER MEDICATIONS EFFECTIVE.
[2018-07-29 20:00] VITALS: BP 120/81
--- NOTE | 2018-07-29 21:06 | NUR ---
NOTIFIED DR COURTNEY OF PATIENTS NORCO FALLING OFF BECAUSE OF THE 7 DAY DROP OFF AND PATIENT NEEDING A DOSE BEFORE BED. STATED HE WOULD TAKE A LOOK.
[2018-07-30] VITALS: BP 124/88
[2018-07-30 08:00] VITALS: BP 134/86
[2018-07-30] MEDS ORDERED: ALPRAZOLAM0.25 M2 PO (09:04)
[2018-07-30] MEDS ORDERED: HYDROCODONE-AC1 EAC1 PO (09:04)
[2018-07-30] MEDS ORDERED: PREDNISONE10 MG PO (09:04)
[2018-07-30] MEDS ORDERED: ESCITALOPRAM OX10 MG PO (09:04)
[2018-07-30] MEDS ORDERED: MUCINEX ER600 MG PO (09:04)
[2018-07-30] MEDS ORDERED: TYLENOL325 M2 PO (09:06)
--- NOTE | 2018-07-30 09:09 | NUR ---
PATIENT CURRENTLY OFF BIPAP, SPO2 94% HR 92 ON 4 L/M NC.
--- NOTE | 2018-07-30 10:41 | NUR ---
REPORT CALLED TO [facility]ORM[facility] AT THIS TIME.
--- NOTE | 2018-07-30 10:55 | NUR ---
REFUSED DISCHARGE WOUND PHOTOS.
--- NOTE | 2018-07-30 11:15 | NUR ---
PATIENT TRANSPORTED OFF THE FLOOR AND DISCHARGED. TANSPORTED BY ABRAM DESOUZA, ON 4L VIA AR. NO SIGNS OR SYMPTOMS OF DISTRESS. IV REMOVED CATHETER INTACT, TELE MONITOR REMOVED AND ACCOUNTED FOR.
--- NOTE | 2018-07-30 13:57 | NUR ---
PHYSICAL THERAPY CO-SIGN I approve of the Phyical Therapy notes written above. JUSTYNA LOYD PT
--- NOTE | 2018-08-02 08:09 | NUR ---
OCCUPATIONAL THERAPY CO-SIGN I approve of the Occupational Therapy notes written above. CYNDI RIGGS OTR/Juliette
[2018-09-01 11:05] LABS: ACID FAST CULTURE Negative (.)
== END 2018-07-30 12:02 | disposition other institution (70) | DRG 871 ==
LOC: ED 14:39 → EDHOLD 16:44 → 4E 16:44
PROVIDERS: Emergency Medicine; Internal Medicine; Internal Medicine Critical Care Medicine; Physician Assistant; Registered Nurse; Student in an Organized Health Care Education/Training Program; ADMIT Internal Medicine
PROC: 0BC18ZZ Extirpation of Matter from Trachea, Via Natural or Artificial Opening Endoscopic (ICD-10-PCS; principal; 2018-07-19)
PROC: 0BC98ZZ Extirpation of Matter from Lingula Bronchus, Via Natural or Artificial Opening Endoscopic (ICD-10-PCS; 2018-07-19)
PROC: 0BC48ZZ Extirpation of Matter from Right Upper Lobe Bronchus, Via Natural or Artificial Opening Endoscopic (ICD-10-PCS; 2018-07-19)
PROC: 0BC88ZZ Extirpation of Matter from Left Upper Lobe Bronchus, Via Natural or Artificial Opening Endoscopic (ICD-10-PCS; 2018-07-19)
PROC: 0BC58ZZ Extirpation of Matter from Right Middle Lobe Bronchus, Via Natural or Artificial Opening Endoscopic (ICD-10-PCS; 2018-07-19)
PROC: 0BC38ZZ Extirpation of Matter from Right Main Bronchus, Via Natural or Artificial Opening Endoscopic (ICD-10-PCS; 2018-07-19)
PROC: 0BC78ZZ Extirpation of Matter from Left Main Bronchus, Via Natural or Artificial Opening Endoscopic (ICD-10-PCS; 2018-07-19)
PROC: 0BC68ZZ Extirpation of Matter from Right Lower Lobe Bronchus, Via Natural or Artificial Opening Endoscopic (ICD-10-PCS; 2018-07-19)
PROC: 0BCB8ZZ Extirpation of Matter from Left Lower Lobe Bronchus, Via Natural or Artificial Opening Endoscopic (ICD-10-PCS; 2018-07-19)
PROC: 5A09357 Assistance with Respiratory Ventilation, Less than 24 Consecutive Hours, Continuous Positive Airway Pressure (ICD-10-PCS; 2018-07-19)
PROC: 5A09357 Assistance with Respiratory Ventilation, Less than 24 Consecutive Hours, Continuous Positive Airway Pressure (ICD-10-PCS; 2018-07-20)
PROC: 5A09357 Assistance with Respiratory Ventilation, Less than 24 Consecutive Hours, Continuous Positive Airway Pressure (ICD-10-PCS; 2018-07-21)
PROC: 5A09357 Assistance with Respiratory Ventilation, Less than 24 Consecutive Hours, Continuous Positive Airway Pressure (ICD-10-PCS; 2018-07-23)
PROC: 5A09357 Assistance with Respiratory Ventilation, Less than 24 Consecutive Hours, Continuous Positive Airway Pressure (ICD-10-PCS; 2018-07-24)
PROC: 5A09357 Assistance with Respiratory Ventilation, Less than 24 Consecutive Hours, Continuous Positive Airway Pressure (ICD-10-PCS; 2018-07-25)
PROC: 5A09357 Assistance with Respiratory Ventilation, Less than 24 Consecutive Hours, Continuous Positive Airway Pressure (ICD-10-PCS; 2018-07-26)
PROC: 5A09357 Assistance with Respiratory Ventilation, Less than 24 Consecutive Hours, Continuous Positive Airway Pressure (ICD-10-PCS; 2018-07-27)
PROC: 5A09357 Assistance with Respiratory Ventilation, Less than 24 Consecutive Hours, Continuous Positive Airway Pressure (ICD-10-PCS; 2018-07-28)
PROC: 5A09357 Assistance with Respiratory Ventilation, Less than 24 Consecutive Hours, Continuous Positive Airway Pressure (ICD-10-PCS; 2018-07-29)
DX: A41.9 Sepsis, unspecified organism (principal); J15.6 Pneumonia due to other Gram-negative bacteria; E43 Unspecified severe protein-calorie malnutrition; J96.21 Acute and chronic respiratory failure with hypoxia; J96.22 Acute and chronic respiratory failure with hypercapnia; I50.32 Chronic diastolic (congestive) heart failure; J44.1 Chronic obstructive pulmonary disease with (acute) exacerbation; J44.0 Chronic obstructive pulmonary disease with (acute) lower respiratory infection; E87.3 Alkalosis; E87.0 Hyperosmolality and hypernatremia; I48.1 Persistent atrial fibrillation; T17.590A Other foreign object in bronchus causing asphyxiation, initial encounter; E83.41 Hypermagnesemia; I48.0 Paroxysmal atrial fibrillation; E83.51 Hypocalcemia; J20.9 Acute bronchitis, unspecified; E66.01 Morbid (severe) obesity due to excess calories; R65.20 Severe sepsis without septic shock; G47.33 Obstructive sleep apnea (adult) (pediatric); Y95 Nosocomial condition; K21.9 Gastro-esophageal reflux disease without esophagitis; D64.9 Anemia, unspecified; X58.XXXA Exposure to other specified factors, initial encounter; Y93.89 Activity, other specified; Y92.89 Other specified places as the place of occurrence of the external cause; Y99.8 Other external cause status; Z88.0 Allergy status to penicillin; Z88.1 Allergy status to other antibiotic agents; Z90.49 Acquired absence of other specified parts of digestive tract; Z87.891 Personal history of nicotine dependence; Z82.49 Family history of ischemic heart disease and other diseases of the circulatory system; Z99.81 Dependence on supplemental oxygen; Z83.3 Family history of diabetes mellitus; Z82.5 Family history of asthma and other chronic lower respiratory diseases; Z80.1 Family history of malignant neoplasm of trachea, bronchus and lung; Z82.3 Family history of stroke; Z79.899 Other long term (current) drug therapy; Z87.01 Personal history of pneumonia (recurrent); Z79.01 Long term (current) use of anticoagulants; Z68.39 Body mass index [BMI] 39.0-39.9, adult

== ENCOUNTER 2019-02-20 14:42 | Inpatient (IN) | payer OTHER ==
[~2019-02-20] VITALS: Ht 165.1 cm; Wt 125.2 kg
[~2019-02-20 14:42] MED LIST changes: +ALPRAZOLAM0.25 M2 PO; +ESCITALOPRAM OX10 MG PO; +HYDROCODONE-AC1 EAC1 PO; +TYLENOL325 M2 PO
[2019-02-20 14:44] VITALS: BP 116/63
[2019-02-20 15:10] LABS: HEMATOCRIT 34.6 % (37.0-47.0); HEMOGLOBIN 9.5 g/dl (12.0-16.0); MEAN CELL VOLUME 94.3 fl (81.0-99.0); MEAN CORPUSCULAR HGB 25.9 pg (27.0-31.0); MEAN CORPUSCULAR HGB CONC 27.5 g/dl (33.0-37.0); MEAN PLATELET VOLUME 8.7 fl (9.6-12.3); NUCLEATED RED BLOOD CELL 0.2 % (0.0-0.0); PLATELET COUNT AUTOMATED 303 10*3/uL (130-400); RED BLOOD COUNT 3.67 10*6/uL (4.10-5.10); RED CELL DISTRI WIDTH 17.8 % (0-14.5); WHITE BLOOD COUNT 12.7 10*3/uL (4.8-10.8)
[2019-02-20 15:27] LABS: ALBUMIN 3.4 gm/dl (3.1-4.5); ALKALINE PHOSPHATASE 56 U/L (45-117); BUN 16 mg/dl (7-24); CHLORIDE 105 mmol/L (98-107); CREATININE 0.94 mg/dL (0.55-1.02); SGOT/AST 4 IU/L (3-35); SGPT/ALT 19 U/L (12-78); SODIUM 140 mmol/L (136-145); TOTAL PROTEIN 6.9 gm/dL (6.4-8.2)
[2019-02-20 15:28] LABS: ACT PARTIAL THROMBO TIME 26.5 SECONDS (20.0-32.1); INTERNATIONAL NORM RATIO 0.9 (2.0-3.5); TROPONIN I < 0.015 ng/ml (<0.045)
[2019-02-20 15:30] LABS: PLATELET SUFFICIENCY NORMAL (NORMAL); TOTAL CELLS COUNTED 100 #CELLS
[2019-02-20 15:31] LABS: POLYCHROMASIA SLIGHT; STOMATOCYTE FEW
[2019-02-20 16:26] VITALS: BP 116/63
[2019-02-20 18:45] VITALS: BP 117/83
--- NOTE | 2019-02-20 18:45 | NUR ---
A 58, admitted to , under the services of VALERY Zheng DO with a diagnosis of SEPSIS,PNEUMONITIS. Chief complaint is SOB. Patient arrived via bed from ER. Monitor applied. Initial assessment completed. Vital signs taken and recorded. VALERY ZHENG DO notified of admission to the unit. Orders received. See assessment for past medical history, medications and allergies. Patient and/or family oriented to unit. [facility] visitation policy reviewed. Clothing/patient valuable form completed. JAMIE DENTON
[2019-02-20] MEDS ORDERED: PROVENTIL HFA6.7 GM INH (18:52)
[2019-02-20] MEDS ORDERED: PREDNISONE5 MG PO (18:57)
[2019-02-20] MEDS ORDERED: CITALOPRAM20 MG PO (18:58)
--- NOTE | 2019-02-20 18:59 | NUR ---
DR. ALFARO NOTIFIED OF CONSULT.
--- NOTE | 2019-02-20 19:00 | NUR ---
HOME MEDICATION LIST UPDATED WITH PATIENT AND RX BOTTLES AT BEDSIDE
--- NOTE | 2019-02-20 20:14 | NUR ---
MEDICATED WITH NORCO FOR C/O BILATERAL SIDE PAIN.
--- NOTE | 2019-02-20 21:00 | NUR ---
RESTING IN BED; STATES PAIN MEDICATION MINIMALLY EFFECTIVE.
--- NOTE | 2019-02-20 21:08 | NUR ---
MEDICATED WITH RESTORIL FOR C/O INSOMNIA.
--- NOTE | 2019-02-20 23:39 | NUR ---
CALLED DR. BLAKELY EARLIER PERTAINING TO PT. STATING THAT SHE USES A CPAP AT HOME.
[2019-02-21] VITALS: BP 123/67
--- NOTE | 2019-02-21 01:30 | NUR ---
Pt placed on CPAP 8 and pt stated it wasnt enough so per ordered we titrated to a CPAP of 10 with an FIO2 of 40%. Alarms on and audible.
--- NOTE | 2019-02-21 02:00 | NUR ---
RESTING IN BED WITH EYES CLOSED. RESTORIL GIVEN EARLIER APPARENTLY EFFECTIVE.
--- NOTE | 2019-02-21 05:20 | NUR ---
AROUSES EASILY TO TACTILE STIMULI. MEDICATION GIVEN; PT. STILL HAS CPAP ON. CALL LIGHT WITHIN REACH.
[2019-02-21 06:19] LABS: HEMATOCRIT 32.4 % (37.0-47.0); HEMOGLOBIN 8.7 g/dl (12.0-16.0); MEAN CELL VOLUME 95.3 fl (81.0-99.0); MEAN CORPUSCULAR HGB 25.6 pg (27.0-31.0); MEAN CORPUSCULAR HGB CONC 26.9 g/dl (33.0-37.0); MEAN PLATELET VOLUME 9.3 fl (9.6-12.3); NUCLEATED RED BLOOD CELL 0.2 % (0.0-0.0); PLATELET COUNT AUTOMATED 283 10*3/uL (130-400); RED CELL DISTRI WIDTH 17.2 % (0-14.5); WHITE BLOOD COUNT 10.2 10*3/uL (4.8-10.8)
[2019-02-21 06:25] LABS: BUN 13 mg/dl (7-24); CHLORIDE 107 mmol/L (98-107); CREATININE 0.72 mg/dL (0.55-1.02); PHOSPHOROUS 3.1 mg/dL (2.5-4.9); POTASSIUM 4.6 mmol/L (3.5-5.1); SODIUM 144 mmol/L (136-145)
[2019-02-21 06:50] LABS: POLYCHROMASIA SLIGHT; TOTAL CELLS COUNTED 100 #CELLS
[2019-02-21 06:51] LABS: OVALOCYTES FEW; PLATELET SUFFICIENCY NORMAL (NORMAL); SCHISTOCYTES FEW
--- NOTE | 2019-02-21 07:00 | NUR ---
ARRIVED ON SHIFT,PATIENT SLEEPING, WHITE BOARD UPDATED NO NEEDS VOICED AT THIS TIME.
--- NOTE | 2019-02-21 09:00 | NUR ---
Olive Packer in to talk to patient. Patient states lives at home with . There are few steps in the home. Physician: [facility]: [facility] Home health services: none Patient's level of ADLs: INDEPENDENT Patient has working utilities: all working DME: home oxygen, portable tanks from [employer], nebulizer and cpap from [employer] Follow-up physician's appointment after d/c: will be made by hospitalist nurse director upon discharge Does patient want to access PORTAL?: no Discharge plan discussed with patient, she lives at home with her , she states she is independent in adls and ambulation, has a cane to use if needed, she has home oxygen and portable tanks from [employer] and a nebulizer and cpap from [employer], she stated she would be returning home when medically stable, discussed with her VNA and educated her on their services, she didn't feel she needed any services at this time, case management will follow. GINGER SANDOVAL
--- NOTE | 2019-02-21 10:17 | NUR ---
PATIENT C/O PAIN BELOW BOTH RIBS, RATES A SHARP PAIN, RATES 9/10 MEDICATED WITH NORCO.
--- NOTE | 2019-02-21 11:17 | NUR ---
PATIENT REPORTS MINIMAL RELIEF FROM NORCO GIVEN X 1 HOUR AGO.
[2019-02-21 12:00] VITALS: BP 155/74
--- NOTE | 2019-02-21 14:23 | NUR ---
Shift chart check completed.
--- NOTE | 2019-02-21 14:34 | NUR ---
PATIENT C/O PAIN 10/10 UNDER BOTH RIBS MEDICATED WITH HYDROCODONE/APAP 5/325 ORDERED PRN.
[2019-02-21 15:48] LABS: ABG BASE EXCESS 2.7 mmol/L (-2.0-2.0); ARTERIAL BLOOD GAS PH 7.324 (7.35-7.45)
[2019-02-21 16:00] VITALS: BP 141/74
[2019-02-21 20:00] VITALS: BP 132/78
--- NOTE | 2019-02-21 20:20 | NUR ---
PT C/O BACK PAIN 10/09 AND ANXIETY. MEDICATED WITH NORCO & XANAX AT THIS TIME PER PRN ORDER. WILL MONITOR.
--- NOTE | 2019-02-21 21:20 | NUR ---
PER PATIENT, PRN MEDS HAVE BEEN EFFECTIVE. NO FURTHER COMPLAINTS AT THIS TIME.
--- NOTE | 2019-02-21 21:45 | NUR ---
PLACED PATIENT ON CPAP 10 FOR THE NIGHT
--- NOTE | 2019-02-21 22:11 | NUR ---
PT RESTING COMFORTABLY AT THIS TIME. NO NEEDS VOICED.
[2019-02-22] VITALS: BP 117/48
--- NOTE | 2019-02-22 03:09 | NUR ---
24 HR chart check completed.
--- NOTE | 2019-02-22 03:35 | NUR ---
PATIENT MEDICATED WITH NORCO FOR COMPLAINTS OF PAIN. WILL CONTINUE TO MONITOR.
[2019-02-22 06:53] LABS: HEMATOCRIT 30.9 % (37.0-47.0); HEMOGLOBIN 8.4 g/dl (12.0-16.0); MEAN CELL VOLUME 94.5 fl (81.0-99.0); MEAN CORPUSCULAR HGB 25.7 pg (27.0-31.0); MEAN CORPUSCULAR HGB CONC 27.2 g/dl (33.0-37.0); MEAN PLATELET VOLUME 9.2 fl (9.6-12.3); NUCLEATED RED BLOOD CELL 0.2 % (0.0-0.0); PLATELET COUNT AUTOMATED 281 10*3/uL (130-400); RED BLOOD COUNT 3.27 10*6/uL (4.10-5.10); RED CELL DISTRI WIDTH 17.2 % (0-14.5); WHITE BLOOD COUNT 13.9 10*3/uL (4.8-10.8)
[2019-02-22 07:22] LABS: TOTAL CELLS COUNTED 100 #CELLS
[2019-02-22 07:23] LABS: PLATELET SUFFICIENCY NORMAL (NORMAL)
[2019-02-22 07:24] LABS: BUN 18 mg/dl (7-24); CHLORIDE 109 mmol/L (98-107); POTASSIUM 4.2 mmol/L (3.5-5.1); SODIUM 145 mmol/L (136-145)
[2019-02-22 07:27] LABS: CREATININE 0.69 mg/dL (0.55-1.02)
--- NOTE | 2019-02-22 07:43 | NUR ---
ARRIVED ON SHIFT, INTRODUCED TO PATIENT, NO NEEDS VOICED AT THIS TIME. WHITE BOARD UPDATED.
--- NOTE | 2019-02-22 08:20 | NUR ---
Shift chart check completed.
--- NOTE | 2019-02-22 09:00 | NUR ---
case management visits with patient, she will return home when medically stable, again discussed VNA and she declines any home services, case management will follow
--- NOTE | 2019-02-22 09:45 | NUR ---
PATIENT C/O RIB CAGE PAIN MEDICATED WITH HYDROCODONE ORDERED RATES PAIN /10
--- NOTE | 2019-02-22 10:45 | NUR ---
MINIMAL RELIEF FROM NORCO GIVEN X 1 HOUR AGO, REFUSES ANYTHING STRONGER, PAIN 09/08
[2019-02-22 12:00] VITALS: BP 115/50
--- NOTE | 2019-02-22 12:35 | NUR ---
PATIENT C/O ANXIETY AND CONSTIPATION, MEDICATED WITH XANAX ORDERED AND MOM. LUCILA BOARD UPDATED.
--- NOTE | 2019-02-22 14:15 | NUR ---
PATIENT CONTINUES WITH RIBCAGE PAIN RATES 8/10 MEDICATERD WITH NORCO ORDERED PRN.
--- NOTE | 2019-02-22 15:15 | NUR ---
PATIENT REPORTS MINIMAL RELIEF FROM PAIN MEDICATION GIVEN X 1 HOUR AGO, REFUSED ANYTHING STRONGER.
[2019-02-22 16:00] VITALS: BP 111/52
--- NOTE | 2019-02-22 18:30 | NUR ---
PATIENT CONTINUES TO C/O PAIN NORCO GIVEN ORDERED PRN, FOR C/O PAIN 8/10 TO RIB CAGE.
--- NOTE | 2019-02-22 19:00 | NUR ---
ASSUMED CARE FOR THIS PT AT THIS TIME. CALL LIGHT IN REACH. PT RESTING IN BED. SOB NOTED AT REST. 4LNC O2 ON AT THIS TIME. PT C/O CONSTIPATION. NO BM X3 DAYS PER PT. REQUESTING DULCOLAX IN THE AM.
[2019-02-22 20:00] VITALS: BP 110/59
[2019-02-23] VITALS: BP 114/62
--- NOTE | 2019-02-23 01:14 | NUR ---
PT IS ON CPAP 10 FOR THE NIGHT. WILL CONTINUE TO MONITOR THE PATIENT.
--- NOTE | 2019-02-23 01:54 | NUR ---
24 HR chart check completed.
--- NOTE | 2019-02-23 03:42 | NUR ---
Patient sleeping. Respirations relaxed and easy. Siderails up . [place] on. Call light within reach. DONNA FERNANDEZ
--- NOTE | 2019-02-23 05:41 | NUR ---
PT STATES THAT SHE IS HAVING PAIN IN HER RIB AND IS ASKING FOR SOMETHING TO EASE THE PAIN AND HER PRN XANAX. PT RATES HER PAIN A 10/10. PRN XANAX AND TYLENOL PO IS GIVEN AT THIS TIME. WILL CONTINUTE TO MONITOR THE PATIENT. CALL LIGHT WITHIN REACH.
[2019-02-23 12:00] VITALS: BP 143/61
[2019-02-23 16:00] VITALS: BP 137/90
[2019-02-23 20:00] VITALS: BP 134/75
--- NOTE | 2019-02-23 21:40 | NUR ---
Pt placed on CPAP 10. FiO2 40%. Alarms on and audible.
[2019-02-24] VITALS: BP 133/72
[2019-02-24 07:06] LABS: HEMOGLOBIN 8.4 g/dl (12.0-16.0); MEAN CORPUSCULAR HGB 25.5 pg (27.0-31.0); MEAN CORPUSCULAR HGB CONC 26.3 g/dl (33.0-37.0); MEAN PLATELET VOLUME 9.4 fl (9.6-12.3); NUCLEATED RED BLOOD CELL 0.1 10*3/uL (0.0-0.0); NUCLEATED RED BLOOD CELL 0.4 % (0.0-0.0); PLATELET COUNT AUTOMATED 276 10*3/uL (130-400); WHITE BLOOD COUNT 12.9 10*3/uL (4.8-10.8)
[2019-02-24 07:28] LABS: BUN 24 mg/dl (7-24); CHLORIDE 108 mmol/L (98-107); CREATININE 0.67 mg/dL (0.55-1.02); POTASSIUM 4.9 mmol/L (3.5-5.1); SODIUM 143 mmol/L (136-145); TOTAL CELLS COUNTED 100 #CELLS
[2019-02-24 07:29] LABS: PLATELET SUFFICIENCY NORMAL (NORMAL); POLYCHROMASIA SLIGHT
[2019-02-24 07:30] LABS: OVALOCYTES FEW; STOMATOCYTE FEW
[2019-02-24 08:00] VITALS: BP 137/79
--- NOTE | 2019-02-24 09:00 | NUR ---
case management visits with patient, she will return home when medically stable. again discussed with her VNA and she declines any services at this time
--- NOTE | 2019-02-24 09:05 | NUR ---
TOOK PT OFF BIPAP
[2019-02-24 12:00] VITALS: BP 132/66
[2019-02-24 16:00] VITALS: BP 128/70
[2019-02-24 20:00] VITALS: BP 138/76
--- NOTE | 2019-02-24 20:42 | NUR ---
PRN MOM GIVEN FOR PT COMPLAINTS OF NO BM IN "A WHILE". CALL LIGHT WITHIN REACH, WILL MONITOR
[2019-02-25] VITALS: BP 116/67
--- NOTE | 2019-02-25 01:00 | NUR ---
PATIENT IS SLEEPING WITH EASY AND REGULAR RESPERS ON BIPAP. AWAKENES EASILY FOR ASSESSMENT. NO C/O OR S/S OF DISTRESS NOTED AT THIS TIME. BED IS LOW, LOCKED, AND CALL LIGHT IS WITHIN REACH, WILL CONTINUE TO MONITOR.
[2019-02-25 07:43] LABS: HEMATOCRIT 32.8 % (37.0-47.0); HEMOGLOBIN 8.7 g/dl (12.0-16.0); MEAN CELL VOLUME 95.9 fl (81.0-99.0); MEAN CORPUSCULAR HGB 25.4 pg (27.0-31.0); MEAN CORPUSCULAR HGB CONC 26.5 g/dl (33.0-37.0); MEAN PLATELET VOLUME 9.1 fl (9.6-12.3); NUCLEATED RED BLOOD CELL 0.1 10*3/uL (0.0-0.0); NUCLEATED RED BLOOD CELL 0.4 % (0.0-0.0); PLATELET COUNT AUTOMATED 254 10*3/uL (130-400); RED BLOOD COUNT 3.42 10*6/uL (4.10-5.10); WHITE BLOOD COUNT 11.6 10*3/uL (4.8-10.8)
[2019-02-25 07:50] LABS: BUN 23 mg/dl (7-24); CHLORIDE 108 mmol/L (98-107); CREATININE 0.73 mg/dL (0.55-1.02); POTASSIUM 4.2 mmol/L (3.5-5.1); SODIUM 144 mmol/L (136-145)
[2019-02-25 08:00] VITALS: BP 119/62
[2019-02-25 08:17] LABS: TOTAL CELLS COUNTED 100 #CELLS
[2019-02-25 08:18] LABS: OVALOCYTES FEW; PLATELET SUFFICIENCY NORMAL (NORMAL); STOMATOCYTE FEW; TOXIC GRANULATION SLIGHT
--- NOTE | 2019-02-25 09:00 | NUR ---
case management visits with patient, she states she is hoping to be discharged home today, she denies any home needs at this time
--- NOTE | 2019-02-25 09:46 | NUR ---
PATIENT MEDICATED WITH PO NORCO AND XANAX AT THIS TIME FOR COMPLAINTS OF PAIN IN BACK & ANXIETY.ALSO MEDICATED WITH MILK OF MAG PER ORDER FOR COMPLAINTS OF NO BM SINCE 02/21. WILL MONITOR FOR EFFECTIVENESS.
--- NOTE | 2019-02-25 11:00 | NUR ---
PER PATIENT, NORCO & XANAX HAVE BEEN EFFECTIVE. NO COMPLAINTS AT THIS TIME.
[2019-02-25 12:00] VITALS: BP 122/67
[2019-02-25 16:00] VITALS: BP 136/68
[2019-02-25 20:00] VITALS: BP 133/73
--- NOTE | 2019-02-25 20:30 | NUR ---
XANAX GIVEN FOR ANXIETY PER PT. REQUEST. NORCO GIVEN PER ORDER FOR BACK PAIN RATED "9" PER PT. SEE MAR.
--- NOTE | 2019-02-25 21:30 | NUR ---
XANAX AND NORCO EFFECTIVE FOR ANXIETY AND PAIN PER PT.
--- NOTE | 2019-02-25 23:16 | NUR ---
24 HR chart check completed.
[2019-02-26] VITALS: BP 109/48
[2019-02-26 07:16] LABS: HEMATOCRIT 32.1 % (37.0-47.0); HEMOGLOBIN 8.6 g/dl (12.0-16.0); MEAN CELL VOLUME 96.1 fl (81.0-99.0); MEAN CORPUSCULAR HGB 25.7 pg (27.0-31.0); MEAN CORPUSCULAR HGB CONC 26.8 g/dl (33.0-37.0); MEAN PLATELET VOLUME 9.2 fl (9.6-12.3); NUCLEATED RED BLOOD CELL 0.3 % (0.0-0.0); PLATELET COUNT AUTOMATED 252 10*3/uL (130-400); RED BLOOD COUNT 3.34 10*6/uL (4.10-5.10); RED CELL DISTRI WIDTH 17.1 % (0-14.5); WHITE BLOOD COUNT 12.3 10*3/uL (4.8-10.8)
[2019-02-26 07:17] LABS: BUN 19 mg/dl (7-24); CHLORIDE 106 mmol/L (98-107); CREATININE 0.63 mg/dL (0.55-1.02); POTASSIUM 4.2 mmol/L (3.5-5.1); SODIUM 142 mmol/L (136-145)
[2019-02-26 08:00] VITALS: BP 104/56; BP 124/72
[2019-02-26 08:00] LABS: PLATELET SUFFICIENCY NORMAL (NORMAL); POLYCHROMASIA SLIGHT; STOMATOCYTE FEW; TOTAL CELLS COUNTED 100 #CELLS
[2019-02-26 08:01] LABS: OVALOCYTES FEW; SCHISTOCYTES FEW; TOXIC GRANULATION SLIGHT
--- NOTE | 2019-02-26 09:19 | NUR ---
PT BACK ON 4LNC
--- NOTE | 2019-02-26 09:22 | NUR ---
PT C/O RIB/BACK PAIN 09/08 AND ANXIETY AT THIS TIME. MEDICATED WITH NORCO & XANAX AT THIS TIME PER ORDER. WILL MONITOR FOR EFFECTIVENESS.
--- NOTE | 2019-02-26 10:30 | NUR ---
PT STATES THAT PAIN AND ANXIETY HAS IMPROVED. NO FURTHER NEEDS VOICED.
[2019-02-26 12:00] VITALS: BP 110/59
--- NOTE | 2019-02-26 14:10 | NUR ---
PT MEDICATED WITH NORCO AT THIS TIME PER ORDER FOR COMPLAINTS OF BACK AND LEFT RIB PAIN. WILL MONITOR FOR EFFECTIEVNESS.
[2019-02-26] MEDS ORDERED: PREDNISONE10 MG PO (14:41)
[2019-02-26] MEDS ORDERED: LEVAQUIN500 M2 PO (14:41)
--- NOTE | 2019-02-26 15:30 | NUR ---
PER PATIENT, PAIN MEDICATION HAS BEEN EFFECTIVE.
--- NOTE | 2019-02-26 16:30 | NUR ---
Discharge instructions reviewed with patient/family. Patient receptive and verbalizes understanding. Follow-up care arranged. Written instructions given to patient/family. [place] DISCONTINUED. PATIENT TAKEN OFF FLOOR VIA WHEELCHAIR. PICKED UP BY SISTER. ALEXI ELI
== END 2019-02-26 17:08 | disposition home or self-care (01) | DRG 720 ==
LOC: ED 14:42 → EDHOLD 17:33 → 4E 17:33
PROVIDERS: Emergency Medicine; Internal Medicine; Internal Medicine Critical Care Medicine; ADMIT Internal Medicine
PROC: 5A09357 Assistance with Respiratory Ventilation, Less than 24 Consecutive Hours, Continuous Positive Airway Pressure (ICD-10-PCS; principal; 2019-02-21)
PROC: 5A09357 Assistance with Respiratory Ventilation, Less than 24 Consecutive Hours, Continuous Positive Airway Pressure (ICD-10-PCS; 2019-02-22)
PROC: 5A09357 Assistance with Respiratory Ventilation, Less than 24 Consecutive Hours, Continuous Positive Airway Pressure (ICD-10-PCS; 2019-02-23)
PROC: 5A09357 Assistance with Respiratory Ventilation, Less than 24 Consecutive Hours, Continuous Positive Airway Pressure (ICD-10-PCS; 2019-02-24)
PROC: 5A09357 Assistance with Respiratory Ventilation, Less than 24 Consecutive Hours, Continuous Positive Airway Pressure (ICD-10-PCS; 2019-02-25)
PROC: 5A09357 Assistance with Respiratory Ventilation, Less than 24 Consecutive Hours, Continuous Positive Airway Pressure (ICD-10-PCS; 2019-02-26)
DX: A41.9 Sepsis, unspecified organism (principal); J18.9 Pneumonia, unspecified organism; K21.9 Gastro-esophageal reflux disease without esophagitis; J44.1 Chronic obstructive pulmonary disease with (acute) exacerbation; I50.9 Heart failure, unspecified; J96.21 Acute and chronic respiratory failure with hypoxia; J96.22 Acute and chronic respiratory failure with hypercapnia; J44.0 Chronic obstructive pulmonary disease with (acute) lower respiratory infection; D64.9 Anemia, unspecified; R79.82 Elevated C-reactive protein (CRP); E55.9 Vitamin D deficiency, unspecified; F41.1 Generalized anxiety disorder; E87.8 Other disorders of electrolyte and fluid balance, not elsewhere classified; G47.33 Obstructive sleep apnea (adult) (pediatric); T38.0X5A Adverse effect of glucocorticoids and synthetic analogues, initial encounter; I48.21 Permanent atrial fibrillation; J20.9 Acute bronchitis, unspecified; E66.01 Morbid (severe) obesity due to excess calories; Z93.0 Tracheostomy status; Z87.891 Personal history of nicotine dependence; Z82.49 Family history of ischemic heart disease and other diseases of the circulatory system; Z83.6 Family history of other diseases of the respiratory system; Z83.3 Family history of diabetes mellitus; Z80.1 Family history of malignant neoplasm of trachea, bronchus and lung; Z88.1 Allergy status to other antibiotic agents; Z88.0 Allergy status to penicillin; Z79.899 Other long term (current) drug therapy; Z82.3 Family history of stroke; Y92.89 Other specified places as the place of occurrence of the external cause; Z79.51 Long term (current) use of inhaled steroids; Z68.41 Body mass index [BMI] 40.0-44.9, adult; Z80.9 Family history of malignant neoplasm, unspecified

== ENCOUNTER 2019-03-01 21:16 | Inpatient (IN) | payer OTHER ==
[~2019-03-01] VITALS: Ht 167.6 cm; Wt 121.6 kg
[~2019-03-01 21:16] MED LIST changes: +CITALOPRAM20 MG PO; +PROVENTIL HFA6.7 GM INH
[2019-03-01 21:18] VITALS: BP 131/73
--- NOTE | 2019-03-01 21:29 | NUR ---
PLACED PATIENT ON BIPAP 16/5, BU 8, 100% O2. WILL CONTINUE TO MONITOR
[2019-03-01 21:42] LABS: ABG BASE EXCESS 1.8 mmol/L (-2.0-2.0); ARTERIAL BLOOD GAS PH 7.261 (7.35-7.45)
--- NOTE | 2019-03-01 21:47 | NUR ---
DR. HOWELL ADISED PT DIDNT REQUIRE [facility] PROTOCOL.
[2019-03-01 21:53] LABS: HEMATOCRIT 38.6 % (37.0-47.0); HEMOGLOBIN 10.3 g/dl (12.0-16.0); MEAN CELL VOLUME 95.5 fl (81.0-99.0); MEAN CORPUSCULAR HGB 25.5 pg (27.0-31.0); MEAN CORPUSCULAR HGB CONC 26.7 g/dl (33.0-37.0); MEAN PLATELET VOLUME 9.1 fl (9.6-12.3); NUCLEATED RED BLOOD CELL 0.1 % (0.0-0.0); PLATELET COUNT AUTOMATED 253 10*3/uL (130-400); RED BLOOD COUNT 4.04 10*6/uL (4.10-5.10); WHITE BLOOD COUNT 25.4 10*3/uL (4.8-10.8)
[2019-03-01 22:03] LABS: ACT PARTIAL THROMBO TIME 21.8 SECONDS (20.0-32.1)
[2019-03-01 22:09] LABS: ALBUMIN 3.9 gm/dl (3.1-4.5); ALKALINE PHOSPHATASE 64 U/L (45-117); BUN 24 mg/dl (7-24); CHLORIDE 108 mmol/L (98-107); CREATININE 0.91 mg/dL (0.55-1.02); POTASSIUM 3.7 mmol/L (3.5-5.1); SGOT/AST 7 IU/L (3-35); SGPT/ALT 31 U/L (12-78); SODIUM 143 mmol/L (136-145); TOTAL PROTEIN 7.4 gm/dL (6.4-8.2)
[2019-03-01 22:12] LABS: TROPONIN I < 0.015 ng/ml (<0.045)
[2019-03-01 22:15] LABS: OVALOCYTES FEW; PLATELET SUFFICIENCY NORMAL (NORMAL); TOTAL CELLS COUNTED 100 #CELLS
[2019-03-01 22:28] VITALS: BP 126/81
--- NOTE | 2019-03-01 23:30 | NUR ---
A 58, admitted to 4E, under the services of VALERY Zheng DO with a diagnosis of ACUTE ON CHRONIC RESPIRATORY FAILURE/LEUKOCYTOSIS/SEPSIS/ACUTE EXACERBATION OF COPD. Chief complaint is DYSPNEA. Patient arrived via stretcher from ER. Monitor applied. Initial assessment completed. Vital signs taken and recorded. VALERY ZHENG DO notified of admission to the unit. Orders received. See assessment for past medical history, medications and allergies. Patient and/or family oriented to unit. visitation policy reviewed. Clothing/patient valuable form completed. GUILLERMO LAYNE A
[2019-03-02] VITALS: BP 140/72
--- NOTE | 2019-03-02 00:21 | NUR ---
DR. GARCIA AWARE PATIENT IS REFUSING CT OF CHEST AND MED REC UP TO DATE.
[2019-03-02 01:09] LABS: ABG BASE EXCESS 2.1 mmol/L (-2.0-2.0); ARTERIAL BLOOD GAS PH 7.321 (7.35-7.45)
[2019-03-02 07:04] LABS: HEMATOCRIT 33.3 % (37.0-47.0); HEMOGLOBIN 8.7 g/dl (12.0-16.0); MEAN CELL VOLUME 96.8 fl (81.0-99.0); MEAN CORPUSCULAR HGB 25.3 pg (27.0-31.0); MEAN CORPUSCULAR HGB CONC 26.1 g/dl (33.0-37.0); MEAN PLATELET VOLUME 9.3 fl (9.6-12.3); NUCLEATED RED BLOOD CELL 0.1 % (0.0-0.0); PLATELET COUNT AUTOMATED 218 10*3/uL (130-400); RED BLOOD COUNT 3.44 10*6/uL (4.10-5.10); RED CELL DISTRI WIDTH 18.2 % (0-14.5); WHITE BLOOD COUNT 34.4 10*3/uL (4.8-10.8)
[2019-03-02 07:29] LABS: BUN 22 mg/dl (7-24); CHLORIDE 111 mmol/L (98-107); CREATININE 0.83 mg/dL (0.55-1.02); POTASSIUM 4.1 mmol/L (3.5-5.1); SODIUM 145 mmol/L (136-145)
[2019-03-02 08:04] LABS: PLATELET SUFFICIENCY NORMAL (NORMAL); SCHISTOCYTES FEW; TOTAL CELLS COUNTED 100 #CELLS
--- NOTE | 2019-03-02 09:52 | NUR ---
DR. TREVINO OFFICE NOTIFIED OF CONSULT/
--- NOTE | 2019-03-02 09:54 | NUR ---
PT UNABLE TO EXPECTORATE SPUTUM AT THIS TIME. DRY, NONPRODUCTIVE COUGH.
[2019-03-02 12:00] VITALS: BP 135/72
[2019-03-02 16:00] VITALS: BP 133/71
[2019-03-02 17:16] LABS: BILIRUBIN NEGATIVE (NEGATIVE); BLOOD 1+ (NEGATIVE); CLARITY CLEAR (CLEAR); COLOR YELLOW (YELLOW); GLUCOSE NEGATIVE (NEGATIVE); KETONE NEGATIVE (NEGATIVE); LEUKO ESTERASE NEGATIVE (NEGATIVE); NITRITE NEGATIVE (NEGATIVE); PH 5.5 (5.0-9.0); SPECIFIC GRAVITY >= 1.030 (1.005-1.030); UROBILINOGEN 0.2 E.U./dl (0.2-1.0)
--- NOTE | 2019-03-02 17:20 | NUR ---
11:30 POST DA PT REQUESTED TO GO ON BIPAP TO REST FOR AWHILE. BIPAP INITIATED. SYSTEM CHCECKED AND FX'ING. RESPS REGUALR AND UNLABORED. BIPAP CHECK COMPLETED.
--- NOTE | 2019-03-02 17:21 | NUR ---
16:20 PT OFF OF BIPAP ON 4 L NC. PT CAME OFF OF BIPAP APPROX 14:00 PER PT. PT OFF OF BIPAP WHEN NOTIFIED OF BIPAP CHANGES. POST DA AT 14:20, PT PLACED ON BIPAP OF 20/[address] ALFARO. WILL COMPLETE ABG ORDERED FOR 17:00 AT 17:30.
[2019-03-02 17:33] LABS: RBC 0-2 rbc/hpf (0-2); WBC 0-2 wbc/hpf (0-5)
[2019-03-02 17:47] LABS: ABG BASE EXCESS 1.8 mmol/L (-2.0-2.0); ARTERIAL BLOOD GAS PH 7.27 (7.35-7.45)
--- NOTE | 2019-03-02 19:30 | NUR ---
REPORT RECEIVED FROM JAMIE NAVARRO. PT LYING IN BED AT THIS TIME CALL LIGHT IN REACH.
[2019-03-02 20:00] VITALS: BP 152/96
--- NOTE | 2019-03-02 22:10 | NUR ---
NORCO GIVEN FOR COMPLAINTS OF GENERALIZED PAIN. WILL MONITOR EFFECTIVENESS.
[2019-03-03] VITALS: BP 117/63
--- NOTE | 2019-03-03 | NUR ---
NORCO APPEARS EFECTIVE. PT SLEEPING AT THIS TIME. BIPAP IN PLACE, NO S/S OF DISTRESS NOTED. CALL LIGHT IN REACH.
--- NOTE | 2019-03-03 01:45 | NUR ---
24 HR chart check completed.
--- NOTE | 2019-03-03 02:01 | NUR ---
DR. DE LA CRUZ NOTIFIED OF POSITIVE BLOOD CULTURES.
--- NOTE | 2019-03-03 03:37 | NUR ---
NORCO GIVEN FOR ORDER FOR C/O GENERALIZED PAIN. WILL MONITOR EFFECTIVENESS.
--- NOTE | 2019-03-03 05:00 | NUR ---
NORCO APPEARS EFFECTIVE, PT SLEEPING AT THIS TIME.
[2019-03-03 05:12] LABS: HEMATOCRIT 32.3 % (37.0-47.0); HEMOGLOBIN 8.6 g/dl (12.0-16.0); MEAN CELL VOLUME 97.3 fl (81.0-99.0); MEAN CORPUSCULAR HGB 25.9 pg (27.0-31.0); MEAN CORPUSCULAR HGB CONC 26.6 g/dl (33.0-37.0); MEAN PLATELET VOLUME 9.1 fl (9.6-12.3); PLATELET COUNT AUTOMATED 195 10*3/uL (130-400); RED BLOOD COUNT 3.32 10*6/uL (4.10-5.10); RED CELL DISTRI WIDTH 18.1 % (0-14.5); WHITE BLOOD COUNT 24.2 10*3/uL (4.8-10.8)
[2019-03-03 05:24] LABS: INTERNATIONAL NORM RATIO 0.9 (2.0-3.5)
[2019-03-03 05:28] LABS: BUN 20 mg/dl (7-24); CHLORIDE 108 mmol/L (98-107); CREATININE 0.73 mg/dL (0.55-1.02); SODIUM 140 mmol/L (136-145)
[2019-03-03 06:43] LABS: OVALOCYTES FEW; PLATELET SUFFICIENCY NORMAL (NORMAL); POLYCHROMASIA SLIGHT; ROULEAUX SLIGHT; STOMATOCYTE FEW; TOTAL CELLS COUNTED 100 #CELLS
--- NOTE | 2019-03-03 08:23 | NUR ---
PHYSICAL THERAPY Screen received as well as orders for PT will follow, thank you Veronica Hernandez PT
[2019-03-03 12:00] VITALS: BP 128/65
--- NOTE | 2019-03-03 12:23 | NUR ---
Tmh Teacher in to talk to patient. Patient states lives at HOME with . There are NO steps in the home. Physician: BAKARI TENA Pharmacy: [facility] Home health services: NONE Patient's level of ADLs: INDEPENDENT Patient has working utilities: YES DME: HOME OXYGEN WITH PORTABLE TANKS THROUGH [employer], NEBULIZER AND CPAP THROUGH [employer]. HAS A WALKER AND CANE IF NEEDED Follow-up physician's appointment after d/c: WILL BE MADE BY HOSPITALIST NURSE DIRECTOR ON DISCHARGE Does patient want to access PORTAL?: NO Discharge plan PT LIVES AT HOME WITH HER AND STATES SHE IS INDEPENDENT IN HER DAILY NEEDS. PT HAS HOME OXYGEN AND PORTABLE TANKS FROM [employer] AND NEBULIZER AND CPAP FROM [employer]. STATE SHE HAS A WALKER AND CANE IF SHE NEEDS THEM. STATES SHE PLANS TO RETURN HOME WHEN MEDICALLY STABLE WITH NO NEEDS. TALKED TO HER ABOUT HOME HEALTH BUT SHE DECLINES. WILL CONTINUE TO FOLLOW. WILL HAVE A RIDE HOME ON DISCHARGE.. VINH HASKINS
--- NOTE | 2019-03-03 14:06 | NUR ---
PT MEDICATED WITH ZOFRAN FOR C/O NAUSEA.
--- NOTE | 2019-03-03 14:34 | NUR ---
Patient eating lunch. Jocelin Mohamud OTR/l
--- NOTE | 2019-03-03 15:00 | NUR ---
PHYSICAL THERAPY Attempted to see pt at 1440 eating lunch and again at 1500 receiving breathing treatment and being placed on BIPAP declining therapy at this time will follow Veronica Hernandez PT
--- NOTE | 2019-03-03 15:06 | NUR ---
Patient getting a breathing treatment and will then be put on bipap. Patient reports that she does not want therapy at this date. Jocelin Mohamud OTR/l
--- NOTE | 2019-03-03 15:08 | NUR ---
Pt placed on BiPap 20/10 and an FiO2 35%. Pt on monitor. Alarms on and audible. SpO2 94%
[2019-03-03 16:00] VITALS: BP 128/67
--- NOTE | 2019-03-03 16:45 | NUR ---
Nursing screen and occupational therapy referral received. Thank you. Aníbal Mohamud OTR/L
--- NOTE | 2019-03-03 16:51 | NUR ---
[place] given per patient request for c/o pain in ribs. Will monitor.
--- NOTE | 2019-03-03 17:05 | NUR ---
Xanax given per patient request for anxiety. Will monitor.
--- NOTE | 2019-03-03 17:45 | NUR ---
Xanax and [place] effective. Patient asleep with respirations >12.
--- NOTE | 2019-03-03 19:26 | NUR ---
Notified of blood culture results. See new orders.
[2019-03-03 20:00] VITALS: BP 141/70
--- NOTE | 2019-03-03 20:06 | NUR ---
MEDICATED W/TYLENOL FOR C/O RIB/BACK PAIN 12/09. SOB NOTED AT REST. VERY POOR AIR EXCHANGE W/FAINT WHEEZING NOTED. ANASARCA NOTED. CALL LIGHT IN REACH. WILL MONITOR.
--- NOTE | 2019-03-03 22:04 | NUR ---
PT MEDICATED W/NORCO FOR C/O RIB/BACK PAIN. PT SITTING UP IN BED WATCHING TV. REQUESTED XANAX. PT TEACHING GIVEN ON PRN TIMES AND WHITE BOARD UPDATED. CALL LIGHT IN REACH.
[2019-03-04] VITALS: BP 136/77
--- NOTE | 2019-03-04 04:48 | NUR ---
24 HR chart check completed.
--- NOTE | 2019-03-04 06:00 | NUR ---
PT MEDICATED W/NORCO FOR C/O RIB/BACK PAIN. PT ASSISTED TO BSC. DESATS TO LOW 80'S. ASSISTED BACK TO BED. WILL MONITOR. CALL LIGHT IN REACH.
--- NOTE | 2019-03-04 07:26 | NUR ---
NOTIFIED OF +BLODD CULTURES FOR STAPH AUREUS DRAWN ON 03/01 AND 03/02. NO NEW ORDERS GIVEN. SAID OK.
--- NOTE | 2019-03-04 09:05 | NUR ---
PATIENT TAKEN OFF OF BI-PAP, PLACED ON 4 L/M NASAL CANNULA.
--- NOTE | 2019-03-04 10:16 | NUR ---
[place] and Xanax given per patient request for c/o pain and anxiety. Patient rates pain 8/10 in her ribs/back. Will monitor.
[2019-03-04 10:21] VITALS: BP 138/82
[2019-03-04 10:36] LABS: HEMATOCRIT 31.3 % (37.0-47.0); HEMOGLOBIN 8.3 g/dl (12.0-16.0); MEAN CELL VOLUME 98.1 fl (81.0-99.0); MEAN CORPUSCULAR HGB CONC 26.5 g/dl (33.0-37.0); MEAN PLATELET VOLUME 9.4 fl (9.6-12.3); NUCLEATED RED BLOOD CELL 0.1 10*3/uL (0.0-0.0); NUCLEATED RED BLOOD CELL 0.6 % (0.0-0.0); PLATELET COUNT AUTOMATED 185 10*3/uL (130-400); RED BLOOD COUNT 3.19 10*6/uL (4.10-5.10); RED CELL DISTRI WIDTH 17.6 % (0-14.5); WHITE BLOOD COUNT 19.4 10*3/uL (4.8-10.8)
[2019-03-04 10:51] LABS: BUN 21 mg/dl (7-24); CHLORIDE 107 mmol/L (98-107); CREATININE 0.77 mg/dL (0.55-1.02); POTASSIUM 4.2 mmol/L (3.5-5.1); SODIUM 143 mmol/L (136-145)
[2019-03-04 11:00] LABS: TOTAL CELLS COUNTED 100 #CELLS
--- NOTE | 2019-03-04 11:00 | NUR ---
[place] and Xanax effective. Patient satisfied.
[2019-03-04 11:01] LABS: OVALOCYTES FEW; PLATELET SUFFICIENCY NORMAL (NORMAL)
[2019-03-04 11:02] LABS: STOMATOCYTE FEW
--- NOTE | 2019-03-04 11:06 | NUR ---
Occupational Therapy evaluation offered to patient again today. She responded "not today". OTR will attempt at a later date. Jocelin Mohamud OTR/Juliette
--- NOTE | 2019-03-04 11:10 | NUR ---
Pharmacy notified of critical vanc trough. See labs. See new orders.
--- NOTE | 2019-03-04 11:15 | NUR ---
PHYSICAL THERAPY Attempted to see pt for evaluation presently on breathing treatment and stating she is not up for doing therapy today, will follow Veronica Hernandez PT
[2019-03-04 12:00] VITALS: BP 143/85
--- NOTE | 2019-03-04 12:33 | NUR ---
LAB CALLED WITH RESULTS OF RECENT BLOOD CULTURES. DR. CORREA WAS MADE AWARE. NO NEW ORDERS AT THIS TIME.
--- NOTE | 2019-03-04 14:26 | NUR ---
[place] given per patient request for c/o rib/back pain. Will monitor.
--- NOTE | 2019-03-04 15:00 | NUR ---
[place] effective. Patient resting with no signs of distress.
--- NOTE | 2019-03-04 15:07 | NUR ---
Left a message anupama Graves at ID for regarding the OZZY ordered will not be done until Thursday, per Dr. Remy.
[2019-03-04 15:25] LABS: ABG BASE EXCESS 5.6 mmol/L (-2.0-2.0); ARTERIAL BLOOD GAS PH 7.296 (7.35-7.45)
[2019-03-04 16:00] VITALS: BP 129/69
[2019-03-04 20:00] VITALS: BP 133/73
[2019-03-05] VITALS (11 sets, daily range): BP systolic 107–146; BP diastolic 47–90
--- NOTE | 2019-03-05 03:29 | NUR ---
PT MEDICATED W/NORCO FOR C/O RIB/BACK PAIN 12/09. PT ASSISTED TO BSC AND BACK TO BED W/NC ON. RESP HERE TO PLACE PT BACK ON BIPAP AT THIS TIME. CALL LIGHT IN REACH.
--- NOTE | 2019-03-05 04:19 | NUR ---
DR. DE LA CRUZ NOTIFIED OF PT'S SUSTAINING HR IN 120-130'S. TO COME SEE PT.
--- NOTE | 2019-03-05 04:38 | NUR ---
LEFT MESSAGE W/[facility] FOR CALL BACK FOR NEW CONSULT FOR AFIB W/RVR.
--- NOTE | 2019-03-05 04:47 | NUR ---
DR. DAS RETURNED CALL. WILL SEE PT TODAY. START CARDIZEM GTT W/1OMG BOLUS AND INFUSE AT 5ML/HR CONTINUOUS.
--- NOTE | 2019-03-05 04:56 | NUR ---
CARDIZEM GTT INITIATED AT THIS TIME W/LOADING DOSE OF 10MG. PT RESTING QUIETLY IN BED. PT TEACHING GIVEN ON CARDIZEM IV. PT ACKNOWLEDGES. CALL LIGHT IN REACH.
--- NOTE | 2019-03-05 07:30 | NUR ---
CARDIZEM GTT INCREASED TO 10MG/HR AT THIS TIME. HR 135.
--- NOTE | 2019-03-05 10:00 | NUR ---
CARDIZEM GTT INCREASED TO 15MG/HR AT THIS TIME. PT ATRIAL FIBRILLATION. HR 131.
--- NOTE | 2019-03-05 12:00 | NUR ---
Clinical Care Coordinator's informed this RN that patient was in Afib RVR sustaining a HR of 140-150. Patient assessed and found in respiratory distress. Patient placed back on BiPAP and assisted into bed. VS taken, BP 140/86, t-97.9, spO2 97%. Dr. Jimenez/Resident informed of patient status and request made for lab work. New orders entered by resident. Dr. Hernandez informed that patient did not have ABGs that day either, new orders received and implemented. Informed Dr. Hernandez of ABG results, new order received to transfer to ICU. RN Yanira Swanson informed.
--- NOTE | 2019-03-05 12:45 | NUR ---
DR. DAS INFORMED OF PATIENT'S INCREASED HR TO 160. NEW ORDERS RECIEVED.
[2019-03-05 13:07] LABS: ABG BASE EXCESS 7.2 mmol/L (-2.0-2.0); ARTERIAL BLOOD GAS PH 7.299 (7.35-7.45)
--- NOTE | 2019-03-05 13:25 | NUR ---
DR. ALFARO INFORMED OF ABG RESULT BY RESPIRATORY. MOVED TO ICCU PER ORDER.
--- NOTE | 2019-03-05 13:45 | NUR ---
ARRIVED VIA BED FROM , USING ACCESSORY MUSCLES IN TRIPOD POSITION. ABLE TO STEP OFF BED AND ONTO ICCU BED. PT ABLE TO CONVERSE IN SHORT SENTENCES. CONNECTED TO MONITOR. CARDIZEM INFUSING AT 15MG/HR. BILATERAL LOWER LEG EDEMA.
[2019-03-05 14:05] LABS: HEMATOCRIT 33.5 % (37.0-47.0); HEMOGLOBIN 8.9 g/dl (12.0-16.0); MEAN CELL VOLUME 96.3 fl (81.0-99.0); MEAN CORPUSCULAR HGB 25.6 pg (27.0-31.0); MEAN CORPUSCULAR HGB CONC 26.6 g/dl (33.0-37.0); MEAN PLATELET VOLUME 9.5 fl (9.6-12.3); NUCLEATED RED BLOOD CELL 0.1 10*3/uL (0.0-0.0); NUCLEATED RED BLOOD CELL 0.4 % (0.0-0.0); PLATELET COUNT AUTOMATED 200 10*3/uL (130-400); RED BLOOD COUNT 3.48 10*6/uL (4.10-5.10); RED CELL DISTRI WIDTH 17.5 % (0-14.5); WHITE BLOOD COUNT 17.9 10*3/uL (4.8-10.8)
[2019-03-05 14:17] LABS: BUN 23 mg/dl (7-24); CHLORIDE 104 mmol/L (98-107); CREATININE 0.93 mg/dL (0.55-1.02); POTASSIUM 4.4 mmol/L (3.5-5.1); SODIUM 143 mmol/L (136-145)
[2019-03-05 14:27] LABS: PLATELET SUFFICIENCY NORMAL (NORMAL); TOTAL CELLS COUNTED 100 #CELLS
[2019-03-05 14:28] LABS: OVALOCYTES FEW
--- NOTE | 2019-03-05 14:34 | NUR ---
HAS BEEN INFORMED PT TRANSFERRED TO ICCU. ROBLES CATHETER WAS INSERTED PER ORDER. MODERATE AMOUNT CLEAR YELLOW OBTAINED. PT TOLERATED WELL.
--- NOTE | 2019-03-05 14:46 | NUR ---
MONITOR SHOWS PATIENT CONVERTED TO NSR. STAT EKG ORDERED TO DOCUMENT. PT RESTING EASILY ON HER BIPAP.
--- NOTE | 2019-03-05 15:09 | NUR ---
DR KOTHARI NOTIFIED OF PT'S TRANSFER TO ICCU AND THAT PT HAS CONVERTED TO NSR.
[2019-03-05 16:08] LABS: ABG BASE EXCESS 8.6 mmol/L (-2.0-2.0); ARTERIAL BLOOD GAS PH 7.34 (7.35-7.45)
--- NOTE | 2019-03-05 16:19 | NUR ---
DECREASED FIO2 TO 30% ON BIPAP PER DR ALFARO
--- NOTE | 2019-03-05 18:18 | NUR ---
CARDIZEM DRIP HAS BEEN TITRATED TO 5MG/HR FOR PERSISTENT NSR HR 70-80'S
--- NOTE | 2019-03-05 18:47 | NUR ---
DR DAS VISITS, AWARE OF CONVERSION TO NSR, PLAN FOR OZZY THURSDAY DUE TO BACTEREMIA.
--- NOTE | 2019-03-05 18:54 | NUR ---
ORAL CARDIZEM CD GIVEN DIRECTED BY DR DAS. PT ALSO HAD A NORCO FOR BILATERAL RIB PAIN. RESTING EASILY ON BIPAP AT THIS TIME.
--- NOTE | 2019-03-05 19:36 | NUR ---
24 HR chart check completed.
--- NOTE | 2019-03-05 20:18 | NUR ---
CARDIZEM DRIP DISCONTINUED ORDERED.
[2019-03-06] VITALS: BP 123/67
--- NOTE | 2019-03-06 03:52 | NUR ---
PATIENT COMPLAINS OF BILATERAL LEG PAIN/ACHE. PATIENT RATES PAIN A 10 ON NUMERIC PAIN SCALE. MEDICATED WITH NORCO ORDERED AND PER PATIENT REQUEST.
[2019-03-06 04:00] VITALS: BP 118/59
--- NOTE | 2019-03-06 04:50 | NUR ---
Patient sleeping. No signs of pain present. [place] effective.
[2019-03-06 06:01] LABS: HEMATOCRIT 28.4 % (37.0-47.0); HEMOGLOBIN 7.6 g/dl (12.0-16.0); MEAN CORPUSCULAR HGB 25.4 pg (27.0-31.0); MEAN CORPUSCULAR HGB CONC 26.8 g/dl (33.0-37.0); MEAN PLATELET VOLUME 9.6 fl (9.6-12.3); NUCLEATED RED BLOOD CELL 0.2 % (0.0-0.0); PLATELET COUNT AUTOMATED 193 10*3/uL (130-400); RED BLOOD COUNT 2.99 10*6/uL (4.10-5.10); RED CELL DISTRI WIDTH 17.3 % (0-14.5); WHITE BLOOD COUNT 12.9 10*3/uL (4.8-10.8)
[2019-03-06 06:15] LABS: BUN 23 mg/dl (7-24); CHLORIDE 106 mmol/L (98-107); CREATININE 0.65 mg/dL (0.55-1.02); POTASSIUM 3.7 mmol/L (3.5-5.1); SODIUM 144 mmol/L (136-145)
[2019-03-06 08:00] VITALS: BP 142/79
[2019-03-06 09:12] LABS: OVALOCYTES MODERATE; PLATELET SUFFICIENCY NORMAL (NORMAL); TOTAL CELLS COUNTED 100 #CELLS
--- NOTE | 2019-03-06 10:17 | NUR ---
TOOK PT OFF BIPAP TO TAKE MEDICATION
--- NOTE | 2019-03-06 10:21 | NUR ---
PATIENT C/O BILATERAL LEG PAIN. MEDICATED WITH NORCO PER PRN ORDER. WILL CONTINUE TO MONITOR.
--- NOTE | 2019-03-06 11:16 | NUR ---
PHYSICAL THERAPY PT UNABLE TO BE EVALUATED SHE [facility] [address] [facility] AND WILL NEED NEW ORDER FOR PT EVALUATION. THANK YOU FOR REFERRAL POONAM GOODWIN PT
[2019-03-06 12:00] VITALS: BP 149/77
[2019-03-06 16:00] VITALS: BP 154/82
--- NOTE | 2019-03-06 16:20 | NUR ---
PATIENT TAKEN OFF OF BI-PAP, PLACED ON 4 L/M.
[2019-03-06 20:00] VITALS: BP 146/77
--- NOTE | 2019-03-06 20:30 | NUR ---
PATIENT OFF BIPAP. PLACED ON 4L NC
--- NOTE | 2019-03-06 21:12 | NUR ---
PLACED ON BIPAP PER PATIENT REQUEST
[2019-03-07] VITALS (10 sets, daily range): BP systolic 101–145; BP diastolic 55–89
[2019-03-07 05:33] LABS: BUN 22 mg/dl (7-24); CHLORIDE 105 mmol/L (98-107); CREATININE 0.67 mg/dL (0.55-1.02); POTASSIUM 3.7 mmol/L (3.5-5.1); SODIUM 143 mmol/L (136-145)
[2019-03-07 05:58] LABS: HEMATOCRIT 32.5 % (37.0-47.0); HEMOGLOBIN 8.9 g/dl (12.0-16.0); MEAN CELL VOLUME 92.9 fl (81.0-99.0); MEAN CORPUSCULAR HGB 25.4 pg (27.0-31.0); MEAN CORPUSCULAR HGB CONC 27.4 g/dl (33.0-37.0); NUCLEATED RED BLOOD CELL 0.1 10*3/uL (0.0-0.0); NUCLEATED RED BLOOD CELL 0.4 % (0.0-0.0); PLATELET COUNT AUTOMATED 208 10*3/uL (130-400); RED CELL DISTRI WIDTH 17.8 % (0-14.5)
[2019-03-07 07:04] LABS: TOTAL CELLS COUNTED 100 #CELLS
[2019-03-07 07:05] LABS: OVALOCYTES FEW; PLATELET SUFFICIENCY NORMAL (NORMAL); POLYCHROMASIA SLIGHT; STOMATOCYTE FEW
--- NOTE | 2019-03-07 07:37 | NUR ---
SPOKE WITH SURGERY AND CARDIAC REHAB REGARDING APPROPRIATE MEDS PRIOR TO OZZY PROCEDURE. ANTI-ARRHYTHMICS AND DIURETICS WILL BE GIVEN.
--- NOTE | 2019-03-07 08:22 | NUR ---
Patient had a change in medical status and transferred to ICCU. When medically stable and patient is able to participate,refer to OT if a change in baseline ADLs. Thank you. Jocelin Mohamud OTR/L
--- NOTE | 2019-03-07 08:38 | NUR ---
PHYSICAL THERAPY Pt transfered to ICU will need new orders for PT and pt medically cleared Veronica Hernandez PT
--- NOTE | 2019-03-07 09:30 | NUR ---
DR. BRANTLEY IN TO SEE PATIENT AND DISCUSS PLAN OF CARE. PLANS TO MOVE PATIENT TO IMC FLOOR AFTER OZZY.
--- NOTE | 2019-03-07 12:36 | NUR ---
PATIENT TAKEN OFF THE FLOOR VIA BED TO SURGERY FOR SCHEDULED OZZY.
--- NOTE | 2019-03-07 13:05 | NUR ---
NURSE TO NURSE REPORT GIVEN TO GLADYS NAVARRO. PATIENT BELONGINGS MOVED TO ROOM 401.
--- NOTE | 2019-03-07 15:23 | NUR ---
PT HAD OZZY TODAY. WILL CONTINUE TO FOLLOW FOR DISCHARGE NEEDS.
--- NOTE | 2019-03-07 17:35 | NUR ---
[place] given per patient request for c/o back/rib pain. Will monitor.
--- NOTE | 2019-03-07 18:15 | NUR ---
[place] effective. Patient satisfied.
--- NOTE | 2019-03-07 20:15 | NUR ---
24 HR chart check completed.
--- NOTE | 2019-03-07 20:30 | NUR ---
RESTING IN BED. RESPIRATIONS EASY. LUNGS DIMINISHED WITH POOR AIR EXCHANGE. PULSE OX 96% 4L. +2 PITTING BLE EDEMA WITH TEDS IN PLACE. ROBLES PATENT. CALL LIGHT WITHIN REACH. NO VOICED COMPLAINTS
--- NOTE | 2019-03-07 21:04 | NUR ---
PATIENT ANXIOUS, SITTING AT BEDSIDE WITH EMESIS BASIN. MEDICATED WITH ZOFRAN IV PER PRN ORDER FOR COMPLAINTS OF NAUSEA. ALSO MEDICATED WITH XANAX PER PRN ORDER TO ASSIST WITH ANXIETY. CALL LIGHT WITHIN REACH. WILL MONITOR FOR EFFECTIVENESS
--- NOTE | 2019-03-07 22:15 | NUR ---
REQUESTED AND RECEIVED NORCO PER PRN ORDER FOR COMPLAINTS OF RIB AND BACK PAIN RATING A 10. CALL LIGHT WITHIN REACH. WILL MONITOR FOR EFFECTIVENESS
--- NOTE | 2019-03-07 23:00 | NUR ---
MEDS EFFECTIVE. PATIENT RESTING WITH EYES CLOSED AND NO ACUTE DISTRESS NOTED. RESPIRATIONS EASY. O2 IN USE. CALL LIGHT WITHIN REACH.
--- NOTE | 2019-03-07 23:00 | NUR ---
Pt placed on BiPap 24/10 and FiO2 30%. Alarms on and audible.
[2019-03-08] VITALS: BP 120/70
--- NOTE | 2019-03-08 | NUR ---
SLEEPING. NO DISTRESS NOTED. RESPIRATIONS EASY. PULSE OX 98% WITH BI-PAP IN USE. CALL LIGHT WITHIN REACH
--- NOTE | 2019-03-08 03:00 | NUR ---
SLEEPING. BI-PAP IN USE. CALL LIGHT WITHIN REACH
--- NOTE | 2019-03-08 04:21 | NUR ---
immediately upon awakening, patient requests "pain meds." medicated with norco per prn order for complaints of rib and back pain rating a 10. call light within reach. will monitor
--- NOTE | 2019-03-08 05:30 | NUR ---
MEDS APPEAR EFFECTIVE. SLEEPING. BI-PAP IN USE. CALL LIGHT WITHIN REACH
--- NOTE | 2019-03-08 07:23 | NUR ---
took pt off bipap.
--- NOTE | 2019-03-08 07:25 | NUR ---
IMMEDIATELY UPON BEING REMOVED FROM BI-PAP BY RESP, PATIENT STATES "CAN I GET MY PAIN PILL." EXPLAINED TO PATIENT SHE WAS MEDICATED AT 0421 AND MED IS ORDERED Q4H PRN. PATIENT VOICED UNDERSTANDING STATING "I FORGOT"
[2019-03-08 07:49] LABS: HEMATOCRIT 33.7 % (37.0-47.0); HEMOGLOBIN 9.1 g/dl (12.0-16.0); MEAN CELL VOLUME 94.7 fl (81.0-99.0); MEAN CORPUSCULAR HGB 25.6 pg (27.0-31.0); MEAN PLATELET VOLUME 9.2 fl (9.6-12.3); NUCLEATED RED BLOOD CELL 0.1 10*3/uL (0.0-0.0); NUCLEATED RED BLOOD CELL 0.3 % (0.0-0.0); PLATELET COUNT AUTOMATED 218 10*3/uL (130-400); RED BLOOD COUNT 3.56 10*6/uL (4.10-5.10); RED CELL DISTRI WIDTH 17.9 % (0-14.5); WHITE BLOOD COUNT 15.5 10*3/uL (4.8-10.8)
[2019-03-08 08:00] VITALS: BP 120/72; BP 146/84
[2019-03-08 08:07] LABS: ALBUMIN 2.9 gm/dl (3.1-4.5); BUN 22 mg/dl (7-24); CHLORIDE 105 mmol/L (98-107); POTASSIUM 4.1 mmol/L (3.5-5.1); SODIUM 143 mmol/L (136-145)
[2019-03-08 08:10] LABS: ALKALINE PHOSPHATASE 56 U/L (45-117); CREATININE 0.76 mg/dL (0.55-1.02); SGPT/ALT 36 U/L (12-78); TOTAL PROTEIN 6.5 gm/dL (6.4-8.2)
[2019-03-08 08:16] LABS: SGOT/AST < 3 IU/L (3-35)
--- NOTE | 2019-03-08 08:30 | NUR ---
DR COURTNEY HERE TO ASSESS PATIENT AND DISCUSS PLAN OF CARE
--- NOTE | 2019-03-08 09:00 | NUR ---
DR ALFARO HERE TO SEE PATIENT AND DISCUSS PLAN OF CARE
--- NOTE | 2019-03-08 09:09 | NUR ---
REQUESTED AND RECEIVED XANAX AND NORCO PER PRN ORDER TO ASSIST WITH ANXIETY AND FOR COMPLAINTS OF RIB AND BACK PAIN RATING A 9. CALL LIGHT WITHIN REACH. WILL MONITOR FOR EFFECTIVENESS
[2019-03-08 09:11] LABS: OVALOCYTES FEW; PLATELET SUFFICIENCY NORMAL (NORMAL); POLYCHROMASIA SLIGHT; SCHISTOCYTES FEW; TOTAL CELLS COUNTED 100 #CELLS
--- NOTE | 2019-03-08 09:32 | NUR ---
DR COURTNEY PRESENT ON FLOOR, INFORMED OF +BC STAPH AUREUS 03/05/19
--- NOTE | 2019-03-08 09:40 | NUR ---
EARLIER MEDS APPEAR EFFECTIVE. RESTING MORE COMFORTABLY. O2 IN USE. CALL LIGHT WITHIN REACH. NO FURTHER VOICED COMPLAINTS
--- NOTE | 2019-03-08 11:10 | NUR ---
Patient requesting a referral to [facility]; Therapists requesting new orders since patient was transferred to [facility] over the weekend. Hospitalist office put in new orders, notified therapy department of new orders. Initial referral faxed, will fax PT/OT evals when available. Requires precert.
[2019-03-08 12:00] VITALS: BP 146/77
--- NOTE | 2019-03-08 12:03 | NUR ---
RAZOR SHARPENER IN TO TALK TO PT, PT IS AGREEABLE TO GO TO [facility] IF SHE NEEDS IV ANTIBIOTICS. REFERRAL MADE BY [employer] TO START PROCESS. WILL CONTINUE TO FOLLOW.
--- NOTE | 2019-03-08 12:38 | NUR ---
IN TO DO PATIENT ASSESSMENT AND PT IS ASKING FOR PAIN MEDS. I INFORMED TO HER THAT HER NORCO IS NOT DUE UNTIL 1310, BUT SHE HAS MORPHINE THAT CAN BE TAKEN. PT STATES THAT SHE DOES NOT WANT MORPHINE AND WILL WAIT UNTIL IT IS TIME FOR THE NORCO. CALL LIGHT WITHIN REACH AND WILL CONTINUE TO MONITOR THE PATIENT
--- NOTE | 2019-03-08 13:16 | NUR ---
PT STATES THAT SHE IS HAVING PAIN IN HER SIDE AND BACK RATING IT A 10/10 AND IS REQUESTING SOMETHING FOR PAIN. PO NORCO PRN IS GIVEN AT THIS TIME, WILL CONTINUE TO MONITOR THE PATIENT. CALL LIGHT WITHIN REACH
--- NOTE | 2019-03-08 14:14 | NUR ---
PHYSICAL THERAPY Attempted to see pt for evaluation unavailable at testing/Bone Scan will follow Veronica Hernandez PT
--- NOTE | 2019-03-08 14:27 | NUR ---
PT BACK FROM CT AND STATES SHE IS SOB DUE TO HAVING TO LAY DOWN FOR THE CT. PT IS CURRENTLY SITTING ON THE EDGE OF HER BED AND STATES SHE IS GOING TO ORDER SOME LUNCH. WILL CONTINUE TO MONITOR THE PATIENT.
--- NOTE | 2019-03-08 15:10 | NUR ---
Occupational Therapy evaluation completed on 4 with full eval to follow. Precautions include o2 dep, SOB w/ min exertion,IV UE,generalized moderate pain per patient,moderate complexity level 65662. Recommend OT per POC and SNF to enable return home w/ . THank you. Aníbal Mohamud OTR/L
--- NOTE | 2019-03-08 15:25 | NUR ---
PHYSICAL THERAPY Michelle completed moderate level of complexity 84127 recomend SNF at discharge PT to work on transfers,amb with FWW, strengthening and balance/safety Veronica Hernandez PT
[2019-03-08 16:00] VITALS: BP 135/80
--- NOTE | 2019-03-08 17:00 | NUR ---
SURGERY CALLED TO SAY THEY CAN TAKE THE PATIENT FOR THE PICC LINE, I TOLD THEM SHE IS IN ISOLATION FOR HX NARES, AND THEY STATE THEY ALREADY HAVE A PT IN ISOLATION SO THEY CAN NOT TAKE HER RIGHT NOW. POSSIBLY LATER OR TOMORROW THEY WILL CALL WHEN THEY ARE READY
[2019-03-08] MEDS ORDERED: NAFCILLIN2 GM IJ (17:26)
--- NOTE | 2019-03-08 17:27 | NUR ---
CALLED ANSWERING SERVICE FOR CONSULT FOR DR REESE, LEFT A MESSAGE
--- NOTE | 2019-03-08 17:38 | NUR ---
DR GREGORIO ON THE FLOOR AND STATES THAT SHE PUT IN A ORER FOR DR HUI TO BE CONSULTED. SO DISREGARD THE CONSULT THAT WAS SENT OUT TO HER, NURSING ERROR. WILL CALL DR HUI NOW.
--- NOTE | 2019-03-08 17:45 | NUR ---
CALLED DR HUI FOR NEW CONSULT. LEFT MESSAGE WITH ANSWERING SERVICE
--- NOTE | 2019-03-08 17:50 | NUR ---
DR VALERIO STATES THAT HE IS WITH DR HUI AND THAT THEY ARE GOING TO PUT AN ORDER IN FOR A MRI
--- NOTE | 2019-03-08 18:50 | NUR ---
IN TO TALK TO PATIENT TELLING HER THAT A MRI IS ORDERED AND SHE STATES THAT SHE DOES NOT WANT IT DONE, THAT SHE CAN NOT SIT IN TIGHT SPACES AND REFUSES. WILL TELL ONCOMING NURSE
[2019-03-08 20:00] VITALS: BP 132/90
--- NOTE | 2019-03-08 22:50 | NUR ---
Pt on BiPap per nurse. Alarms are on and audible. Pt resting comfortably.
--- NOTE | 2019-03-08 23:20 | NUR ---
PICKED PT UP AT 2300. RECEIVED REPORT FROM NURSE RAMON GRAHAM. ASSESSMENT COMPLETE. PT ON BIPAP AT THIS TIME. PT STATED SHE DID NOT NEED ANYTHING AT THIS TIME. CALL LIGHT WITHIN REACH. WILL CONTINUE TO MONITOR.
[2019-03-09] VITALS: BP 149/82
--- NOTE | 2019-03-09 02:34 | NUR ---
24 HR chart check completed.
--- NOTE | 2019-03-09 06:01 | NUR ---
PT REQUESTING SOMETHING FOR PAIN AND ANXIETY. NOTIFIED AND STATES THAT HE WILL PUT SOMETHING IN.
--- NOTE | 2019-03-09 06:21 | NUR ---
MEDICATED WITH PRN NORCO ORDERED FOR BACK AND RIB PAIN RATED A 9/10. WILL CHECK EFFECTIVENESS.
--- NOTE | 2019-03-09 07:36 | NUR ---
PT SITTING UP IN BED. NO DISTRESS NOTED. WILL MONITOR
--- NOTE | 2019-03-09 07:59 | NUR ---
Patient updated clinicals and PT/OT evals faxed to [facility]. Asked to start precert. waiting for auth
[2019-03-09 08:00] VITALS: BP 147/80
--- NOTE | 2019-03-09 08:05 | NUR ---
PHYSICAL THERAPY Patient seen this am 1;1 for therapy visit and was supine in bed upon therapist arrival. Patient identified by name / and presented with continuos O2-4L via NC. Patient reports 10/10 mid thoracic pain, just under her Rib cage and c/o's of brief bouts of SOB. Patient transfers supine to sit EOB with MIN/CGA, needing instruction to improve safe transfer to avoid excessive trunk rotation which contributes to increased back pain. Patient performed sit to stand transfer CGA with use of wh walker standing support, tolerating static stand for several minutes without change in pain c/o. Patient also able to ambulate 15'x 2, CGA, wh walker, demonstrating very slow, cautious gait pattern, while needing v/c for safe step sequence during 180 turn around. Patient fatigues very quickly and returned to supine in bed with instruction on "log roll" technique to prevent further c/o of back pain. Patient changed her mind and transfered back to EOB sit and remained with call light, tray table and telephone awaiting breakfast. Will continue per POC as tolerated, total treatment time 18 minutes. Stephen Clarke, DECORATING SUPERVISOR
[2019-03-09 08:11] LABS: HEMATOCRIT 33.8 % (37.0-47.0); HEMOGLOBIN 9.1 g/dl (12.0-16.0); MEAN CELL VOLUME 93.4 fl (81.0-99.0); MEAN CORPUSCULAR HGB 25.1 pg (27.0-31.0); MEAN CORPUSCULAR HGB CONC 26.9 g/dl (33.0-37.0); MEAN PLATELET VOLUME 9.1 fl (9.6-12.3); NUCLEATED RED BLOOD CELL 0.3 % (0.0-0.0); PLATELET COUNT AUTOMATED 214 10*3/uL (130-400); RED BLOOD COUNT 3.62 10*6/uL (4.10-5.10); RED CELL DISTRI WIDTH 18.2 % (0-14.5); WHITE BLOOD COUNT 13.2 10*3/uL (4.8-10.8)
--- NOTE | 2019-03-09 08:25 | NUR ---
OT NOTE Pt was seen this A.M. 1:1 for 20 minute OT session. Upon arrival pt was supine in bed. Pt identified by name and and had complaints of "10/10 mid/low back pain." Pt presented to therapy with continuous 4L-O2 via NC which she remained on throughout the entire session. Pt's resting heart rate was 99 bpm and SpO2 99%. Pt was educated on log roll technique for bed mobility and then performed with CGA. Pt completed multiple sit to stand transfers from bed level with CGA and use of w/w for UE support. Challenged pt's static standing tolerance needed for increased I in self care tasks and functional transfers, pt was able to tolerate aprox 6 minutes at a time before sitting due to fatigue and pain. Pt's SpO2 dropped to 94% and heart rate increased to 116 bpm. Pt then transferred back into bed sit to supine with log roll technique with Rama. Due to back pain pt was requested to be left sitting EOB which she was with call light in hand, tray table in place, and phone in reach. Continue with rec D/C plan to SNF. DEVONTE Deutsch
[2019-03-09 08:40] LABS: BUN 19 mg/dl (7-24); CHLORIDE 105 mmol/L (98-107); CREATININE 0.73 mg/dL (0.55-1.02); POTASSIUM 3.2 mmol/L (3.5-5.1); SODIUM 144 mmol/L (136-145)
[2019-03-09 10:26] LABS: TOTAL CELLS COUNTED 100 #CELLS
--- NOTE | 2019-03-09 10:26 | NUR ---
PT REFUSING MRI. DR LINDSAY NOTIFIED ATTEMPTED TO CALL DR VALERIO TO NOTIFIED . NO ANSWER ALSO CALLED MRI TO NOTIFY THEM
[2019-03-09 10:27] LABS: PLATELET SUFFICIENCY NORMAL (NORMAL); POLYCHROMASIA SLIGHT
[2019-03-09 10:28] LABS: OVALOCYTES FEW
[2019-03-09 10:30] VITALS: BP 132/78
--- NOTE | 2019-03-09 10:49 | NUR ---
F/C D/C'D AT THIS TIME. 800CC IN ROBLES BAG OF LIGHT JOAN URINE. PT TOLERATED WELL. TELEMETRY REMOVED AT THIS TIME ALSO. CALL LIGHT IN REACH.
--- NOTE | 2019-03-09 13:25 | NUR ---
PT COMPLAINS OF ACHING 8/10 BACK AND RIB PAIN. MEDICATED PER ORDER. WILL MONITOR FOR RELIEF. VOICES NO OTHER CONCERNS AT THIS TIME. RESTING IN BED. CALL LIGHT WITHIN REACH.
--- NOTE | 2019-03-09 13:42 | NUR ---
PT WANTS TO GO TO [facility]. WILL REQUIRE PRECERT.
--- NOTE | 2019-03-09 14:00 | NUR ---
REPORT CALLED TO 5E, SPOKE WITH ALPA Pitts
--- NOTE | 2019-03-09 14:45 | NUR ---
Patient has received auth for [facility]. Patient can go if medically stable for discharge,
--- NOTE | 2019-03-09 14:55 | NUR ---
Patient's auth for [facility] is good through tomorrow; 03/10/19.
--- NOTE | 2019-03-09 15:30 | NUR ---
TOOK OVER CARE OF PT AT THIS TIME. PT LYING IN BED. ALERT ORIENTED AND PLEASANT MOOD WITH NO COMPLAINTS VOICED AT THIS TIME. PT DENIES NEEDING ANYTHING, CALL LIGHT IN REACH.
[2019-03-09 16:00] VITALS: BP 136/74
--- NOTE | 2019-03-09 16:24 | NUR ---
CALL MADE TO MRI REGARDING TO MRI THAT PT IS TO RECEIVE TODAY. PT HAS MEDICATIONS THAT ARE TO BE GIVEN BEFORE PT GOES DOWN FOR MRI, THEREFORE INQUIRING ABOUT THE TIME THAT PT WILL GO DOWN.
--- NOTE | 2019-03-09 18:30 | NUR ---
PT REFUSES 1800 DOSE OF LASIX. PHYSICIAN NOTIFIED. WILL CONTINUE TO MONITOR.
--- NOTE | 2019-03-09 19:40 | NUR ---
PT C/O BACK PAIN. NORCO GIVEN AT THIS TIME. WILL MONITOR FOR EFFECTIVENESS. CALL LIGHT IN REACH.
[2019-03-09 20:00] VITALS: BP 131/82
--- NOTE | 2019-03-09 21:23 | NUR ---
PT ON BIPAP AT 2018.
[2019-03-10] VITALS: BP 124/63
--- NOTE | 2019-03-10 | NUR ---
Pt still resting on BiPap 24/10. FiO2 30%.
--- NOTE | 2019-03-10 01:09 | NUR ---
PATIENT MEDICATED PER REQUEST WITH NORCO FOR COMPLAINTS OF BACK PAIN. 11/09. NO OTHER COMPLAINTS VOICED AT THIS TIME. PATIENT ON BIPAP. BED IN LOWEST POSITION, CALL LIGHT WITHIN REACH, WILL CONTINUE TO MONITOR.
--- NOTE | 2019-03-10 04:29 | NUR ---
NOTIFIED DR. GARCIA PATIENT IS UPSET THE HER NORCO WAS CHANGED FROM Q4HRS TO Q6HRS. PATIENT REQUESTING IT BE CHANGED BACK, DR. GARCIA STATED SHE WOULD TAKE CARE OF IT. WILL CONTINUE TO MONITOR.
--- NOTE | 2019-03-10 05:18 | NUR ---
PATIENT MEDICATED WITH NORCO FOR COMPLAINTS OF BACK PAIN. 12/09 WILL CHECK EFFECTIVNESS.
[2019-03-10 06:40] LABS: HEMATOCRIT 30.8 % (37.0-47.0); HEMOGLOBIN 8.6 g/dl (12.0-16.0); MEAN CELL VOLUME 94.5 fl (81.0-99.0); MEAN CORPUSCULAR HGB 26.4 pg (27.0-31.0); MEAN CORPUSCULAR HGB CONC 27.9 g/dl (33.0-37.0); NUCLEATED RED BLOOD CELL 0.3 % (0.0-0.0); PLATELET COUNT AUTOMATED 201 10*3/uL (130-400); RED BLOOD COUNT 3.26 10*6/uL (4.10-5.10); RED CELL DISTRI WIDTH 18.5 % (0-14.5); WHITE BLOOD COUNT 10.6 10*3/uL (4.8-10.8)
[2019-03-10 06:50] LABS: BUN 18 mg/dl (7-24); CHLORIDE 106 mmol/L (98-107); CREATININE 0.63 mg/dL (0.55-1.02); POTASSIUM 3.3 mmol/L (3.5-5.1); SODIUM 144 mmol/L (136-145)
[2019-03-10 07:19] LABS: TOTAL CELLS COUNTED 100 #CELLS
[2019-03-10 07:21] LABS: PLATELET SUFFICIENCY NORMAL (NORMAL); STOMATOCYTE FEW
[2019-03-10 08:00] VITALS: BP 143/77
--- NOTE | 2019-03-10 08:26 | NUR ---
TOOK PT OFF BIPAP
--- NOTE | 2019-03-10 11:36 | NUR ---
OT NOTE Attempted to see pt this A.M. for OT session and upon arrival pt was under docotor care. Will check at a later time/date and continue with POC as able. AMA Deutsch/Juliette
[2019-03-10 12:00] VITALS: BP 154/96
--- NOTE | 2019-03-10 13:06 | NUR ---
OT NOTE Pt was seen this P.M> 1:1 for 15 minute OT session. Upon arrival pt was sitting upright on the EOB. Pt identified by name and and had complaints of 10/10 back pain. Pt presented to therapy with continuous 4L-O2 via NC which she remained on throughout the entire session. Pt completed multiple sit to stand transfers from bed level with CGA and use of w/w for UE support. Challenged pt's static standing tolerance needed for increased I in self care tasks and functional transfers. Pt was able to tolerate aprox 60 seconds at a time before having to sit due to fatigue and pain. Pt then transferred back into bed sit to supine with SBA. There she was left with call light in hand, tray table in place, and phone in reach. COntinue with rec D/C plan to SNF. AMA Deutsch/Juliette
--- NOTE | 2019-03-10 15:07 | NUR ---
PHYSICAL THERAPY TREATMENT TIME: IN 2:50 PM TO 3:09 PM 19 MINUTES TOTAL Patient presented to therapy in sitting at EOB with 4 LITERS OF SPo2 via nasal canula. Patient gives informed consent for treatment. Patient was identified by name and on wristband. Patient O2 SAT was recorded as 100% and pulse 103. Patient performed sitting at EOB to standing x 3 with CGA X 1 to MIN A X 1 for 15 seconds the 1st attempt, 2nd attempt 1 minutes and 3rd attempt for 1 minute. Patient transferred into supine in bed with SBA. Patient sat up from supine in bed with MIN A X 1. pATIENT o2 sat WAS RECORDED 98% AND pulse at 107 post stadnign tolerances. PATIENT was left sitting at EOB with call light within reach and tray table near patient. Patient was 1:1 with this SPEAKER WIRER for 19 minutes total. RADHA THORPE TPA
[2019-03-10 16:00] VITALS: BP 158/99
[2019-03-10 20:00] VITALS: BP 154/89
[2019-03-11] VITALS: BP 151/86
[2019-03-11 06:45] LABS: HEMATOCRIT 32.4 % (37.0-47.0); HEMOGLOBIN 9.1 g/dl (12.0-16.0); MEAN CELL VOLUME 92.3 fl (81.0-99.0); MEAN CORPUSCULAR HGB 25.9 pg (27.0-31.0); MEAN CORPUSCULAR HGB CONC 28.1 g/dl (33.0-37.0); MEAN PLATELET VOLUME 9.6 fl (9.6-12.3); PLATELET COUNT AUTOMATED 225 10*3/uL (130-400); RED BLOOD COUNT 3.51 10*6/uL (4.10-5.10); RED CELL DISTRI WIDTH 18.6 % (0-14.5); WHITE BLOOD COUNT 10.8 10*3/uL (4.8-10.8)
[2019-03-11 06:56] LABS: BUN 19 mg/dl (7-24); CHLORIDE 103 mmol/L (98-107); CREATININE 0.79 mg/dL (0.55-1.02); POTASSIUM 3.4 mmol/L (3.5-5.1); SODIUM 144 mmol/L (136-145)
--- NOTE | 2019-03-11 07:30 | NUR ---
PT RESTING IN BED. VOICES NO CONERNS AT THIS TIME. NO S/S OF DISTRESS NOTED. RESPS EASY AND NON LABORED. OXYGEN 4 L VIA NASAL CANNULA INTACT. WHITE BOARD UPDATED. CALL LIGHT WITHIN REACH
[2019-03-11 07:37] LABS: TOTAL CELLS COUNTED 100 #CELLS
[2019-03-11 07:38] LABS: OVALOCYTES FEW; PLATELET SUFFICIENCY NORMAL (NORMAL); POLYCHROMASIA SLIGHT
[2019-03-11 08:00] VITALS: BP 153/99
--- NOTE | 2019-03-11 08:27 | NUR ---
PT COMPLAINS OF 10/10 BACK PAIN. MEDICATED PER ORDER. WILL MONITOR FOR RELIEF. VOICES NO OTHER CONCERNS AT THIS TIME. RESTING IN BED. RESPS EASY AND NON LABORED. CALL LIGHT WITHIN REACH
--- NOTE | 2019-03-11 09:09 | NUR ---
Updated clinicals faxed to [facility]. Will start precert again when patient is medically stable.
--- NOTE | 2019-03-11 09:29 | NUR ---
Contacted Belgica at [facility], she stated patients auth to return is still good. patient is ok to go if medically stable for discharge.
--- NOTE | 2019-03-11 09:31 | NUR ---
OT NOTE Attempted to see pt this A.M. for OT session and upon arrival pt was sitting upright on the EOB crying. Pt reported that she had "10/10 back pain and unable to do any therapy at this time." Will check back at a later time/date and continue with POC as able. AMA Deutsch/Juliette
--- NOTE | 2019-03-11 11:45 | NUR ---
PHYSICAL THERAPY TIME: 09:35 AM Patient was approached for therapy session at 09:35 AM and patient reported 10/10 back pain. Patient says she cannot do therapy at this time. Will check back at a later date /time. RADHA THORPE KEY CARRIER
[2019-03-11 12:00] VITALS: BP 143/92
--- NOTE | 2019-03-11 13:53 | NUR ---
[facility] CALLED UP AND STATED THEY WOULD BE HERE IN ABOUT 15MINS TO TAKE PATIENT DOWN FOR SCAN. PT MEDICATED WITH ATIVAN AND MORPHINE. WILL MONITOR. STILL VOICING CONCERNS OVER LAYING FLAT FOR TEST. STATES SHE WILL TRY HER BEST. CALL LIGHT WITHIN REACH.
--- NOTE | 2019-03-11 14:26 | NUR ---
OT NOTE Second attempt made to see pt this P.M. for OT session and upon arrival pt reported that she was about to go for a test and did not want to irritate her back pain prior to going. Requesting to rest at this time. Will check back at a later time/date and continue with POC as able. AMA Deutsch/Juliette
--- NOTE | 2019-03-11 14:39 | NUR ---
Shift chart check completed.
--- NOTE | 2019-03-11 15:11 | NUR ---
SPOKE WITH DR REESE. STATED SHE WANTS NOTIFIED BEFORE THE PATIENT IS TRANSFERRED OR DISCHARGED.
--- NOTE | 2019-03-11 15:17 | NUR ---
OCCUPATIONAL THERAPY CO-SIGN I approve of the Occupational Therapy notes written above. CYNDI RIGGS OTR/Juliette
--- NOTE | 2019-03-11 15:23 | NUR ---
PHYSICAL THERAPY CO-SIGN I approve of the Physical Therapy notes written above. Veronica Hernandez PT
[2019-03-11 16:00] VITALS: BP 153/92
[2019-03-11 20:00] VITALS: BP 131/98
--- NOTE | 2019-03-11 22:15 | NUR ---
NOTIFIED DR. GARCIA NAFCILLIN IS NO LONGER ON PATIETNS MAR. DR GARCIA TO REORDER.
[2019-03-12] VITALS: BP 134/71
[2019-03-12 08:00] VITALS: BP 135/82
[2019-03-12 08:17] LABS: BUN 17 mg/dl (7-24); CHLORIDE 106 mmol/L (98-107); CREATININE 0.84 mg/dL (0.55-1.02); POTASSIUM 3.9 mmol/L (3.5-5.1); SODIUM 145 mmol/L (136-145)
[2019-03-12 08:38] LABS: HEMATOCRIT 31.8 % (37.0-47.0); HEMOGLOBIN 8.6 g/dl (12.0-16.0); MEAN PLATELET VOLUME 9.3 fl (9.6-12.3); PLATELET COUNT AUTOMATED 242 10*3/uL (130-400); RED BLOOD COUNT 3.31 10*6/uL (4.10-5.10); RED CELL DISTRI WIDTH 18.7 % (0-14.5); WHITE BLOOD COUNT 11.8 10*3/uL (4.8-10.8)
[2019-03-12 08:40] LABS: MEAN CELL VOLUME 96.1 fl (81.0-99.0)
[2019-03-12 09:42] LABS: BASOPHILS 1 % (0-1); PLATELET SUFFICIENCY NORMAL (NORMAL); TOTAL CELLS COUNTED 100 #CELLS; TOXIC GRANULATION SLIGHT
[2019-03-12 09:43] LABS: OVALOCYTES FEW; POLYCHROMASIA SLIGHT
[2019-03-12] MEDS ORDERED: VITAMIN D32000 UNIT PO (09:47)
[2019-03-12] MEDS ORDERED: PREDNISONE10 MG PO (09:47)
[2019-03-12] MEDS ORDERED: CALCIUM500 M1 PO (09:47)
[2019-03-12] MEDS ORDERED: DURAGESIC1 EAC3 TD (09:49)
[2019-03-12 12:00] VITALS: BP 126/81
--- NOTE | 2019-03-12 14:45 | NUR ---
Scheduled Ativan and Morphine given for back/rib pain and anxiety. Will monitor.
--- NOTE | 2019-03-12 15:00 | NUR ---
Morphine effective, patient states she feels "it getting better," and Ativan effective patient is satisfied.
--- NOTE | 2019-03-12 15:24 | NUR ---
Attempted to call nurse to nurse report but there was no answer.
--- NOTE | 2019-03-12 15:25 | NUR ---
Discharge instructions reviewed with patient/family. Patient receptive and verbalizes understanding. Follow-up care arranged. Written instructions given to patient/family. Patient was wheeled from unit in the care of EMT's with all personal belongings accounted for. Patient stated she did notify her that she is being transferred today. GLADYS FARIAS
--- NOTE | 2019-03-12 15:35 | NUR ---
Attempted to call nurse to nurse again, no answer on unit.
--- NOTE | 2019-03-12 15:45 | NUR ---
RAMON Seay from [facility] called for nurse to nurse report.
== END 2019-03-12 15:45 | disposition other institution (70) | DRG 720 ==
LOC: ED 21:16 → 4E 23:00 → EDHOLD 23:00 → ICCU 23:00 → 4E 23:10 → ICCU 03-05 13:26 → 4E 03-07 13:46 → 5E 03-09 15:26
PROVIDERS: Emergency Medicine Emergency Medical Services; Internal Medicine; Internal Medicine Critical Care Medicine; Student in an Organized Health Care Education/Training Program; ADMIT Internal Medicine
PROC: 5A09357 Assistance with Respiratory Ventilation, Less than 24 Consecutive Hours, Continuous Positive Airway Pressure (ICD-10-PCS; principal; 2019-03-04)
PROC: 5A09357 Assistance with Respiratory Ventilation, Less than 24 Consecutive Hours, Continuous Positive Airway Pressure (ICD-10-PCS; 2019-03-05)
PROC: 02HV33Z Insertion of Infusion Device into Superior Vena Cava, Percutaneous Approach (ICD-10-PCS; 2019-03-05)
PROC: 5A09457 Assistance with Respiratory Ventilation, 24-96 Consecutive Hours, Continuous Positive Airway Pressure (ICD-10-PCS; 2019-03-06)
PROC: B24BZZ4 Ultrasonography of Heart with Aorta, Transesophageal (ICD-10-PCS; 2019-03-07)
PROC: 5A09357 Assistance with Respiratory Ventilation, Less than 24 Consecutive Hours, Continuous Positive Airway Pressure (ICD-10-PCS; 2019-03-08)
PROC: 5A09357 Assistance with Respiratory Ventilation, Less than 24 Consecutive Hours, Continuous Positive Airway Pressure (ICD-10-PCS; 2019-03-09)
PROC: 5A09357 Assistance with Respiratory Ventilation, Less than 24 Consecutive Hours, Continuous Positive Airway Pressure (ICD-10-PCS; 2019-03-10)
PROC: 5A09357 Assistance with Respiratory Ventilation, Less than 24 Consecutive Hours, Continuous Positive Airway Pressure (ICD-10-PCS; 2019-03-11)
PROC: 5A09357 Assistance with Respiratory Ventilation, Less than 24 Consecutive Hours, Continuous Positive Airway Pressure (ICD-10-PCS; 2019-03-12)
DX: A41.9 Sepsis, unspecified organism (principal); J96.22 Acute and chronic respiratory failure with hypercapnia; J96.21 Acute and chronic respiratory failure with hypoxia; I50.33 Acute on chronic diastolic (congestive) heart failure; E44.0 Moderate protein-calorie malnutrition; J18.9 Pneumonia, unspecified organism; J44.1 Chronic obstructive pulmonary disease with (acute) exacerbation; E87.3 Alkalosis; E83.41 Hypermagnesemia; J44.0 Chronic obstructive pulmonary disease with (acute) lower respiratory infection; M48.54XA Collapsed vertebra, not elsewhere classified, thoracic region, initial encounter for fracture; E87.8 Other disorders of electrolyte and fluid balance, not elsewhere classified; I48.0 Paroxysmal atrial fibrillation; R73.9 Hyperglycemia, unspecified; G47.33 Obstructive sleep apnea (adult) (pediatric); I48.91 Unspecified atrial fibrillation; K21.9 Gastro-esophageal reflux disease without esophagitis; D64.9 Anemia, unspecified; E66.01 Morbid (severe) obesity due to excess calories; F41.1 Generalized anxiety disorder; B95.61 Methicillin susceptible Staphylococcus aureus infection as the cause of diseases classified elsewhere; Z93.0 Tracheostomy status; Z99.81 Dependence on supplemental oxygen; Z87.891 Personal history of nicotine dependence; Z79.01 Long term (current) use of anticoagulants; Z68.41 Body mass index [BMI] 40.0-44.9, adult; Z88.1 Allergy status to other antibiotic agents; Z88.8 Allergy status to other drugs, medicaments and biological substances; Z83.3 Family history of diabetes mellitus; Z83.6 Family history of other diseases of the respiratory system; Z80.1 Family history of malignant neoplasm of trachea, bronchus and lung; Z82.49 Family history of ischemic heart disease and other diseases of the circulatory system; Z79.899 Other long term (current) drug therapy

== ENCOUNTER 2019-03-26 13:31 | Emergency (ER) | payer OTHER ==
[~2019-03-26] VITALS: Ht 167.6 cm; Wt 124.7 kg
[~2019-03-26 13:31] MED LIST changes: +CALCIUM500 M1 PO; +DURAGESIC1 EAC3 TD; +NAFCILLIN2 GM IJ; +VITAMIN D32000 UNIT PO
== END 2019-03-26 15:06 | disposition home or self-care (01) ==
LOC: ED 13:31
DX: T82.524A Displacement of infusion catheter, initial encounter (principal); J44.9 Chronic obstructive pulmonary disease, unspecified; E78.00 Pure hypercholesterolemia, unspecified; I48.91 Unspecified atrial fibrillation; Z45.2 Encounter for adjustment and management of vascular access device; Z88.1 Allergy status to other antibiotic agents; Z88.0 Allergy status to penicillin; Z79.899 Other long term (current) drug therapy; Z90.49 Acquired absence of other specified parts of digestive tract; Z87.891 Personal history of nicotine dependence; Y84.8 Other medical procedures as the cause of abnormal reaction of the patient, or of later complication, without mention of misadventure at the time of the procedure; Y92.89 Other specified places as the place of occurrence of the external cause

== ENCOUNTER 2019-08-22 18:16 | Inpatient (IN) | payer MEDICAID ==
[~2019-08-22] VITALS: Ht 167.6 cm; Wt 103.6 kg
[2019-08-22 18:20] VITALS: BP 137/91
[2019-08-22 18:40] LABS: HEMATOCRIT 36.6 % (37.0-47.0); MEAN CELL VOLUME 91.3 fl (81.0-99.0); MEAN CORPUSCULAR HGB 23.7 pg (27.0-31.0); MEAN PLATELET VOLUME 8.3 fl (9.6-12.3); NUCLEATED RED BLOOD CELL 0.1 10*3/uL (0.0-0.0); NUCLEATED RED BLOOD CELL 0.6 % (0.0-0.0); PLATELET COUNT AUTOMATED 302 10*3/uL (130-400); RED BLOOD COUNT 4.01 10*6/uL (4.10-5.10); RED CELL DISTRI WIDTH 22.4 % (0-14.5); WHITE BLOOD COUNT 11.5 10*3/uL (4.8-10.8)
[2019-08-22 18:51] LABS: ACT PARTIAL THROMBO TIME 25.6 SECONDS (20.0-32.1)
[2019-08-22 18:56] LABS: ALBUMIN 3.3 gm/dl (3.1-4.5); ALKALINE PHOSPHATASE 84 U/L (45-117); BUN 15 mg/dl (7-24); CHLORIDE 103 mmol/L (98-107); POTASSIUM 3.5 mmol/L (3.5-5.1); SGOT/AST 9 IU/L (3-35); SGPT/ALT 25 U/L (12-78); SODIUM 143 mmol/L (136-145); TOTAL PROTEIN 7.2 gm/dL (6.4-8.2)
[2019-08-22 18:57] LABS: TROPONIN I < 0.015 ng/ml (<0.045)
[2019-08-22 19:01] LABS: PLATELET SUFFICIENCY NORMAL (NORMAL); POLYCHROMASIA SLIGHT; TOTAL CELLS COUNTED 100 #CELLS
[2019-08-22 19:04] LABS: ABG BASE EXCESS 8.3 mmol/L (-2.0-2.0); ARTERIAL BLOOD GAS PH 7.284 (7.35-7.45)
[2019-08-22 19:22] VITALS: BP 122/78
[2019-08-22 20:40] VITALS: BP 144/82
[2019-08-22] MEDS ORDERED: TRAMADOL HCL50 MG PO (21:16)
[2019-08-22] MEDS ORDERED: PREDNISONE5 MG PO (21:20)
[2019-08-22 22:00] VITALS: BP 144/82
[2019-08-23] VITALS: BP 120/58
[2019-08-23 06:37] LABS: HEMATOCRIT 29.8 % (37.0-47.0); MEAN CELL VOLUME 90.6 fl (81.0-99.0); MEAN CORPUSCULAR HGB CONC 26.5 g/dl (33.0-37.0); MEAN PLATELET VOLUME 8.8 fl (9.6-12.3); NUCLEATED RED BLOOD CELL 0.1 10*3/uL (0.0-0.0); NUCLEATED RED BLOOD CELL 0.7 % (0.0-0.0); PLATELET COUNT AUTOMATED 285 10*3/uL (130-400); RED BLOOD COUNT 3.29 10*6/uL (4.10-5.10); WHITE BLOOD COUNT 8.6 10*3/uL (4.8-10.8)
[2019-08-23 06:56] LABS: BUN 16 mg/dl (7-24); CHLORIDE 106 mmol/L (98-107); CREATININE 0.61 mg/dL (0.55-1.02); SODIUM 145 mmol/L (136-145)
[2019-08-23 07:23] LABS: OVALOCYTES FEW; PLATELET SUFFICIENCY NORMAL (NORMAL); POLYCHROMASIA SLIGHT; TOTAL CELLS COUNTED 100 #CELLS
[2019-08-23 07:24] LABS: TARGET CELLS FEW
[2019-08-23 07:42] LABS: ABG BASE EXCESS 9.1 mmol/L (-2.0-2.0); ARTERIAL BLOOD GAS PH 7.396 (7.35-7.45)
[2019-08-23 08:00] VITALS: BP 144/68
[2019-08-23 12:00] VITALS: BP 136/70
[2019-08-23 16:00] VITALS: BP 117/72
[2019-08-23 20:00] VITALS: BP 123/58
[2019-08-24] VITALS: BP 129/62
[2019-08-24 06:36] LABS: HEMATOCRIT 28.5 % (37.0-47.0); MEAN CORPUSCULAR HGB 23.8 pg (27.0-31.0); MEAN PLATELET VOLUME 9.1 fl (9.6-12.3); NUCLEATED RED BLOOD CELL 0.4 % (0.0-0.0); PLATELET COUNT AUTOMATED 315 10*3/uL (130-400); RED BLOOD COUNT 3.24 10*6/uL (4.10-5.10); RED CELL DISTRI WIDTH 21.9 % (0-14.5); WHITE BLOOD COUNT 9.7 10*3/uL (4.8-10.8)
[2019-08-24 07:01] LABS: PLATELET SUFFICIENCY NORMAL (NORMAL); POLYCHROMASIA SLIGHT; TOTAL CELLS COUNTED 100 #CELLS
[2019-08-24 07:05] LABS: BUN 20 mg/dl (7-24); CHLORIDE 107 mmol/L (98-107); CREATININE 0.69 mg/dL (0.55-1.02); POTASSIUM 3.3 mmol/L (3.5-5.1); SODIUM 145 mmol/L (136-145)
[2019-08-24 08:00] VITALS: BP 127/74
[2019-08-24 12:00] VITALS: BP 134/47; BP 134/74
[2019-08-24 16:00] VITALS: BP 126/83
[2019-08-24 20:00] VITALS: BP 144/81
[2019-08-25] VITALS: BP 126/69
[2019-08-25 08:00] VITALS: BP 112/62
[2019-08-25 12:00] VITALS: BP 127/72
[2019-08-25 16:00] VITALS: BP 137/88
[2019-08-25 18:45] VITALS: BP 162/63
[2019-08-25 20:00] VITALS: BP 139/79
[2019-08-26] VITALS: BP 115/58
[2019-08-26 06:45] LABS: HEMATOCRIT 30.7 % (37.0-47.0); MEAN CELL VOLUME 88.2 fl (81.0-99.0); MEAN CORPUSCULAR HGB 23.3 pg (27.0-31.0); MEAN CORPUSCULAR HGB CONC 26.4 g/dl (33.0-37.0); MEAN PLATELET VOLUME 8.9 fl (9.6-12.3); NUCLEATED RED BLOOD CELL 0.1 10*3/uL (0.0-0.0); NUCLEATED RED BLOOD CELL 0.6 % (0.0-0.0); PLATELET COUNT AUTOMATED 305 10*3/uL (130-400); RED BLOOD COUNT 3.48 10*6/uL (4.10-5.10); RED CELL DISTRI WIDTH 22.1 % (0-14.5); WHITE BLOOD COUNT 10.3 10*3/uL (4.8-10.8)
[2019-08-26 06:49] LABS: BUN 16 mg/dl (7-24); CHLORIDE 106 mmol/L (98-107); CREATININE 0.65 mg/dL (0.55-1.02); POTASSIUM 3.9 mmol/L (3.5-5.1); SODIUM 144 mmol/L (136-145)
[2019-08-26 07:45] LABS: PLATELET SUFFICIENCY NORMAL (NORMAL); SCHISTOCYTES FEW; TOTAL CELLS COUNTED 100 #CELLS
[2019-08-26 08:00] VITALS: BP 130/78
[2019-08-26 12:00] VITALS: BP 139/77
[2019-08-26 16:00] VITALS: BP 125/61
[2019-08-26 20:00] VITALS: BP 138/85
[2019-08-27] VITALS: BP 119/58
[2019-08-27 08:00] VITALS: BP 127/65
[2019-08-27] MEDS ORDERED: PREDNISONE10 MG PO (11:46)
[2019-08-27] MEDS ORDERED: HYDROCODONE-AC1 EAC1 PO (11:46)
[2019-08-27] MEDS ORDERED: LEVOFLOXACIN500 MG PO (11:46)
[2019-08-27 12:00] VITALS: BP 129/78
== END 2019-08-27 14:36 | disposition home or self-care (01) | DRG 720 ==
LOC: ED 18:16 → 4E 18:45 → EDHOLD 18:45 → 4E 19:47
PROVIDERS: Emergency Medicine; Internal Medicine; Internal Medicine Critical Care Medicine; ADMIT Internal Medicine
PROC: 5A09357 Assistance with Respiratory Ventilation, Less than 24 Consecutive Hours, Continuous Positive Airway Pressure (ICD-10-PCS; principal; 2019-08-22)
PROC: 5A09357 Assistance with Respiratory Ventilation, Less than 24 Consecutive Hours, Continuous Positive Airway Pressure (ICD-10-PCS; 2019-08-23)
PROC: 5A09357 Assistance with Respiratory Ventilation, Less than 24 Consecutive Hours, Continuous Positive Airway Pressure (ICD-10-PCS; 2019-08-24)
PROC: 5A09357 Assistance with Respiratory Ventilation, Less than 24 Consecutive Hours, Continuous Positive Airway Pressure (ICD-10-PCS; 2019-08-25)
PROC: 5A09357 Assistance with Respiratory Ventilation, Less than 24 Consecutive Hours, Continuous Positive Airway Pressure (ICD-10-PCS; 2019-08-26)
PROC: 5A09357 Assistance with Respiratory Ventilation, Less than 24 Consecutive Hours, Continuous Positive Airway Pressure (ICD-10-PCS; 2019-08-27)
DX: A41.9 Sepsis, unspecified organism (principal); J96.22 Acute and chronic respiratory failure with hypercapnia; J44.1 Chronic obstructive pulmonary disease with (acute) exacerbation; J96.21 Acute and chronic respiratory failure with hypoxia; J44.0 Chronic obstructive pulmonary disease with (acute) lower respiratory infection; R73.9 Hyperglycemia, unspecified; G47.33 Obstructive sleep apnea (adult) (pediatric); K21.9 Gastro-esophageal reflux disease without esophagitis; E44.0 Moderate protein-calorie malnutrition; E83.41 Hypermagnesemia; I48.0 Paroxysmal atrial fibrillation; D64.9 Anemia, unspecified; E66.01 Morbid (severe) obesity due to excess calories; K51.00 Ulcerative (chronic) pancolitis without complications; F41.1 Generalized anxiety disorder; R65.20 Severe sepsis without septic shock; I73.9 Peripheral vascular disease, unspecified; J20.9 Acute bronchitis, unspecified; E87.6 Hypokalemia; M48.50XA Collapsed vertebra, not elsewhere classified, site unspecified, initial encounter for fracture; B35.1 Tinea unguium; E87.3 Alkalosis; F32.9 Major depressive disorder, single episode, unspecified; I50.32 Chronic diastolic (congestive) heart failure; E24.2 Drug-induced Cushing's syndrome; T38.0X5A Adverse effect of glucocorticoids and synthetic analogues, initial encounter; Y92.89 Other specified places as the place of occurrence of the external cause; Z86.14 Personal history of Methicillin resistant Staphylococcus aureus infection; Z99.81 Dependence on supplemental oxygen; Z88.0 Allergy status to penicillin; Z88.1 Allergy status to other antibiotic agents; Z83.3 Family history of diabetes mellitus; Z82.49 Family history of ischemic heart disease and other diseases of the circulatory system; Z80.1 Family history of malignant neoplasm of trachea, bronchus and lung; Z82.3 Family history of stroke; Z79.899 Other long term (current) drug therapy; Z79.01 Long term (current) use of anticoagulants; Z68.41 Body mass index [BMI] 40.0-44.9, adult; J18.9 Pneumonia, unspecified organism

== ENCOUNTER 2019-09-08 11:22 | Inpatient (IN) | payer MEDICAID ==
[~2019-09-08] VITALS: Ht 167.6 cm; Wt 110.9 kg
[~2019-09-08 11:22] MED LIST changes: +TRAMADOL HCL50 MG PO
[2019-09-08 12:04] LABS: HEMATOCRIT 33.4 % (37.0-47.0); MEAN CORPUSCULAR HGB 23.7 pg (27.0-31.0); MEAN CORPUSCULAR HGB CONC 26.3 g/dl (33.0-37.0); MEAN PLATELET VOLUME 8.2 fl (9.6-12.3); NUCLEATED RED BLOOD CELL 0.2 10*3/uL (0.0-0.0); NUCLEATED RED BLOOD CELL 0.9 % (0.0-0.0); PLATELET COUNT AUTOMATED 209 10*3/uL (130-400); RED BLOOD COUNT 3.71 10*6/uL (4.10-5.10); RED CELL DISTRI WIDTH 21.9 % (0-14.5); WHITE BLOOD COUNT 16.7 10*3/uL (4.8-10.8)
[2019-09-08 12:16] LABS: ACT PARTIAL THROMBO TIME 24.4 SECONDS (20.0-32.1)
[2019-09-08 12:20] LABS: ALBUMIN 3.2 gm/dl (3.1-4.5); ALKALINE PHOSPHATASE 67 U/L (45-117); BUN 13 mg/dl (7-24); CHLORIDE 100 mmol/L (98-107); CREATININE 0.72 mg/dL (0.55-1.02); POTASSIUM 4.1 mmol/L (3.5-5.1); SGOT/AST 11 IU/L (3-35); SGPT/ALT 34 U/L (12-78); SODIUM 140 mmol/L (136-145); TOTAL PROTEIN 6.6 gm/dL (6.4-8.2)
[2019-09-08 12:30] LABS: TOTAL CELLS COUNTED 100 #CELLS
[2019-09-08 12:30] LABS: ARTERIAL BLOOD GAS PH 7.219 (7.35-7.45)
[2019-09-08 12:31] LABS: OVALOCYTES FEW; PLATELET SUFFICIENCY NORMAL (NORMAL); POLYCHROMASIA SLIGHT; STOMATOCYTE FEW
[2019-09-08 12:54] VITALS: BP 152/91
--- NOTE | 2019-09-08 13:23 | NUR ---
after futher discussions pt states that she wants everything done to her but intubation. states that she doesnt want to be ventilated.
--- NOTE | 2019-09-08 13:35 | NUR ---
hay notified report was faxed respiratory personal notified of room number and okay for pt to go to the floor with nrb 15l per dr and respiratory personal.
[2019-09-08 14:00] VITALS: BP 128/98; BP 153/75
--- NOTE | 2019-09-08 14:00 | NUR ---
A 59, admitted to 5E, under the services of ZOHRA Muñoz DO with a diagnosis of COPD EXACERBATION. Chief complaint is SHORTNESS OF BREATH. Patient arrived via stretcher from ER. Monitor applied. Initial assessment completed. Vital signs taken and recorded. ZOHRA MUÑOZ DO notified of admission to the unit. Orders received. See assessment for past medical history, medications and allergies. Patient and/or family oriented to unit. [facility] UNIT 5, ROOM 528 visitation policy reviewed. Clothing/patient valuable form completed. KEVIN FINNEGANN, RN
[2019-09-08 14:16] VITALS: BP 96/51
[2019-09-08 16:00] VITALS: BP 128/98
--- NOTE | 2019-09-08 17:39 | NUR ---
CALL PLACED TO NOTIFIED OF CONSULT ORDER RECEIVED FOR BIPAP 17/12 BACK UP OF 8 MAINT TAIN PULSE OX + OR > 92 AT NIGHT AND PRN
[2019-09-08 18:12] LABS: BILIRUBIN NEGATIVE (NEGATIVE); BLOOD 1+ (NEGATIVE); CLARITY SL CLOUDY (CLEAR); COLOR YELLOW (YELLOW); GLUCOSE NEGATIVE (NEGATIVE); KETONE NEGATIVE (NEGATIVE)
[2019-09-08 18:13] LABS: LEUKO ESTERASE NEGATIVE (NEGATIVE); NITRITE NEGATIVE (NEGATIVE); PH 6.5 (5.0-9.0); UROBILINOGEN 0.2 E.U./dl (0.2-1.0)
[2019-09-08 18:17] LABS: BACTERIA 1+; MUCOUS 2+
[2019-09-08 18:18] LABS: CALCIUM OXALATE CRYSTALS 1+
[2019-09-08 20:00] VITALS: BP 138/74
[2019-09-09] VITALS: BP 153/82
--- NOTE | 2019-09-09 05:51 | NUR ---
PATIENT MEDICATED WITH ULTRAM FOR COMPLAINTS OF GENERALIZED PAIN. WILL MONITOR FOR EFFECTIVENESS. CALL LIGHT IN REACH.
[2019-09-09 06:50] LABS: HEMATOCRIT 28.1 % (37.0-47.0); MEAN CELL VOLUME 89.5 fl (81.0-99.0); MEAN CORPUSCULAR HGB 23.6 pg (27.0-31.0); MEAN CORPUSCULAR HGB CONC 26.3 g/dl (33.0-37.0); MEAN PLATELET VOLUME 9.4 fl (9.6-12.3); NUCLEATED RED BLOOD CELL 0.1 10*3/uL (0.0-0.0); PLATELET COUNT AUTOMATED 205 10*3/uL (130-400); RED BLOOD COUNT 3.14 10*6/uL (4.10-5.10)
--- NOTE | 2019-09-09 07:00 | NUR ---
ARRIVED ON SHIFT, REPORT RECEIVED FROM OFFGOING NURSE, ASSUMED CARE OF PATIENT.
[2019-09-09 07:13] LABS: ALBUMIN 2.5 gm/dl (3.1-4.5); ALKALINE PHOSPHATASE 52 U/L (45-117); BUN 14 mg/dl (7-24); CHLORIDE 103 mmol/L (98-107); CHOLESTEROL 150 mg/dL (<200); CREATININE 0.59 mg/dL (0.55-1.02); HDL CHOLESTEROL 83 mg/dl (40-60); LDL CHOLESTEROL 54 mg/dL (9-159); POTASSIUM 3.8 mmol/L (3.5-5.1); SGOT/AST 7 IU/L (3-35); SGPT/ALT 25 U/L (12-78); SODIUM 142 mmol/L (136-145); TOTAL PROTEIN 5.4 gm/dL (6.4-8.2); TRIGLYCERIDES 64 mg/dl (<150); VLDL CHOLESTEROL 13 mg/dL (6-40)
[2019-09-09 07:18] LABS: THYROID STIM HORMONE (HS) 0.243 uIU/ml (0.358-4.75)
--- NOTE | 2019-09-09 07:27 | NUR ---
INTRODUCED SELF TO PATIENT, BED IN LOW POSITION, WHEEL LOCKS ENGAGED, SIDE RAILS UP X 2 FORNTURNING AND REPOSITIONING, BED ALARM ON, CALL LIGHT WITHIN REACH, BIPAP ON, NO NEEDS VOICED AT THIS TIME, WHITE BOARD UPDATED.
--- NOTE | 2019-09-09 07:30 | NUR ---
Shift chart check completed.
--- NOTE | 2019-09-09 07:45 | NUR ---
BIPAP OFF PT. PLACED ON 4L NC.
[2019-09-09 07:51] LABS: PLATELET SUFFICIENCY NORMAL (NORMAL); TOTAL CELLS COUNTED 100 #CELLS
[2019-09-09 07:52] LABS: POLYCHROMASIA SLIGHT
--- NOTE | 2019-09-09 07:58 | NUR ---
PHYSICAL THERAPY Screen received pt admitted with COPD exacerbation and pneumonia, please consult PT if pt has a decline in functional status from baseline,thank you. Veronica Hernandez PT
--- NOTE | 2019-09-09 09:46 | NUR ---
PATIENT C/O OF BACK PAIN 5/O MEDICATED WITH ULTAM ORDERED PRN, ALSO REQUESTED HER XANAX, WHICH WAS GIVEN, WHITE BOARD UPDATED.
--- NOTE | 2019-09-09 11:27 | NUR ---
PT. PLACED ON BIPAP.
[2019-09-09 12:00] VITALS: BP 139/87
--- NOTE | 2019-09-09 12:16 | NUR ---
Nursing screen received and chart reviewed. Patient admitted for COPD exacerbation, PNA, and sepsis. If patient has a decline in ADLs, transfers, or mobility, please send OT orders. Thank you. Ольга Blackwood, OTR/L
--- NOTE | 2019-09-09 12:53 | NUR ---
Color Specialist in to talk to patient. Patient states lives at HOME with . There are 1 steps in the home. Physician: BAKARI TENA Pharmacy: [facility] Home health services: NONE Patient's level of ADLs: INDEPENDENT Patient has working utilities: YES DME: OXYGEN, CPAP, WALKER. O2 COMPANY IS [employer] Follow-up physician's appointment after d/c: WILL BE MADE BY HOSPITALIST NURSE DIRECTOR ON DISCHARGE. Does patient want to access PORTAL?: NO Discharge plan PT LIVES AT HOME WITH HER . DENIES SHE WILL HAVE ANY NEEDS ON [place]. TALKED WITH PT ABOUT HOME HEALTH OR SNF STAY BUT SHE REFUSES BOTH. STATES SHE WILL RETURN HOME WHEN MEDICALLY STABLE. WILL CONTINUE TO FOLLOW. STATES HER WILL TAKE HER HOME.. VINH HASKINS
[2019-09-09 16:00] VITALS: BP 138/76
[2019-09-09 16:24] LABS: ABG BASE EXCESS 5.8 mmol/L (-2.0-2.0); ARTERIAL BLOOD GAS PH 7.323 (7.35-7.45)
--- NOTE | 2019-09-09 16:30 | NUR ---
ABG RESULTS CALLED TO DR ALFARO. TO/RB CHANGED BIPAP SETTINGS TO IPAP 24 EPAP 12 BR 12 FIO2 30%. REPEAT ABG IN 2HRS.
--- NOTE | 2019-09-09 16:33 | NUR ---
PT. OFF FLOOR FOR XRAY
--- NOTE | 2019-09-09 19:00 | NUR ---
PLACED PATIENT ON BIPAP 24/12, 30%. ABG IN 2 HOURS. RESTING COMFORTABLY
[2019-09-09 20:00] VITALS: BP 125/72
[2019-09-09 21:06] LABS: ABG BASE EXCESS 7.8 mmol/L (-2.0-2.0); ARTERIAL BLOOD GAS PH 7.36 (7.35-7.45)
--- NOTE | 2019-09-09 22:02 | NUR ---
PLACED PATIENT ON BIPAP
[2019-09-10] VITALS: BP 123/61
[2019-09-10 06:30] LABS: HEMATOCRIT 26.7 % (37.0-47.0); MEAN CELL VOLUME 89.6 fl (81.0-99.0); MEAN CORPUSCULAR HGB 23.8 pg (27.0-31.0); MEAN CORPUSCULAR HGB CONC 26.6 g/dl (33.0-37.0); MEAN PLATELET VOLUME 9.1 fl (9.6-12.3); NUCLEATED RED BLOOD CELL 0.1 10*3/uL (0.0-0.0); NUCLEATED RED BLOOD CELL 0.5 % (0.0-0.0); PLATELET COUNT AUTOMATED 177 10*3/uL (130-400); RED BLOOD COUNT 2.98 10*6/uL (4.10-5.10); RED CELL DISTRI WIDTH 21.2 % (0-14.5)
[2019-09-10 06:45] LABS: BUN 21 mg/dl (7-24); CHLORIDE 105 mmol/L (98-107); CREATININE 0.69 mg/dL (0.55-1.02); POTASSIUM 3.6 mmol/L (3.5-5.1); SODIUM 143 mmol/L (136-145)
[2019-09-10 07:23] LABS: OVALOCYTES FEW; PLATELET SUFFICIENCY NORMAL (NORMAL); TOTAL CELLS COUNTED 100 #CELLS
[2019-09-10 07:41] LABS: ABG BASE EXCESS 7.7 mmol/L (-2.0-2.0); ARTERIAL BLOOD GAS PH 7.345 (7.35-7.45)
[2019-09-10 08:00] VITALS: BP 149/85
--- NOTE | 2019-09-10 08:55 | NUR ---
PATIENT REQUESTED TO COME OFF OF BIPAP. PATIENT PLACED ON 5L/M NC.
--- NOTE | 2019-09-10 09:38 | NUR ---
PT REQUESTED AND WAS MEDICATED WITH XANAX FOR C/O ANXIETY. CALL PRETTY MELISSA. WILL MONITOR
--- NOTE | 2019-09-10 09:39 | NUR ---
PT REQUESTED AND WAS MEDICATED WITH ULTRAM FOR C/O GENERALIZED PAIN. WILL MONITOR
--- NOTE | 2019-09-10 10:30 | NUR ---
MEDICATIONS EFFECTIVE PER PT. WILL MONITOR.
--- NOTE | 2019-09-10 10:53 | NUR ---
Admitted for COPD with exacerbation Acute and Chronic respiration History of COPD Vital Signs: BP: 149/85 HR: 100 O2: 100 NC Temp: 97.9 RP: 18 IV: placed 09/08/2019, right wrist Oriented x4 Activity: up and moving Resp: O2 @4 L NC, breath sounds clear, non-productive cough Cardiovascular: 3+ pitting edema in left leg and both feet GI: regular diet Last BM: yesterday Musculoskeletal: some weakness reported in both lower extremities Skin: bruising on the top of left foot, left leg warmer to the teach compared to the right Pain: rated 10 on a scale of 1-10 located in patients back, was given a Xanax Passed meds with the nurse Patience little student /nissa eubanks
--- NOTE | 2019-09-10 10:55 | NUR ---
PATIENT PLACED BACK ON BIPAP 22/02 30%.
[2019-09-10 12:00] VITALS: BP 142/80
--- NOTE | 2019-09-10 14:10 | NUR ---
PATIENT TAKEN OFF OF BI-PAP, PLACED ON 5 L/M.
--- NOTE | 2019-09-10 15:15 | NUR ---
PT REQUESTED AND WAS MEDICATED WITH MORPHINE IV FOR C/O GENERALIZED PAIN. CALL LIGHT IN REACH. WILL MONITOR
--- NOTE | 2019-09-10 15:35 | NUR ---
PATIENT CURRENTLY OFF BIPAP, ON 5 L/M VIA NC SPO2 98%, HR 94.
[2019-09-10 16:00] VITALS: BP 139/73
--- NOTE | 2019-09-10 16:00 | NUR ---
MEDICATION EFFECTIVE PER PT. WILL MONITOR
--- NOTE | 2019-09-10 17:43 | NUR ---
PATIENT PLACED BACK ON BIPAP / 30% SPO2 97% HR 85.
--- NOTE | 2019-09-10 18:23 | NUR ---
Gave report to the nurse Patience that 1800 meds. were passed Brooke Drummond/nissa eubanks
[2019-09-10 20:00] VITALS: BP 140/80
--- NOTE | 2019-09-10 22:05 | NUR ---
PATIENT C/O DISCOMFORT AND FEELING A LITTLE ANXIOURS AND ULTRAM AND XANAX GIVEN PER ORDER. SEE MAR.
--- NOTE | 2019-09-10 23:11 | NUR ---
PT. C/O BURNING FROM AREA ON MID CHEST LINE. PT. SAID THE SKIN WAS PULLED OFF WITH ONE OF THE HEART MONITOR PADS. WHEN ASKED WHEN THIS HAPPEND SHE SAID DAY OR TWO AGO PATIENT COULDN'T REMEMBER AND PATIENT STATED "I NEVER TOLD ANYONE ABOUT IT WHEN IT HAPPEND." AREA IS RED WITH SCABBING NOTED IS SOME AREAS AND ALSO CRUSTY WHITE AREAS OVER REDNESS. CALLED DR. GARCIA AND NOTIFIED HER OF THIS AND ORDER RECEIVED.
[2019-09-11] VITALS: BP 123/78
--- NOTE | 2019-09-11 02:00 | NUR ---
SLEEPING NOT DISTRESS NOTED. BIPAP CONTINUES.
--- NOTE | 2019-09-11 03:03 | NUR ---
CHANGED BATTERY IN CONT. PULSE OX/CLINICAL INFORMATICS SPEC. AWAKEND BRIEFLY AND WENT BACK TO SLEEP. BIPAP CONTINUES. NO ACUTE DISTRESS NOTED.
--- NOTE | 2019-09-11 03:21 | NUR ---
24 HR chart check completed.
[2019-09-11 08:00] VITALS: BP 124/61
--- NOTE | 2019-09-11 09:56 | NUR ---
PT. TAKEN OFF BIPAP AT 0945 AND PLACED ON NC AT 5L.
--- NOTE | 2019-09-11 10:39 | NUR ---
PT REQUESTED AND WAS MEDICATED WITH ULTRAM FOR C/O GENERALIZED PAIN AND XANAX FOR C/O ANXIETY. CALL LIGHT IN REACH. WILL MONITOR
--- NOTE | 2019-09-11 11:30 | NUR ---
MEDICATIONS EFFECTIVE PER PT. CALL LIGHT IN REACH. WILL MONITOR
[2019-09-11 12:00] VITALS: BP 129/77
[2019-09-11 16:00] VITALS: BP 144/84
--- NOTE | 2019-09-11 16:15 | NUR ---
PT. TAKEN OFF BIPAP ON NC 5 LITERS.
[2019-09-11 20:00] VITALS: BP 141/66
[2019-09-12] VITALS: BP 94/46
[2019-09-12 08:00] VITALS: BP 145/71
--- NOTE | 2019-09-12 08:05 | NUR ---
PT. TAKEN OFF BIPAP AND PLACED ON 4L NC
--- NOTE | 2019-09-12 08:12 | NUR ---
PHYSICAL THERAPY Screen received pt admitted from home with COPD exacerbation and CHF. Please consult PT if pt has a decline in functional status from baseline, thank you. Veronica Hernandez PT
--- NOTE | 2019-09-12 08:24 | NUR ---
Nursing screen received and chart reviewed. Patient admitted from home for COPD exacerbation, acute on chronic respiratory failure with hypercapnia, and sepsis. Patient recently discharged from [facility] for COPD exacerbation and respiratory failure. If patient has a decline in ADLs, transfers, or functional mobility, send OT orders. Thank you. Ольга Blackwood, OTR/L
--- NOTE | 2019-09-12 08:32 | NUR ---
PT REQUESTED AND WAS MEDICATED WITH XANAX FOR C/O ANXIETY AND MORPHINE IV FOR C./O GENERALIZED PIAN. CALL LIGHT IN REACH. WILL MONITOR
--- NOTE | 2019-09-12 08:46 | NUR ---
ANGIE VERDUZCO [id number] Please refer to the physician's history and physical for past medical history, comorbid conditions, and allergies. Diagnosis: COPD WITH EXACERBATION ACUTE AND CHRONIC RESPIRATO Sinan Score: 17,AT RISK WOUND DESCRIPTIONS: Surface the patient is resting on: Isoflex SKIN PREVENTION RECOMMENDATION: 1. Pressure redistribution support surface as appropriateThis nurse along with with Christen Yin RN evaluated patient for skin impairments. Wound Number: 1 Location of the wound: mid sternum/ chest Thickness: Full ( medical service technician from monitor lead sticker ) Size: 1.0cm x 3.0cm x 0.1cm Tunneling: none Undermining: none Sinus Tract: none Presence of Exudate: none Amount: none Color: Red, yellow Odor: None Periwound Skin Appearance: Normal Wound edges: approximated Pain (associated with wound): none at time of assessment How does patient state this happened? pt states this was from where the cardiac leads came off and took her skin with it 2. Elevate heels 3. Remove boots/TEDS every shift and reapply 4. Head of bed 30 degrees as tolerated 5. Assess nutrition and hydration 6. Manage moisture 7. Avoid the use of containment devices while in bed 8. Use absorptive products on surfaces limit layers of linens on bed 9. Turn and reposition every 1-2 hours in bed and every 1 hour in chair as tolerated 10. Weight shifts every 15 minutes while up in chair 11. Offloading with pillows or device to keep heels elevated off bed 12. Monitor skin at least every shift 13. Inspect under medical devices twice a day WOUND TREATMENT RECOMMENDATIONS: Continue aquaphor ointment bid to mid sternum/ chest per patient request states it is helping Patient states she will care for the area upon discharge and doesn't wish to follow up in an outpatient center at this time.
--- NOTE | 2019-09-12 09:20 | NUR ---
Dr. Prince notified of wound care recommendations.
--- NOTE | 2019-09-12 09:30 | NUR ---
MEDICATIONS EFFECTIVE PER PT. CALL LIGHT IN REACH. WILL MONITOR
--- NOTE | 2019-09-12 11:40 | NUR ---
PT. PLACED ON BIPAP TO REST.
--- NOTE | 2019-09-12 11:58 | NUR ---
PT REQUESTED AND WAS MEDICATED WITH XANAX FOR C/O ANXIETY AND MORPHINE IV FOR C/O GENERALIZED PAIN. CALL LIGHT IN REACH. WILL MONITOR
[2019-09-12 12:00] VITALS: BP 130/73
[2019-09-12 16:00] VITALS: BP 129/74
--- NOTE | 2019-09-12 16:06 | NUR ---
PT REQUESTED AND WAS MEDICATED WITH TYLENOL FOR C/O HEADACHE. CALL LIGHT IN REACH. WILL MONITOR
--- NOTE | 2019-09-12 16:46 | NUR ---
PLACED PATIENT ON BIPAP PER REQUEST
--- NOTE | 2019-09-12 17:00 | NUR ---
MEDICATION EFFECTIVE. WILL MONITOR
[2019-09-12 20:00] VITALS: BP 138/73
--- NOTE | 2019-09-12 20:47 | NUR ---
TYLENOL GIVEN PER REQUEST FOR C/O HEADACHE. WILL MONITOR.
--- NOTE | 2019-09-12 21:47 | NUR ---
TYLENOL EFFECTIVE PER PT. WEARING BIPAP. SPO2 96%
[2019-09-13] VITALS: BP 141/64
--- NOTE | 2019-09-13 06:56 | NUR ---
XANAX GIVEN PER PT HAVING ANXIETY.
--- NOTE | 2019-09-13 07:34 | NUR ---
PT. TAKEN OFF BIPAP AND PLACED ON 4L NC.
--- NOTE | 2019-09-13 07:36 | NUR ---
MORPHINE GIVEN PER PT REQUEST FOR 1010 BACK PAIN. CALL LIGHT IN [facility]
[2019-09-13 07:39] LABS: ALBUMIN 2.9 gm/dl (3.1-4.5); ALKALINE PHOSPHATASE 58 U/L (45-117); BUN 18 mg/dl (7-24); CHLORIDE 101 mmol/L (98-107); CREATININE 0.63 mg/dL (0.55-1.02); POTASSIUM 3.3 mmol/L (3.5-5.1); SGOT/AST 14 IU/L (3-35); SGPT/ALT 31 U/L (12-78); SODIUM 142 mmol/L (136-145); TOTAL PROTEIN 5.8 gm/dL (6.4-8.2)
[2019-09-13 08:00] VITALS: BP 129/77
--- NOTE | 2019-09-13 08:39 | NUR ---
K-DUR TO BE GIVEN AT A LATER TIME. PT NPO AT THIS TIME.
--- NOTE | 2019-09-13 11:27 | NUR ---
PLACED PT ON BIPAP TO REST. AEROSOL TREATMENT GIVEN IN LINE. TOLERATING WELL.
--- NOTE | 2019-09-13 11:42 | NUR ---
PT STATES SHE WILL RETURN HOME WHEN MEDICALLY STABLE. CONTINUES TO DENY NEEDS. REFUSES HOME HEALTH
[2019-09-13 13:00] VITALS: BP 113/69
[2019-09-13 16:00] VITALS: BP 150/71
--- NOTE | 2019-09-13 16:56 | NUR ---
XANAX GIVEN FOR C/O OF ANXIETY, ULTRAM GIVING FOR C/O GENERALIZED DISCOMFORT. WILL MONITOR.
--- NOTE | 2019-09-13 18:03 | NUR ---
XANAX AND ULTRAM EFFECTIVE PER PT.
[2019-09-13 20:00] VITALS: BP 144/82
[2019-09-14] VITALS: BP 131/80
[2019-09-14 06:17] LABS: HEMATOCRIT 29.7 % (37.0-47.0); MEAN CELL VOLUME 88.9 fl (81.0-99.0); MEAN CORPUSCULAR HGB 23.7 pg (27.0-31.0); MEAN CORPUSCULAR HGB CONC 26.6 g/dl (33.0-37.0); MEAN PLATELET VOLUME 9.3 fl (9.6-12.3); NUCLEATED RED BLOOD CELL 0.1 10*3/uL (0.0-0.0); NUCLEATED RED BLOOD CELL 0.4 % (0.0-0.0); PLATELET COUNT AUTOMATED 183 10*3/uL (130-400); RED BLOOD COUNT 3.34 10*6/uL (4.10-5.10); RED CELL DISTRI WIDTH 21.2 % (0-14.5); WHITE BLOOD COUNT 12.4 10*3/uL (4.8-10.8)
[2019-09-14 06:28] LABS: ALBUMIN 2.8 gm/dl (3.1-4.5); BUN 15 mg/dl (7-24); CHLORIDE 103 mmol/L (98-107); CREATININE 0.58 mg/dL (0.55-1.02); POTASSIUM 3.2 mmol/L (3.5-5.1); SGOT/AST 12 IU/L (3-35); SGPT/ALT 30 U/L (12-78); SODIUM 143 mmol/L (136-145)
[2019-09-14 06:29] LABS: ALKALINE PHOSPHATASE 60 U/L (45-117); TOTAL PROTEIN 6.1 gm/dL (6.4-8.2)
--- NOTE | 2019-09-14 06:39 | NUR ---
DR. PABON NOTIFIED OF CRITICAL CO2 OF 43.
[2019-09-14 07:54] LABS: TOTAL CELLS COUNTED 100 #CELLS
[2019-09-14 07:55] LABS: PLATELET SUFFICIENCY NORMAL (NORMAL); POLYCHROMASIA SLIGHT
[2019-09-14 08:00] VITALS: BP 130/81
--- NOTE | 2019-09-14 09:33 | NUR ---
XANAX GIVEN FOR C/O ANXIETY. ULTRAM GIVEN FOR C/O BACK PAIN, RATES10/10 ON PAIN SCALE. WILL MONITOR.
[2019-09-14 12:00] VITALS: BP 143/81
--- NOTE | 2019-09-14 14:02 | NUR ---
PT CONTINUES TO DENY NEEDS AT HOME. STATES SHE HAS HOME O2 AND CPAP. REFUSES HOME HEALTH. WILL CONTINUE TO FOLLOW.
[2019-09-14 16:00] VITALS: BP 136/73
[2019-09-14 20:00] VITALS: BP 138/77
--- NOTE | 2019-09-14 20:25 | NUR ---
PATIENT MEDICATED WITH ULTRAM FOR COMPLAINTS OF PAIN AND XANAX FOR COMPLAINTS OF ANXIETY. WILL MONITOR FOR EFFECTIVENESS.
--- NOTE | 2019-09-14 21:15 | NUR ---
Pt placed on BiPap 24/12 and FiO2 30%. SpO2 100% Alarms on and audible.
--- NOTE | 2019-09-14 22:00 | NUR ---
ULTRAM AND XANAX EFFECTIVE AT THIS TIME. PATIENT IN BED ON BIPAP SLEEPING AT THIS TIME. NO SIGNS OR SYMPTOMS OF DISTRESS NOTED. CALL LIGHT IN REACH.
[2019-09-15] VITALS: BP 135/60
[2019-09-15 06:56] LABS: HEMATOCRIT 30.6 % (37.0-47.0); MEAN CELL VOLUME 90.5 fl (81.0-99.0); MEAN CORPUSCULAR HGB 23.7 pg (27.0-31.0); MEAN CORPUSCULAR HGB CONC 26.1 g/dl (33.0-37.0); MEAN PLATELET VOLUME 8.9 fl (9.6-12.3); NUCLEATED RED BLOOD CELL 0.1 10*3/uL (0.0-0.0); NUCLEATED RED BLOOD CELL 0.5 % (0.0-0.0); PLATELET COUNT AUTOMATED 191 10*3/uL (130-400); RED BLOOD COUNT 3.38 10*6/uL (4.10-5.10); WHITE BLOOD COUNT 13.1 10*3/uL (4.8-10.8)
[2019-09-15 07:53] LABS: PLATELET SUFFICIENCY NORMAL (NORMAL); TOTAL CELLS COUNTED 100 #CELLS
[2019-09-15 07:54] LABS: POLYCHROMASIA SLIGHT
[2019-09-15 08:00] VITALS: BP 139/68
--- NOTE | 2019-09-15 08:29 | NUR ---
PRN TYLENOL AND XANAX CONSIDERED EFFECTIVE. PT IS ASLEEP.
--- NOTE | 2019-09-15 08:29 | NUR ---
PT COMPLAINS OF A HEAD ACHE RATED AT A 20 ON A 1-10 PAIN SCALE. PRN TYLENOL ADMINISTERED AT THIS TIME. PT REPOSITIONED IN THE BED, PILLOWS ADJUSTED AND LIGHT TURNED OFF FOR COMFORT MEASURES. WILL MONITOR FOR EFFECTIVENESS.
--- NOTE | 2019-09-15 08:30 | NUR ---
PT IS ANXIOUS AND EXPERIENCING PAIN FROM A HEADACHE. PT MOANING. PRN XANAX ADMINSTERED AT THIS TIME. WILL MONITOR FOR EFFECTIVENESS.
[2019-09-15 09:45] LABS: ABG BASE EXCESS 8.4 mmol/L (-2.0-2.0); ARTERIAL BLOOD GAS PH 7.287 (7.35-7.45)
--- NOTE | 2019-09-15 09:46 | NUR ---
SUPERVISOR CIGARETTE MAKING DEPARTMENT FAXED REFERRAL TO [facility]. WILL NEED PT/OT EVALS TO COMPLETE REFERRAL AND TO COMPLETE LEVEL OF CARE.
[2019-09-15 12:00] VITALS: BP 135/84
[2019-09-15 12:21] LABS: ARTERIAL BLOOD GAS PH 7.322 (7.35-7.45)
--- NOTE | 2019-09-15 13:15 | NUR ---
PHYSICAL THERAPY Attempted to see pt at the bedside for evaluation however respiratory therapist in with patient. Pt just place back on BIPAP and needs to be on for an hour with f/u ABG's. Will follow at a later date. Veronica Hernandez PT
--- NOTE | 2019-09-15 13:17 | NUR ---
OT NOTE Occupational therapy order received and chart reviewed. Attempted to see patient this PM however she is currently on Bipap. Will check back at a later date for completion of an OT eval. Thank you. Ольга Blackwood, OTR/L
[2019-09-15 13:33] LABS: ALKALINE PHOSPHATASE 66 U/L (45-117); BUN 15 mg/dl (7-24); CHLORIDE 100 mmol/L (98-107); CREATININE 0.76 mg/dL (0.55-1.02); POTASSIUM 3.6 mmol/L (3.5-5.1); SGOT/AST 6 IU/L (3-35); SGPT/ALT 31 U/L (12-78); SODIUM 141 mmol/L (136-145); TOTAL PROTEIN 6.5 gm/dL (6.4-8.2)
--- NOTE | 2019-09-15 14:30 | NUR ---
PATIENT TAKEN OFF OF BI-PAP, PLACED ON 4 L/M.
[2019-09-15 14:32] LABS: ABG BASE EXCESS 12.7 mmol/L (-2.0-2.0); ARTERIAL BLOOD GAS PH 7.39 (7.35-7.45)
--- NOTE | 2019-09-15 14:37 | NUR ---
PT HAS DECIDED TO GO TO REHAB. COVID TEST ORDERED. [facility]FERRED TO [facility].
--- NOTE | 2019-09-15 14:41 | NUR ---
PT COMPLAINS OF A HEADACHE. PRN ULTRAM ADMINISTERED. WILL MONITOR FOR EFFECTIVENESS.
--- NOTE | 2019-09-15 15:41 | NUR ---
PT ASLEEP WITH BIPAP INTACT. ULTRAM CONSIDERED EFFECTIVE.
[2019-09-15 16:00] VITALS: BP 123/78
[2019-09-15 20:00] VITALS: BP 130/78
--- NOTE | 2019-09-15 20:00 | NUR ---
PATIENT ON BIPAP. TRANSFER TO BSC WITH EASE. WILL CONT TO MONITOR.
[2019-09-16] VITALS: BP 134/83
--- NOTE | 2019-09-16 02:00 | NUR ---
PATIENT RESTING ON LT SIDE, TOLERATING BIPAP. SPO2 95% CALL LIGHT IN REACH
[2019-09-16 07:20] LABS: ALBUMIN 2.8 gm/dl (3.1-4.5); BUN 17 mg/dl (7-24); CHLORIDE 100 mmol/L (98-107); POTASSIUM 3.5 mmol/L (3.5-5.1); SGOT/AST 10 IU/L (3-35); SGPT/ALT 28 U/L (12-78); SODIUM 140 mmol/L (136-145)
[2019-09-16 07:23] LABS: ALKALINE PHOSPHATASE 62 U/L (45-117); CREATININE 0.62 mg/dL (0.55-1.02); TOTAL PROTEIN 6.2 gm/dL (6.4-8.2)
[2019-09-16 08:00] VITALS: BP 154/88
--- NOTE | 2019-09-16 08:02 | NUR ---
PT. OFF BIPAP PLACED ON 4L NC.
--- NOTE | 2019-09-16 08:05 | NUR ---
Occupational Therapy evaluation completed on five with full evaluation to follow. Recommend occupational therapy per plan of care and SNF upon discharge. Thank you for this referral. Ольга BlackwoodOTR/L
--- NOTE | 2019-09-16 08:15 | NUR ---
Physical Therapy evaluation completed on 5th floor with full evaluation to follow. Recommend physical therapy per plan of care and SNF upon discharge. Thank you for this referral. Veronica Hernandez PT
--- NOTE | 2019-09-16 08:22 | NUR ---
IS TECHNICIAN SPOKE THIS MORNING WITH [employer]OAVOT. PT/OT TO SEE PATIENT TODAY. WILL NEED THE EVALS TO COMPLETE LEVEL OF CARE FOR PATIENT TO ADMIT TO [facility]. PATIENT WAS ACCEPTED TO [facility].
--- NOTE | 2019-09-16 09:38 | NUR ---
PATIENT COMPLAINS OF BACK PAIN AND ANXIETY AND REQUESTED XANAX AND ULTRAM, UNABLE TO RATE. MEDICATED ORDERED. WILL MONITOR EFFECTS. JEFERSON LANIER OVCT
--- NOTE | 2019-09-16 10:05 | NUR ---
DATA RECOVERY PLANNER [facility]ED [facility] WILL NEED PT/OT EVALS TO COMPLETE REFERRAL AND TO COMPLETE LEVEL OF CARE. NOTE DATE:09/15/2019. UNDER ADVOCATE NOTE
--- NOTE | 2019-09-16 10:30 | NUR ---
PT. PLACED ON BIPAP
--- NOTE | 2019-09-16 10:57 | NUR ---
RISK ENGINEER COMPLETED LEVEL OF CARE AND FAXED IT TO [facility] FOR REVIEW. RISK ENGINEER COMPLETED HENS.
[2019-09-16 12:00] VITALS: BP 136/78
--- NOTE | 2019-09-16 12:20 | NUR ---
DUE TO SOB, [facility] IS REQUESTING COVID RESULTS BEFORE PLACEMENT.
--- NOTE | 2019-09-16 14:30 | NUR ---
TAKEN OFF OF BIPAP FOR LUNCH AT THIS TIME.
[2019-09-16 16:00] VITALS: BP 142/87
--- NOTE | 2019-09-16 16:37 | NUR ---
PT. PLACED BACK ON BIPAP
--- NOTE | 2019-09-16 17:34 | NUR ---
XANAX GIVEN FOR C/O ANXIETY. WILLL MONITOR. CALL LIGHT WITHIN REACH.
--- NOTE | 2019-09-16 18:06 | NUR ---
PER PT, XANAX WAS EFFECTIVE. CALL LIGHT IN REACH. BIPAP AT BEDSIDE. 4L NC IN PLACE FOR DINNER.
--- NOTE | 2019-09-16 18:31 | NUR ---
TAKEN OFF OF BIPAP FOR DINNER. CALL LIGHT IN REACH.
--- NOTE | 2019-09-16 19:20 | NUR ---
PT PLACED BACK ON BIPAP
--- NOTE | 2019-09-16 19:39 | NUR ---
PT ON BIPAP AT THIS TIME AND STATES NO COMPLAINTS. CALL LIGHT IS WITHIN REACH. ASSESSMENT COMPLETE WITH NO INCIDENT. WILL CONTINUE TO MONITOR
[2019-09-16 20:00] VITALS: BP 143/75
[2019-09-17] VITALS: BP 122/63
--- NOTE | 2019-09-17 04:22 | NUR ---
24 HR chart check completed.
--- NOTE | 2019-09-17 04:50 | NUR ---
Patient sleeping. Respirations relaxed and easy, BIPAP ON. CALL LIGHT WITHIN REACH. BED LOCKED LOWEST POSITION DONNA CAUSEY
[2019-09-17 07:05] LABS: ALBUMIN 2.7 gm/dl (3.1-4.5); ALKALINE PHOSPHATASE 59 U/L (45-117); BUN 26 mg/dl (7-24); CHLORIDE 102 mmol/L (98-107); CREATININE 0.71 mg/dL (0.55-1.02); POTASSIUM 3.6 mmol/L (3.5-5.1); SGOT/AST 9 IU/L (3-35); SGPT/ALT 26 U/L (12-78); SODIUM 140 mmol/L (136-145)
--- NOTE | 2019-09-17 07:59 | NUR ---
Shift chart check completed.
[2019-09-17 08:00] VITALS: BP 139/83
--- NOTE | 2019-09-17 10:46 | NUR ---
PT COMPLAIN OF BACK PAIN 10/10, AND STATES ANXIETY. PRN TRAMADOL AND XANAX GIVEN, WILL MONITOR FOR EFFECTIVENESS
--- NOTE | 2019-09-17 11:41 | NUR ---
COMPLAIN OF HEADAHCE, TYLENOL GIVEN. PT STATE XANAX AND ULTRAM EFFECTIVE
--- NOTE | 2019-09-17 11:44 | NUR ---
PLACED PT ON BIPAP, SPO2 96%, HR 108, RR20
[2019-09-17 12:00] VITALS: BP 122/64
--- NOTE | 2019-09-17 14:45 | NUR ---
TOOK PT OFF BIPAP BY REQUEST OF RN
--- NOTE | 2019-09-17 15:38 | NUR ---
PT NOT ON BIPAP AT THIS TIME
[2019-09-17 16:00] VITALS: BP 139/82
--- NOTE | 2019-09-17 17:11 | NUR ---
PT COMPLAIN OF BACK PAIN, TRAMADOL GIVEN. WILL MONITOR FOR EFFECTIVENESS
--- NOTE | 2019-09-17 19:38 | NUR ---
ASSESSMENT COMPLETE WITH NO INCIDENCE. PT IS PLACED ON HER BIPAP AND HAS HER CONTINUOUS PULSE OX ON. CALL LIGHT IS NEAR THE PATIENT. SHE STATES SHE DOES NOT NEED ANYTHING AT THIS TIME, WILL CONTINUE TO MONITOR
[2019-09-17 20:00] VITALS: BP 139/74
[2019-09-18] VITALS: BP 129/65
--- NOTE | 2019-09-18 02:04 | NUR ---
24 HR chart check completed.
--- NOTE | 2019-09-18 04:15 | NUR ---
Patient sleeping. Respirations relaxed and easy. WHEELS LOCKED DONNA CAUSEY
[2019-09-18 06:22] LABS: HEMATOCRIT 26.9 % (37.0-47.0); MEAN CELL VOLUME 87.1 fl (81.0-99.0); MEAN CORPUSCULAR HGB 23.6 pg (27.0-31.0); MEAN CORPUSCULAR HGB CONC 27.1 g/dl (33.0-37.0); MEAN PLATELET VOLUME 9.1 fl (9.6-12.3); NUCLEATED RED BLOOD CELL 0.1 10*3/uL (0.0-0.0); NUCLEATED RED BLOOD CELL 0.6 % (0.0-0.0); PLATELET COUNT AUTOMATED 254 10*3/uL (130-400); RED BLOOD COUNT 3.09 10*6/uL (4.10-5.10); RED CELL DISTRI WIDTH 20.7 % (0-14.5); WHITE BLOOD COUNT 12.5 10*3/uL (4.8-10.8)
[2019-09-18 06:51] LABS: ALBUMIN 2.7 gm/dl (3.1-4.5); ALKALINE PHOSPHATASE 61 U/L (45-117); BUN 26 mg/dl (7-24); CHLORIDE 101 mmol/L (98-107); CREATININE 0.69 mg/dL (0.55-1.02); POTASSIUM 3.5 mmol/L (3.5-5.1); SGOT/AST 9 IU/L (3-35); SGPT/ALT 28 U/L (12-78); SODIUM 139 mmol/L (136-145); TOTAL PROTEIN 5.9 gm/dL (6.4-8.2)
[2019-09-18 07:05] LABS: OVALOCYTES FEW; PLATELET SUFFICIENCY NORMAL (NORMAL); POLYCHROMASIA SLIGHT; SCHISTOCYTES FEW; TOTAL CELLS COUNTED 100 #CELLS
[2019-09-18 08:00] VITALS: BP 143/80
--- NOTE | 2019-09-18 08:00 | NUR ---
07:55 PT TAKEN OFF OF BIPAP PLACED ON 4 L NC. PT HAD BEEN ON BIPAP T/O THE NIGHT. RESPS REGULAR AND UNLABORED.
--- NOTE | 2019-09-18 08:28 | NUR ---
PT SITTING ON BEDSIDE. DYSPNEA NOTED AT REST. O2 IN USE VIA NC. BIPAP ON/OFF TOLERATED. EDEMA NOTED TO BLE. AREAS OF PURPLE NOTED TO BILATERAL FEET. PT REQUESTED AND WAS MEDICATED WITH XANAX FOR C/O ANXIETY AND ULTRAM FOR C/O BACK PAIN. CALL LIGHT IN REACH. WILL MONITOR.
--- NOTE | 2019-09-18 09:15 | NUR ---
MEDICATIONS EFFECTIVE PER PT. CALL LIGHT IN REACH. WILL MONITOR
[2019-09-18 12:00] VITALS: BP 127/74
--- NOTE | 2019-09-18 12:16 | NUR ---
11:30 PT PLACED ON BIPAP PER HER REQUEST. RESPS REGULAR AND UNLABORED. SYSTEM CHECKED AND FX'ING
--- NOTE | 2019-09-18 14:58 | NUR ---
Patient sleeping with bipap in use. Respirations easy and regular. No overt distress. Call light in reach. Will monitor SHERRILL BETANCOURT
[2019-09-18 16:00] VITALS: BP 141/78
--- NOTE | 2019-09-18 19:34 | NUR ---
ASSESSMENT COMPLETE AT THIS TIME. PT IS RESTING IN HER BED WITH HER BIPAP ON. SHE IS MADE AWARE OF NEGATIVE COVID TEST AND THAT SHE WILL CONTINUE CARE HERE UNTIL SHE IS DISCHARGED AND ABLE TO GO TO [facility]. CALL LIGHT NEAR THE PATIENT. CONTINUOUS PULSE OX ON. WILL CONTINUE TO ORDER
[2019-09-18 20:00] VITALS: BP 128/76
--- NOTE | 2019-09-18 20:15 | NUR ---
CALLED DR GARCIA TO LET HER KNOW THAT THE PATIENT HAS NO IV ACCESS AND DOES NOT WANT TO BE STUCK AGAIN BECAUSE SHE IS LEAVING TOMORROW TO GO TO A [facility].
[2019-09-19] VITALS: BP 125/86
--- NOTE | 2019-09-19 03:45 | NUR ---
24 HR chart check completed.
--- NOTE | 2019-09-19 06:54 | NUR ---
ANGIE VERDUZCO [id number] Please refer to the physician's history and physical for past medical history, comorbid conditions, and allergies. Diagnosis: COPD WITH EXACERBATION ACUTE AND CHRONIC RESPIRATO Sinan Score: 17,AT RISK WOUND DESCRIPTIONS: Wound Number: 1 Location of the wound: mid sternum/ chest Thickness: Full ( curator medical museum from monitor lead sticker ) Size: 1.0cm x 1.5cm x 0.1cm Tunneling: none Undermining: none Sinus Tract: none Presence of Exudate: none Amount: none Color: Red, yellow Odor: None Periwound Skin Appearance: Normal Wound edges: approximated Pain (associated with wound): none at time of assessment How does patient state this happened? pt states this was from where the cardiac leads came off and took her skin with it Surface the patient is resting on: Isoflex SKIN PREVENTION RECOMMENDATION: 1. Pressure redistribution support surface as appropriate 2. Elevate heels 3. Remove boots/TEDS every shift and reapply 4. Head of bed 30 degrees as tolerated 5. Assess nutrition and hydration 6. Manage moisture 7. Avoid the use of containment devices while in bed 8. Use absorptive products on surfaces limit layers of linens on bed 9. Turn and reposition every 1-2 hours in bed and every 1 hour in chair as tolerated 10. Weight shifts every 15 minutes while up in chair 11. Offloading with pillows or device to keep heels elevated off bed 12. Monitor skin at least every shift 13. Inspect under medical devices twice a day WOUND TREATMENT RECOMMENDATIONS: Continue aquaphor ointment bid to mid sternum/ chest per patient request states it is helping Patient states she will care for the area upon discharge and doesn't wish to follow up in an outpatient center at this time.
--- NOTE | 2019-09-19 07:16 | NUR ---
PATIENTS COVID RESULT IS BACK. PATIENT CAN ADMIT TO [facility] TODAY.
[2019-09-19 07:19] LABS: HEMATOCRIT 26.3 % (37.0-47.0); MEAN CELL VOLUME 88.9 fl (81.0-99.0); MEAN CORPUSCULAR HGB 23.6 pg (27.0-31.0); MEAN CORPUSCULAR HGB CONC 26.6 g/dl (33.0-37.0); MEAN PLATELET VOLUME 9.4 fl (9.6-12.3); NUCLEATED RED BLOOD CELL 0.1 10*3/uL (0.0-0.0); NUCLEATED RED BLOOD CELL 0.8 % (0.0-0.0); PLATELET COUNT AUTOMATED 232 10*3/uL (130-400); RED BLOOD COUNT 2.96 10*6/uL (4.10-5.10); RED CELL DISTRI WIDTH 20.3 % (0-14.5); WHITE BLOOD COUNT 12.2 10*3/uL (4.8-10.8)
[2019-09-19 07:40] LABS: ALBUMIN 2.7 gm/dl (3.1-4.5); ALKALINE PHOSPHATASE 53 U/L (45-117); BUN 23 mg/dl (7-24); CHLORIDE 106 mmol/L (98-107); CREATININE 0.63 mg/dL (0.55-1.02); POTASSIUM 3.7 mmol/L (3.5-5.1); SGOT/AST 11 IU/L (3-35); SGPT/ALT 34 U/L (12-78); SODIUM 142 mmol/L (136-145); TOTAL PROTEIN 5.6 gm/dL (6.4-8.2)
[2019-09-19 07:47] LABS: OVALOCYTES FEW; PLATELET SUFFICIENCY NORMAL (NORMAL); POLYCHROMASIA SLIGHT; TOTAL CELLS COUNTED 100 #CELLS
[2019-09-19 07:48] LABS: SCHISTOCYTES FEW
[2019-09-19 08:00] VITALS: BP 137/75
--- NOTE | 2019-09-19 08:10 | NUR ---
24 HR chart check completed.
--- NOTE | 2019-09-19 08:16 | NUR ---
PATIENT CAN DISCHARGE TO [facility] TODAY IF MEDICALLY STABLE. X [employer] WIRING TECHNICIAN FAXED CLINICAL UPDATES INCLUDING COVID RESULTS.
--- NOTE | 2019-09-19 08:59 | NUR ---
PRN ULTRAM AND XANAX WERE GIVEN FOR A PAIN LEVEL OF 10/10 PER PT. PT STATES SHE HAS GENERALIZED PAIN. WILL REASSESS EFFECTIVENESS.
--- NOTE | 2019-09-19 09:59 | NUR ---
PRN ULTRAM AND XANAX WAS EFFECTIVE. PT IS RESTING COMFORTABLY IN BED WITH NO SIGNS OF DISTRESS. WILL CONTINUE TO MONITOR PT. PT STATED THAT HER PAIN LEVEL WAS BETTER.
--- NOTE | 2019-09-19 10:51 | NUR ---
PT STATED THAT SHE WANTED TO HOLD OFF ON PLACING ANOTHER IV BECAUSE SHE IS SUPPOSED TO BE DISCHARGED TODAY. TOLD HER WE WOULD WAIT FOR THE DRWesley TO ROUND, BUT THAT IT IS IMPORTANT THAT THE PATIENT RECIEVE HER IV SOLU-MEDROL AND IV LASIX.
--- NOTE | 2019-09-19 11:35 | NUR ---
PHYSICAL THERAPY Patient seen this am 1;1 for therapy visit and was sitting up on EOB upon therapist arrival. Patient identified by name / and reports 4/10 LBP,while presenting with 4.5L O2 via NC. Patient records resting SpO2 97%, HR 91 bpm prior to performing several sit to stand transfers, CGA, use of wh walker standing support, tolerating approx 4 minutes static stand first attempt with SpO2 97%, HR 110 bpm and 2 minutes second trial. Patient also able to ambulate 10'x 1, CGA, wh walker, demonstrating very slow, cautious gait pattern for fear of falling. Patient needed v/c for encouragement and completed all gait reporting no new c/o's. Patient recorded SpO2 97%. HR 109 bpm following gait ex and returnd to supine in bed, CGA. Patient remained in bed with call light, tray table, telephone an BSC near bed. Will continue per POC as tolerated, total treatment time 18 minutes. Stephen Clarke, CARBON SETTER
[2019-09-19 12:00] VITALS: BP 148/82
--- NOTE | 2019-09-19 12:01 | NUR ---
OT NOTE Pt seen this date 1:1 for 27 min therapy session. Upon arrival pt seated at EOB receiving 4.5LO2 via NC and had complaints of lower back pain rated at a 4/10 on a 0-10 pain scale as well as c/o "anxiety". Provided verbal encouragements throughout treatment to improve pts confidence and safery awareness w good success. Noted moderate edema in BLE w purple coloration on B feet. She donned B socks seated at EOB w SBA utilizing the compensatory technique of bringing her foot up over her knee. At rest pts SpO2 read 97% and HR 91 bpm. Pt stood from bed level w ww and CGA where she stood for 4 min w ww and CGA. Prior to her return to seated pts SpO2 read 97% and HR 110 bpm. She then returned to seated at EOB w ww and CGA d/t sudden onset of fatigue followed by a 4 min rest break. Pt education provided on energy conservation techniques to take rest breaks and for proper breathing technique to help maintain O2 stats. Completed another sit to stand from bed level w ww and CGA followed by functional mobility to bedside commode and back w ww and CGA, requiring one standing rest break throughout. Verbal cues provided for ww mgmt w good followthrough. She then returned to seated at EOB w ww and CGA where she reported feeling SOB resulting in reinforced education for proper breathing technique. Once seated at EOB pts SpO2 read 97% and 109 bpm. Education provided to pt on importance of elevating BLE to manage edema. Pt completed BUE towel exercises for 1 X 10 to increase and restore maximum functional strength for increased I. Pt encouraged to return to supine in bed w BLE elevated w poor followthrough. At end of session pt seated in bed receiving 4.5LO2 via NC w call light in reach and bedside table in place. Continue w current D/C to SNF. Nicole Weldon, [place]/AMA Guardado/Juliette
[2019-09-19] MEDS ORDERED: LASIX40 MG PO (12:31)
[2019-09-19] MEDS ORDERED: TRAMADOL HCL50 MG PO (12:31)
[2019-09-19] MEDS ORDERED: K-TAB20 MEQ PO (12:33)
[2019-09-19] MEDS ORDERED: ALPRAZOLAM0.25 M2 PO (12:33)
[2019-09-19] MEDS ORDERED: PREDNISONE10 MG PO (12:36)
[2019-09-19] MEDS ORDERED: PREDNISONE5 MG PO (12:37)
--- NOTE | 2019-09-19 12:46 | NUR ---
WRAPPED PT'S BLE WITH DAVID WRAP PER ORDER.
--- NOTE | 2019-09-19 13:41 | NUR ---
ATTEMPTED TO CALL [facility] TO GIVE NURSE TO NURSE. PHONE VOICEMAIL STATED THAT THEY CAN NOT BE REACHED AT THIS TIME. WILL RE-ATTEMPT TO CALL.
--- NOTE | 2019-09-19 13:43 | NUR ---
IMPROVEMENT ENGINEER RECEIVED NOTICE OF THE PATIENT DISCHARGE. IMPROVEMENT ENGINEER SPOKE WITH WHO WANTED A 3PM TRANSPORT. IMPROVEMENT ENGINEER SPOKE WITH MIGDALIA [facility]RANA AND ARRANGED FOR A 3 PM TRANSPORT. IMPROVEMENT ENGINEER REACHED OUT TO THE PATIENT , NUMBER ON FILE STATED THE PHONE WAS NOT ACCEPTING CALLS. IMPROVEMENT ENGINEER REACHED OUT TO PATIENTS SISTER NORA, JORI PETER ANSWERED AND STATED SHE HAD PASSED. HE STATED HE WOULD REACH OUT TO THE PATIENTS AND INFORM HIM OF THE TRANSPORT AT 3PM. IMPROVEMENT ENGINEER NOTIFIED [facility] OF TRANSPORT TIME AND WILL FAX DISCHARGE ORDERS.
--- NOTE | 2019-09-19 14:25 | NUR ---
MELO FAXED SCRIPTS TO [facility].
--- NOTE | 2019-09-19 14:47 | NUR ---
ATTEMPTED TO CALL [facility] AGAIN TO GIVE NURSE TO NURSE. [facility] DID NOT ANSWER AGAIN AND STATED "THE CONSTITUTION PARTY YOU ARE TRYING TO REACH IS UNAVAILABLE" MESSAGE WAS LEFT AGAIN.
--- NOTE | 2019-09-19 15:56 | NUR ---
Discharge instructions reviewed with patient/family. Patient receptive and verbalizes understanding. Follow-up care arranged. Written instructions given to patient/family. PAPERWORK WAS GONE OVER WITH THE PATIENT. PT HAD NO IV AT DISCHARGE TIME. ATTEMPTED TO CALL [facility] 3 TIMES, 2 MESSAGES WERE LEFT WITH NO CALL BACK. PT HAD NO QUESTIONS AT THIS TIME. BRIANNE MCMAHAN
--- NOTE | 2019-09-19 16:49 | NUR ---
OCCUPATIONAL THERAPY CO-SIGN I approve of the Occupational Therapy notes written above. MARILY KAUR, OTR/L
== END 2019-09-19 15:56 | DRG 194 ==
LOC: ED → 5E 12:51 → EDHOLD 12:51 → 5E 13:26
PROVIDERS: Emergency Medicine; Family Medicine; Internal Medicine; Internal Medicine Critical Care Medicine; Registered Nurse; Student in an Organized Health Care Education/Training Program; ADMIT Student in an Organized Health Care Education/Training Program
PROC: 5A09457 Assistance with Respiratory Ventilation, 24-96 Consecutive Hours, Continuous Positive Airway Pressure (ICD-10-PCS; 2019-09-08)
PROC: 5A09357 Assistance with Respiratory Ventilation, Less than 24 Consecutive Hours, Continuous Positive Airway Pressure (ICD-10-PCS; principal; 2019-09-11)
PROC: 5A09357 Assistance with Respiratory Ventilation, Less than 24 Consecutive Hours, Continuous Positive Airway Pressure (ICD-10-PCS; 2019-09-12)
PROC: 5A09357 Assistance with Respiratory Ventilation, Less than 24 Consecutive Hours, Continuous Positive Airway Pressure (ICD-10-PCS; 2019-09-13)
PROC: 5A09357 Assistance with Respiratory Ventilation, Less than 24 Consecutive Hours, Continuous Positive Airway Pressure (ICD-10-PCS; 2019-09-14)
PROC: 5A09357 Assistance with Respiratory Ventilation, Less than 24 Consecutive Hours, Continuous Positive Airway Pressure (ICD-10-PCS; 2019-09-15)
PROC: 5A09457 Assistance with Respiratory Ventilation, 24-96 Consecutive Hours, Continuous Positive Airway Pressure (ICD-10-PCS; 2019-09-16)
PROC: 5A09357 Assistance with Respiratory Ventilation, Less than 24 Consecutive Hours, Continuous Positive Airway Pressure (ICD-10-PCS; 2019-09-18)
PROC: 5A09357 Assistance with Respiratory Ventilation, Less than 24 Consecutive Hours, Continuous Positive Airway Pressure (ICD-10-PCS; 2019-09-19)
DX: I50.43 Acute on chronic combined systolic (congestive) and diastolic (congestive) heart failure (principal); E87.3 Alkalosis; J44.1 Chronic obstructive pulmonary disease with (acute) exacerbation; G47.33 Obstructive sleep apnea (adult) (pediatric); J96.22 Acute and chronic respiratory failure with hypercapnia; I48.21 Permanent atrial fibrillation; K21.9 Gastro-esophageal reflux disease without esophagitis; R73.9 Hyperglycemia, unspecified; E43 Unspecified severe protein-calorie malnutrition; E83.41 Hypermagnesemia; F41.1 Generalized anxiety disorder; J96.21 Acute and chronic respiratory failure with hypoxia; D64.9 Anemia, unspecified; E66.01 Morbid (severe) obesity due to excess calories; E87.4 Mixed disorder of acid-base balance; G89.29 Other chronic pain; I27.81 Cor pulmonale (chronic); D68.69 Other thrombophilia; R65.20 Severe sepsis without septic shock; E24.2 Drug-induced Cushing's syndrome; E87.6 Hypokalemia; Z20.828 Contact with and (suspected) exposure to other viral communicable diseases; T50.2X5A Adverse effect of carbonic-anhydrase inhibitors, benzothiadiazides and other diuretics, initial encounter; T38.0X5A Adverse effect of glucocorticoids and synthetic analogues, initial encounter; Y92.89 Other specified places as the place of occurrence of the external cause; Z99.81 Dependence on supplemental oxygen; Z68.39 Body mass index [BMI] 39.0-39.9, adult; Z88.1 Allergy status to other antibiotic agents; Z88.0 Allergy status to penicillin; Z90.49 Acquired absence of other specified parts of digestive tract; Z87.891 Personal history of nicotine dependence; Z82.49 Family history of ischemic heart disease and other diseases of the circulatory system; Z83.3 Family history of diabetes mellitus; Z82.5 Family history of asthma and other chronic lower respiratory diseases; Z80.1 Family history of malignant neoplasm of trachea, bronchus and lung; Z82.3 Family history of stroke; Z79.899 Other long term (current) drug therapy; Z79.52 Long term (current) use of systemic steroids

== ENCOUNTER → 2019-09-30 | Outpatient (CLI) | payer MEDICAID ==
[2019-09-30] VITALS (8 sets, daily range): BP systolic 128–143; BP diastolic 67–91
[~2019-09-30] MED LIST changes: +LASIX40 MG PO
== END | disposition home or self-care (01) ==
LOC: TRNFUSION 09:30
DX: D64.9 Anemia, unspecified (principal); J44.9 Chronic obstructive pulmonary disease, unspecified; F32.9 Major depressive disorder, single episode, unspecified; F41.9 Anxiety disorder, unspecified; I48.21 Permanent atrial fibrillation; I50.42 Chronic combined systolic (congestive) and diastolic (congestive) heart failure; K21.9 Gastro-esophageal reflux disease without esophagitis

== ENCOUNTER 2019-11-07 11:56 | Inpatient (IN) | payer MEDICAID ==
[~2019-11-07] VITALS: Ht 167.6 cm; Wt 101.9 kg
[2019-11-07 11:56] VITALS: BP 140/76
[~2019-11-07 11:56] MED LIST changes: +SYMB80 INH
--- NOTE | 2019-11-07 12:25 | NUR ---
PT WAS BLS, UPON ARRIVAKL I TRIED IV INSERTION X2 RIGHT WRIST AND HAND, PT TAKES ELIQUIS AND THESE TWO SITES BLED MASSIVELY BENEATH THE SKIN CAUSING VERY LARGE HEMATOMAS. I DID PLACE PRESSURE BY HAND ON BOTH SITES THEN PLACED A DAVID WRAP PRESSURE DRESSING TEMPORARILY AND WILL REVAULUATE. DR NAJERA MADE AWARE OF THESE HEMATOMAS, NO NEW ORDERS.
--- NOTE | 2019-11-07 12:36 | NUR ---
HEMATOMAS RIGHT HAND SEEM TO HAVE STOPPED ENLARGING WITH PRESSURE DRESSINGS. NEW QAUZE PADS APPLIED, PRESSURE DRESSING REMOVED, WILL MONITOR.
[2019-11-07 12:41] LABS: HEMATOCRIT 33.9 % (37.0-47.0); MEAN CELL VOLUME 92.1 fl (81.0-99.0); MEAN CORPUSCULAR HGB 23.9 pg (27.0-31.0); NUCLEATED RED BLOOD CELL 0.4 10*3/uL (0.0-0.0); NUCLEATED RED BLOOD CELL 2.4 % (0.0-0.0); PLATELET COUNT AUTOMATED 290 10*3/uL (130-400); RED BLOOD COUNT 3.68 10*6/uL (4.10-5.10); WHITE BLOOD COUNT 14.7 10*3/uL (4.8-10.8)
[2019-11-07 12:54] LABS: INTERNATIONAL NORM RATIO 0.9 (2.0-3.5)
[2019-11-07 12:57] LABS: ALBUMIN 3.1 gm/dl (3.1-4.5); ALKALINE PHOSPHATASE 86 U/L (45-117); BUN 20 mg/dl (7-24); CHLORIDE 104 mmol/L (98-107); CREATININE 0.66 mg/dL (0.55-1.02); LIPASE 50 U/L (73-393); POTASSIUM 4.2 mmol/L (3.5-5.1); SGOT/AST 10 IU/L (3-35); SGPT/ALT 24 U/L (12-78); SODIUM 143 mmol/L (136-145); TOTAL PROTEIN 7.1 gm/dL (6.4-8.2); TROPONIN I 0.016 ng/ml (<0.045)
[2019-11-07 13:04] LABS: ABG BASE EXCESS 5.8 mmol/L (-2.0-2.0)
[2019-11-07 13:07] LABS: ARTERIAL BLOOD GAS PH 7.146 (7.35-7.45)
[2019-11-07 13:11] LABS: PLATELET SUFFICIENCY NORMAL (NORMAL); POLYCHROMASIA SLIGHT; TOTAL CELLS COUNTED 100 #CELLS
--- NOTE | 2019-11-07 13:20 | NUR ---
RESP HERE TO INITIATE BIPAP AT 16/6. POX HAS BEEN RUNNING 97% ON 5L HOME O2.
[2019-11-07 13:38] VITALS: BP 136/67
[2019-11-07 14:35] VITALS: BP 135/86
--- NOTE | 2019-11-07 14:35 | NUR ---
ROOM ASSIGNED ICU 4
[2019-11-07 14:40] VITALS: BP 144/70
--- NOTE | 2019-11-07 14:45 | NUR ---
A 59, admitted to ICCU, under the services of NHI Avila DO with a diagnosis of CHF, RESPIRATORY FAILURE. Chief complaint is WEAKNESS, LETHARGY, SHORTNESS OF BREATH. Patient arrived via stretcher from ER. Monitor applied. Initial assessment completed. Vital signs taken and recorded. HNI AVILA DO notified of admission to the unit. Orders received. See assessment for past medical history, medications and allergies. Patient and/or family oriented to unit. [facility] visitation policy reviewed. Clothing/patient valuable form completed. RICHIE PENA
--- NOTE | 2019-11-07 15:39 | NUR ---
PT ATRIAL FIB WHEN HER RATE GOES UP BUT BACK INTO A NORMAL SINUS RYTHMN WITH A DECREASED RATE.
--- NOTE | 2019-11-07 15:53 | NUR ---
DR CHISHOLM'S ANSWERING SERVICE MADE AWARE OF NEW CONSULT ORDER. DR ALFARO AWARE OF CONSULT ORDER.
--- NOTE | 2019-11-07 15:56 | NUR ---
DR CHISHOLM RETURNED CALL AND MADE AWARE OF NEW CONSULT.
[2019-11-07 16:00] VITALS: BP 119/74
[2019-11-07] MEDS ORDERED: PREDNISONE5 MG PO (16:36)
[2019-11-07] MEDS ORDERED: OYSTER SHELL 51 EACH PO (16:39)
[2019-11-07] MEDS ORDERED: POTASSIUM CHLO20 ME3 PO (16:40)
[2019-11-07] MEDS ORDERED: LASIX40 MG PO (16:47)
[2019-11-07 17:26] LABS: ABG BASE EXCESS 11.8 mmol/L (-2.0-2.0); ARTERIAL BLOOD GAS PH 7.307 (7.35-7.45)
--- NOTE | 2019-11-07 17:35 | NUR ---
DR ALFARO NOTIFIED OF ABG RESULTS. ORDER TO CONTINUE WITH BIPAP 24/02 ORDERED OFF FOR MEALS.
--- NOTE | 2019-11-07 18:52 | NUR ---
PT MEDICATED WITH NORCO FOR C/O PAIN TO CHEST AND SHOULDERS.
[2019-11-07 20:00] VITALS: BP 123/79
--- NOTE | 2019-11-07 20:00 | NUR ---
DOZING SINCE PLACED ON BIPAP AT BEGINNING OF MY SHIFT. PO CARDIZEM RESUMED PRIOR TO MY SHIFT RE: AF WITH VENTRICULAR RESPONSE 160'S. NSR 80' - 90'S PRESENTLY.
--- NOTE | 2019-11-07 20:20 | NUR ---
HR NSR 90'S AT THIS TIME. PT REMOVED FROM BIPAP LONG ENOUGH TO GIVE ELIQUIS AND PRN TYLENOL FOR HEADACHE. I ASKED HER IF SHE HAD BEEN TAKING HER HOME MEDICATIONS PRIOR TO COMING IN AND SHE STATES THAT SHE HAD MISSED YESTERDAY'S AND TODAY'S.
[2019-11-08] VITALS: BP 112/65
--- NOTE | 2019-11-08 00:44 | NUR ---
PT AWAKE, ALERT AND ORIENTED. WANTED BREAK FROM BIPAP SHE HAS BEEN ON FOR 4.5 HOURS. ALSO REQUESTED XANAX FOR NERVES SHE IS HAVING SOME ANXIETY AND NORCO ORDERED FOR CONTINUED PAIN IN CHEST WITH COUGHING (NOT NEW DISCOMFORT PER PT).
--- NOTE | 2019-11-08 01:10 | NUR ---
PT BACK ON BIPAP. STATES XANAX AND NORCO EFFECTIVE FOR ANXIETY AND DISCOMFORT.
--- NOTE | 2019-11-08 03:42 | NUR ---
SLEEPING. TOLERATING BIPAP WELL.
[2019-11-08 04:00] VITALS: BP 103/67
[2019-11-08 06:06] LABS: HEMATOCRIT 30.1 % (37.0-47.0); MEAN CELL VOLUME 91.8 fl (81.0-99.0); MEAN CORPUSCULAR HGB 24.1 pg (27.0-31.0); MEAN CORPUSCULAR HGB CONC 26.2 g/dl (33.0-37.0); MEAN PLATELET VOLUME 8.9 fl (9.6-12.3); NUCLEATED RED BLOOD CELL 0.2 10*3/uL (0.0-0.0); NUCLEATED RED BLOOD CELL 1.5 % (0.0-0.0); PLATELET COUNT AUTOMATED 237 10*3/uL (130-400); RED BLOOD COUNT 3.28 10*6/uL (4.10-5.10); RED CELL DISTRI WIDTH 20.2 % (0-14.5); WHITE BLOOD COUNT 11.6 10*3/uL (4.8-10.8)
[2019-11-08 06:13] LABS: ALBUMIN 2.6 gm/dl (3.1-4.5); ALKALINE PHOSPHATASE 74 U/L (45-117); BUN 15 mg/dl (7-24); CHLORIDE 97 mmol/L (98-107); CREATININE 0.55 mg/dL (0.55-1.02); POTASSIUM 3.1 mmol/L (3.5-5.1); SGOT/AST 8 IU/L (3-35); SGPT/ALT 19 U/L (12-78); SODIUM 141 mmol/L (136-145); TOTAL PROTEIN 6.1 gm/dL (6.4-8.2)
[2019-11-08 06:19] LABS: THYROID STIM HORMONE (HS) 0.946 uIU/ml (0.358-4.75)
[2019-11-08 06:20] LABS: FREE T4 0.95 ng/dl (0.76-1.46)
--- NOTE | 2019-11-08 06:51 | NUR ---
OFF BIPAP AND PLACED ON O2 NC PER PT REQUEST.
[2019-11-08 07:05] LABS: PLATELET SUFFICIENCY NORMAL (NORMAL); POLYCHROMASIA SLIGHT; TOTAL CELLS COUNTED 100 #CELLS
[2019-11-08 07:27] LABS: VITAMIN D, 25-HYDROXY 42.1 ng/mL (30-100)
--- NOTE | 2019-11-08 07:42 | NUR ---
PLACED PT ON BIPAP. PT TOLERATING WELL.
[2019-11-08 08:00] VITALS: BP 142/43
[2019-11-08 10:27] LABS: ABG BASE EXCESS 16.3 mmol/L (-2.0-2.0); ARTERIAL BLOOD GAS PH 7.457 (7.35-7.45)
--- NOTE | 2019-11-08 10:50 | NUR ---
SPOKE WITH DR. ALFARO REGARDING BLOOD GAS RESULTS. ORDERS RECEIVED TO TITRATE O2 DOWN TO 40% AND ABG IN 2 HOURS.
--- NOTE | 2019-11-08 10:57 | NUR ---
PT ON BIPAP AT THIS TIME. SPO2 95, HR 102, RR 16
--- NOTE | 2019-11-08 11:00 | NUR ---
RN CHANGED FIO2 TO 40% ON BIPAP
--- NOTE | 2019-11-08 11:41 | NUR ---
COMMUNICATIONS SYSTEMS ENGINEER REACHED OUT TO [facility] FOR PIPP. COMMUNICATIONS SYSTEMS ENGINEER SPOKE WITH MAGDY. PATIENT WILL HAVE TO CALL IN AT 7:55AM EVERY DAY FOR SAME DAY APPOINTMENTS, THERE ARE ONLY 3 SLOTS AVAILABLE. IF UNABLE TO GET THEM, THE PATIENT WILL HAVE TO SCHEDULE FOR AN APPOINTMENT IN NOVEMBER, BUT SCHEDULING IS NOT OPEN AT THIS TIME FOR THAT MONTH. COMMUNICATIONS SYSTEMS ENGINEER INFORMED BOTTOM PRESSER,
--- NOTE | 2019-11-08 11:58 | NUR ---
Strategic Marketing Leader in to talk to patient. Patient states lives at home with her . There are 0 steps in the home. There is 1 outside step. Physician: Blade Barcenas Pharmacy: [facility] Home health services: none Patient's level of ADLs: MODERATE ASSIST Patient has working utilities: yes DME: walker, wheelchair, O2 @ 5L nc, portable O2 tanks, nebulizer, c-pap, O2 supplier [employer] Follow-up physician's appointment after d/c: will be made by the hospitalist nurse director upon discharge Does patient want to access PORTAL?: no Discharge plan discussed with patient. She lives at home with her . She needs assistance with her ADLs and either ambulates with a walker or gets around in a wheelchair. Discussed short term SNF and she is agreeable. When provided with a list of facilities she chose [facility]. meeting/event planner notified. Notified Dr. Edgar of the need for COVID and PT/OT. Pending [facility] acceptance. Discussed her appointment with PIP for her electric. Informed SW spoke to [facility] and patient is to call every morning at 0755 to get a same day appt. Appts are not being made in November yet. Patient verbalized an understanding. [facility] # given to patient. CLIF CASTELLANO
[2019-11-08 12:00] VITALS: BP 126/68
--- NOTE | 2019-11-08 13:11 | NUR ---
RN PLACED PT ON BIPAP AT 1200.
[2019-11-08 13:27] LABS: ABG BASE EXCESS 14.6 mmol/L (-2.0-2.0); ARTERIAL BLOOD GAS PH 7.352 (7.35-7.45)
--- NOTE | 2019-11-08 13:44 | NUR ---
Patient requesting a referral to [facility]. Contacted facility and faxed intitial referral. Waiting for PT/OT evals; Will also have to wait for level of care clearance from the [facility].
--- NOTE | 2019-11-08 15:25 | NUR ---
PATIENT TAKEN UP TO 5E VIA WHEELCHAIR. PATIENT ABLE TO STAND AND PIVOT INTO BED. RENY FROM RESPIRATORY PRESENT TO PLACED PATIENT BACK ON BIPAP AT THIS TIME. REPORT GIVEN TO GERALDO NAVARRO. PATIENT IS NSR ON MONITOR AND CALL LIGHT WITHIN REACH.
[2019-11-08 16:00] VITALS: BP 126/68
--- NOTE | 2019-11-08 17:40 | NUR ---
PT ON NC AT 5 LITERS AT THIS TIME. RESPIRATORY TOOK OFF BIPAP AND PLACED ON 5 LITERS, ABGS DRAWN
[2019-11-08 17:46] LABS: ABG BASE EXCESS 14.4 mmol/L (-2.0-2.0); ARTERIAL BLOOD GAS PH 7.384 (7.35-7.45)
--- NOTE | 2019-11-08 17:48 | NUR ---
DR. ALFARO CALLED WITH ABG RESULTS. NEW ORDERS GIVEN ABD READ BACK TO DECREASE FIO2 30%, AM ABG.
--- NOTE | 2019-11-08 17:53 | NUR ---
FIO2 DECREASED TO 30% ON BIPAP
--- NOTE | 2019-11-08 19:02 | NUR ---
PATIENT REQUESTING BIPAP. NOTIFIED RESPIRATORY.
--- NOTE | 2019-11-08 19:14 | NUR ---
Pt placed on BiPap 26/12 and FiO2 30%. SpO2 96% Alarms on and audible.
[2019-11-08 20:00] VITALS: BP 120/63
[2019-11-09] VITALS: BP 118/61
--- NOTE | 2019-11-09 04:40 | NUR ---
PATIENT SLEEPING. NO SIGNS OF DISTRESS. PATIENT WEARING BIPAP. WILL CONTINUE TO MONITOR.
[2019-11-09 06:24] LABS: HEMATOCRIT 28.6 % (37.0-47.0); MEAN CELL VOLUME 88.8 fl (81.0-99.0); MEAN CORPUSCULAR HGB 23.9 pg (27.0-31.0); MEAN CORPUSCULAR HGB CONC 26.9 g/dl (33.0-37.0); MEAN PLATELET VOLUME 9.3 fl (9.6-12.3); NUCLEATED RED BLOOD CELL 0.1 10*3/uL (0.0-0.0); NUCLEATED RED BLOOD CELL 0.9 % (0.0-0.0); PLATELET COUNT AUTOMATED 254 10*3/uL (130-400); RED BLOOD COUNT 3.22 10*6/uL (4.10-5.10); WHITE BLOOD COUNT 11.3 10*3/uL (4.8-10.8)
[2019-11-09 06:26] LABS: BUN 16 mg/dl (7-24); CHLORIDE 92 mmol/L (98-107); CREATININE 0.66 mg/dL (0.55-1.02); SODIUM 136 mmol/L (136-145)
[2019-11-09 06:51] LABS: OVALOCYTES FEW; TOTAL CELLS COUNTED 100 #CELLS
[2019-11-09 06:52] LABS: PLATELET SUFFICIENCY NORMAL (NORMAL); POLYCHROMASIA SLIGHT
[2019-11-09 07:09] LABS: ABG BASE EXCESS 14.3 mmol/L (-2.0-2.0); ARTERIAL BLOOD GAS PH 7.452 (7.35-7.45)
--- NOTE | 2019-11-09 07:47 | NUR ---
PHYSICAL THERAPY Screen and PT eval received will follow thank you Veronica Hernandez PT
[2019-11-09 08:00] VITALS: BP 139/73
--- NOTE | 2019-11-09 08:24 | NUR ---
Hospital exemption completed online in [facility] system, level of care completed and faxed to [facility] for approval. Waiting on new PT/OT evals and LOC approval.
--- NOTE | 2019-11-09 08:49 | NUR ---
PT REQUESTED AND GIVEN XANAX FOR ANXIETY WILL MONITOR
--- NOTE | 2019-11-09 09:20 | NUR ---
Occupational Therapy evaluation completed on five with full evaluation to follow. Recommend occupational therapy per plan of care and SNF upon discharge. Thank you for this referral. Ольга Blackwood OTR/L
--- NOTE | 2019-11-09 09:22 | NUR ---
PHYSICAL THERAPY Physical Therapy evaluation completed on 5E with full evaluation to follow. Low complexity PT evaluation per chart review and evaluation, [id number]. Recommend physical therapy per plan of care and SNF upon discharge. Thank you for this referral. Radhika Lerma, PT,DPT
--- NOTE | 2019-11-09 09:32 | NUR ---
PT REQUESTED AND GIVEN NORCO FOR C/O BACK PAIN / PT RATES PAIN 10/09 WILL MONITOR
--- NOTE | 2019-11-09 09:49 | NUR ---
PT STATES THAT NORCO AND XANAX HELPED WILL MONITOR
--- NOTE | 2019-11-09 11:29 | NUR ---
PLACED PT ON BIPAP. PLACED AEROSOL TX THRU MACHINE
--- NOTE | 2019-11-09 11:33 | NUR ---
PT ENTIRE HAND BRUISED. DR MCKEON NOTIFIED
--- NOTE | 2019-11-09 12:41 | NUR ---
IV started left forearm with #24 angiocath after 2 attempts. The IV site was prepped with Chloraprep. Heparin lock attached. Sterile dressing applied. Patient tolerated precedure well. Procedure performed according to [facility] policy & procedure. JENNA ARAUJO
[2019-11-09 16:00] VITALS: BP 128/74
--- NOTE | 2019-11-09 19:45 | NUR ---
PT PLACED ON NIV AT THIS TIME
--- NOTE | 2019-11-09 19:49 | NUR ---
PT ON BIPAP; EYES CLOSED, RESTING & IN NO DISTRESS. WILL CONT TO MONITOR.
[2019-11-09 20:00] VITALS: BP 135/75
[2019-11-10] VITALS (11 sets, daily range): BP systolic 111–151; BP diastolic 58–79
--- NOTE | 2019-11-10 04:48 | NUR ---
NORCP GIVEN FOR C/O BACK PAIN. WILL MONITOR.
[2019-11-10 06:45] LABS: HEMATOCRIT 26.1 % (37.0-47.0); MEAN CELL VOLUME 87.9 fl (81.0-99.0); MEAN CORPUSCULAR HGB 23.6 pg (27.0-31.0); MEAN CORPUSCULAR HGB CONC 26.8 g/dl (33.0-37.0); MEAN PLATELET VOLUME 9.4 fl (9.6-12.3); NUCLEATED RED BLOOD CELL 0.1 10*3/uL (0.0-0.0); NUCLEATED RED BLOOD CELL 0.9 % (0.0-0.0); PLATELET COUNT AUTOMATED 279 10*3/uL (130-400); RED BLOOD COUNT 2.97 10*6/uL (4.10-5.10); RED CELL DISTRI WIDTH 19.9 % (0-14.5); WHITE BLOOD COUNT 11.9 10*3/uL (4.8-10.8)
[2019-11-10 07:16] LABS: PLATELET SUFFICIENCY NORMAL (NORMAL); TOTAL CELLS COUNTED 100 #CELLS
[2019-11-10 07:17] LABS: OVALOCYTES FEW
--- NOTE | 2019-11-10 07:17 | NUR ---
Level of care and hosptial exemption are completed. Clinicals, PT/OT evals and notes faxed to facility to complete referral. Patient has been accepted to [facility] and can go when medically stable for discharge.
[2019-11-10 07:25] LABS: CHLORIDE 94 mmol/L (98-107); POTASSIUM 3.1 mmol/L (3.5-5.1); SODIUM 138 mmol/L (136-145)
[2019-11-10 07:40] LABS: ALBUMIN 2.5 gm/dl (3.1-4.5); ALKALINE PHOSPHATASE 69 U/L (45-117); BUN 22 mg/dl (7-24); CREATININE 0.67 mg/dL (0.55-1.02); SGOT/AST 5 IU/L (3-35); SGPT/ALT 14 U/L (12-78)
--- NOTE | 2019-11-10 08:15 | NUR ---
PATIENT TAKEN OFF OF BI-PAP, PLACED ON 5 L/M CANNULA.
--- NOTE | 2019-11-10 08:19 | NUR ---
Shift chart check completed.
--- NOTE | 2019-11-10 09:31 | NUR ---
PT COPLAIN OF PAIN 12/09, COMPLAIN OF ANXIETY, PT GIVEN NORCO AND XANAX
--- NOTE | 2019-11-10 10:00 | NUR ---
Notified hospitalist at multidisciplinary meeting patient has been accepted and can go to [facility] when medically stable. Per Dr. Jimenez patient is not medically stable at this time.
--- NOTE | 2019-11-10 10:00 | NUR ---
CALLED DR. PABON TO CLARIFY BLOOD ORDER, WANTS ONE UNIT LEUKOREDUCED BLOOD GIVEN, WILL CANCEL PRBC ORDER. PHYSICIAN AWARE IF WANTS ONE UNIT OF LEUKOREDUCED ON HOLD WILL NEED TO ORDER
--- NOTE | 2019-11-10 10:35 | NUR ---
PT #22 IV RIGHT AC NOT FUNCTIONING WELL, IV LEFT ARM #24 LEAKING. LASHANDA RN FROM [facility] HERE TO ATTEMPT ANOTHER IV PLACEMENT SO PATIENT CAN RECEIVE BLOOD TRANSFUSION
--- NOTE | 2019-11-10 10:49 | NUR ---
IV RIGHT AC DRESSING CHANGED, NOW FUNCTIONS WNL, GOOD BLOOD RETURN. NEW IV STARTED RIGHT HAND #22, GOOD BLOOD RETURN.
--- NOTE | 2019-11-10 11:00 | NUR ---
PHYSICAL THERAPY Patient seen this am 1;1 for therapy visit and was resting supine in bed upon therapist arrival. Patient identified by name / and reports chronic 10/10 low back pain. OT licensed nursing assistant was also present for observation as patient transfers supine to sit EOB with MIN A, demonstrating slow, cautious movements. Patient tolerated several minutes static EOB sit to collect herself, followed by several sit to stand transfers, tolerating approx 2 minutes static stand with use of wh walker standing support, CGA x 1. Patient recorded SpO2 99%, HR 95 bpm following standing transfer and was able to complete SPT to BSC, CGA, wh walker, demonstrating very slow step sequence. Patient returned to EOB sit recording SpO2 96%, HR 104 bpm prior to transfering sit to supine, MIN A with LE support. Patient remained in bed with call light, telephone and bed alarm for safety. Will continue per POC as tolerated, total treatment time 16 minutes. Stephen Clarke, SLITTER SCORER CUT OFF OPERATOR
--- NOTE | 2019-11-10 11:10 | NUR ---
OT NOTE Pt was laying supine in bed with head elevated agreeable to 20 minute OT session. Pt presented to OT with 5L continuous O2 via NC. Identified by name and date of with complaints of "20/10" back pain. Transfer supine to EOB SBA. MaxA to marjorie socks. O2 sats at EOB read 98% at 5L VIA NC with a heart rate of 95bpm. Sit-stand CGA with w/w for upper body support. Pt was able to tolerate 2 minute stands with w/w and CGA. Stand pivot from EOB to BSC CGA with w/w. transferring on and off commode CGA with w/w. clothing management CGA with w/w. hygiene CGA with w/w. Stand pivot from commode back to EOB CGA with w/w. O2 sats read 96% on 5L via NC and a heart rate of 104bpm when standing. Pt completed BUE exercises with towel at EOB in all planes with moderate resistance X10. Transfer EOB to supine modA to lift legs back in bed. Pt left in bed with alarm active and call light in reach. Continue d/c recommended SNF. TOM Braswell/AMA Sousa/Juliette
--- NOTE | 2019-11-10 12:25 | NUR ---
PT UNDERSTANDS BLOOD TRANSFUSION, DR. PABON EXPLAINED THIS AM PRIOR TO ORDERING PRBC. PT HAS NO QUESTIONS AT THIS TIME. UNDERSTANDS S/S TO REPORT TO RN. WILL STAY WITH PATIENT PER POLICY.
--- NOTE | 2019-11-10 14:00 | NUR ---
TOLERATING BLOOD TRANSFUSION
--- NOTE | 2019-11-10 14:10 | NUR ---
DR. ÁLVAREZ AWARE PATIENT CAN BE DISCHARGED FROM DR. LONG STANDPOINT. DR. ÁLVAREZ WILL LET KNOW AND HE WILL ENTER DISCHARGE ORDERS. OKAY FOR MOTRIN ORDER FOR PAIN PER DR. ÁLVAREZ
--- NOTE | 2019-11-10 18:21 | NUR ---
PT COMPLAIN OF ANXIETY, XANAX GIVEN
--- NOTE | 2019-11-10 20:15 | NUR ---
Pt placed on BiPap 24/02. FiO2 30%. Alarms on and audible. SpO2 99%
--- NOTE | 2019-11-10 20:26 | NUR ---
IN TO SEE PATIENT, SHE IS ON HER BIPAP AND IS ASLEEP. WILL CONTINUE TO MONITOR
[2019-11-11] VITALS: BP 136/64
--- NOTE | 2019-11-11 01:55 | NUR ---
PRN NORCO PO GIVEN FOR COMPLAINTS OF BACK PAIN 12/09. WILL MONITOR FOR EFFECTIVENESS. PLACED BACK ON BIPAP AT THIS TIME.
--- NOTE | 2019-11-11 02:43 | NUR ---
24 HR chart check completed.
[2019-11-11 06:54] LABS: MEAN CELL VOLUME 88.8 fl (81.0-99.0); MEAN CORPUSCULAR HGB CONC 28.1 g/dl (33.0-37.0); MEAN PLATELET VOLUME 9.1 fl (9.6-12.3); NUCLEATED RED BLOOD CELL 0.1 10*3/uL (0.0-0.0); NUCLEATED RED BLOOD CELL 0.8 % (0.0-0.0); PLATELET COUNT AUTOMATED 261 10*3/uL (130-400); RED BLOOD COUNT 3.04 10*6/uL (4.10-5.10); RED CELL DISTRI WIDTH 18.7 % (0-14.5)
[2019-11-11 06:58] LABS: ALBUMIN 2.6 gm/dl (3.1-4.5); ALKALINE PHOSPHATASE 63 U/L (45-117); BUN 25 mg/dl (7-24); CHLORIDE 99 mmol/L (98-107); CREATININE 0.82 mg/dL (0.55-1.02); POTASSIUM 3.7 mmol/L (3.5-5.1); SGOT/AST 9 IU/L (3-35); SGPT/ALT 20 U/L (12-78); SODIUM 139 mmol/L (136-145); TOTAL PROTEIN 5.9 gm/dL (6.4-8.2)
[2019-11-11 07:12] LABS: PLATELET SUFFICIENCY NORMAL (NORMAL); TOTAL CELLS COUNTED 100 #CELLS
[2019-11-11 08:00] VITALS: BP 149/87
--- NOTE | 2019-11-11 09:00 | NUR ---
CM in to see patient. No new needs or request at this time. When medically stable she will be discharged to [facility]. naval surface fire support planner/mental health social worker following.
--- NOTE | 2019-11-11 09:20 | NUR ---
PHYSICAL THERAPY Patient seen this am 1;1 for therapy visit and was sitting up on EOB upon therapist arrival. Patient identified by name / and reports 10/10 low back pain. Patient also presents with increased B Dorsum foot edema, which she states is only a little sore at times. OT corporate law assistant was also present this morning for observation as patient recorded resting HR 93 bpm, SpO2 99% on continuos O2-5L via NC. Patient performed several sit to stand transfers, CGA, use of wh walker, tolerating approx 1 minute static stand each trial. Patient ambulates with use of wh walker, CGA, 15'x 2, demonstrating slow, steady gait pattern, however fatigues quickly, requiring brief seated rest break between attmepts. Patient returned to EOB sit recording increased HR 110 bpm and following seated rest approx 30 seconds, HR 97 bpm. Patient remained EOB sit with call light, tray table, telephne as breakfast arrived. Will continue per POC as tolerated, total treatment time 18 minutes. Stephen Clarke, WORK ADJUSTMENT INSTRUCTOR
--- NOTE | 2019-11-11 09:25 | NUR ---
PT RESTING IN BED. NO DISTRESS NOTED. WILL MONITOR
--- NOTE | 2019-11-11 09:30 | NUR ---
OT NOTE Pt sitting EOB agreeable to 20 minute OT session. Identified by name and date of with complaints of 10/10 back and neck pain. Pt presented to OT with 5L continuous O2 via NC. Max A to marjorie socks due to edema, Sit-stand CGA with w/w for UB support and saftey. Functional mobility from EOB to bathroom door and back to EOB CGA with w/w. O2 sats read 98% at 5L and a heart rate of 92bpm at exertion. Stand-pivot from EOB to [facility] CGA with w/w. clothing management and hygiene both CGA. Functional mobility from BSC back to bathroom door then to EOB CGA with w/w. Heart rate read 97bpm at exertion. Pt completed BUE exercises with towel EOB in all planes with moderate resistance X10. Max A to doff socks due to edema. Pt left at EOB with call light in reach. Continue d/c recommended SNF. TOM Braswell/AMA Sousa/Juliette
--- NOTE | 2019-11-11 10:10 | NUR ---
PT REQUESTED AND GIVEN NORCO FOR C/O. GEN PAIN. PT RATES PAIN 5/10 AND XANAX FOR ANXIETY WILL MONITOR
--- NOTE | 2019-11-11 10:50 | NUR ---
Updated clinicals, bipap order & settings, covid - 19 test results all faxed to [facility] for review. Patient is ok to return when medically stable for discharge.
--- NOTE | 2019-11-11 11:00 | NUR ---
PT STATES THAT NORCO , AND XANAX HELPED PER PT WILL MONITOR
[2019-11-11 12:00] VITALS: BP 152/84
--- NOTE | 2019-11-11 12:31 | NUR ---
Contacted [facility] to order a full face piece for bipap. Waiting for them to let me know if they are able to get one.
--- NOTE | 2019-11-11 12:37 | NUR ---
REDNESS TO BRIDGE OF PT NOSE FROM BIPAP . PT REFUSED PICS TO BE TAKEN DR CORREA, AND RESP NOTIFIED
--- NOTE | 2019-11-11 12:53 | NUR ---
PHYSICAL THERAPY CO-SIGN I approve of the Physical Therapy notes written above. Veronica Hernandez PT
--- NOTE | 2019-11-11 13:24 | NUR ---
OCCUPATIONAL THERAPY CO-SIGN I approve of the Occupational Therapy notes written above. MARILY KAUR, OTR/L
[2019-11-11] MEDS ORDERED: TRAMADOL HCL50 MG PO (14:27)
[2019-11-11] MEDS ORDERED: FUROSEMIDE40 MG PO (14:27)
[2019-11-11] MEDS ORDERED: ALPRAZOLAM0.25 M2 PO (14:27)
[2019-11-11] MEDS ORDERED: PREDNISONE10 MG PO (14:27)
[2019-11-11] MEDS ORDERED: DILTIAZEM CD240 MG PO (14:27)
[2019-11-11] MEDS ORDERED: LEVAQUIN500 M2 PO (14:28)
--- NOTE | 2019-11-11 14:43 | NUR ---
Patient is being discharged to [facility] via [facility] at 5 PM. NH, nursing/jd edwards consultant notified. Attmepted several times to contact patients but number listed is not a working number. The other number is to [facility]. Faxed discharge order.
--- NOTE | 2019-11-11 15:00 | NUR ---
DC PICTURE OF LEFT ARM X 2 SITES TAKEN PT PREFERRED NO PICTURE OF NOSE BE TAKEN. DRESSING TO LEFT ARM CHANGED
--- NOTE | 2019-11-11 17:07 | NUR ---
REPORT CALLED TO [facility] SPOKE WITH ROHAN
--- NOTE | 2019-11-11 17:34 | NUR ---
Discharge instructions reviewed with patient/family. Patient receptive and verbalizes understanding. Follow-up care arranged. Written instructions given to patient/family. JENNA ARAUJO
[2019-11-15] MEDS ORDERED: DULCOLAX10 M1 R (09:20)
[2019-11-15] MEDS ORDERED: FLEET ENEMA EX230 M1 R (09:30)
[2019-11-15] MEDS ORDERED: FLUTICASONE-SA1 EAC3 INH (09:34)
[2019-11-15] MEDS ORDERED: MILK OF MA400 MG/5 M PO (09:37)
[2019-11-15] MEDS ORDERED: APLISOL5 TUB UNIT IC (09:48)
== END 2019-11-11 17:34 | DRG 720 ==
LOC: ED 11:56 → EDHOLD 13:46 → ICCU 13:46 → 5E 13:46 → ICCU 14:32 → 5E 11-08 14:17
PROVIDERS: Emergency Medicine; Hospitalist; Internal Medicine; Internal Medicine Critical Care Medicine; ADMIT Internal Medicine; ATTEND Internal Medicine
PROC: 5A09357 Assistance with Respiratory Ventilation, Less than 24 Consecutive Hours, Continuous Positive Airway Pressure (ICD-10-PCS; 2019-11-07)
PROC: 5A09357 Assistance with Respiratory Ventilation, Less than 24 Consecutive Hours, Continuous Positive Airway Pressure (ICD-10-PCS; 2019-11-08)
PROC: 5A09357 Assistance with Respiratory Ventilation, Less than 24 Consecutive Hours, Continuous Positive Airway Pressure (ICD-10-PCS; 2019-11-09)
PROC: 30233N1 Transfusion of Nonautologous Red Blood Cells into Peripheral Vein, Percutaneous Approach (ICD-10-PCS; principal; 2019-11-10)
PROC: 5A09357 Assistance with Respiratory Ventilation, Less than 24 Consecutive Hours, Continuous Positive Airway Pressure (ICD-10-PCS; 2019-11-10)
PROC: 5A09357 Assistance with Respiratory Ventilation, Less than 24 Consecutive Hours, Continuous Positive Airway Pressure (ICD-10-PCS; 2019-11-11)
DX: A41.9 Sepsis, unspecified organism (principal); R65.20 Severe sepsis without septic shock; G93.41 Metabolic encephalopathy; E43 Unspecified severe protein-calorie malnutrition; G47.33 Obstructive sleep apnea (adult) (pediatric); E83.41 Hypermagnesemia; J18.9 Pneumonia, unspecified organism; J44.1 Chronic obstructive pulmonary disease with (acute) exacerbation; J44.0 Chronic obstructive pulmonary disease with (acute) lower respiratory infection; E87.6 Hypokalemia; D64.9 Anemia, unspecified; J96.21 Acute and chronic respiratory failure with hypoxia; J96.22 Acute and chronic respiratory failure with hypercapnia; E66.01 Morbid (severe) obesity due to excess calories; I11.0 Hypertensive heart disease with heart failure; G89.29 Other chronic pain; I48.0 Paroxysmal atrial fibrillation; F41.1 Generalized anxiety disorder; F32.9 Major depressive disorder, single episode, unspecified; K21.9 Gastro-esophageal reflux disease without esophagitis; E87.3 Alkalosis; I50.33 Acute on chronic diastolic (congestive) heart failure; R07.89 Other chest pain; Z20.828 Contact with and (suspected) exposure to other viral communicable diseases; Z88.0 Allergy status to penicillin; Z88.1 Allergy status to other antibiotic agents; Z87.891 Personal history of nicotine dependence; Z82.49 Family history of ischemic heart disease and other diseases of the circulatory system; Z83.3 Family history of diabetes mellitus; Z82.3 Family history of stroke; Z80.1 Family history of malignant neoplasm of trachea, bronchus and lung; Z79.899 Other long term (current) drug therapy; Z79.01 Long term (current) use of anticoagulants; Z91.14 Patient's other noncompliance with medication regimen; Z68.35 Body mass index [BMI] 35.0-35.9, adult

== ENCOUNTER → 2019-11-15 | Outpatient (CLI) | payer MEDICAID ==
[2019-11-15] VITALS (7 sets, daily range): BP systolic 103–133; BP diastolic 50–80
[~2019-11-15] MED LIST changes: +APLISOL5 TUB UNIT IC; +DILTIAZEM CD240 MG PO; +DULCOLAX10 M1 R; +FLEET ENEMA EX230 M1 R; +FLUTICASONE-SA1 EAC3 INH; +FUROSEMIDE40 MG PO; +MILK OF MA400 MG/5 M PO; +OYSTER SHELL 51 EACH PO
== END | disposition home or self-care (01) ==
LOC: TRNFUSION 01:03
PROVIDERS: ATTEND Internal Medicine
DX: D64.9 Anemia, unspecified (principal); J44.9 Chronic obstructive pulmonary disease, unspecified; F32.9 Major depressive disorder, single episode, unspecified; F41.9 Anxiety disorder, unspecified; I11.0 Hypertensive heart disease with heart failure; I50.42 Chronic combined systolic (congestive) and diastolic (congestive) heart failure; K21.9 Gastro-esophageal reflux disease without esophagitis; I48.91 Unspecified atrial fibrillation; E78.00 Pure hypercholesterolemia, unspecified; Z87.891 Personal history of nicotine dependence

== ENCOUNTER 2020-01-06 11:40 | Inpatient (IN) | payer MEDICAID ==
[~2020-01-06] VITALS: Ht 170.1 cm; Wt 104.6 kg
[2020-01-06 11:44] VITALS: BP 120/81
[2020-01-06 12:42] LABS: HEMATOCRIT 32.8 % (37.0-47.0); MEAN CELL VOLUME 89.6 fl (81.0-99.0); MEAN CORPUSCULAR HGB 23.8 pg (27.0-31.0); MEAN CORPUSCULAR HGB CONC 26.5 g/dl (33.0-37.0); MEAN PLATELET VOLUME 8.9 fl (9.6-12.3); NUCLEATED RED BLOOD CELL 0.1 % (0.0-0.0); PLATELET COUNT AUTOMATED 244 10*3/uL (130-400); RED BLOOD COUNT 3.66 10*6/uL (4.10-5.10); RED CELL DISTRI WIDTH 18.9 % (0-14.5); WHITE BLOOD COUNT 17.9 10*3/uL (4.8-10.8)
[2020-01-06 12:53] LABS: ACT PARTIAL THROMBO TIME 31.6 SECONDS (20.0-32.1); INTERNATIONAL NORM RATIO 1.1 (2.0-3.5)
[2020-01-06 12:58] LABS: ALBUMIN 2.7 gm/dl (3.1-4.5); ALKALINE PHOSPHATASE 72 U/L (45-117); BUN 16 mg/dl (7-24); CHLORIDE 106 mmol/L (98-107); CREATININE 0.65 mg/dL (0.55-1.02); LIPASE 37 U/L (73-393); SGOT/AST 6 IU/L (3-35); SGPT/ALT 14 U/L (12-78); SODIUM 145 mmol/L (136-145); TOTAL PROTEIN 6.9 gm/dL (6.4-8.2); URIC ACID 5.2 mg/dL (2.6-6.0)
[2020-01-06 13:00] LABS: PLATELET SUFFICIENCY NORMAL (NORMAL); POLYCHROMASIA SLIGHT; STOMATOCYTE MANY; TOTAL CELLS COUNTED 100 #CELLS; TROPONIN I < 0.015 ng/ml (<0.045)
[2020-01-06 14:02] VITALS: BP 145/78
[2020-01-06 14:29] LABS: ABG BASE EXCESS 1.8 mmol/L (-2.0-2.0)
[2020-01-06 14:33] LABS: ARTERIAL BLOOD GAS PH 7.163 (7.35-7.45)
[2020-01-06 15:06] VITALS: BP 109/62
[2020-01-06 15:45] VITALS: BP 137/91
[2020-01-06 17:57] LABS: ABG BASE EXCESS 5.5 mmol/L (-2.0-2.0); ARTERIAL BLOOD GAS PH 7.315 (7.35-7.45)
[2020-01-06 18:32] VITALS: BP 69/34
[2020-01-06 20:00] VITALS: BP 135/90
[2020-01-07 00:01] VITALS: BP 128/83
[2020-01-07 03:56] VITALS: BP 150/90
[2020-01-07 05:51] LABS: ALBUMIN 2.3 gm/dl (3.1-4.5); ALKALINE PHOSPHATASE 66 U/L (45-117); BUN 19 mg/dl (7-24); CHLORIDE 108 mmol/L (98-107); CREATININE 0.56 mg/dL (0.55-1.02); POTASSIUM 4.2 mmol/L (3.5-5.1); SGOT/AST 7 IU/L (3-35); SGPT/ALT 11 U/L (12-78); SODIUM 145 mmol/L (136-145); TOTAL PROTEIN 6.3 gm/dL (6.4-8.2)
[2020-01-07 05:57] LABS: HEMATOCRIT 29.7 % (37.0-47.0); MEAN CELL VOLUME 90.8 fl (81.0-99.0); MEAN CORPUSCULAR HGB 23.9 pg (27.0-31.0); MEAN CORPUSCULAR HGB CONC 26.3 g/dl (33.0-37.0); MEAN PLATELET VOLUME 9.8 fl (9.6-12.3); NUCLEATED RED BLOOD CELL 0.2 % (0.0-0.0); PLATELET COUNT AUTOMATED 246 10*3/uL (130-400); RED BLOOD COUNT 3.27 10*6/uL (4.10-5.10); RED CELL DISTRI WIDTH 18.4 % (0-14.5); WHITE BLOOD COUNT 15.4 10*3/uL (4.8-10.8)
[2020-01-07 07:07] LABS: OVALOCYTES MODERATE; PLATELET SUFFICIENCY NORMAL (NORMAL); STOMATOCYTE MODERATE; TOTAL CELLS COUNTED 100 #CELLS
[2020-01-07 07:42] LABS: ABG BASE EXCESS 4.5 mmol/L (-2.0-2.0); ARTERIAL BLOOD GAS PH 7.377 (7.35-7.45)
[2020-01-07 08:00] VITALS: BP 156/95
[2020-01-07 12:00] VITALS: BP 122/79
[2020-01-07 16:00] VITALS: BP 157/73
[2020-01-07 20:00] VITALS: BP 110/72
[2020-01-08] VITALS: BP 123/74
[2020-01-08 04:00] VITALS: BP 111/68
[2020-01-08 06:14] LABS: HEMATOCRIT 27.3 % (37.0-47.0); MEAN CELL VOLUME 89.8 fl (81.0-99.0); MEAN CORPUSCULAR HGB 23.7 pg (27.0-31.0); MEAN CORPUSCULAR HGB CONC 26.4 g/dl (33.0-37.0); MEAN PLATELET VOLUME 9.6 fl (9.6-12.3); NUCLEATED RED BLOOD CELL 0.2 10*3/uL (0.0-0.0); NUCLEATED RED BLOOD CELL 1.1 % (0.0-0.0); PLATELET COUNT AUTOMATED 246 10*3/uL (130-400); RED BLOOD COUNT 3.04 10*6/uL (4.10-5.10); RED CELL DISTRI WIDTH 17.9 % (0-14.5); WHITE BLOOD COUNT 14.1 10*3/uL (4.8-10.8)
[2020-01-08 07:42] LABS: PLATELET SUFFICIENCY NORMAL (NORMAL); TOTAL CELLS COUNTED 100 #CELLS
[2020-01-08 08:00] VITALS: BP 152/93
[2020-01-08 09:40] LABS: BUN 20 mg/dl (7-24); CHLORIDE 105 mmol/L (98-107); CREATININE 0.58 mg/dL (0.55-1.02); POTASSIUM 3.7 mmol/L (3.5-5.1); SODIUM 141 mmol/L (136-145)
[2020-01-08 12:00] VITALS: BP 129/69
[2020-01-08 16:00] VITALS: BP 129/66
[2020-01-08 20:00] VITALS: BP 135/77
[2020-01-09] VITALS: BP 120/70
[2020-01-09 04:25] VITALS: BP 147/87
[2020-01-09 05:36] LABS: BUN 21 mg/dl (7-24); CHLORIDE 105 mmol/L (98-107); POTASSIUM 3.5 mmol/L (3.5-5.1); SODIUM 142 mmol/L (136-145)
[2020-01-09 06:05] LABS: HEMATOCRIT 26.5 % (37.0-47.0); MEAN CELL VOLUME 89.2 fl (81.0-99.0); MEAN CORPUSCULAR HGB 24.2 pg (27.0-31.0); MEAN CORPUSCULAR HGB CONC 27.2 g/dl (33.0-37.0); MEAN PLATELET VOLUME 9.9 fl (9.6-12.3); NUCLEATED RED BLOOD CELL 0.1 10*3/uL (0.0-0.0); NUCLEATED RED BLOOD CELL 1.2 % (0.0-0.0); PLATELET COUNT AUTOMATED 284 10*3/uL (130-400); RED BLOOD COUNT 2.97 10*6/uL (4.10-5.10); RED CELL DISTRI WIDTH 18.2 % (0-14.5)
[2020-01-09 07:17] LABS: POLYCHROMASIA SLIGHT; TOTAL CELLS COUNTED 100 #CELLS
[2020-01-09 07:18] LABS: OVALOCYTES FEW; PLATELET SUFFICIENCY NORMAL (NORMAL); ROULEAUX SLIGHT
[2020-01-09 08:00] VITALS: BP 130/82
[2020-01-09 20:00] VITALS: BP 157/85
[2020-01-10] VITALS: BP 145/77
[2020-01-10 07:50] VITALS: BP 138/84
[2020-01-10 08:00] VITALS: BP 123/65
[2020-01-10 12:00] VITALS: BP 144/79
[2020-01-10 17:07] VITALS: BP 142/75
[2020-01-11] VITALS: BP 148/81
[2020-01-11 06:09] LABS: BUN 21 mg/dl (7-24); CHLORIDE 102 mmol/L (98-107); CREATININE 0.41 mg/dL (0.55-1.02); POTASSIUM 3.7 mmol/L (3.5-5.1); SODIUM 141 mmol/L (136-145)
[2020-01-11 06:16] LABS: HEMATOCRIT 28.2 % (37.0-47.0); MEAN CELL VOLUME 88.7 fl (81.0-99.0); MEAN CORPUSCULAR HGB 23.9 pg (27.0-31.0); MEAN PLATELET VOLUME 9.4 fl (9.6-12.3); NUCLEATED RED BLOOD CELL 0.1 10*3/uL (0.0-0.0); PLATELET COUNT AUTOMATED 290 10*3/uL (130-400); RED BLOOD COUNT 3.18 10*6/uL (4.10-5.10); RED CELL DISTRI WIDTH 17.8 % (0-14.5); WHITE BLOOD COUNT 13.3 10*3/uL (4.8-10.8)
[2020-01-11 07:52] LABS: PLATELET SUFFICIENCY NORMAL (NORMAL); POLYCHROMASIA SLIGHT; TOTAL CELLS COUNTED 100 #CELLS
[2020-01-11 08:00] VITALS: BP 158/88
[2020-01-11 16:00] VITALS: BP 143/81
[2020-01-11 20:00] VITALS: BP 169/96
[2020-01-12 00:22] VITALS: BP 138/72
[2020-01-12 06:33] LABS: HEMATOCRIT 26.8 % (37.0-47.0); MEAN CORPUSCULAR HGB 24.4 pg (27.0-31.0); MEAN CORPUSCULAR HGB CONC 28.7 g/dl (33.0-37.0); MEAN PLATELET VOLUME 9.6 fl (9.6-12.3); NUCLEATED RED BLOOD CELL 0.1 10*3/uL (0.0-0.0); NUCLEATED RED BLOOD CELL 0.8 % (0.0-0.0); PLATELET COUNT AUTOMATED 294 10*3/uL (130-400); RED BLOOD COUNT 3.15 10*6/uL (4.10-5.10); RED CELL DISTRI WIDTH 18.2 % (0-14.5); WHITE BLOOD COUNT 15.2 10*3/uL (4.8-10.8)
[2020-01-12 06:35] LABS: MEAN CELL VOLUME 85.1 fl (81.0-99.0)
[2020-01-12 06:44] LABS: BUN 20 mg/dl (7-24); CREATININE 0.48 mg/dL (0.55-1.02)
[2020-01-12 07:01] LABS: TOTAL CELLS COUNTED 100 #CELLS
[2020-01-12 07:02] LABS: OVALOCYTES FEW; PLATELET SUFFICIENCY NORMAL (NORMAL); POLYCHROMASIA SLIGHT
[2020-01-12 08:00] VITALS: BP 158/98
[2020-01-12 16:00] VITALS: BP 159/91
[2020-01-12 20:00] VITALS: BP 131/79
[2020-01-13] VITALS: BP 150/81
[2020-01-13 08:00] VITALS: BP 143/84
[2020-01-13] MEDS ORDERED: OXYCODONE HCL5 MG PO (09:25)
[2020-01-13] MEDS ORDERED: ALPRAZOLAM0.25 M2 PO (09:25)
[2020-01-13] MEDS ORDERED: PREDNISONE10 MG PO (10:01)
[2020-01-13] MEDS ORDERED: VIBRAMYCIN100 MG PO (10:02)
[2020-01-13] MEDS ORDERED: PREDNISONE5 MG PO (10:02)
[2020-01-13] MEDS ORDERED: ELIQUIS5 M1 PO (10:08)
== END 2020-01-13 22:47 | DRG 720 ==
LOC: ED 11:40 → 5E 13:41 → EDHOLD 13:41 → 5E 13:58 → ICCU 15:08 → 5E 01-09 17:55
PROVIDERS: Internal Medicine; Internal Medicine Critical Care Medicine; Nurse Practitioner Family; Registered Nurse; Student in an Organized Health Care Education/Training Program; ADMIT Internal Medicine; ATTEND Internal Medicine
PROC: 5A09357 Assistance with Respiratory Ventilation, Less than 24 Consecutive Hours, Continuous Positive Airway Pressure (ICD-10-PCS; 2020-01-06)
PROC: 5A09357 Assistance with Respiratory Ventilation, Less than 24 Consecutive Hours, Continuous Positive Airway Pressure (ICD-10-PCS; principal; 2020-01-07)
PROC: 5A09357 Assistance with Respiratory Ventilation, Less than 24 Consecutive Hours, Continuous Positive Airway Pressure (ICD-10-PCS; 2020-01-08)
PROC: 5A09357 Assistance with Respiratory Ventilation, Less than 24 Consecutive Hours, Continuous Positive Airway Pressure (ICD-10-PCS; 2020-01-09)
PROC: 5A09357 Assistance with Respiratory Ventilation, Less than 24 Consecutive Hours, Continuous Positive Airway Pressure (ICD-10-PCS; 2020-01-10)
PROC: 5A09357 Assistance with Respiratory Ventilation, Less than 24 Consecutive Hours, Continuous Positive Airway Pressure (ICD-10-PCS; 2020-01-11)
PROC: 5A09357 Assistance with Respiratory Ventilation, Less than 24 Consecutive Hours, Continuous Positive Airway Pressure (ICD-10-PCS; 2020-01-12)
PROC: 5A09357 Assistance with Respiratory Ventilation, Less than 24 Consecutive Hours, Continuous Positive Airway Pressure (ICD-10-PCS; 2020-01-13)
DX: A41.9 Sepsis, unspecified organism (principal); J96.21 Acute and chronic respiratory failure with hypoxia; J44.1 Chronic obstructive pulmonary disease with (acute) exacerbation; F41.1 Generalized anxiety disorder; D68.69 Other thrombophilia; E43 Unspecified severe protein-calorie malnutrition; G93.41 Metabolic encephalopathy; G47.33 Obstructive sleep apnea (adult) (pediatric); R65.20 Severe sepsis without septic shock; L03.116 Cellulitis of left lower limb; J96.22 Acute and chronic respiratory failure with hypercapnia; I50.33 Acute on chronic diastolic (congestive) heart failure; I48.11 Longstanding persistent atrial fibrillation; K21.9 Gastro-esophageal reflux disease without esophagitis; R00.1 Bradycardia, unspecified; E87.8 Other disorders of electrolyte and fluid balance, not elsewhere classified; G89.29 Other chronic pain; R73.9 Hyperglycemia, unspecified; K59.00 Constipation, unspecified; M51.9 Unspecified thoracic, thoracolumbar and lumbosacral intervertebral disc disorder; D63.8 Anemia in other chronic diseases classified elsewhere; E87.3 Alkalosis; Z20.828 Contact with and (suspected) exposure to other viral communicable diseases; E66.01 Morbid (severe) obesity due to excess calories; Z99.81 Dependence on supplemental oxygen; Z90.49 Acquired absence of other specified parts of digestive tract; Z86.718 Personal history of other venous thrombosis and embolism; Z87.891 Personal history of nicotine dependence; Z82.49 Family history of ischemic heart disease and other diseases of the circulatory system; Z82.5 Family history of asthma and other chronic lower respiratory diseases; Z82.3 Family history of stroke; Z80.1 Family history of malignant neoplasm of trachea, bronchus and lung; Z83.3 Family history of diabetes mellitus; Z88.0 Allergy status to penicillin; Z88.1 Allergy status to other antibiotic agents; Z79.899 Other long term (current) drug therapy; Z79.52 Long term (current) use of systemic steroids; Z68.39 Body mass index [BMI] 39.0-39.9, adult